=== PATIENT | male | born 1960 | race Caucasian/White ===

== ENCOUNTER 2019-10-31 16:19 | Inpatient (IN) | payer OTHER, SELFPAY ==
[2019-10-31] VITALS (29 sets, daily range): BP systolic 112–134; BP diastolic 67–94; PULSE 64–75; RESP 14–22; TEMP 36.2–37; O2SAT 93–99
--- NOTE | ~2019-10-31 | XR_ITS ---
EXAMINATION: XR chest 2V EXAM DATE: 10/31/2019 16:57 INDICATION: Left-sided Chest pain, dyspnea, history COPD. TECHNIQUE: Frontal and lateral projections of the chest obtained and reviewed. Comparison is made to prior examination from 10/31/2019. FINDINGS: Small amount of left basilar opacity, best seen on lateral projection, probably subsegment al atelectasis. Can't exclude developing infiltrate. Please clinically correlate. The lungs are otherwise clear. There are no pleural effusions. The cardiomediastinal silhouette is within normal limits. There is no pneumothorax suspected. The bones and soft tissues are unremarkab le. IMPRESSION: Small amount of basilar atelectasis or less likely pneumonia. Reviewed, dictated and finalized at location A.
--- NOTE | ~2019-10-31 | NM_ITS ---
EXAMINATION: NM jonnathan stress w perfusion DATE: 11/03/2019 11:47 INDICATION: Chest pressure TECHNIQUE: Rest images were obtained following intravenous administration of 10.5 mCi Tc99m tetrofosm in (Myoview). The patient was infused intravenously with Lexiscan (Regadenoson). Then, 31.77 mCi Tc99 m tetrofosmin (Myoview) was administered intravenously, and stress images were obtained. Data was rec onstructed into short axis and horizontal and vertical long axis SPECT images. Repeat post stress aakash ging was obtained in the prone position. Gated SPECT images were also obtained. COMPARISON: None. FINDINGS: There is a fixed perfusion defect along the mid and apical inferior segments which is more on the rest than the stress images and which further improved with decreased size and severity on pro ne imaging which suggests diaphragmatic attenuation artifact although mild infarct could not be exclu ded. No reversible perfusion defects on the stress imaging to suggest ischemia. There is normal left ventricular chamber size, wall motion and ejection fraction. Left ventricular ejection fraction connor sures >70%. IMPRESSION: 1. Mild fixed perfusion defect at the mid and apical inferior segments which appears to improve on pr one imaging and with no evident associated wall motion abnormality most likely related to diaphragmat ic attenuation artifact although infarct cannot be excluded. No ischemia. 2. Left ventricular ejection fraction measuring >70%. Reviewed, dictated and finalized at location A. IMPRESSION: 1. Mild fixed perfusion defect at the mid and apical inferior segments which ap pears to improve on prone imaging and with no evident associated wall motion ab normality most likely related to diaphragmatic attenuation artifact although in farct cannot be excluded. No ischemia. 2. Left ventricular ejection fraction measuring >70%.
--- NOTE | 2019-10-31 16:33 | ECG_ITS ---
Measurements Intervals [place] Rate: 68 P: 42 RI: 173 QRS: 24 QRSD: 85 T: 58 QT: 379 QTc: 405 Interpretive Statements SINUS RHYTHM NORMAL ECG Electronically Signed On 10-31-2019 17:18:11 CDT by Suhas Horn D.O.
--- NOTE | 2019-10-31 16:49 | ED.CHESTPAIN ---
HPI - Chest Pain General Chief Complaint: Chest Pain Stated Complaint: SOB Time Seen by Provider: 10/31/19 16:30 History of Present Illness HPI narrative: Patient is a 59-year-old male who presents ER with chest pain. Symptoms began at 330, strong pressure to the left chest without radiation. Patient felt very weak and was short of breath. He used a breathing treatment and placed his home oxygen on and began to feel slightly better. No history of coronary disease previously. Reports he was doing outdoor yard work during the living when symptoms occurred. Denies any runny nose/sore throat/productive cough. Reports he is wheezing little bit more today than he does typically due to the humidity outside. Related Data Home Medications Medication Instructions Recorded Confirmed albuterol sulfate 90 mcg INHALATION 10/31/19 amlodipine 10 mg PO DAILY 10/31/19 baclofen 20 mg PO 10/31/19 budesonide-formoterol [Symbicort] INHALATION 10/31/19 buspirone 5 mg PO DAILY 10/31/19 ipratropium-albuterol 3 ml INHALATION 10/31/19 montelukast 10 mg PO DAILY 10/31/19 nicotine 14 mg TRANSDERMAL 10/31/19 sertraline 100 mg PO DAILY 10/31/19 Allergies Allergy/AdvReac Type Severity Reaction Status Date / Time bacitracin Allergy Unknown Unknown Verified 01/13/19 17:29 neomycin Allergy Unknown Unknown Verified 01/13/19 17:29 Penicillins Allergy Unknown Rash Verified 01/13/19 17:29 polymyxin B Allergy Unknown Unknown Verified 01/13/19 17:29 Review of Systems Review of Systems: All systems reviewed & are unremarkable except as noted in HPI and below Constitutional: Constitutional: Denies chills, Denies fever(s) and Reports weakness ENT: Denies nasal congestion and Denies sore throat Cardiovascular: Cardiovascular: Denies chest pain Respiratory: Respiratory: Denies cough, Reports dyspnea and Reports wheezing Gastrointestinal: Gastrointestinal: Denies abdominal pain, Denies nausea and Denies vomiting PMFSH Past Medical History Medical History (Updated 10/31/19 @ 19:08 by Dwayne Oconnor MD) End stage COPD Hypertension Surgical History Surgical History (Updated 10/31/19 @ 16:52 by Dwayne Oconnor MD) History of orthopedic surgery Left biceps repair Social History Social History (Updated 08/03/20 @ 16:52 by Dwayne Oconnor MD) Smoking status: Current every day smoker Exam Narrative: Exam Narrative: GENERAL: Well-appearing, well-nourished, and in no acute distress. HEAD: Normocephalic, atraumatic. ENT: Mucous membranes moist. CHEST: Basilar wheezing with poor air movement throughout. No respiratory distress. HEART: Regular rate and rhythm. Normal peripheral pulses. ABDOMEN: Soft, nontender, nondistended. EXTREMITIES: Normal range of motion. No edema. SKIN: Warm, dry, no rash. NEURO: Alert and oriented x3. PSYCH: Normal mood and affect. Course Course Emergency Course: Admit to hospitalist service for observation for chest pain rule out given heart score of 4 and concerning symptoms and risk factors. Vital Signs Vital signs: Vital Signs Pulse Rate 73 10/31/19 16:30 Respiratory Rate 16 10/31/19 16:30 Temperature 98.6 F 10/31/19 16:34 Pulse Rate 68 10/31/19 17:59 Respiratory Rate 18 10/31/19 17:59 Blood Pressure 121/94 H 10/31/19 17:46 Pulse Oximetry 96 10/31/19 17:46 MDM - Chest Pain Lab Data Result diagrams: 10/31/19 16:42 10/31/19 16:42 Labs: Lab Results 10/31/19 10/31/19 10/31/19 Range/Units 16:42 16:42 16:42 WBC 7.8 (4.5-10.0) K/mm3 RBC 5.09 (4.6-6.20) M/mm3 Hgb 15.7 (14.0-18.0) g/dL Hct 45.4 (42.0-52.0) % MCV 89.2 (80-100) fl MCH 30.8 (26-34) pg MCHC 34.6 (32-36) g/dl RDW 12.8 (11.5-14.5) % Plt Count 275 (150-375) k/mm3 MPV 10.0 (7.4-10.4) fl Immature Gran % (Auto) 0.4 (0-0.5) % Neut % (Auto) 54.3 (45.5-73.1) % Lymph % (Auto) 31.6 (18.3-44.2) % Iron % (Au
[2019-10-31 16:51] LABS: Basophils Absolute Auto 0.1 K/mm3 (0.0-0.1); Eosinophils Absolute Auto 0.3 K/mm3 (0-0.3); Hematocrit 45.4 % (42.0-52.0); Hemoglobin 15.7 g/dL (14.0-18.0); Immature Granulocyte Absolute 0.03 K/mm3 (0.00-0.031); Immature Granulocyte Percent A 0.4 % (0-0.5); Lymphocytes Absolute Auto 2.46 K/mm3 (0.9-3.2); Lymphocytes Percent Auto 31.6 % (18.3-44.2); Mean Corpuscular HGB Conc 34.6 g/dl (32-36); Mean Corpuscular Hemoglobin 30.8 pg (26-34); Mean Corpuscular Volume 89.2 fl (80-100); Monocytes Absolute Auto 0.7 K/mm3 (0.1-0.6); Monocytes Percent Auto 8.7 % (2.6-8.5); Neutrophils Absolute Auto 4.2 K/mm3 (1.3-6.7); Neutrophils Percent Auto 54.3 % (45.5-73.1); Platelet Count Result 275 k/mm3 (150-375); Red Blood Count 5.09 M/mm3 (4.6-6.20); Red Cell Distribution Width 12.8 % (11.5-14.5); White Blood Count 7.8 K/mm3 (4.5-10.0)
[2019-10-31 17:01] LABS: Prothrombin Time 13.1 Seconds (11.1-14.7)
[2019-10-31 17:02] LABS: Partial Thromboplastin Time 33.1 SECONDS (22.3-36.8)
[2019-10-31 17:05] LABS: Blood Urea Nitrogen 21 mg/dL (9-20); Calcium 9.1 mg/dL (8.4-10.2); Carbon Dioxide 26 mmol/L (22-30); Chloride 104 mmol/L (98-107); Estimated CRCL calculation 68 ml/min; Estimated Glomerular Filt Rate > 60; Glucose 100 mg/dL (75-110); Sodium 137 mmol/L (137-145)
[2019-10-31 17:17] LABS: Troponin I < 0.012 ng/mL (0.000-0.034)
[2019-10-31] MEDS: ALBUTEROL SULFATE NEB 2.5 MG/0.5 ML INH 5 MG INHALATION ×2 (17:43→21:14)
--- NOTE | 2019-10-31 19:16 | PC.NURSE ---
report received from DANIEL Harman. pt resting on stretcher at this time with family member at bedside. denies any needs/concerns, updated pt and family on poc. VS stable, RR even and unlabored. pt provided with urinal.
[2019-10-31 20:39] LABS: Troponin I < 0.012 ng/mL (0.000-0.034)
[2019-10-31] MEDS: IPRATROPIUM BR 0.02% INH SOLN 0.5 MG/2.5 ML VIAL INHALATION (21:14)
--- NOTE | 2019-10-31 22:35 | ADMGEN ---
This patient, Jeremiah Claire, was admitted to IMU Room 214-01. Patient/family oriented to hospital policies and general routines including ID bracelet, bed and alarms, visiting hours, pain management, procedures, bathroom and other care routines, personal items, smoking policy, room service/diet, and visiting hours. Valuables list has been completed. Information on how to activate the Rapid Response Team has been discussed. Patient/Family are encouraged to report perceived risks to care and to ask questions if they do not understand what they are told or what they should do.
--- NOTE | 2019-10-31 22:57 | PM.IMHP ---
H&P: HPI History of Present Illness Date/Time: 10/31/19 22:57 Chief complaint: chest pain, copd Narrative: This is a pleasant 59 year old male with known end stage COPD on 3 L of oxygen at home at all times as well as HTN who presented to the hospital today with a complaint of left sided chest pain. He has had intermittent chest pain for over a month and today after walking to his truck he sat in it and immediately started to have severe left sided chest pain that he described as pressure like. His pain seemed to radiate down the left side of his body. He describes the pain lasting for over 30 minutes and improved once he had aspirin and put his oxygen back on. Associated symptoms included weakness, nausea, and diaphoresis. The patient denies any previous history of CAD+, stress testing, or previous cardiac angiogram. He also denies any recent fevers, chills, worsening cough, abdominal pain, dysuria, hematuria, dysuria, rectal bleeding, diarrhea, or lower extremity swelling/pain. The patient relates that he has been under a great deal of stress lately as his can't work and he has been forced to work even though he has end stage COPD. The patient continues to smoke 5-10 cigarettes daily despite having oxygen dependent COPD. No other complaints. Review of Systems Review of Systems: All systems reviewed & are unremarkable except as noted in HPI and below PMFSH Past Medical History Medical History End stage COPD Hypertension Surgical History Surgical History History of orthopedic surgery Left biceps repair Social History Social History Smoking packs per day: 0.5 Smoking cigarettes per day: 10.0 Years smoked: 30 Smoking pack-years: 15.00 Smoking status: Current every day smoker Tobacco type: cigarettes Alcohol intake: never Substance use: never Substance use type: does not use Spiritual care concerns: No Comments Family medical history reviewed and noncontributory. Meds Home Medications and Allergies Home Medications Medication Instructions Recorded Confirmed Type albuterol sulfate 90 mcg INHALATION Q4H 10/31/19 10/31/19 History amlodipine 10 mg PO DAILY 10/31/19 10/31/19 History baclofen 20 mg PO TID PRN 10/31/19 10/31/19 History budesonide-formoterol [Symbicort] 2 puff INHALATION BID 10/31/19 10/31/19 History buspirone 10 mg PO BID 10/31/19 10/31/19 History ibuprofen 1,000 mg PO TID PRN 10/31/19 10/31/19 History ipratropium-albuterol 3 ml INHALATION BID 10/31/19 10/31/19 History montelukast 10 mg PO HS 10/31/19 10/31/19 History nicotine 14 mg TRANSDERMAL DAILY 10/31/19 10/31/19 History oxymetazoline [Afrin Sinus 2 spray INTRANASAL Q12H PRN 10/31/19 10/31/19 History (oxymetazoline)] pregabalin [Lyrica] 200 mg PO Q12H 10/31/19 10/31/19 History sertraline 100 mg PO HS 10/31/19 10/31/19 History Allergies Allergy/AdvReac Type Severity Reaction Status Date / Time bacitracin Allergy Unknown Unknown Verified 01/13/19 17:29 neomycin Allergy Unknown Unknown Verified 01/13/19 17:29 Penicillins Allergy Unknown Rash Verified 01/13/19 17:29 polymyxin B Allergy Unknown Unknown Verified 01/13/19 17:29 Vital Signs Vital Signs - 24 hr 10/31/19 16:30 10/31/19 16:31 10/31/19 16:34 Temperature 37.0 C Pulse Rate 73 75 75 Respiratory Rate 16 19 16 Blood Pressure 131/76 131/67 Pulse Oximetry 95 10/31/19 16:45 10/31/19 16:46 10/31/19 17:00 Temperature Pulse Rate 75 73 71 Respiratory Rate 15 18 19 Blood Pressure 121/85 Pulse Oximetry 95 95 95 10/31/19 17:15 10/31/19 17:18 10/31/19 17:30 Temperature Pulse Rate 69 67 67 Respiratory Rate 18 20 20 Blood Pressure 131/81 Pulse Oximetry 96 95 95 10/31/19 17:31 10/31/19 17:44 10/31/19 17:45 Temperature Pulse Rate 66 75 66 Respiratory Rate 15 21 H 18
--- NOTE | 2019-10-31 23:01 | ECG_ITS ---
Measurements Intervals [place] Rate: 67 P: 61 NC: 184 QRS: 57 QRSD: 90 T: 65 QT: 406 QTc: 431 Interpretive Statements SINUS RHYTHM BORDERLINE ST ABNORMALITY- INFERIOR LEADS BASELINE ARTIFACT- V3-V5 BORDERLINE ECG Electronically Signed On 11-01-2019 6:47:46 CDT by Suhas Horn D.O.
[2019-10-31 23:24] LABS: Lipase 67 U/L (23-300)
[2019-10-31 23:34] LABS: Troponin I < 0.012 ng/mL (0.000-0.034)
[2019-11-01] VITALS (24 sets, daily range): BP systolic 98–121; BP diastolic 48–75; PULSE 60–78; RESP 16–22; TEMP 35.7–36.7; O2SAT 92–96; BMI 31.9
--- NOTE | 2019-11-01 | ECHO_ITS ---
Patient Info Name: Jeremiah Claire Age: 59 years : 1960 Gender: Male Ht: 64 in Wt: 186 lbs BSA: 1.98 m2 HR: 65 bpm BP: 111 / 75 mmHg Heart Rhythm: Sinus Rhythm Technical Quality: Good Exam Date: 11/01/2019 1:49 PM Exam Location: [facility] Patient Status: Inpatient Admit Date: 10/31/2019 Staff Ordering Physician: Last Cooley MD [place] Room Worker: Nghia Buchanan RDCS Attending Provider: Neptali Mitchell MD Exam Type: CA echo doppler color flow Study Info Indications R07.9 - Chest pain, unspecified Complete two-dimensional, color flow and Doppler transthoracic echocardiogram is performed. History/Risk Factors Chest pain and end-stage COPD; HTN. Summary 1. There is mild aortic valve sclerosis. 2. The left ventricular diastolic function is grade I diastolic dysfunction. 3. Normal LV systolic function without wall motion abnormalities. Left Ventricle Left ventricular chamber dimension is normal. Left ventricular systolic function is normal, estimated at 65-70%. The left ventricular diastolic function is grade I diastolic dysfunction. Right Ventricle Right ventricular chamber dimension is normal. Left Atria Left atrial chamber dimension is normal. Right Atria Right atrial chamber dimension is normal. Aortic Valve The aortic valve is trileaflet. There is mild aortic valve sclerosis. Pulmonic Valve The pulmonic valve is normal. Mitral Valve The mitral valve has normal leaflets. Tricuspid Valve The tricuspid valve leaflets are normal. Pericardium/Pleural The pericardium appears normal. Aorta The aortic root size at the sinus of Valsalva is normal. Left Ventricular Outflow Tract Name Value Normal LVOT 2D LVOT Diameter 2.1 cm LVOT Doppler LVOT Peak Gradient 4 mmHg LVOT Mean Gradient 2 mmHg LVOT VTI 15 cm LVOT VTI/AV VTI Ratio 0.8 LVOT Stroke Volume 54 ml LVOT CO 3.7 l/min LVOT CI 1.9 l/min/m2 Mitral Valve Name Value Normal MV Doppler MV Decel [place] 100 cm/s2 MV PHT 115 ms MV Area (PHT) 1.9 cm2 4.0-5.0 MV Diastolic Function MV E Peak Velocity 40 cm/s MV A Peak Velocity 52 cm/s MV E/A 0.8 MV Decel Time 396 ms MV Annular TDI MV E/e' (Septal) 6.2 <=8.0 MV E/e' (Lateral) 4.
[2019-11-01] MEDS: PREGABALIN 50 MG CAPSULE 200 MG PO ×3 (00:01→20:51)
[2019-11-01] MEDS: SERTRALINE HCL 50 MG TABLET 100 MG PO ×2 (00:48→20:52)
[2019-11-01] MEDS: MONTELUKAST SODIUM 10 MG TABLET PO ×2 (00:48→20:53)
[2019-11-01] MEDS: ALBUTEROL SULFATE NEB 2.5 MG/0.5 ML INH 5 MG INHALATION ×4 (02:13→20:57)
[2019-11-01] MEDS: IPRATROPIUM BR 0.02% INH SOLN 0.5 MG/2.5 ML VIAL INHALATION ×4 (02:13→20:57)
[2019-11-01 05:54] LABS: Anion Gap 9.7 mmol/L (7-16); Blood Urea Nitrogen 17 mg/dL (9-20); Calcium 8.6 mg/dL (8.4-10.2); Carbon Dioxide 28 mmol/L (22-30); Chloride 102 mmol/L (98-107); Cholesterol 244 mg/dL (0-200); Estimated CRCL calculation 75 ml/min; Estimated Glomerular Filt Rate > 60; Glucose 119 mg/dL (75-110); HDL Direct 34 mg/dL; Potassium 3.7 mmol/L (3.4-5.0); Sodium 136 mmol/L (137-145); Triglycerides 478 mg/dL (<150)
[2019-11-01 06:05] LABS: LDL Cholesterol Direct 131 mg/dL
[2019-11-01] MEDS: amLODIPine BESYLATE 5 MG TABLET 10 MG PO (09:18)
[2019-11-01] MEDS: BACLOFEN 10 MG TABLET 20 MG PO ×3 (09:18→17:26)
[2019-11-01] MEDS: busPIRone HCL 5 MG TABLET 10 MG PO ×2 (09:20→17:10)
--- NOTE | 2019-11-01 11:34 | PM.CNCAR ---
Assessment and Plan Assessment and plan (1) Chest pain: Qualifiers: Chest pain type: unspecified Qualified Code(s): R07.9 - Chest pain, unspecified Code(s): R07.9 - Chest pain, unspecified Status: Acute Assessment and Plan: 59-year-old male with hypertension, dyslipidemia /hypertriglyceridemia, severe COPD on home oxygen. Patient presented with complaints of chest discomfort. His EKG is unremarkable, serial troponins are negative. Patient's coronary risk factors include ongoing tobacco abuse, hypertension, untreated dyslipidemia. - Will proceed with echocardiogram with Doppler to assess LV / RV function, wall motion. - Noninvasive ischemic evaluation , unless echocardiogram shows significant LV dysfunction and or wall motion abnormality, in that case he will undergo cardiac catheterization. Patient has COPD and diffuse rhonchi/ wheezes on physical examination. Will reassess him in the morning, and will do regadenoson MPI if no significant wheezing on physical examination. If patient continues to have clinical signs of bronchospasm, then he will undergo dobutamine MPI tomorrow to evaluate for any significant ischemia. - Start aspirin. - Continue to monitor on telemetry - patient advised to quit tobacco. (2) Hypertension: Qualifiers: Hypertension type: unspecified Qualified Code(s): I10 - Essential (primary) hypertension Code(s): I10 - Essential (primary) hypertension Status: Chronic (3) COPD (chronic obstructive pulmonary disease): Qualifiers: COPD type: unspecified COPD Qualified Code(s): J44.9 - Chronic obstructive pulmonary disease, unspecified Code(s): J44.9 - Chronic obstructive pulmonary disease, unspecified Status: Chronic History of Present Illness History of Present Illness Consult date/time: 11/01/19 11:34 Date of service: 11/01/2019 reason for consult: Chest pain Requesting physician: Chief complaint: chest pain since yesterday HPI: 59-year-old male with hypertension, dyslipidemia /hypertriglyceridemia, severe COPD on home oxygen. Patient presented to [facility] emergency room on 10/31/2019 with complaints of chest discomfort. patient states that he was in his usual state of health when he started having gradual onset left inframammary chest discomfort, pressure-like sensation with some radiation to the left neck. His symptoms lasted for about 20 minutes, although he still has some residual discomfort in the left precordial area. He had some worsening of the shortness of breath. Patient does have baseline dyspnea on mild exertion due to his underlying COPD. He is on home oxygen 3 liters/minute. He denied any dizziness, palpitations, syncope. There is no known prior cardiac history. EKG on this admission which I personally evaluated showed sinus rhythm without any significant acute ST-T abnormality. Serial troponins are negative. Chest x-ray is reported show Small amount of basilar atelectasis or less likely pneumonia. patient has severe COPD and is on home oxygen, however history continues to smoke. denies excess alcohol or illicit drugs. Lives with his . Reason For Visit: chest pain, copd Review of Systems Constitutional: Constitutional: Denies chills, Denies fatigue, Denies fever(s) and Denies headache(s) Eyes: Eyes: Reports as per HPI, Denies change in vision, Denies loss of vision and Denies eye pain ENT: Reports as per HPI, Reports Normal hearing present, Denies headache(s), Denies lip swelling, Denies epistaxis and Denies sore throat Cardiovascular: Cardiovascular: Reports as per HPI, Reports chest pain, Denies syncope, Denies irregular heart rhythm, Denies lightheadedness and Reports dyspnea Respiratory: Respiratory: Reports as per HPI, Denies cough, Reports dyspnea and Reports wheezing Gastrointestinal: Gastrointestinal: Reports as per HPI, Denies abdominal pain, Denies melena,
--- NOTE | 2019-11-01 18:28 | PM.IMPN ---
Progress Note: A&P Assessment and Plan (1) Chest pain: Qualifiers: Chest pain type: unspecified Qualified Code(s): R07.9 - Chest pain, unspecified Code(s): R07.9 - Chest pain, unspecified Status: Acute Assessment and Plan: Admit for observation, NPO after midnight. Trend troponin. Check another EKg now. Monitor for chest pain, Nitro SL PRN for chest pain, Check lipase and lipid panel. Cardiology consultation in am. 11/01/19 18:28 patient is a 59-year-old male with end-stage COPD unfortunately he still smokes patient presented emergency depart after he had developed chest pain lasting 30 minutes radiating to the left arm, patient is 3 sets of cardiac enzymes are negative, patient is seen by eviscerator cardiac echo and non invasive workup is in progress and further recommendation to follow, currently patient denies any chest pain, complaint of shortness of breath chronic for the patient (2) COPD (chronic obstructive pulmonary disease): Qualifiers: COPD type: unspecified COPD Qualified Code(s): J44.9 - Chronic obstructive pulmonary disease, unspecified Code(s): J44.9 - Chronic obstructive pulmonary disease, unspecified Status: Chronic Assessment and Plan: Continue oxygen supplementation. Bronchodilators. (3) Hypertension: Qualifiers: Hypertension type: unspecified Qualified Code(s): I10 - Essential (primary) hypertension Code(s): I10 - Essential (primary) hypertension Status: Chronic Assessment and Plan: Continue home antihypertensives. Subjective Date/time seen: 11/01/19 18:28 patient is a 59-year-old male with end-stage COPD unfortunately he still smokes patient presented emergency depart after he had developed chest pain lasting 30 minutes radiating to the left arm, patient is 3 sets of cardiac enzymes are negative, patient is seen by eviscerator cardiac echo and non invasive workup is in progress and further recommendation to follow, currently patient denies any chest pain, complaint of shortness of breath chronic for the patient Review of Systems Review of Systems: All systems reviewed & are unremarkable except as noted in HPI and below Exam Const: General: no acute distress and uncomfortable HENMT: General nose exam: Normal nares present Mouth: Yes moist mucous membranes Eyes: General: appearance normal, both eyes and all related structures Sclera: sclerae normal Neck: Other: no retraction Resp: Other: bilateral poor air entry with wheezing Cardio: Rate: regular rate Rhythm: regular rhythm GI: Auscultation: normal bowel sounds Skin: General skin exam: normal color Neuro: Speech: normal speech Sensory Exam: normal sensation Extrem: General: normal to inspection Psych: Affect: Anxious affect present Objective Data Vital Signs Vital Signs: Vital Signs - 24 hr 10/31/19 18:30 10/31/19 18:45 10/31/19 18:46 Temperature Pulse Rate 67 66 Respiratory Rate 16 17 Blood Pressure 117/82 Pulse Oximetry 96 94 94 10/31/19 19:00 10/31/19 19:01 10/31/19 20:36 Temperature Pulse Rate 66 66 65 Respiratory Rate 15 15 16 Blood Pressure 120/82 134/76 Pulse Oximetry 94 96 93 10/31/19 21:17 10/31/19 21:18 10/31/19 21:24 Temperature Pulse Rate 68 68 72 Respiratory Rate 14 14 16 Blood Pressure Pulse Oximetry 95 10/31/19 21:45 11/01/19 00:00 11/01/19 02:00 Temperature 97.1 F L 97.1 F L Pulse Rate 74 78 60 Respiratory Rate 22 H 20 Blood Pressure 115/85 115/66 Pulse Oximetry 96 95 11/01/19 02:13 11/01/19 02:20 11/01/19 04:00 Temperature 98.1 F Pulse Rate 66 68 62 Respiratory Rate 16 16 18 Blood Pressure 98/48 L Pulse Oximetry 94 11/01/19 06:00 11/01/19 08:00 11/01/19 08:28 Temperature 97.8 F Pulse Rate 68 62 62 Respiratory Rate 22 H Blood Pressure 109/70 Pulse Oximetry 94 11/01/19 09:20 11/01/19 09:32 11/01/19 10:00 Temperature Pulse
[2019-11-02] VITALS (24 sets, daily range): BP systolic 116–150; BP diastolic 66–76; PULSE 60–81; RESP 16–24; TEMP 35.9–36.6; O2SAT 92–98
[2019-11-02] MEDS: ALBUTEROL SULFATE NEB 2.5 MG/0.5 ML INH 5 MG INHALATION ×2 (02:41→08:58)
[2019-11-02] MEDS: IPRATROPIUM BR 0.02% INH SOLN 0.5 MG/2.5 ML VIAL INHALATION ×5 (02:41→20:12)
[2019-11-02] MEDS: ASPIRIN 81 MG ENTERIC TABLET PO (08:54)
[2019-11-02] MEDS: busPIRone HCL 5 MG TABLET 10 MG PO ×2 (08:54→16:47)
[2019-11-02] MEDS: BACLOFEN 10 MG TABLET 20 MG PO ×2 (08:55→16:57)
[2019-11-02] MEDS: PREGABALIN 50 MG CAPSULE 200 MG PO ×2 (08:55→21:06)
[2019-11-02] MEDS: amLODIPine BESYLATE 5 MG TABLET 10 MG PO (08:55)
--- NOTE | 2019-11-02 11:09 | PM.PNCARD ---
Progress Note: A&P Assessment and Plan (1) Chest pain: Qualifiers: Chest pain type: unspecified Qualified Code(s): R07.9 - Chest pain, unspecified Code(s): R07.9 - Chest pain, unspecified Status: Acute Assessment and Plan: 59-year-old male with hypertension, dyslipidemia /hypertriglyceridemia, severe COPD on home oxygen. Presented with complaints of chest discomfort. His EKG is unremarkable, serial troponins are negative. Coronary risk factors include ongoing tobacco abuse, hypertension, untreated dyslipidemia. Echocardiogram 11/01/2019: Mild aortic valve sclerosis, left ventricular diastolic function is grade 1 diastolic dysfunction. Normal LV systolic function without wall motion abnormality. Ejection fraction estimated 65-70% Noninvasive ischemic evaluation: Still has significant wheezing today. Nebulizer treatments have ordered as well as Solu-Medrol. Will plan for Lexiscan nuclear stress test tomorrow. No significant arrhythmias on telemetry. Continue aspirin. (2) Hypertension: Qualifiers: Hypertension type: unspecified Qualified Code(s): I10 - Essential (primary) hypertension Code(s): I10 - Essential (primary) hypertension Status: Chronic Assessment and Plan: At goal (3) COPD (chronic obstructive pulmonary disease): Qualifiers: COPD type: unspecified COPD Qualified Code(s): J44.9 - Chronic obstructive pulmonary disease, unspecified Code(s): J44.9 - Chronic obstructive pulmonary disease, unspecified Status: Chronic Assessment and Plan: Continues to smoke. Down from 2 packs per day to 1/2 pack per day. Smoking cessation counseling done. Additional Plan Plan discussed with Dr. Baires 1115 11/02/2019 Time Spent With Patient Time with patient: less than 15 minutes Subjective Date/time seen: 11/02/19 11:09 Interval history: Follow up for: Chest pressure, severe COPD, hypertension, hyperlipidemia Date of service: 11/02/2019 Subjective: No chest pressure today. Exertional shortness of breath is at baseline. Productive cough is at baseline. Secretions are clear. Wheezing is improved as he is not out in the heat and humidity. Review of Systems Constitutional: Constitutional: Denies chills, Denies fatigue, Denies fever(s) and Denies headache(s) Eyes: Eyes: Denies blurry vision, Denies change in vision, Denies loss of vision and Denies eye pain ENT: Reports Normal hearing present, Denies headache(s), Denies lip swelling, Denies epistaxis and Denies sore throat Cardiovascular: Cardiovascular: Reports chest pain ( No pressure today.), Denies syncope, Denies irregular heart rhythm, Denies lightheadedness and Reports dyspnea ( improved) Respiratory: Respiratory: Reports cough ( at baseline), Reports dyspnea ( improved) and Reports wheezing ( improved) Gastrointestinal: Gastrointestinal: Denies abdominal pain, Denies melena, Denies nausea and Denies vomiting Genitourinary: Genitourinary: Denies hematuria Musculoskeletal: Musculoskeletal: Denies myalgias, Denies muscle cramps and Denies muscle weakness Integumentary/Breasts: Skin/Breast: Denies pruritus and Denies rash Neurologic: Reports Normal hearing present, Denies behavioral changes, Denies syncope, Denies headache(s) and Denies loss of vision Psychiatric: Psychiatric: Denies anxiety, Denies behavioral changes and Denies depression Endocrine: Endocrine: Reports as per HPI, Denies fatigue, Denies polydipsia and Denies polyuria Hematologic/Lymphatic: Hematologic/Lymphatic: Reports as per HPI, Denies easy bleeding and Denies easy bruising Allergic/Immunologic: Allergic/Immunologic: Reports as per HPI, Denies lip swelling and Denies wheezing Exam Const: General: no acute distress, alert and awake HENMT: Head: normocephalic and atraumatic Ears: hearing grossly
[2019-11-02] MEDS: methylPREDNISolone SOD SUCC 125 MG VIAL 60 MG IV PUSH ×3 (11:42→21:07)
[2019-11-02] MEDS: ALBUTEROL SULFATE NEB 2.5 MG/0.5 ML INH INHALATION ×3 (12:03→20:12)
[2019-11-02] MEDS: ALPRAZolam 0.25 MG TABLET PO (15:01)
[2019-11-02] MEDS: NICOTINE (*PBKC) 14 MG PATCH 1 PATCH TRANSDERM (15:11)
--- NOTE | 2019-11-02 17:20 | PC.NURSE ---
Transfer received from IMU per bed. Report received from DANIEL Piña.
--- NOTE | 2019-11-02 17:23 | PC.NURSE ---
This patient, Jeremiah Claire, was transferred to [facility] on 11/02/19 at 1723. Personal belongings sent with patient. Report given to DANIEL Khoury. Appropriate documentation sent with patient.
--- NOTE | 2019-11-02 18:03 | PM.IMPN ---
Progress Note: A&P Assessment and Plan (1) Chest pain: Qualifiers: Chest pain type: unspecified Qualified Code(s): R07.9 - Chest pain, unspecified Code(s): R07.9 - Chest pain, unspecified Status: Acute Assessment and Plan: Admit for observation, NPO after midnight. Trend troponin. Check another EKg now. Monitor for chest pain, Nitro SL PRN for chest pain, Check lipase and lipid panel. Cardiology consultation in am. 11/02/19 18:03 patient is a 59-year-old male with end-stage COPD unfortunately he still smokes patient presented emergency depart after he had developed chest pain lasting 30 minutes radiating to the left arm, patient is 3 sets of cardiac enzymes are negative, patient was seen by province archivist cardiac echo was done which showed preserved LV function with ejection fraction of 65% and grade 1 diastolic dysfunction, patient has remained clinically stable still has shortness of breath and wheezing, patient is being treated with Solu-Medrol updraft and Pulmicort, and patient is seen by province archivist today planned to have Lexiscan tomorrow to further assess coronary artery disease and further recommendation to follow (2) COPD (chronic obstructive pulmonary disease): Qualifiers: COPD type: unspecified COPD Qualified Code(s): J44.9 - Chronic obstructive pulmonary disease, unspecified Code(s): J44.9 - Chronic obstructive pulmonary disease, unspecified Status: Chronic Assessment and Plan: Continue oxygen supplementation. Bronchodilators. (3) Hypertension: Qualifiers: Hypertension type: unspecified Qualified Code(s): I10 - Essential (primary) hypertension Code(s): I10 - Essential (primary) hypertension Status: Chronic Assessment and Plan: Continue home antihypertensives. Subjective Date/time seen: 11/02/19 18:03 patient is a 59-year-old male with end-stage COPD unfortunately he still smokes patient presented emergency depart after he had developed chest pain lasting 30 minutes radiating to the left arm, patient is 3 sets of cardiac enzymes are negative, patient was seen by province archivist cardiac echo was done which showed preserved LV function with ejection fraction of 65% and grade 1 diastolic dysfunction, patient has remained clinically stable still has shortness of breath and wheezing, patient is being treated with Solu-Medrol updraft and Pulmicort, and patient is seen by province archivist today planned to have Lexiscan tomorrow to further assess coronary artery disease and further recommendation to follow Review of Systems Review of Systems: All systems reviewed & are unremarkable except as noted in HPI and below Exam Const: General: comfortable and no acute distress HENMT: General nose exam: Normal nares present Mouth: Yes moist mucous membranes Eyes: General: appearance normal, both eyes and all related structures Sclera: sclerae normal Neck: Neck: supple Resp: Other: bilateral poor air entry with wheezing and rhonchi Cardio: Rate: regular rate Rhythm: regular rhythm GI: Auscultation: normal bowel sounds Skin: General skin exam: normal color Neuro: Speech: normal speech Sensory Exam: normal sensation Extrem: General: normal to inspection Psych: Affect: Anxious affect present Objective Data Vital Signs Vital Signs: Vital Signs - 24 hr 11/01/19 20:00 11/01/19 20:27 11/01/19 21:00 Temperature 96.2 F L Pulse Rate 74 75 65 Respiratory Rate 20 18 18 Blood Pressure 121/67 Pulse Oximetry 95 92 95 11/01/19 21:01 11/01/19 21:13 11/01/19 22:00 Temperature Pulse Rate 65 65 62 Respiratory Rate 20 20 Blood Pressure Pulse Oximetry 11/02/19 00:00 11/02/19 00:20 11/02/19 02:00 Temperature 96.7 F L Pulse Rate 76 72 64 Respiratory Rate 20 18 Blood Pressure 117/74 Pulse Oximetry 95 95 11/02/19 02:42 11/02/19 02:49 11/02/19 04:00 Temperature Pulse Rate 66 66 60 Respiratory Rat
[2019-11-02] MEDS: BUDESONIDE RESPULE NEB 0.5 MG/2 ML AMP INHALATION (20:12)
[2019-11-02] MEDS: SERTRALINE HCL 50 MG TABLET 100 MG PO (21:06)
[2019-11-02] MEDS: MONTELUKAST SODIUM 10 MG TABLET PO (21:06)
[2019-11-03] VITALS (11 sets, daily range): BP systolic 120–144; BP diastolic 57–72; PULSE 72–89; RESP 14–20; TEMP 36.6; O2SAT 94–98
[2019-11-03] MEDS: ALBUTEROL SULFATE NEB 2.5 MG/0.5 ML INH INHALATION ×3 (00:35→12:10)
[2019-11-03] MEDS: IPRATROPIUM BR 0.02% INH SOLN 0.5 MG/2.5 ML VIAL INHALATION ×3 (00:35→12:10)
[2019-11-03] MEDS: BACLOFEN 10 MG TABLET 20 MG PO ×2 (00:36→08:37)
[2019-11-03] MEDS: ACETAMINOPHEN 325 MG TABLET 650 MG PO (04:26)
[2019-11-03] MEDS: methylPREDNISolone SOD SUCC 125 MG VIAL 60 MG IV PUSH ×2 (05:21→13:15)
[2019-11-03] MEDS: amLODIPine BESYLATE 5 MG TABLET 10 MG PO (08:29)
[2019-11-03] MEDS: PREGABALIN 50 MG CAPSULE 200 MG PO (08:29)
[2019-11-03] MEDS: ASPIRIN 81 MG ENTERIC TABLET PO (08:29)
[2019-11-03] MEDS: busPIRone HCL 5 MG TABLET 10 MG PO (08:30)
--- NOTE | 2019-11-03 09:10 | PC.NURSE ---
Patient to nuclear medicine per wheelchair for vitaliy.
--- NOTE | 2019-11-03 10:00 | EST_ITS ---
Patient Info Name: Jeremiah Claire Age: 59 years : 1960 Gender: Male Ht: 64 in Wt: 188 lbs BSA: 1.99 m2 HR: 68 bpm BP: 124 / 66 mmHg Heart Rhythm: Sinus Rhythm Exam Date: 11/03/2019 10:12 AM Exam Location: [facility] Stress Patient Status: Inpatient Admit Date: 11/02/2019 Staff Ordering Physician: Francie Pradhan APRN Exercise Technologist: Imani Kang RDCS Nurse: Francie Pradhan, ANP, ACNP-BC Exam Type: CA stress jonnathan w NM Study Info Indications - Chest Pressure A regadenoson stress test was performed. Summary 1. No abnormal ST-T wave changes with lexiscan. 2. Nuclear test results to follow. Protocol: Lexiscan Stress ECG Details Stage: REST Duration (min): 1 min : 8 sec HR (bpm): 69 SBP (mmHg): 124 DBP (mmHg): 66 Stage: REST Duration (min): 11 min : 8 sec HR (bpm): 68 SBP (mmHg): 124 DBP (mmHg): 66 Stage: STAGE 1 Duration (min): 0 min : 59 sec HR (bpm): 86 SBP (mmHg): 118 DBP (mmHg): 83 Stage: RECOVERY Duration (min): 1 min : 0 sec HR (bpm): 87 SBP (mmHg): 116 DBP (mmHg): 67 Stage: RECOVERY Duration (min): 2 min : 0 sec HR (bpm): 83 SBP (mmHg): 116 DBP (mmHg): 67 Stage: RECOVERY Duration (min): 3 min : 0 sec HR (bpm): 82 SBP (mmHg): 116 DBP (mmHg): 65 Stage: RECOVERY Duration (min): 4 min : 0 sec HR (bpm): 82 SBP (mmHg): 116 DBP (mmHg): 65 Stage: RECOVERY Duration (min): 5 min : 0 sec HR (bpm): 78 SBP (mmHg): 116 DBP (mmHg): 60 Stage: RECOVERY Duration (min): 5 min : 39 sec HR (bpm): 78 SBP (mmHg): 116 DBP (mmHg): 60 Rest HR: 68 bpm Peak HR: 90 bpm Rest Sys BP: 124 mmHg Peak Sys BP: 118 mmHg Max Pred HR: 161 bpm % Max Pred HR: 56 % Target HR: 137 bpm Max RPP: 10,620 bpm*mmHg BP Response: Normal blood pressure response Termination Reason: Completed protocol Cardiac Symptoms: Chest discomfort, Shortness of breath Total Time: 1 min : 0 sec Rest Cr BP: 66 mmHg Peak Cr BP: 83 mmHg Total Dose: 0.4 mg Resting ECG Normal sinus rhythm - normal ECG. Stress ECG No abnormal ST/T wave changes with exercise. Arrhythmias None. Report Signatures
--- NOTE | 2019-11-03 10:36 | PM.PNCARD ---
Progress Note: A&P Assessment and Plan (1) Chest pain: Qualifiers: Chest pain type: unspecified Qualified Code(s): R07.9 - Chest pain, unspecified Code(s): R07.9 - Chest pain, unspecified Status: Acute Assessment and Plan: Continue ASA for now Lexiscan pending. Further recommendations pending outcome of stress test (2) Hypertension: Qualifiers: Hypertension type: unspecified Qualified Code(s): I10 - Essential (primary) hypertension Code(s): I10 - Essential (primary) hypertension Status: Chronic Assessment and Plan: At goal (3) COPD (chronic obstructive pulmonary disease): Qualifiers: COPD type: unspecified COPD Qualified Code(s): J44.9 - Chronic obstructive pulmonary disease, unspecified Code(s): J44.9 - Chronic obstructive pulmonary disease, unspecified Status: Chronic Assessment and Plan: Continues to smoke. Down from 2 packs per day to 1/2 pack per day. Smoking cessation counseling done. Additional Plan Plan discussed with Dr. Bailey 1040 11/03/2019 Subjective Date/time seen: 11/03/19 10:30 Seen in stress lab Interval history: Follow up for: Chest pressure, severe COPD, hypertension, hyperlipidemia Date of service: 11/03/2019 Subjective: Breathing is better today. Still with wheeze. Chest pressure under left breast. Review of Systems Constitutional: Constitutional: Denies chills, Denies fatigue, Denies fever(s) and Denies headache(s) Eyes: Eyes: Denies blurry vision, Denies change in vision, Denies loss of vision and Denies eye pain ENT: Reports Normal hearing present, Denies headache(s), Denies lip swelling, Denies epistaxis and Denies sore throat Cardiovascular: Cardiovascular: Reports chest pain (Minimal pressure), Denies syncope, Denies irregular heart rhythm, Denies lightheadedness and Reports dyspnea ( improved) Respiratory: Respiratory: Reports cough ( at baseline), Reports dyspnea ( improved) and Denies wheezing Gastrointestinal: Gastrointestinal: Denies abdominal pain, Denies melena, Denies nausea and Denies vomiting Genitourinary: Genitourinary: Denies hematuria Musculoskeletal: Musculoskeletal: Denies myalgias, Denies muscle cramps and Denies muscle weakness Integumentary/Breasts: Skin/Breast: Denies pruritus and Denies rash Neurologic: Reports Normal hearing present, Denies behavioral changes, Denies syncope, Denies headache(s) and Denies loss of vision Psychiatric: Psychiatric: Denies anxiety, Denies behavioral changes and Denies depression Endocrine: Endocrine: Denies fatigue, Denies polydipsia and Denies polyuria Hematologic/Lymphatic: Hematologic/Lymphatic: Reports as per HPI, Denies easy bleeding and Denies easy bruising Allergic/Immunologic: Allergic/Immunologic: Reports as per HPI, Denies lip swelling and Denies wheezing Exam Const: General: no acute distress, alert and awake HENMT: Head: normocephalic and atraumatic Ears: hearing grossly normal bilaterally and external ears normal General nose exam: Normal external nose present ( receiving oxygen through nasal cannula) and no epistaxis Face and sinus: normal facial exam and no ecchymosis Mouth: Yes tongue normal and Yes moist mucous membranes Eyes: Conjunctivae: conjunctivae normal Sclera: sclerae normal Pupils: Equal, round and reactive pupils present EOM: EOMs intact bilaterally Neck: Neck: normal visual inspection, supple and no JVD Resp: Effort & Inspection: normal respiratory effort and able to speak in complete sentences Auscultation: wheezes expiratory wheezes ( greater on the right than the left) and diminished lung sounds Other: Prolonged expiration Cardio: Jugular venous distension: no JVD Rate: regular rate Rhythm: regular rhythm Heart sounds: no murmurs Peripheral pulses: Peripheral pulses 2+ throughout Other: Dista
--- NOTE | 2019-11-03 11:31 | PC.NURSE ---
Patient returned from nuclear medicine per wheelchair.
[2019-11-03] MEDS: BUDESONIDE RESPULE NEB 0.5 MG/2 ML AMP INHALATION (12:10)
[2019-11-03 12:27] LABS: Hematocrit 45.8 % (42.0-52.0); Hemoglobin 15.5 g/dL (14.0-18.0); Mean Corpuscular HGB Conc 33.8 g/dl (32-36); Mean Corpuscular Hemoglobin 30.1 pg (26-34); Mean Corpuscular Volume 88.9 fl (80-100); Platelet Count Result 265 k/mm3 (150-375); Red Blood Count 5.15 M/mm3 (4.6-6.20); Red Cell Distribution Width 12.3 % (11.5-14.5); White Blood Count 11.9 K/mm3 (4.5-10.0)
[2019-11-03 12:43] LABS: Anion Gap 12.2 mmol/L (7-16); Blood Urea Nitrogen 16 mg/dL (9-20); Calcium 9.3 mg/dL (8.4-10.2); Carbon Dioxide 27 mmol/L (22-30); Chloride 102 mmol/L (98-107); Estimated CRCL calculation 85 ml/min; Estimated Glomerular Filt Rate > 60; Glucose 187 mg/dL (75-110); Magnesium 2.2 mg/dL (1.6-2.3); Potassium 4.2 mmol/L (3.4-5.0); Sodium 137 mmol/L (137-145)
--- NOTE | 2019-11-03 14:11 | PM.DS ---
DS: Admitting Diagnosis Admitting Diagnosis Admitting Diagnosis: Chest pain, unspecified DS: Discharge Diagnosis Discharge Diagnosis (1) Chest pain: Qualifiers: Chest pain type: unspecified Qualified Code(s): R07.9 - Chest pain, unspecified Code(s): R07.9 - Chest pain, unspecified Status: Acute Assessment and Plan: Admit for observation, NPO after midnight. Trend troponin. Check another EKg now. Monitor for chest pain, Nitro SL PRN for chest pain, Check lipase and lipid panel. Cardiology consultation in am. 11/02/19 18:03 patient is a 59-year-old male with end-stage COPD unfortunately he still smokes patient presented emergency depart after he had developed chest pain lasting 30 minutes radiating to the left arm, patient is 3 sets of cardiac enzymes are negative, patient was seen by shear operator automatic cardiac echo was done which showed preserved LV function with ejection fraction of 65% and grade 1 diastolic dysfunction, patient has remained clinically stable still has shortness of breath and wheezing, patient is being treated with Solu-Medrol updraft and Pulmicort, and patient is seen by shear operator automatic today planned to have Lexiscan tomorrow to further assess coronary artery disease and further recommendation to follow (2) COPD (chronic obstructive pulmonary disease): Qualifiers: COPD type: unspecified COPD Qualified Code(s): J44.9 - Chronic obstructive pulmonary disease, unspecified Code(s): J44.9 - Chronic obstructive pulmonary disease, unspecified Status: Chronic Assessment and Plan: Continue oxygen supplementation. Bronchodilators. (3) Hypertension: Qualifiers: Hypertension type: unspecified Qualified Code(s): I10 - Essential (primary) hypertension Code(s): I10 - Essential (primary) hypertension Status: Chronic Assessment and Plan: Continue home antihypertensives. DS: Summary Hospital Course Reason for hospitalization: Chief complaint: chest pain, copd Narrative: This is a pleasant 59 year old male with known end stage COPD on 3 L of oxygen at home at all times as well as HTN who presented to the hospital today with a complaint of left sided chest pain. He has had intermittent chest pain for over a month and today after walking to his truck he sat in it and immediately started to have severe left sided chest pain that he described as pressure like. His pain seemed to radiate down the left side of his body. He describes the pain lasting for over 30 minutes and improved once he had aspirin and put his oxygen back on. Associated symptoms included weakness, nausea, and diaphoresis. The patient denies any previous history of CAD+, stress testing, or previous cardiac angiogram. He also denies any recent fevers, chills, worsening cough, abdominal pain, dysuria, hematuria, dysuria, rectal bleeding, diarrhea, or lower extremity swelling/pain. The patient relates that he has been under a great deal of stress lately as his can't work and he has been forced to work even though he has end stage COPD. The patient continues to smoke 5-10 cigarettes daily despite having oxygen dependent COPD. No other complaints. Hospital Course: patient is a 59-year-old male with end-stage COPD unfortunately he still smokes patient presented emergency depart after he had developed chest pain lasting 30 minutes radiating to the left arm, patient is 3 sets of cardiac enzymes are negative, patient was seen by shear operator automatic cardiac echo was done which showed preserved LV function with ejection fraction of 65% and grade 1 diastolic dysfunction, patient has remained clinically stable still has shortness of breath and wheezing, patient is being treated with Solu-Medrol updraft and Pulmicort, and patient is seen by shear operator automatic, today patient has Lexiscan essentially normal seen by cardiology clinically stable will discharge the patient. Status at Discharge Functional stat
[2019-11-03] MEDS: NICOTINE (*PBKC) 21 MG PATCH 1 PATCH TRANSDERM (14:18)
== END 2019-11-03 15:00 | disposition home or self-care (01) | DRG 203 ==
LOC: ANHED 19:08 → ANHIMU 19:37 → ANH3MED 11-02 17:25
PROVIDERS: Family Medicine; Admitting Provider Family Medicine; Emergency Provider Emergency Medicine; Visit Provider Family Medicine
DX: R07.9 Chest pain, unspecified (principal); Z99.81 Dependence on supplemental oxygen; J44.9 Chronic obstructive pulmonary disease, unspecified; I10 Essential (primary) hypertension; F17.210 Nicotine dependence, cigarettes, uncomplicated; E78.5 Hyperlipidemia, unspecified; Z79.899 Other long term (current) drug therapy
CPT/HCPCS: 36415; 71046; 78452; 80048; 80061; 83690; 83735; 84484; 85025; 85027; 85610; 85730; 93005; 93017; 93306; 94640; 99285; A9270; A9502; G0378; G0379; J2785; J2930

== ENCOUNTER 2020-01-02 13:05 | Emergency (ER) | payer OTHER, SELFPAY ==
[2020-01-02 13:11] VITALS: BP 117/74; PULSE 89; RESP 22; TEMP 37.2; O2SAT 95
--- NOTE | 2020-01-02 13:44 | ED.WOUNDLAC ---
HPI - Wound/Laceration General Chief Complaint: Wound/Laceration Stated Complaint: left index finger lac Time Seen by Provider: 01/02/20 13:44 Source: patient Mode of arrival: ambulatory Limitations: no limitations History of Present Illness HPI narrative: Patient is a 59-year-old male who presented for evaluation of laceration to left finger. Laceration to left second digit. Patient denies any numbness. States that he was cutting up boxes with a box maker when his right hand slipped and caused it to cut into his left second digit. Patient is unsure as if he is up-to-date on his tetanus. No pain with bending. Minimal bleeding. Patient is right-hand dominant. Related Data Home Medications Medication Instructions Recorded Confirmed albuterol sulfate 90 mcg INHALATION Q4H 10/31/19 10/31/19 amlodipine 10 mg PO DAILY 10/31/19 10/31/19 baclofen 20 mg PO TID PRN 10/31/19 10/31/19 budesonide-formoterol [Symbicort] 2 puff INHALATION BID 10/31/19 10/31/19 buspirone 10 mg PO BID 10/31/19 10/31/19 ibuprofen 1,000 mg PO TID PRN 10/31/19 10/31/19 ipratropium-albuterol 3 ml INHALATION BID 10/31/19 10/31/19 montelukast 10 mg PO HS 10/31/19 10/31/19 nicotine 14 mg TRANSDERMAL DAILY 10/31/19 10/31/19 oxymetazoline [Afrin Sinus 2 spray INTRANASAL Q12H PRN 10/31/19 10/31/19 (oxymetazoline)] pregabalin [Lyrica] 200 mg PO Q12H 10/31/19 10/31/19 sertraline 100 mg PO HS 10/31/19 10/31/19 Allergies Allergy/AdvReac Type Severity Reaction Status Date / Time bacitracin Allergy Unknown Unknown Verified 01/02/20 13:14 neomycin Allergy Unknown Unknown Verified 01/02/20 13:14 Penicillins Allergy Unknown Rash Verified 01/02/20 13:14 polymyxin B Allergy Unknown Unknown Verified 01/02/20 13:14 Review of Systems Review of Systems: Narrative: CONSTITUTIONAL: Denies fever CARDIOVASCULAR: Denies chest pain RESPIRATORY: Denies cough or dyspnea. GASTROINTESTINAL: Denies abdominal pain SKIN: Denies rash, reports second left digit laceration MUSCULOSKELETAL: Denies back pain NEUROLOGIC: Denies headache PMFSH Past Medical History Medical History End stage COPD Hypertension Social History Social History Smoking packs per day: 0.5 Smoking cigarettes per day: 10.0 Years smoked: 30 Smoking pack-years: 15.00 Smoking status: Current every day smoker Tobacco type: cigarettes Alcohol intake: never Substance use: never Substance use type: does not use Gender identity (if verbalized by the patient): Male Spiritual care concerns: No Exam Narrative: Exam Narrative: GENERAL: Awake, alert, conversant HEAD: Normocephalic, atraumatic. EYES: PERRLA and EOMI. ENT: Nares clear, no rhinorrhea or epistaxis. Mucous membranes moist. NECK: Supple. CHEST: No respiratory distress, breathing even and non labored HEART: Regular rate, sinus rhythm ABDOMEN:Non distended, non tender EXTREMITIES: Normal range of motion. No edema. Left second digit laceration, 2 cm to left proximal phalanx. Minimal active bleeding. No tenderness at the DIP or PIP. Intact flexion and extension without limitation. Intact sensation median, ulnar, radial nerve distribution. Radial pulse 2+. No foreign body identified. SKIN: Warm, dry, no rash. NEURO:No focal deficits. Alert and oriented x3 Course Vital Signs Vital signs: Vital Signs Temperature 37.2 C 01/02/20 13:11 Pulse Rate 89 01/02/20 13:11 Respiratory Rate 22 H 01/02/20 13:11 Blood Pressure 117/74 01/02/20 13:11 Pulse Oximetry 95 01/02/20 13:11 Temperature 37.2 C 01/02/20 13:11 Pulse Rate 89 01/02/20 13:11 Respiratory Rate 22 H 01/02/20 13:11 Blood Pressure 117/74 01/02/20 13:11 Pulse Oximetry 95 01/02/20 13:11 Procedures Laceration Laceration 1: Date: 01/02/20 Time: 14:38 Site: hand Side (If applicable): left Size (cm)
[2020-01-02] MEDS: TETANUS,DIPHTHERIA,AC PERTUSSIS ADULT (0.5 ML) BOOSTRIX IM (14:58)
[2020-01-02 15:02] VITALS: BP 125/75; PULSE 67; RESP 20; TEMP 36.6; O2SAT 93
[2020-01-02] MEDS: ACETAMINOPHEN 500 MG TABLET 1000 MG PO (15:12)
== END 2020-01-02 15:13 | disposition home or self-care (01) ==
PROVIDERS: Emergency Provider Emergency Medicine
DX: S61.211A Laceration without foreign body of left index finger without damage to nail, initial encounter (principal); J44.9 Chronic obstructive pulmonary disease, unspecified; I10 Essential (primary) hypertension; F17.210 Nicotine dependence, cigarettes, uncomplicated; Z23 Encounter for immunization; W27.0XXA Contact with workbench tool, initial encounter
CPT/HCPCS: 12001; 90471; 90715; 99282; A9270

== ENCOUNTER 2022-07-10 21:52 | Inpatient (IN) | payer OTHER, SELFPAY ==
[2022-07-10] VITALS (11 sets, daily range): BP systolic 127; BP diastolic 76; PULSE 73–86; RESP 15–28; TEMP 36.6; O2SAT 91–98
--- NOTE | ~2022-07-10 | CT_ITS ---
EXAMINATION: CTA chest PE protocol DATE: 07/14/2022 17:11 CDT INDICATION: Worsening shortness of breath. Pneumonia. TECHNIQUE: Computed tomographic angiography (CTA) of the chest was performed with 100 mL Omnipaque-35 0 intravenous contrast. The dose-length product was 724.68 mGy-cm. Maximum intensity projection 3D-re constructions of the aorta and other arteries were constructed by the technologist on a separate work station. Automated exposure control and iterative reconstruction technique were employed. COMPARISON: Chest x-ray dated 07/13/2022. FINDINGS: There is atherosclerosis of the aorta and coronary arteries without evidence for aortic ane urysm or dissection. Study is technically adequate without evidence for pulmonary embolism. No signif icant pleural or pericardial effusion. No thoracic lymphadenopathy. Severe emphysema. There is depend ent atelectasis of the right middle and bilateral lower lobes, likely accounting for infiltrates of t he costophrenic recess on chest x-ray. No pneumothorax. No endobronchial lesions. IMPRESSION: 1. Bilateral dependent atelectasis. No evidence for pulmonary embolism. 2: Severe emphysema. Reviewed, dictated and finalized at location A.
--- NOTE | ~2022-07-10 | XR_ITS ---
EXAMINATION: XR chest 1V portable INDICATION: Shortness of breath TECHNIQUE: Portable AP chest at 0550 hours COMPARISON: 07/10/2022 FINDINGS: There are increasing opacities at the left costophrenic angle. No pleural effusion or pneum othorax. The cardiomediastinal silhouette is stable. IMPRESSION: 1. Increasing opacity of the left costophrenic angle, consistent with atelectasis versus pneumonia. Reviewed, dictated and finalized at location A. IMPRESSION: 1. Increasing opacity of the left costophrenic angle, consistent with atelectas is versus pneumonia.
--- NOTE | ~2022-07-10 | XR_ITS ---
EXAMINATION: XR chest 2V DATE: 07/10/2022 22:17 INDICATION: Shortness of breath TECHNIQUE: AP and lateral views of the chest are obtained. COMPARISON: 10/31/2019 FINDINGS: There is mild atelectasis of the lung bases. No pleural effusion or pneumothorax. The cardi omediastinal silhouette is normal. There is mild thoracic spondylosis. IMPRESSION: 1. Mild atelectasis of the lung bases. Reviewed, dictated and finalized at location F.
--- NOTE | 2022-07-10 21:53 | ECG_ITS ---
Measurements Intervals [place] Rate: 83 P: 60 TN: 152 QRS: 61 QRSD: 86 T: 73 QT: 346 QTc: 407 Interpretive Statements SINUS RHYTHM BASELINE ARTIFACT NONSPECIFIC T-WAVE ABNORMALITY BORDERLINE ECG COMPARED TO ECG 10/31/2019 22:44:05 T-WAVE ABNORMALITY NOW PRESENT Electronically Signed On 07-11-2022 16:39:38 CDT by Joshua Yancey M.D.
[2022-07-10 22:15] LABS: Basophils Absolute Auto 0.1 K/mm3 (0.0-0.1); Basophils Percent Auto 0.9 % (0.2-1.2); Eosinophils Absolute Auto 0.3 K/mm3 (0-0.3); Eosinophils Percent Auto 2.1 % (0-4.4); Hematocrit 48.8 % (42.0-52.0); Hemoglobin 16.3 g/dL (14.0-18.0); Immature Granulocyte Absolute 0.08 K/mm3 (0.00-0.031); Immature Granulocyte Percent A 0.6 % (0-0.5); Lymphocytes Absolute Auto 4.19 K/mm3 (0.9-3.2); Lymphocytes Percent Auto 31.9 % (18.3-44.2); Mean Corpuscular HGB Conc 33.4 g/dl (32-36); Mean Corpuscular Volume 89.9 fl (80-100); Mean Platelet Volume 10.3 fl (7.4-10.4); Monocytes Absolute Auto 1.1 K/mm3 (0.1-0.6); Monocytes Percent Auto 8.1 % (2.6-8.5); Neutrophils Absolute Auto 7.4 K/mm3 (1.3-6.7); Neutrophils Percent Auto 56.4 % (45.5-73.1); Platelet Count Result 309 k/mm3 (150-375); Red Blood Count 5.43 M/mm3 (4.6-6.20); Red Cell Distribution Width 13.2 % (11.5-14.5); White Blood Count 13.2 K/mm3 (4.5-10.0)
[2022-07-10] MEDS: MAGNESIUM SULF 1 GM/D5W 100 ML 1 GM/100 ML BAG IVPB (22:20)
[2022-07-10] MEDS: LEVALBUTEROL NEB 1.25 MG/3 ML 3.75 MG INHALATION (22:22)
[2022-07-10] MEDS: IPRATROPIUM BR 0.02% INH SOLN 0.5 MG/2.5 ML VIAL 1 MG INHALATION (22:22)
[2022-07-10 22:25] LABS: Prothrombin Time 12.8 Seconds (11.1-14.7)
[2022-07-10 22:27] LABS: Partial Thromboplastin Time 35.3 SECONDS (22.3-36.8)
[2022-07-10 22:34] LABS: Alanine Aminotransferase 35 U/L (6-50); Albumin Level 4.8 g/dL (3.5-5.1); Alkaline Phosphatase 106 U/L (38-126); Anion Gap 7 mmol/L (8-16); Aspartate Amino Transferase 30 U/L (17-59); Bilirubin,Total 0.6 mg/dL (0.2-1.3); Blood Urea Nitrogen 11 mg/dL (9-20); Calcium 9.2 mg/dL (8.4-10.2); Carbon Dioxide 32 mmol/L (22-30); Chloride 100 mmol/L (98-107); Estimated CRCL calculation 71 ml/min; Estimated Glomerular Filt Rate > 60; Glucose 105 mg/dL (65-110); Potassium 4.4 mmol/L (3.4-5.0); Sodium 139 mmol/L (137-145)
[2022-07-10 22:35] LABS: Lactic Acid Reflex 3.3 mmol/L (0.7-2.0)
[2022-07-10 22:44] LABS: NT Pro B Type Natriuretic Pept 50 pg/mL (19.9-100)
[2022-07-10 22:46] LABS: Troponin I < 0.012 ng/mL (0.000-0.034)
[2022-07-10 22:52] LABS: Influenza A QL RT-PCR Negative (Negative); Influenza B QL RT-PCR Negative (Negative); RSV RNA, RT-PCR Negative (Negative); SARS-CoV-2 RNA PCR Negative
[2022-07-10 22:55] LABS: Procalcitonin 0.1 ng/mL
[2022-07-11] VITALS (44 sets, daily range): BP systolic 129–157; BP diastolic 53–87; PULSE 61–95; RESP 14–25; TEMP 36.3–36.6; O2SAT 90–100; BMI 26.6; BMI 34.0
[2022-07-11 01:12] LABS: Reflex Lactic Acid Yes or No Add Lactic
[2022-07-11] MEDS: HYDROcodone/acetaminophen (*CRX) 10-325 MG TABLET 1 TAB PO (01:19)
[2022-07-11] MEDS: LEVALBUTEROL NEB 1.25 MG/3 ML INHALATION (01:21)
[2022-07-11] MEDS: IPRATROPIUM BR 0.02% INH SOLN 0.5 MG/2.5 ML VIAL INHALATION ×4 (01:22→19:54)
--- NOTE | 2022-07-11 01:30 | ED.GENADULT ---
HPI - General Adult General Chief complaint: Shortness of Breath/Dyspnea Stated complaint: sob Time Seen by Provider: 07/10/22 21:55 History of Present Illness HPI narrative: Patient is 61-year-old gentleman who presents the emergency department with chief complaint of shortness of breath. Patient reports he has prior history of COPD and is currently on 2 L nasal cannula oxygen at home. Patient states he did some yard work today and chopped up some limits with his lawnmower and the patient states that afterwards he started getting more more short of breath patient reports that he has been hospitalized before in the past patient states that he was given steroids and a breathing treatment prior to arrival in the emergency department by EMS. Related Data Home Medications Medication Instructions Recorded Confirmed albuterol sulfate 90 mcg/actuation 90 mcg inhalation Q4H 10/31/19 10/31/19 aerosol inhaler amlodipine 10 mg tablet 10 mg PO DAILY 10/31/19 10/31/19 baclofen 20 mg tablet 20 mg PO TID PRN Muscle Spasm 10/31/19 10/31/19 budesonide-formoterol HFA 160 2 puff inhalation BID 10/31/19 10/31/19 mcg-4.5 mcg/actuation aerosol inhaler (Symbicort) buspirone 5 mg tablet 10 mg PO BID 10/31/19 10/31/19 ibuprofen 800 mg tablet 1,000 mg PO TID PRN Pain 10/31/19 10/31/19 ipratropium 0.5 mg-albuterol 3 mg 3 ml inhalation BID 10/31/19 10/31/19 (2.5 mg base)/3 mL nebulization soln montelukast 10 mg tablet 10 mg PO HS 10/31/19 10/31/19 nicotine 14 mg/24 hr daily 14 mg transdermal DAILY 10/31/19 10/31/19 transdermal patch oxymetazoline 0.05 % nasal spray 2 spray intranasal Q12H PRN 10/31/19 10/31/19 (Afrin Sinus (oxymetazoline)) Allergy Symptoms pregabalin 200 mg capsule (Lyrica) 200 mg PO Q12H 10/31/19 10/31/19 sertraline 100 mg tablet 100 mg PO HS 10/31/19 10/31/19 Allergies Allergy/AdvReac Type Severity Reaction Status Date / Time bacitracin Allergy Unknown Unknown Verified 01/02/20 13:14 neomycin Allergy Unknown Unknown Verified 01/02/20 13:14 Penicillins Allergy Unknown Rash Verified 01/02/20 13:14 polymyxin B Allergy Unknown Unknown Verified 01/02/20 13:14 Review of Systems Review of Systems: A 10 system review of systems was completed on the patient and is negative except for what is stated in the HPI. Nursing and ancillary documentation was reviewed. [facility] Past Medical History Medical History (Updated 07/11/22 @ 01:35 by Alli Jiang MD) End stage COPD Hypertension Surgical History Surgical History History of orthopedic surgery Left biceps repair Social History Social History Smoking packs per day: 0.5 Smoking cigarettes per day: 10.0 Years smoked: 30 Smoking pack-years: 15.00 Smoking status: Current every day smoker Tobacco type: cigarettes Alcohol intake: never Substance use: never Substance use type: does not use Gender identity (if verbalized by the patient): Male Spiritual care concerns: No Exam Narrative: GENERAL: Well-appearing, well-nourished, and in no acute distress. HEAD: Normocephalic, atraumatic. EYES: PERRLA and EOMI. ENT: Nares clear, no rhinorrhea or epistaxis. Mucous membranes moist. NECK: Supple. CHEST: Wheezes to auscultation. Mild respiratory distress. HEART: Regular rate and rhythm. No murmur heard. Normal peripheral pulses. ABDOMEN: Soft, nontender, nondistended, normal active bowel sounds. EXTREMITIES: Normal range of motion. No edema. SKIN: Warm, dry, no rash. NEURO: No focal deficits. Alert and oriented x3. PSYCH: Normal mood and affect. Course Vital Signs Vital signs: Vital Signs Temperature 36.6 C 07/10/22 21:56 Pulse Rate 86 07/10/22 21:56 Respiratory Rate 28 H 07/10/22 21:56 Pulse Oximetry 96 07/10/22 21:56 Oxygen Delivery Nasal Cannula 07/10/22 21:56 Oxygen Flow Rate 2.5 0
[2022-07-11 02:02] LABS: Troponin I < 0.012 ng/mL (0.000-0.034)
[2022-07-11 02:26] LABS: Alveolar/Arterial O2 Gradient 115.5 mmHg; Base Excess ABG 2.3 mEq/l (+/-2.0); Fractional Inspired Oxygen 32 %; HCO3 ABG 28.2 mEq/l (22.0-26.0); Oxygen Content ABG 19.2 %vol (16.0-22.0); Oxygen Saturation ABG 88.4 % (95.0-100.0); PCO2 ABG 48.5 mmHg (35.0-45.0); PO2 ABG 55.9 mmHg (80.0-100.0); PO2 FiO2 Ratio Arterial Blood 1.75 %; Total Hemoglobin 15.9 g/dL (12.0-18.0); pH ABG 7.383 (7.350-7.450)
[2022-07-11 02:27] LABS: Device NASAL CANNULA; Modified Allen's Test Pass; Oxyhemoglobin 86.3 % THb (90.0-100.0); Site Drawn RIGHT RADIAL
[2022-07-11 04:35] LABS: Troponin I < 0.012 ng/mL (0.000-0.034)
[2022-07-11] MEDS: methylPREDNISolone SOD SUCC 125 MG VIAL 60 MG IV PUSH ×3 (06:38→20:31)
[2022-07-11] MEDS: LEVALBUTEROL NEB 1.25 MG/3 ML 0.63 MG INHALATION ×3 (07:46→19:54)
[2022-07-11] MEDS: HYDROcodone/acetaminophen (*CRX) 5-325 MG TABLET 1 TAB PO ×2 (08:22→17:04)
--- NOTE | 2022-07-11 08:45 | PM.IMHP ---
H&P: HPI History of Present Illness Date/Time: 07/11/22 0845 Chief Complaint: Shortness of breath Narrative: patient is 61-year-old male with a past medical history of end-stage COPD, CAD, hypertension chronic back pain who presented to the ED with complaints of shortness of breath. 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 Patient stated that if he does not do this said they find him at the site that he lives. He stated at that time he was started have some shortness of breath and a cough with no production. He did try a breathing treatment at home however he was not successful getting any relief. At that time he decided to come to the ED for further evaluation workup. He was having lightheadedness and dizziness along with seeing stars. He currently does have an increased shortness of breaths with light activity and is wheezes or more than normal. He also states that he feels pretty weak today however he states that he is always pretty weak. He denies any chest pain, nausea, vomiting, diarrhea, constipation, fevers, sweats, chills or urinary issues. He does currently wear oxygen at home he states he wears 4 L with activity at 6 L at rest. He stated that he uses tanks because running a concentrator at home increase the power bill too much. He also has been taking care of his who recently had a surgical procedure for cancer and multiple joint injuries. He stated that she is with a walker and that she has help with moving around getting around. He does still smoke which he states he smokes 2-3 cigarettes a day. Upon arrival to the ED it was noted that he had compensated respiratory acidosis with a CO2 of 48.5 and an O2 of 55.9. He did receive a dose of steroids in the ED and stated that he does feel a lot better. Patient is being minute to the hospital service under observation Review of Systems Review of Systems: All systems reviewed & are unremarkable except as noted in HPI and below PMFSH Past Medical History Medical History Anxiety and depression CAD (coronary artery disease) Chronic respiratory failure COPD (chronic obstructive pulmonary disease) Hypertension Tobacco abuse Surgical History Surgical History History of cardiac catheterization History of heart artery stent History of orthopedic surgery Left biceps repair Social History Social History Social History: patient lives with his Virginie and does not have any kids however does have some step kids. He has 1 cat and wishes that his Virginie be his surrogate. He also wishes to be a full code at this time. Smoking packs per day: 0.5 Smoking cigarettes per day: 10.0 Years smoked: 30 Smoking pack-years: 15.00 Smoking status: Current every day smoker Tobacco type: cigarettes Alcohol intake: never Substance use: never Substance use type: does not use Lack of Transportation: No Lack of Food: Never True Current Housing: I Have Housing Concerned About Future Housing: No Difficulty Paying Gas/Electric Bills: No Difficulty Paying for Meds: No Currently Unemployed: No Education: Grade School Difficulty w/ Childcare or Family Care: No Living arrangements: with family Additional living arrangements comments: lives with Occupation/Education: other Gender identity (if verbalized by the patient): Male Sexual Orientation (if Verbalized by the Patient): Straight or Heterosexual Spiritual care concerns: No Agree to blood products: Yes Meds Home Medications and Allergies Home Medications Medication Instructions Recorded Confirmed Type albuterol sulfate 90 mcg/actuation 90 mcg inhalation Q4H 10/31/19 07/11/22 Histor
[2022-07-11] MEDS: amLODIPine BESYLATE 5 MG TABLET 10 MG PO (09:31)
[2022-07-11] MEDS: ASPIRIN 81 MG ENTERIC TABLET PO (09:31)
[2022-07-11] MEDS: busPIRone HCL 5 MG TABLET 10 MG PO ×2 (09:32→17:03)
[2022-07-11] MEDS: ENOXAPARIN 40 MG/0.4 ML SYRINGE SUB-Q (09:32)
[2022-07-11] MEDS: PREGABALIN (*CRX) 50 MG CAPSULE 200 MG PO ×2 (09:32→20:33)
[2022-07-11] MEDS: NICOTINE (*PBKC) 14 MG PATCH 1 PATCH TRANSDERM (09:33)
--- NOTE | 2022-07-11 12:20 | PC.NURSE ---
contacted pharmacy for 1100 dose of azithro, will give when received
--- NOTE | 2022-07-11 12:54 | PC.NURSE ---
On 07/11/22, the student, [Liyah Chan], provided care and completed [facility] documentation on this patient. I have reviewed the student's documentation and agree with the findings.
--- NOTE | 2022-07-11 14:02 | PC.NURSE ---
On 07/11/22, the student, [Christen Palm], provided care and completed [facility] documentation on this patient. I have reviewed the student's documentation and agree with the findings.
[2022-07-11] MEDS: polyethylene glycoL 3350 17 GM POWD.PACK PO (17:30)
[2022-07-11] MEDS: FAMOTIDINE 20 MG/2 ML VIAL IV PUSH (18:51)
[2022-07-11] MEDS: MONTELUKAST SODIUM 10 MG TABLET PO (20:33)
[2022-07-11] MEDS: FLUTICASONE PROPIONATE 0.05% NA SPR 16 GM BTL (*BKC) 1 SPRAY NASAL (20:34)
[2022-07-11] MEDS: QUEtiapine FUMARATE 25 MG TABLET PO (20:34)
[2022-07-11] MEDS: SERTRALINE HCL 50 MG TABLET 100 MG PO (20:34)
[2022-07-12] VITALS (19 sets, daily range): BP systolic 121–138; BP diastolic 58–61; PULSE 62–100; RESP 16–24; TEMP 36.2–36.6; O2SAT 92–98
[2022-07-12] MEDS: HYDROcodone/acetaminophen (*CRX) 5-325 MG TABLET 1 TAB PO ×3 (00:12→16:46)
[2022-07-12] MEDS: IPRATROPIUM BR 0.02% INH SOLN 0.5 MG/2.5 ML VIAL INHALATION ×4 (01:45→21:31)
[2022-07-12] MEDS: LEVALBUTEROL NEB 1.25 MG/3 ML 0.63 MG INHALATION ×4 (01:45→21:31)
[2022-07-12] MEDS: methylPREDNISolone SOD SUCC 125 MG VIAL 60 MG IV PUSH ×3 (06:13→20:52)
[2022-07-12 06:21] LABS: Basophils Percent Auto 0.1 % (0.2-1.2); Eosinophils Percent Auto 0.1 % (0-4.4); Hematocrit 43.9 % (42.0-52.0); Hemoglobin 15.3 g/dL (14.0-18.0); Immature Granulocyte Absolute 0.11 K/mm3 (0.00-0.031); Immature Granulocyte Percent A 0.8 % (0-0.5); Lymphocytes Absolute Auto 1.49 K/mm3 (0.9-3.2); Lymphocytes Percent Auto 10.3 % (18.3-44.2); Mean Corpuscular HGB Conc 34.9 g/dl (32-36); Mean Corpuscular Hemoglobin 30.2 pg (26-34); Mean Corpuscular Volume 86.6 fl (80-100); Mean Platelet Volume 10.5 fl (7.4-10.4); Monocytes Absolute Auto 0.5 K/mm3 (0.1-0.6); Monocytes Percent Auto 3.3 % (2.6-8.5); Neutrophils Absolute Auto 12.3 K/mm3 (1.3-6.7); Neutrophils Percent Auto 85.4 % (45.5-73.1); Platelet Count Result 235 k/mm3 (150-375); Red Blood Count 5.07 M/mm3 (4.6-6.20); Red Cell Distribution Width 12.9 % (11.5-14.5); White Blood Count 14.4 K/mm3 (4.5-10.0)
[2022-07-12 07:03] LABS: Alanine Aminotransferase 40 U/L (6-50); Albumin Level 4.1 g/dL (3.5-5.1); Alkaline Phosphatase 96 U/L (38-126); Anion Gap 4 mmol/L (8-16); Aspartate Amino Transferase 30 U/L (17-59); Bilirubin,Total 0.4 mg/dL (0.2-1.3); Blood Urea Nitrogen 15 mg/dL (9-20); Calcium 9.1 mg/dL (8.4-10.2); Carbon Dioxide 33 mmol/L (22-30); Chloride 104 mmol/L (98-107); Estimated CRCL calculation 96 ml/min; Estimated Glomerular Filt Rate > 60; Glucose 160 mg/dL (65-110); Magnesium 2.4 mg/dL (1.6-2.3); Potassium 4.2 mmol/L (3.4-5.0); Sodium 141 mmol/L (137-145)
[2022-07-12] MEDS: amLODIPine BESYLATE 5 MG TABLET 10 MG PO (08:42)
[2022-07-12] MEDS: PANTOPRAZOLE 40 MG TABLET PO ×2 (08:42→20:52)
[2022-07-12] MEDS: polyethylene glycoL 3350 17 GM POWD.PACK PO (08:42)
[2022-07-12] MEDS: ASPIRIN 81 MG ENTERIC TABLET PO (08:42)
[2022-07-12] MEDS: busPIRone HCL 5 MG TABLET 10 MG PO ×2 (08:42→16:46)
[2022-07-12] MEDS: FLUTICASONE PROPIONATE 0.05% NA SPR 16 GM BTL (*BKC) 1 SPRAY NASAL ×2 (08:42→20:49)
[2022-07-12] MEDS: ENOXAPARIN 40 MG/0.4 ML SYRINGE SUB-Q (08:43)
[2022-07-12] MEDS: NICOTINE (*PBKC) 14 MG PATCH 1 PATCH TRANSDERM (08:43)
[2022-07-12] MEDS: PREGABALIN (*CRX) 50 MG CAPSULE 200 MG PO ×2 (08:47→20:51)
--- NOTE | 2022-07-12 10:15 | PM.IMPN ---
Progress Note: A&P Assessment and Plan (1) Acute exacerbation of chronic obstructive airways disease: Code(s): J44.1 - Chronic obstructive pulmonary disease with (acute) exacerbation Status: Acute Assessment and Plan: History of COPD ABG indicated compensated respiratory acidosis Continue home Singulair Neb treatments continued Continue steroids, change to PO prednisone for now repeat chest xray in the am Sputum culture ordered Continue azithromycin for now (2) Hypertension: Qualifiers: Hypertension type: unspecified Qualified Code(s): I10 - Essential (primary) hypertension Code(s): I10 - Essential (primary) hypertension Status: Chronic Assessment and Plan: BP 123/58 Continue home amlodipine Trend BP adjust therapy as indicated (3) Lactic acidosis: Code(s): E87.20 - Acidosis, unspecified Status: Acute Assessment and Plan: Lactic noted to be 3.3 in the ED Repeat 2.0 Most likely reactive to shortness of breath WBC stable (4) Chronic respiratory failure: Code(s): J96.10 - Chronic respiratory failure, unspecified whether with hypoxia or hypercapnia Status: Acute Assessment and Plan: On chronic home O2 use, 4LNC at rest and 6LNC Supplemental oxygen Continue to trend SPO2 Wean to maintain saturations >88% ABG indicated compensated respiratory acidosis (5) Insomnia: Code(s): G47.00 - Insomnia, unspecified Status: Acute Assessment and Plan: Complaints of not being able to sleep added Seroquel for support Time Spent With Patient Time: 48 minutes Time with patient: Greater than 35 minutes Subjective Date/time seen: 07/12/22 1015 Interval history: 07/12/22 1015 Patient was laying in bed. He stated that he was feeling a little bit better, however, was still getting short of breath. He is also have a decent cough as well. He is still complaining of night sweats, and constipation. He is still weak, but has been getting out of bed. He denies any chest pain, nausea, vomiting, diarrhea, lightheadedness or dizziness. Will get another chest xray in the am to assess for any improvements. He also complained of not getting any sleep last night as well. 07/11/22? 0845 ?patient is 61-year-old male with a past medical history of end-stage COPD, CAD, hypertension chronic back pain who presented to the ED with complaints of shortness of breath.? 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 Patient stated that if he does not do this said they find him at the site that he lives.? He stated at that time he was started have some shortness of breath and a cough with no production.? He did try a breathing treatment at home however he was not successful getting any relief.? At that time he decided to come to the ED for further evaluation workup.? He was having lightheadedness and dizziness along with seeing stars.? He currently does have an increased shortness of breaths with light activity and is wheezes or more than normal.? He also states that he feels pretty weak today however he states that he is always pretty weak.? He denies any chest pain, nausea, vomiting, diarrhea, constipation, fevers, sweats, chills or urinary issues.? He does currently wear oxygen at home he states he wears 4 L with activity at 6 L at rest.? He stated that he uses tanks because running a concentrator at home increase the power bill too much.? He also has been taking care of his who recently had a surgical procedure for cancer and multiple joint injuries.? He stated that she is with a walker and that she has help with moving around getting around.? He does still smoke which he states he smokes 2-3 cigarettes a day.? Upon arrival to the ED it was
[2022-07-12] MEDS: BACLOFEN 10 MG TABLET 20 MG PO (18:26)
[2022-07-12] MEDS: SERTRALINE HCL 50 MG TABLET 100 MG PO (20:50)
[2022-07-12] MEDS: QUEtiapine FUMARATE 25 MG TABLET PO (20:52)
[2022-07-12] MEDS: MONTELUKAST SODIUM 10 MG TABLET PO (20:52)
[2022-07-13] VITALS (13 sets, daily range): BP systolic 140–147; BP diastolic 61–79; PULSE 68–116; RESP 18–22; TEMP 36.4–37.1; O2SAT 92–95
[2022-07-13] MEDS: HYDROcodone/acetaminophen (*CRX) 5-325 MG TABLET 1 TAB PO ×3 (01:09→20:24)
--- NOTE | 2022-07-13 02:48 | PCRCNOTE ---
Patient refused the 0200 updraft treatment, wanting to continue sleeping. Treatment to resume at 0800.
[2022-07-13 05:49] LABS: Basophils Percent Auto 0.1 % (0.2-1.2); Hematocrit 44.7 % (42.0-52.0); Hemoglobin 15.2 g/dL (14.0-18.0); Immature Granulocyte Absolute 0.13 K/mm3 (0.00-0.031); Immature Granulocyte Percent A 0.8 % (0-0.5); Lymphocytes Percent Auto 8.2 % (18.3-44.2); Mean Corpuscular Hemoglobin 30.5 pg (26-34); Mean Corpuscular Volume 89.6 fl (80-100); Mean Platelet Volume 10.3 fl (7.4-10.4); Monocytes Absolute Auto 0.7 K/mm3 (0.1-0.6); Monocytes Percent Auto 4.2 % (2.6-8.5); Neutrophils Absolute Auto 13.7 K/mm3 (1.3-6.7); Neutrophils Percent Auto 86.7 % (45.5-73.1); Platelet Count Result 232 k/mm3 (150-375); Red Blood Count 4.99 M/mm3 (4.6-6.20); Red Cell Distribution Width 12.9 % (11.5-14.5); White Blood Count 15.8 K/mm3 (4.5-10.0)
[2022-07-13 05:59] LABS: Alanine Aminotransferase 54 U/L (6-50); Albumin Level 3.9 g/dL (3.5-5.1); Alkaline Phosphatase 90 U/L (38-126); Anion Gap 6 mmol/L (8-16); Aspartate Amino Transferase 37 U/L (17-59); Bilirubin,Total 0.4 mg/dL (0.2-1.3); Blood Urea Nitrogen 18 mg/dL (9-20); Calcium 8.7 mg/dL (8.4-10.2); Carbon Dioxide 31 mmol/L (22-30); Chloride 101 mmol/L (98-107); Estimated CRCL calculation 96 ml/min; Estimated Glomerular Filt Rate > 60; Glucose 283 mg/dL (65-110); Magnesium 2.4 mg/dL (1.6-2.3); Potassium 4.2 mmol/L (3.4-5.0); Sodium 138 mmol/L (137-145)
[2022-07-13] MEDS: methylPREDNISolone SOD SUCC 125 MG VIAL 60 MG IV PUSH (06:24)
[2022-07-13] MEDS: IPRATROPIUM BR 0.02% INH SOLN 0.5 MG/2.5 ML VIAL INHALATION ×3 (08:00→20:35)
[2022-07-13] MEDS: LEVALBUTEROL NEB 1.25 MG/3 ML 0.63 MG INHALATION ×3 (08:00→20:35)
[2022-07-13] MEDS: amLODIPine BESYLATE 5 MG TABLET 10 MG PO (08:27)
[2022-07-13] MEDS: ASPIRIN 81 MG ENTERIC TABLET PO (08:27)
[2022-07-13] MEDS: busPIRone HCL 5 MG TABLET 10 MG PO ×2 (08:27→16:32)
[2022-07-13] MEDS: BACLOFEN 10 MG TABLET 20 MG PO ×2 (08:27→16:33)
[2022-07-13] MEDS: PANTOPRAZOLE 40 MG TABLET PO ×2 (08:27→20:24)
[2022-07-13] MEDS: ENOXAPARIN 40 MG/0.4 ML SYRINGE SUB-Q (08:28)
[2022-07-13] MEDS: FLUTICASONE PROPIONATE 0.05% NA SPR 16 GM BTL (*BKC) 1 SPRAY NASAL ×2 (08:28→20:23)
[2022-07-13] MEDS: PREGABALIN (*CRX) 50 MG CAPSULE 200 MG PO ×2 (08:28→20:24)
[2022-07-13] MEDS: NICOTINE (*PBKC) 14 MG PATCH 1 PATCH TRANSDERM (08:28)
[2022-07-13] MEDS: polyethylene glycoL 3350 17 GM POWD.PACK PO (08:29)
[2022-07-13 09:48] LABS: Hemoglobin A1C 6.3 % (<5.7)
--- NOTE | 2022-07-13 10:15 | PM.IMPN ---
Progress Note: A&P Assessment and Plan (1) Acute exacerbation of chronic obstructive airways disease: Code(s): J44.1 - Chronic obstructive pulmonary disease with (acute) exacerbation Status: Acute Assessment and Plan: History of COPD ABG indicated compensated respiratory acidosis Continue home Singulair Neb treatments continued Continue steroids, change to PO prednisone repeat chest xray found increasing opacities in the costophrenic angle consistent with atelectasis vs PNA Sputum culture ordered, yet still not collected Continue azithromycin add ceftriaxone (2) Hypertension: Qualifiers: Hypertension type: unspecified Qualified Code(s): I10 - Essential (primary) hypertension Code(s): I10 - Essential (primary) hypertension Status: Chronic Assessment and Plan: BP 123/58 Continue home amlodipine Trend BP adjust therapy as indicated (3) Lactic acidosis: Code(s): E87.20 - Acidosis, unspecified Status: Acute Assessment and Plan: Lactic noted to be 3.3 in the ED Repeat 2.0 Most likely reactive to shortness of breath WBC elevated most likely related to steroid use (4) Chronic respiratory failure: Code(s): J96.10 - Chronic respiratory failure, unspecified whether with hypoxia or hypercapnia Status: Acute Assessment and Plan: On chronic home O2 use, 4LNC at rest and 6LNC Supplemental oxygen Continue to trend SPO2 Wean to maintain saturations >88% ABG indicated compensated respiratory acidosis (5) Insomnia: Code(s): G47.00 - Insomnia, unspecified Status: Acute Assessment and Plan: Complaints of not being able to sleep added Seroquel for support (6) Pneumonia: Code(s): J18.9 - Pneumonia, unspecified organism Status: Acute Assessment and Plan: Chest xray shows new opacities Continue azithromycin, add ceftriaxone WBC elevated most like from steroids Continue neb treatments sputum culture ordered awaiting collection IS and Pep therapy Encourage activity Time Spent With Patient Time: 51 minutes Time with patient: Greater than 35 minutes Subjective Date/time seen: 07/13/22 1015 Interval history: 07/13/22 1015 patient seems to be doing okay. He states that he still having lots of shortness of breath. He also stated that he has scared to get up and move around as his saturations dropped to 85 trying to get to the bathroom. He would like to get the shower which he was encouraged to get up move around and get a shower. Oxygen is at his baseline. Labs vital signs also remained stable. 07/12/22 1015 Patient was laying in bed. He stated that he was feeling a little bit better, however, was still getting short of breath. He is also have a decent cough as well. He is still complaining of night sweats, and constipation. He is still weak, but has been getting out of bed. He denies any chest pain, nausea, vomiting, diarrhea, lightheadedness or dizziness. Will get another chest xray in the am to assess for any improvements. He also complained of not getting any sleep last night as well. 07/11/22? 0845 ?patient is 61-year-old male with a past medical history of end-stage COPD, CAD, hypertension chronic back pain who presented to the ED with complaints of shortness of breath.? 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 Patient stated that if he does not do this said they find him at the site that he lives.? He stated at that time he was started have some shortness of breath and a cough with no production.? He did try a breathing treatment at home however he was not successful getting any relief.? At that time he decided to come to the ED for further evaluation workup.? He
--- NOTE | 2022-07-13 10:15 | P.PNIM_ITS ---
Progress Note: A&P Assessment and Plan (1) Acute exacerbation of chronic obstructive airways disease: Code(s): J44.1 - Chronic obstructive pulmonary disease with (acute) exacerbation Status: Acute Assessment and Plan: * History of COPD * ABG indicated compensated respiratory acidosis * Continue home Singulair * Neb treatments continued * Continue steroids, change to PO prednisone * repeat chest xray found increasing opacities in the costophrenic angle consistent with atelectasis vs PNA * Sputum culture ordered, yet still not collected * Continue azithromycin add ceftriaxone (2) Hypertension: Qualifiers: Hypertension type: unspecified Qualified Code(s): I10 - Essential ([place]) hypertension Code(s): I10 - Essential (primary) hypertension Status: Chronic Assessment and Plan: * BP 123/58 * Continue home amlodipine * Trend BP * adjust therapy as indicated (3) Lactic acidosis: Code(s): E87.20 - Acidosis, unspecified Status: Acute Assessment and Plan: * Lactic noted to be 3.3 in the ED * Repeat 2.0 * Most likely reactive to shortness of breath * WBC elevated most likely related to steroid use (4) Chronic respiratory failure: Code(s): J96.10 - Chronic respiratory failure, unspecified whether with hypoxia or hypercapnia Status: Acute Assessment and Plan: * On chronic home O2 use, 4LNC at rest and 6LNC * Supplemental oxygen * Continue to trend SPO2 * Wean to maintain saturations >88% * ABG indicated compensated respiratory acidosis (5) Insomnia: Code(s): G47.00 - Insomnia, unspecified Status: Acute Assessment and Plan: * Complaints of not being able to sleep * added Seroquel for support (6) Pneumonia: Code(s): J18.9 - Pneumonia, unspecified organism Status: Acute Assessment and Plan: * Chest xray shows new opacities * Continue azithromycin, add ceftriaxone * WBC elevated most like from steroids * Continue neb treatments * sputum culture ordered awaiting collection * IS and Pep therapy * Encourage activity Time Spent With Patient Time: 51 minutes Time with patient: Greater than 35 minutes Subjective Date/time seen: 07/13/22 1015 Interval history: 07/13/22 1015 patient seems to be doing okay. He states that he still having lots of shortness of breath. He also stated that he has scared to get up and move around as his saturations dropped to 85 trying to get to the bathroom. He would like to get the shower which he was encouraged to get up move around and get a shower. Oxygen is at his baseline. Labs vital signs also remained stable. 07/12/22 1015 Patient was laying in bed. He stated that he was feeling a little bit better, however, was still getting short of breath. He is also have a decent cough as well. He is still complaining of night sweats, and constipation. He is still weak, but has been getting out of bed. He denies any chest pain, nausea, vomiting, diarrhea, lightheadedness or dizziness. Will get another chest xray in the am to assess for any improvements. He also complained of not getting any sleep last night as well. 07/11/22? 0845 ?patient is 61-year-old male with a past medical history of end-stage COPD, CAD, hypertension chronic back p
[2022-07-13] MEDS: MONTELUKAST SODIUM 10 MG TABLET PO (20:23)
[2022-07-13] MEDS: SERTRALINE HCL 50 MG TABLET 100 MG PO (20:24)
[2022-07-13] MEDS: QUEtiapine FUMARATE 25 MG TABLET PO (20:24)
[2022-07-14] VITALS (11 sets, daily range): BP systolic 128–157; BP diastolic 56–72; PULSE 66–86; RESP 16–20; TEMP 36.2–37.2; O2SAT 92–95
[2022-07-14] MEDS: LEVALBUTEROL NEB 1.25 MG/3 ML 0.63 MG INHALATION ×4 (01:56→21:02)
[2022-07-14] MEDS: IPRATROPIUM BR 0.02% INH SOLN 0.5 MG/2.5 ML VIAL INHALATION ×4 (01:56→21:02)
[2022-07-14 05:47] LABS: Basophils Percent Auto 0.2 % (0.2-1.2); Eosinophils Percent Auto 0.1 % (0-4.4); Hematocrit 45.4 % (42.0-52.0); Hemoglobin 15.7 g/dL (14.0-18.0); Immature Granulocyte Absolute 0.11 K/mm3 (0.00-0.031); Immature Granulocyte Percent A 0.7 % (0-0.5); Lymphocytes Absolute Auto 3.08 K/mm3 (0.9-3.2); Lymphocytes Percent Auto 19.2 % (18.3-44.2); Mean Corpuscular HGB Conc 34.6 g/dl (32-36); Mean Corpuscular Volume 86.8 fl (80-100); Mean Platelet Volume 10.5 fl (7.4-10.4); Monocytes Absolute Auto 1.4 K/mm3 (0.1-0.6); Monocytes Percent Auto 8.5 % (2.6-8.5); Neutrophils Absolute Auto 11.5 K/mm3 (1.3-6.7); Neutrophils Percent Auto 71.3 % (45.5-73.1); Platelet Count Result 226 k/mm3 (150-375); Red Blood Count 5.23 M/mm3 (4.6-6.20); Red Cell Distribution Width 12.7 % (11.5-14.5); White Blood Count 16.1 K/mm3 (4.5-10.0)
[2022-07-14 06:02] LABS: Alanine Aminotransferase 75 U/L (6-50); Albumin Level 3.8 g/dL (3.5-5.1); Alkaline Phosphatase 100 U/L (38-126); Anion Gap 2 mmol/L (8-16); Aspartate Amino Transferase 39 U/L (17-59); Bilirubin,Total 0.4 mg/dL (0.2-1.3); Blood Urea Nitrogen 18 mg/dL (9-20); Calcium 8.6 mg/dL (8.4-10.2); Carbon Dioxide 35 mmol/L (22-30); Chloride 102 mmol/L (98-107); Estimated CRCL calculation 96 ml/min; Estimated Glomerular Filt Rate > 60; Glucose 157 mg/dL (65-110); Magnesium 2.4 mg/dL (1.6-2.3); Potassium 3.7 mmol/L (3.4-5.0); Sodium 139 mmol/L (137-145)
[2022-07-14] MEDS: HYDROcodone/acetaminophen (*CRX) 5-325 MG TABLET 1 TAB PO ×3 (06:29→23:01)
[2022-07-14] MEDS: ENOXAPARIN 40 MG/0.4 ML SYRINGE SUB-Q (08:28)
[2022-07-14] MEDS: FLUTICASONE PROPIONATE 0.05% NA SPR 16 GM BTL (*BKC) 1 SPRAY NASAL ×2 (08:29→20:03)
[2022-07-14] MEDS: predniSONE 20 MG TABLET 40 MG PO (08:29)
[2022-07-14] MEDS: amLODIPine BESYLATE 5 MG TABLET 10 MG PO (08:29)
[2022-07-14] MEDS: busPIRone HCL 5 MG TABLET 10 MG PO ×2 (08:29→16:58)
[2022-07-14] MEDS: NICOTINE (*PBKC) 14 MG PATCH 1 PATCH TRANSDERM (08:29)
[2022-07-14] MEDS: ASPIRIN 81 MG ENTERIC TABLET PO (08:29)
[2022-07-14] MEDS: PANTOPRAZOLE 40 MG TABLET PO ×2 (08:29→20:02)
[2022-07-14 08:33] LABS: CRP 0.5 mg/dL (<1.0)
[2022-07-14] MEDS: PREGABALIN (*CRX) 50 MG CAPSULE 200 MG PO ×2 (08:39→20:02)
[2022-07-14] MEDS: polyethylene glycoL 3350 17 GM POWD.PACK PO (08:39)
--- NOTE | 2022-07-14 10:45 | P.PNIM_ITS ---
Progress Note: A&P Assessment and Plan (1) Pneumonia: Code(s): J18.9 - Pneumonia, unspecified organism Status: Acute Assessment and Plan: * Chest xray shows new opacities * Continue azithromycin, add ceftriaxone * WBC elevated most like from steroids * CRP 0.5 * Continue neb treatments * sputum culture ordered awaiting collection * IS and Pep therapy * Encourage activity (2) Acute exacerbation of chronic obstructive airways disease: Code(s): J44.1 - Chronic obstructive pulmonary disease with (acute) exacerbation Status: Acute Assessment and Plan: * History of COPD * ABG indicated compensated respiratory acidosis * Continue home Singulair * Neb treatments continued * Continue steroids, change to PO prednisone * repeat chest xray found increasing opacities in the costophrenic angle consistent with atelectasis vs PNA * CTA ordered to rule out PE * Sputum culture ordered, yet still not collected * Continue azithromycin and ceftriaxone * Pulmonology consulted thank you for your help * BNP also ordered for possible fluid overload (3) Leukocytosis: Code(s): D72.829 - Elevated white blood cell count, unspecified Status: Acute Assessment and Plan: * WBC elevated at 16.1 * Most likely from the steroids * Continue to trend * stop steroids on 07/15/22 * Continue to trend * CRP is 0.5 (4) Hypertension: Qualifiers: Hypertension type: unspecified Qualified Code(s): I10 - Essential (primary) hypertension Code(s): I10 - Essential (primary) hypertension Status: Chronic Assessment and Plan: * BP 128/56 * Continue home amlodipine * Trend BP * adjust therapy as indicated (5) Lactic acidosis: Code(s): E87.20 - Acidosis, unspecified Status: Acute Assessment and Plan: * Lactic noted to be 3.3 in the ED * Repeat 2.0 * Most likely reactive to shortness of breath * WBC elevated most likely related to steroid use (6) Chronic respiratory failure: Code(s): J96.10 - Chronic respiratory failure, unspecified whether with hypoxia or hypercapnia Status: Acute Assessment and Plan: * On chronic home O2 use, 4LNC at rest and 6LNC * Supplemental oxygen * Continue to trend SPO2 * Wean to maintain saturations >88% * ABG indicated compensated respiratory acidosis (7) Insomnia: Code(s): G47.00 - Insomnia, unspecified Status: Acute Assessment and Plan: * Complaints of not being able to sleep * added Seroquel for support Time Spent With Patient Time: 52 minutes Time with patient: Greater than 35 minutes Subjective Date/time seen: 07/14/221044 Interval history: 07/14/221044 Patient stated he is any better today. He stated that he is still having a rough time breathing. He did get up and shower yesterday stated that was very slow. He also states that he feels very weak. He did show me a sample of sputum which looks to be kind of like a coagulated Booger with blood. Ordered CTA. Consulted pulmonology at this point. WBCs are elevated 16.1 however CRP is normal at 0.5. Encourage patient to get up and move around more he did state that he was able to walk in the [place] however he did get weak and short of
--- NOTE | 2022-07-14 10:45 | PM.IMPN ---
Progress Note: A&P Assessment and Plan (1) Pneumonia: Code(s): J18.9 - Pneumonia, unspecified organism Status: Acute Assessment and Plan: Chest xray shows new opacities Continue azithromycin, add ceftriaxone WBC elevated most like from steroids CRP 0.5 Continue neb treatments sputum culture ordered awaiting collection IS and Pep therapy Encourage activity (2) Acute exacerbation of chronic obstructive airways disease: Code(s): J44.1 - Chronic obstructive pulmonary disease with (acute) exacerbation Status: Acute Assessment and Plan: History of COPD ABG indicated compensated respiratory acidosis Continue home Singulair Neb treatments continued Continue steroids, change to PO prednisone repeat chest xray found increasing opacities in the costophrenic angle consistent with atelectasis vs PNA CTA ordered to rule out PE Sputum culture ordered, yet still not collected Continue azithromycin and ceftriaxone Pulmonology consulted thank you for your help BNP also ordered for possible fluid overload (3) Leukocytosis: Code(s): D72.829 - Elevated white blood cell count, unspecified Status: Acute Assessment and Plan: WBC elevated at 16.1 Most likely from the steroids Continue to trend stop steroids on 07/15/22 Continue to trend CRP is 0.5 (4) Hypertension: Qualifiers: Hypertension type: unspecified Qualified Code(s): I10 - Essential (primary) hypertension Code(s): I10 - Essential (primary) hypertension Status: Chronic Assessment and Plan: BP 128/56 Continue home amlodipine Trend BP adjust therapy as indicated (5) Lactic acidosis: Code(s): E87.20 - Acidosis, unspecified Status: Acute Assessment and Plan: Lactic noted to be 3.3 in the ED Repeat 2.0 Most likely reactive to shortness of breath WBC elevated most likely related to steroid use (6) Chronic respiratory failure: Code(s): J96.10 - Chronic respiratory failure, unspecified whether with hypoxia or hypercapnia Status: Acute Assessment and Plan: On chronic home O2 use, 4LNC at rest and 6LNC Supplemental oxygen Continue to trend SPO2 Wean to maintain saturations >88% ABG indicated compensated respiratory acidosis (7) Insomnia: Code(s): G47.00 - Insomnia, unspecified Status: Acute Assessment and Plan: Complaints of not being able to sleep added Seroquel for support Time Spent With Patient Time: 52 minutes Time with patient: Greater than 35 minutes Subjective Date/time seen: 07/14/22 1045 Interval history: 07/14/22 104 Patient stated he is any better today. He stated that he is still having a rough time breathing. He did get up and shower yesterday stated that was very slow. He also states that he feels very weak. He did show me a sample of sputum which looks to be kind of like a coagulated Booger with blood. Ordered CTA. Consulted pulmonology at this point. WBCs are elevated 16.1 however CRP is normal at 0.5. Encourage patient to get up and move around more he did state that he was able to walk in the holt however he did get weak and short of breath towards the nurses station. He does appear very shaky and does have some tremors. He is sleeping okay. He also needs uses IS in his Pap therapy. 07/13/22 1015 patient seems to be doing okay. He states that he still having lots of shortness of breath. He also stated that he has scared to get up and move around as his saturations dropped to 85 trying to get to the bathroom. He would like to get the shower which he was encouraged to get up move around and get a shower. Oxygen is at his baseline. Labs vital signs also remained stable. 07/12/22 101 Patient was laying in bed. He stated that he was feeling a little
[2022-07-14 11:31] LABS: NT Pro B Type Natriuretic Pept 180 pg/mL (19.9-100)
[2022-07-14] MEDS: BACLOFEN 10 MG TABLET 20 MG PO ×2 (13:22→21:24)
--- NOTE | 2022-07-14 18:54 | PM.CNPUL ---
Assessment and Plan Assessment and plan (1) Acute exacerbation of chronic obstructive airways disease: Code(s): J44.1 - Chronic obstructive pulmonary disease with (acute) exacerbation Status: Acute Assessment and Plan: Long standing COPD, has an allergic component, needs to see frame tender, and has 2 cats at home with cat allergy. CTA shows no infiltrate, simply atelectasis and severe emphysema. (2) Tobacco abuse: Code(s): Z72.0 - Tobacco use Status: Acute Assessment and Plan: Was smoking at the time of admission, under a half pack a day, and also smokes. (3) Chronic respiratory failure: Code(s): J96.10 - Chronic respiratory failure, unspecified whether with hypoxia or hypercapnia Status: Acute Assessment and Plan: Uses O2 at home, increased this on his own to 6 L at rest and 4 L with exertion. Has a Trilogy at home, not using due to added cost on his utility bill. Plan Continue his treatment with steroids, IV antibiotics -azithromycin, ceftriaxone; I concur with his management. He needs to quit smoking, use home Trilogy, use O2 as medically indicated and not higher amounts which can contribute to airway dryness, continue outpatient 3 days a week azithromycin for suppressive therapy; he was not able to get prior auth for Daliresp which would really help with his excessive sputum production. History of Present Illness History of Present Illness Consult date: 07/13/22 Requesting physician: Sabino Beckett APN-C Chief complaint: acute copd exacerbation Narrative: patient was seen at 17:00 NEW CONSULT: Jeremiah Claire is a 61-year-old man admitted 07/11/22 who has COPD, on O2 since 2015. He is followed by pulmonologists Dr Mei and Dr Beebe at [facility] in [place]. He had increased shortness of breath, coughing, and sputum production for several days. He knew that he was getting worse, was trying to get everything at home taken care of before coming in for treatment, including getting food and litter for cats, groceries, other household tasks so his disabled would be ok while he was gone at the hospital. She had spine surgery a week ago, was disabled before the operation. The final straw was his working in the yard with his nephew who was mowing leaves, generating clouds of dust, mold and pollen. He could not take a breath, and at this point, came to the ER with worsening COPD; his CTA showed atelectasis and severe emphysema with apical blebs. He had an ABG = pH 7.38, pCO2 48.5, pO2 55.9, HCO3 28.2, saturation 86.3% on NC 3 L/min. WBC was 13 K, increased to 16 K today The patient says that he realized that not using his Trilogy device or O2 concentrator was saving a large amount on his utilities, which led him to cut back on these life-saving devices. He decided to increase his resting O2 at 6 L/min and his O2 with exertion remained at 4 L/min. He was using his albuterol in nebulizer 4 times a day, with Symbicort and Spiriva. His COPD is not under good control at baseline. Last admission was at the end of 2021, at [facility] in [place], where he goes most of the time. He was also inpatient same location June 2021; has been to [facility] and other [facility] facilities. He is not sure how many times he has been in hospital in the last year, at least twice. DATA * 07/13/22 - CTA - Bilateral dependent atelectasis. No evidence for pulmonary embolism. Severe emphysema. Review of Systems Review of Systems: He has not lost weight recently. Sleeps on a lot of pillows because of his back pain, however it does help his breathing as well. No leg
[2022-07-14] MEDS: MONTELUKAST SODIUM 10 MG TABLET PO (20:02)
[2022-07-14] MEDS: QUEtiapine FUMARATE 25 MG TABLET PO (20:02)
[2022-07-14] MEDS: SERTRALINE HCL 50 MG TABLET 100 MG PO (20:02)
[2022-07-15] VITALS (11 sets, daily range): BP systolic 122–125; BP diastolic 62–72; PULSE 64–92; RESP 16–20; TEMP 36.2–36.4; O2SAT 81–95
[2022-07-15] MEDS: traZODone HCL 50 MG TABLET PO (00:48)
[2022-07-15 05:24] LABS: Basophils Percent Auto 0.3 % (0.2-1.2); Eosinophils Absolute Auto 0.1 K/mm3 (0-0.3); Eosinophils Percent Auto 1.2 % (0-4.4); Hematocrit 44.5 % (42.0-52.0); Hemoglobin 15.4 g/dL (14.0-18.0); Immature Granulocyte Absolute 0.12 K/mm3 (0.00-0.031); Immature Granulocyte Percent A 1.1 % (0-0.5); Lymphocytes Absolute Auto 3.26 K/mm3 (0.9-3.2); Mean Corpuscular HGB Conc 34.6 g/dl (32-36); Mean Corpuscular Volume 86.6 fl (80-100); Mean Platelet Volume 10.3 fl (7.4-10.4); Monocytes Absolute Auto 0.9 K/mm3 (0.1-0.6); Monocytes Percent Auto 7.5 % (2.6-8.5); Neutrophils Absolute Auto 6.9 K/mm3 (1.3-6.7); Neutrophils Percent Auto 60.9 % (45.5-73.1); Platelet Count Result 217 k/mm3 (150-375); Red Blood Count 5.14 M/mm3 (4.6-6.20); Red Cell Distribution Width 12.8 % (11.5-14.5); White Blood Count 11.3 K/mm3 (4.5-10.0)
[2022-07-15 05:31] LABS: Alanine Aminotransferase 64 U/L (6-50); Albumin Level 3.7 g/dL (3.5-5.1); Alkaline Phosphatase 92 U/L (38-126); Anion Gap 3 mmol/L (8-16); Aspartate Amino Transferase 26 U/L (17-59); Bilirubin,Total 0.4 mg/dL (0.2-1.3); Blood Urea Nitrogen 15 mg/dL (9-20); CRP 0.6 mg/dL (<1.0); Calcium 8.6 mg/dL (8.4-10.2); Carbon Dioxide 35 mmol/L (22-30); Chloride 102 mmol/L (98-107); Estimated CRCL calculation 96 ml/min; Estimated Glomerular Filt Rate > 60; Glucose 117 mg/dL (65-110); Magnesium 2.5 mg/dL (1.6-2.3); Potassium 3.7 mmol/L (3.4-5.0); Sodium 140 mmol/L (137-145)
[2022-07-15] MEDS: PREGABALIN (*CRX) 50 MG CAPSULE 200 MG PO ×2 (07:52→20:03)
[2022-07-15] MEDS: polyethylene glycoL 3350 17 GM POWD.PACK PO (07:52)
[2022-07-15] MEDS: HYDROcodone/acetaminophen (*CRX) 5-325 MG TABLET 1 TAB PO ×2 (07:52→16:17)
[2022-07-15] MEDS: predniSONE 20 MG TABLET 40 MG PO (07:53)
[2022-07-15] MEDS: busPIRone HCL 5 MG TABLET 10 MG PO ×2 (07:53→16:17)
[2022-07-15] MEDS: ENOXAPARIN 40 MG/0.4 ML SYRINGE SUB-Q (07:53)
[2022-07-15] MEDS: amLODIPine BESYLATE 5 MG TABLET 10 MG PO (07:53)
[2022-07-15] MEDS: PANTOPRAZOLE 40 MG TABLET PO ×2 (07:53→20:03)
[2022-07-15] MEDS: NICOTINE (*PBKC) 14 MG PATCH 1 PATCH TRANSDERM (07:53)
[2022-07-15] MEDS: ASPIRIN 81 MG ENTERIC TABLET PO (07:53)
[2022-07-15] MEDS: FLUTICASONE PROPIONATE 0.05% NA SPR 16 GM BTL (*BKC) 1 SPRAY NASAL ×2 (07:54→20:04)
[2022-07-15] MEDS: IPRATROPIUM BR 0.02% INH SOLN 0.5 MG/2.5 ML VIAL INHALATION ×3 (07:58→19:16)
[2022-07-15] MEDS: LEVALBUTEROL NEB 1.25 MG/3 ML 0.63 MG INHALATION ×3 (07:58→19:16)
--- NOTE | 2022-07-15 09:15 | P.PNIM_ITS ---
Progress Note: A&P Assessment and Plan (1) Pneumonia: Code(s): J18.9 - Pneumonia, unspecified organism Status: Acute Assessment and Plan: * Chest xray shows new opacities * Continue azithromycin ceftriaxone * WBC elevated most like from steroids, down today at 11.3 * CRP 0.6 * Continue neb treatments * sputum culture collected * IS and Pep therapy * Encourage activity (2) Acute exacerbation of chronic obstructive airways disease: Code(s): J44.1 - Chronic obstructive pulmonary disease with (acute) exacerbation Status: Acute Assessment and Plan: * History of COPD * ABG indicated compensated respiratory acidosis * Continue home Singulair * Neb treatments continued * Continue steroids, change to PO prednisone * repeat chest xray found increasing opacities in the costophrenic angle consistent with atelectasis vs PNA * CTA showed no PE, severe emphysema * Sputum culture collected * Continue azithromycin and ceftriaxone * Pulmonology consulted thank you for your help * BNP 180 * Appear to most likely be his baseline (3) Leukocytosis: Code(s): D72.829 - Elevated white blood cell count, unspecified Status: Acute Assessment and Plan: * WBC elevated at 16.1, down to 11.3 * Most likely from the steroids * Continue to trend * stop steroids on 07/15/22 * Continue to trend * CRP is 0.5, 0.6 (4) Hypertension: Qualifiers: Hypertension type: unspecified Qualified Code(s): I10 - Essential (primary) hypertension Code(s): I10 - Essential (primary) hypertension Status: Chronic Assessment and Plan: * BP 148/72 * Continue home amlodipine * Trend BP * adjust therapy as indicated (5) Lactic acidosis: Code(s): E87.20 - Acidosis, unspecified Status: Acute Assessment and Plan: * Lactic noted to be 3.3 in the ED * Repeat 2.0 * Most likely reactive to shortness of breath * WBC elevated most likely related to steroid use (6) Chronic respiratory failure: Code(s): J96.10 - Chronic respiratory failure, unspecified whether with hypoxia or hypercapnia Status: Acute Assessment and Plan: * On chronic home O2 use, 4LNC at rest and 6LNC * Supplemental oxygen * Continue to trend SPO2 * Wean to maintain saturations >88% * ABG indicated compensated respiratory acidosis (7) Insomnia: Code(s): G47.00 - Insomnia, unspecified Status: Acute Assessment and Plan: * Complaints of not being able to sleep * added Seroquel for support Time Spent With Patient Time: 48 minutes Time with patient: Greater than 35 minutes Subjective Date/time seen: 07/15/22914 Interval history: 07/15/22914 Patient stated he has feel little bit better than it was yesterday. Patient stated he is still having shortness of breath and his cough is still productive. He did state that he was able to walk a little bit better and get around better however he does become very short of breath. Labs appear to be better today. Sputum culture has been collected. He denies any current chest pain, nausea, vomiting, diarrhea constipation. 07/14/22 1045 Patient stated he is any better today. He stated that he is still hav
--- NOTE | 2022-07-15 09:15 | PM.IMPN ---
Progress Note: A&P Assessment and Plan (1) Pneumonia: Code(s): J18.9 - Pneumonia, unspecified organism Status: Acute Assessment and Plan: Chest xray shows new opacities Continue azithromycin ceftriaxone WBC elevated most like from steroids, down today at 11.3 CRP 0.6 Continue neb treatments sputum culture collected IS and Pep therapy Encourage activity (2) Acute exacerbation of chronic obstructive airways disease: Code(s): J44.1 - Chronic obstructive pulmonary disease with (acute) exacerbation Status: Acute Assessment and Plan: History of COPD ABG indicated compensated respiratory acidosis Continue home Singulair Neb treatments continued Continue steroids, change to PO prednisone repeat chest xray found increasing opacities in the costophrenic angle consistent with atelectasis vs PNA CTA showed no PE, severe emphysema Sputum culture collected Continue azithromycin and ceftriaxone Pulmonology consulted thank you for your help BNP 180 Appear to most likely be his baseline (3) Leukocytosis: Code(s): D72.829 - Elevated white blood cell count, unspecified Status: Acute Assessment and Plan: WBC elevated at 16.1, down to 11.3 Most likely from the steroids Continue to trend stop steroids on 07/15/22 Continue to trend CRP is 0.5, 0.6 (4) Hypertension: Qualifiers: Hypertension type: unspecified Qualified Code(s): I10 - Essential (primary) hypertension Code(s): I10 - Essential (primary) hypertension Status: Chronic Assessment and Plan: BP 148/72 Continue home amlodipine Trend BP adjust therapy as indicated (5) Lactic acidosis: Code(s): E87.20 - Acidosis, unspecified Status: Acute Assessment and Plan: Lactic noted to be 3.3 in the ED Repeat 2.0 Most likely reactive to shortness of breath WBC elevated most likely related to steroid use (6) Chronic respiratory failure: Code(s): J96.10 - Chronic respiratory failure, unspecified whether with hypoxia or hypercapnia Status: Acute Assessment and Plan: On chronic home O2 use, 4LNC at rest and 6LNC Supplemental oxygen Continue to trend SPO2 Wean to maintain saturations >88% ABG indicated compensated respiratory acidosis (7) Insomnia: Code(s): G47.00 - Insomnia, unspecified Status: Acute Assessment and Plan: Complaints of not being able to sleep added Seroquel for support Time Spent With Patient Time: 48 minutes Time with patient: Greater than 35 minutes Subjective Date/time seen: 07/15/22914 Interval history: 07/15/22914 Patient stated he has feel little bit better than it was yesterday. Patient stated he is still having shortness of breath and his cough is still productive. He did state that he was able to walk a little bit better and get around better however he does become very short of breath. Labs appear to be better today. Sputum culture has been collected. He denies any current chest pain, nausea, vomiting, diarrhea constipation. 07/14/22 1045 Patient stated he is any better today. He stated that he is still having a rough time breathing. He did get up and shower yesterday stated that was very slow. He also states that he feels very weak. He did show me a sample of sputum which looks to be kind of like a coagulated Booger with blood. Ordered CTA. Consulted pulmonology at this point. WBCs are elevated 16.1 however CRP is normal at 0.5. Encourage patient to get up and move around more he did state that he was able to walk in the holt however he did get weak and short of breath towards the nurses station. He does appear very shaky and does have some tremors. He is sleeping okay. He also needs uses IS in his Pap therapy. 07/13/22 1015 patient seem
[2022-07-15] MEDS: BACLOFEN 10 MG TABLET 20 MG PO (14:55)
--- NOTE | 2022-07-15 15:31 | PM.PNPUL ---
Progress Note: A&P Assessment and Plan (1) Acute exacerbation of chronic obstructive airways disease: Code(s): J44.1 - Chronic obstructive pulmonary disease with (acute) exacerbation Status: Acute Assessment and Plan: Long standing COPD, has an allergic component, needs to see company accountant, and has 2 cats at home with cat allergy. CTA shows no infiltrate, simply atelectasis and severe emphysema. (2) Tobacco abuse: Code(s): Z72.0 - Tobacco use Status: Acute Assessment and Plan: Was smoking at the time of admission, under a half pack a day, and also smokes. Strongly encouraged tobacco cessation. (3) Chronic respiratory failure: Code(s): J96.10 - Chronic respiratory failure, unspecified whether with hypoxia or hypercapnia Status: Acute Assessment and Plan: Uses O2 at home, increased this on his own to 6 L at rest and 4 L with exertion. Has a Trilogy at home, not using due to added cost on his utility bill. He needs to use O2 at the proper flow. Plan Continue his treatment with steroids, IV antibiotics -azithromycin, ceftriaxone;? I concur with his management. He needs to quit smoking, use home Trilogy, use O2 as medically indicated and not higher amounts which can contribute to? airway dryness,? continue outpatient 3 days a week azithromycin for suppressive therapy; he was not able to get prior auth for Daliresp which would really help with his excessive sputum production. 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 He is better, anticipate discharge tomorrow. d/w Clovis Beckett NP. Subjective Date/time seen: 07/15/22 15:31 Interval history: ESTABLISHED: 07/15/22 : Jeremiah Claire is a 61-year-old man admitted 07/11/22 who has a COPD exacerbation with increased SOB, sputum, coughing, was using O2 6 L at rest and 4 L w exertion, not using his Trilogy; had hypercapnic hypoxemia respiratory failure with increasing WBC; 07/13 CTA = atelectasis, severe emphyseam, no infiltrates. Today 07/15/22 wbc lower, 11 K. He was able to expectorate sputum today, was sent for evaluation. He is feeling a bit better. On O2 since 2015, sees Dr Beebe at [facility] in [place].? He had increased shortness of breath, coughing, and sputum production for several days.? Decompensated while working in the yard with his nephew who was mowing leaves, generating clouds of dust, mold and pollen.? He could not take a breath, and at this point, came to the ER with worsening COPD; his CTA showed atelectasis and severe emphysema with apical blebs.? He had an ABG = pH 7.38, pCO2 48.5, pO2 55.9, HCO3 28.2, saturation 86.3% on NC 3 L/min.? WBC was 13 K, increased to 16 K on 07/14/22. The patient says that he realized that not using his Trilogy device or O2 concentrator was saving a large amount on his utilities, which led him to cut back on these life-saving devices. He decided to increase his resting O2 at 6 L/min and his O2 with exertion remained at 4 L/min. He was using his albuterol in nebulizer 4 times a day, with Symbicort and Spiriva. His COPD is not under good control at baseline. Last admission was at the end of 2021, at [facility] in [place], where he goes most of the time.? He was also inpatient same location June 2021; has been to [place] and other near facilities. He is not sure how many times he has been in hospital in the last year, at least twice. He uses azithromycin 3 days a week for suppressive therapy. He has 2 cats at home, is allergic to cats, needs to see company accountant. Review of Systems Review of Systems: Al
[2022-07-15] MEDS: QUEtiapine FUMARATE 25 MG TABLET PO (20:03)
[2022-07-15] MEDS: SERTRALINE HCL 50 MG TABLET 100 MG PO (20:03)
[2022-07-15] MEDS: MONTELUKAST SODIUM 10 MG TABLET PO (20:03)
[2022-07-16] VITALS (14 sets, daily range): BP systolic 101–129; BP diastolic 53–70; PULSE 65–95; RESP 16–18; TEMP 36.6–36.8; O2SAT 93–96
[2022-07-16] MEDS: HYDROcodone/acetaminophen (*CRX) 5-325 MG TABLET 1 TAB PO ×3 (00:15→17:24)
[2022-07-16] MEDS: BACLOFEN 10 MG TABLET 20 MG PO ×3 (00:15→18:40)
[2022-07-16] MEDS: LEVALBUTEROL NEB 1.25 MG/3 ML 0.63 MG INHALATION ×4 (01:23→21:34)
[2022-07-16] MEDS: IPRATROPIUM BR 0.02% INH SOLN 0.5 MG/2.5 ML VIAL INHALATION ×4 (01:23→21:33)
[2022-07-16 05:38] LABS: Alanine Aminotransferase 55 U/L (6-50); Albumin Level 3.5 g/dL (3.5-5.1); Alkaline Phosphatase 87 U/L (38-126); Anion Gap 1 mmol/L (8-16); Aspartate Amino Transferase 23 U/L (17-59); Bilirubin,Total 0.4 mg/dL (0.2-1.3); Blood Urea Nitrogen 17 mg/dL (9-20); Calcium 8.3 mg/dL (8.4-10.2); Carbon Dioxide 37 mmol/L (22-30); Chloride 101 mmol/L (98-107); Estimated CRCL calculation 96 ml/min; Estimated Glomerular Filt Rate > 60; Glucose 110 mg/dL (65-110); Magnesium 2.5 mg/dL (1.6-2.3); Potassium 3.8 mmol/L (3.4-5.0); Sodium 139 mmol/L (137-145)
[2022-07-16 05:41] LABS: Basophils Percent Auto 0.2 % (0.2-1.2); Eosinophils Absolute Auto 0.3 K/mm3 (0-0.3); Eosinophils Percent Auto 2.5 % (0-4.4); Hematocrit 45.1 % (42.0-52.0); Hemoglobin 15.3 g/dL (14.0-18.0); Immature Granulocyte Absolute 0.14 K/mm3 (0.00-0.031); Immature Granulocyte Percent A 1.3 % (0-0.5); Lymphocytes Absolute Auto 3.21 K/mm3 (0.9-3.2); Lymphocytes Percent Auto 28.7 % (18.3-44.2); Mean Corpuscular HGB Conc 33.9 g/dl (32-36); Mean Corpuscular Hemoglobin 30.4 pg (26-34); Mean Corpuscular Volume 89.7 fl (80-100); Mean Platelet Volume 10.1 fl (7.4-10.4); Monocytes Absolute Auto 0.8 K/mm3 (0.1-0.6); Monocytes Percent Auto 7.4 % (2.6-8.5); Neutrophils Absolute Auto 6.7 K/mm3 (1.3-6.7); Neutrophils Percent Auto 59.9 % (45.5-73.1); Platelet Count Result 214 k/mm3 (150-375); Red Blood Count 5.03 M/mm3 (4.6-6.20); Red Cell Distribution Width 12.9 % (11.5-14.5); White Blood Count 11.2 K/mm3 (4.5-10.0)
[2022-07-16] MEDS: ASPIRIN 81 MG ENTERIC TABLET PO (08:22)
[2022-07-16] MEDS: ENOXAPARIN 40 MG/0.4 ML SYRINGE SUB-Q (08:22)
[2022-07-16] MEDS: busPIRone HCL 5 MG TABLET 10 MG PO ×2 (08:22→17:08)
[2022-07-16] MEDS: amLODIPine BESYLATE 5 MG TABLET 10 MG PO (08:22)
[2022-07-16] MEDS: FLUTICASONE PROPIONATE 0.05% NA SPR 16 GM BTL (*BKC) 1 SPRAY NASAL ×2 (08:23→20:10)
[2022-07-16] MEDS: polyethylene glycoL 3350 17 GM POWD.PACK PO (08:23)
[2022-07-16] MEDS: PANTOPRAZOLE 40 MG TABLET PO ×2 (08:23→20:10)
[2022-07-16] MEDS: NICOTINE (*PBKC) 14 MG PATCH 1 PATCH TRANSDERM (08:23)
[2022-07-16] MEDS: PREGABALIN (*CRX) 50 MG CAPSULE 200 MG PO ×2 (08:23→20:10)
--- NOTE | 2022-07-16 09:19 | PM.PNPUL ---
Progress Note: A&P Assessment and Plan (1) Acute exacerbation of chronic obstructive airways disease: Code(s): J44.1 - Chronic obstructive pulmonary disease with (acute) exacerbation Status: Acute Assessment and Plan: (2) Tobacco abuse: Code(s): Z72.0 - Tobacco use Status: Acute Assessment and Plan: Was smoking at the time of admission, under a half pack a day, and also smokes. Strongly encouraged tobacco cessation. (3) Chronic respiratory failure: Code(s): J96.10 - Chronic respiratory failure, unspecified whether with hypoxia or hypercapnia Status: Acute Assessment and Plan: Uses O2 at home, increased this on his own to 6 L at rest and 4 L with exertion. Has a Trilogy at home, not using due to added cost on his utility bill. He needs to use O2 at the proper flow. Plan Continue his IV antibiotics -azithromycin, ceftriaxone;? I concur with his management. He needs to quit smoking, use home Trilogy, use O2 as medically indicated and not higher amounts which can contribute to? airway dryness,? continue outpatient 3 days a week azithromycin for suppressive therapy; he was not able to get prior auth for Daliresp which would really help with his excessive sputum production possibly decrease rate of COPD exacerbation. 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 He is better, anticipate discharge tomorrow. patient mention today that he has got chronic dysphagia and was going to have a evaluation on an outpatient basis. I would consider GI consultation. Subjective Date/time seen: 07/16/22 09:19 This 61-year-old man has known history of COPD with hypoxemic respiratory failure on home oxygen 3 liters/minute and also noninvasive ventilatory support with trilogy ventilator and maintenance bronchodilators for advanced COPD. The patient presented with increasing shortness of breath and wheezing for approximately 1 week. Initial chest imaging studies showed dependent atelectasis bilaterally, advanced centrilobular emphysema and new infiltrates in the posterior segment of the right upper lobe and also in the right mid lobe. The patient also had hypoxemia and mild elevation in his pCO2. He has been treated with antibiotics, ceftriaxone and Zithromax, and nebulized bronchodilators. He also received oral steroids for 5 days. Currently he is doing better but not yet at baseline. He remains on supplemental oxygen 3 liters/minute, coughing up light yellow phlegm. Also complains of some chest congestion. On further questioning the patient stated that he had had COPD exacerbation at least twice over the last year that necessitated hospitalization. He has had chronic dysphagia in the sense that food gets stuck when swallowing. He reported no choking. He was going to have further workup for possible dysphagia but that was postponed. He has got chronic back pain and also history of coronary artery disease for which he had stent placement approximately a year ago. He continues to smoke but less than before. He is not compliant with his noninvasive ventilator at home. Review of Systems Review of Systems: All systems reviewed & are unremarkable except as noted in HPI and below ( HPI and below) Exam Narrative: GEN: Alert, oriented, not in distress. HEENT: pupils are equal, EOMI, symmetrical face; oral membranes moist NECK: Trachea is midline CHEST: Equal air entry, symmetric excursion, hyperinflated chest; decreased breath sounds with rare wheezing CV: Regular S1S2 no m/g/r ABD : (+) bowel sounds Extrem
--- NOTE | 2022-07-16 11:30 | PM.IMPN ---
Progress Note: A&P Assessment and Plan (1) Pneumonia: Code(s): J18.9 - Pneumonia, unspecified organism Status: Acute Assessment and Plan: Chest xray shows new opacities Continue azithromycin ceftriaxone WBC elevated most like from steroids, down today at 11.2 CRP 0.6 Continue neb treatments sputum culture collected IS and Pep therapy Encourage activity dysphagia could be contributing to symptoms restart steroids per pulmonology (2) Acute exacerbation of chronic obstructive airways disease: Code(s): J44.1 - Chronic obstructive pulmonary disease with (acute) exacerbation Status: Acute Assessment and Plan: History of COPD ABG indicated compensated respiratory acidosis Continue home Singulair Neb treatments continued Continue steroids, change to PO prednisone, completed with 5 days repeat chest xray found increasing opacities in the costophrenic angle consistent with atelectasis vs PNA CTA showed no PE, severe emphysema Sputum culture collected Continue azithromycin and ceftriaxone Pulmonology consulted thank you for your help BNP 180 Appear to most likely be his baseline (3) Leukocytosis: Code(s): D72.829 - Elevated white blood cell count, unspecified Status: Acute Assessment and Plan: WBC elevated at 16.1, down to 11.2 Most likely from the steroids Continue to trend stop steroids on 07/15/22 Continue to trend CRP is 0.5, 0.6 (4) Hypertension: Qualifiers: Hypertension type: unspecified Qualified Code(s): I10 - Essential (primary) hypertension Code(s): I10 - Essential (primary) hypertension Status: Chronic Assessment and Plan: BP 129/70 Continue home amlodipine Trend BP adjust therapy as indicated (5) Lactic acidosis: Code(s): E87.20 - Acidosis, unspecified Status: Acute Assessment and Plan: Lactic noted to be 3.3 in the ED Repeat 2.0 Most likely reactive to shortness of breath WBC elevated most likely related to steroid use (6) Chronic respiratory failure: Code(s): J96.10 - Chronic respiratory failure, unspecified whether with hypoxia or hypercapnia Status: Acute Assessment and Plan: On chronic home O2 use, 4LNC at rest and 6LNC Supplemental oxygen Continue to trend SPO2 Wean to maintain saturations >88% ABG indicated compensated respiratory acidosis (7) Insomnia: Code(s): G47.00 - Insomnia, unspecified Status: Acute Assessment and Plan: Complaints of not being able to sleep added Seroquel for support (8) Dysphasia: Code(s): R47.02 - Dysphasia Status: Acute Assessment and Plan: patient complaints of swelling dysfunction when eating speech therapy consulted GI consulted modified barium swallow ordered await further instructions from GI and speech therapy Time Spent With Patient Time: 48 minutes Time with patient: Greater than 35 minutes Subjective Date/time seen: 07/16/22 1130 Interval history: 07/16/22 113 patient is complaining of swelling dysfunction today. Currently patient is stating that he is tired and weak. GI and speech therapy have both been consulted. He denies any current abnormal chest pain, shortness a breath, nausea, vomiting, diarrhea constipation. 07/15/22 0915 Patient stated he has feel little bit better than it was yesterday. Patient stated he is still having shortness of breath and his cough is still productive. He did state that he was able to walk a little bit better and get around better however he does become very short of breath. Labs appear to be better today. Sputum culture has been collected. He denies any current chest pain, nausea, vomiting, diarrhea constipation. 07/14/22 1045 Patient stated he is any bett
--- NOTE | 2022-07-16 11:30 | P.PNIM_ITS ---
Progress Note: A&P Assessment and Plan (1) Pneumonia: Code(s): J18.9 - Pneumonia, unspecified organism Status: Acute Assessment and Plan: * Chest xray shows new opacities * Continue azithromycin ceftriaxone * WBC elevated most like from steroids, down today at 11.2 * CRP 0.6 * Continue neb treatments * sputum culture collected * IS and Pep therapy * Encourage activity * dysphagia could be contributing to symptoms * restart steroids per pulmonology (2) Acute exacerbation of chronic obstructive airways disease: Code(s): J44.1 - Chronic obstructive pulmonary disease with (acute) exacerbation Status: Acute Assessment and Plan: * History of COPD * ABG indicated compensated respiratory acidosis * Continue home Singulair * Neb treatments continued * Continue steroids, change to PO prednisone, completed with 5 days * repeat chest xray found increasing opacities in the costophrenic angle consistent with atelectasis vs PNA * CTA showed no PE, severe emphysema * Sputum culture collected * Continue azithromycin and ceftriaxone * Pulmonology consulted thank you for your help * BNP 180 * Appear to most likely be his baseline (3) Leukocytosis: Code(s): D72.829 - Elevated white blood cell count, unspecified Status: Acute Assessment and Plan: * WBC elevated at 16.1, down to 11.2 * Most likely from the steroids * Continue to trend * stop steroids on 07/15/22 * Continue to trend * CRP is 0.5, 0.6 (4) Hypertension: Qualifiers: Hypertension type: unspecified Qualified Code(s): I10 - Essential (primary) hypertension Code(s): I10 - Essential (primary) hypertension Status: Chronic Assessment and Plan: * BP 129/70 * Continue home amlodipine * Trend BP * adjust therapy as indicated (5) Lactic acidosis: Code(s): E87.20 - Acidosis, unspecified Status: Acute Assessment and Plan: * Lactic noted to be 3.3 in the ED * Repeat 2.0 * Most likely reactive to shortness of breath * WBC elevated most likely related to steroid use (6) Chronic respiratory failure: Code(s): J96.10 - Chronic respiratory failure, unspecified whether with hypoxia or hypercapnia Status: Acute Assessment and Plan: * On chronic home O2 use, 4LNC at rest and 6LNC * Supplemental oxygen * Continue to trend SPO2 * Wean to maintain saturations >88% * ABG indicated compensated respiratory acidosis (7) Insomnia: Code(s): G47.00 - Insomnia, unspecified Status: Acute Assessment and Plan: * Complaints of not being able to sleep * added Seroquel for support (8) Dysphasia: Code(s): R47.02 - Dysphasia Status: Acute Assessment and Plan: * patient complaints of swelling dysfunction when eating * speech therapy consulted * GI consulted * modified barium swallow ordered * await further instructions from GI and speech therapy Time Spent With Patient Time: 48 minutes Time with patient: Greater than 35 minutes Subjective Date/time seen: 07/16/22 1130 Interval history: 07/16/22 113 patient is complaining of swelling dysfuncti
--- NOTE | 2022-07-16 13:57 | WPDGICN ---
Assessment and Plan Assessment and plan (1) COPD (chronic obstructive pulmonary disease): Qualifiers: COPD type: unspecified COPD Qualified Code(s): J44.9 - Chronic obstructive pulmonary disease, unspecified Code(s): J44.9 - Chronic obstructive pulmonary disease, unspecified Status: Acute Assessment and Plan: He has had COPD for quite a while. He uses inhalers at home. States his breathing is much better now than it was when he admitted 5 days ago. (2) Tobacco abuse: Code(s): Z72.0 - Tobacco use Status: Acute Assessment and Plan: He has been a smoker, 1/2 pack a day for 30 years (3) GERD (gastroesophageal reflux disease): Code(s): K21.9 - Gastro-esophageal reflux disease without esophagitis Status: Acute Assessment and Plan: he has frequent heartburn but has not been on prescription medication for that. He uses [id number] meds as needed (4) Dysphagia: Code(s): R13.10 - Dysphagia, unspecified Status: Acute Assessment and Plan: as noted above, he has had difficulty swallowing solid foods such as bread and meat and other dry things for several years. When this happens he will have to stop and wait for food past or drink some water to help it down. He has never had endoscopy to investigate this. A modified barium swallow had been ordered, but by his history does not sound like he has an oropharyngeal issue. EGD you will be scheduled for tomorrow. I discussed the procedure with him I told that he will likely need esophageal dilatation. I explained the possible risks such as bleeding or perforation. GI Consult Note Consult date/time: 07/16/22 13:57 HPI: Jeremiah Claire is a 61 year old male With COPD who presented to emergency room July 11 with complaints of increasing shortness of breath and fatigue. He had tried a breathing treatment at home that did not seem to be effective. He has been started on nebulizer treatments and steroids. Chest x-ray showed no pneumonia but possible atelectasis. CT was negative for pulmonary embolism but did confirm severe emphysema. The patient states that he has been having difficulty swallowing. This has been going on for several years. Typically bread or meat or sometimes rice will seem to get caught just below his throat. He cannot get it to come upper down. He may drink water which finally helped the past but sometimes the water will not pass beyond this obstruction. On 1 occasion food was stuck for least 45 minutes. He has not lost weight. He does have chronic heartburn occasionally takes [id number] medication for that. He has never had endoscopy Review of Systems Review of Systems: All systems reviewed & are unremarkable except as noted in HPI and below PMFSH Past Medical History Medical History (Updated 07/16/22 @ 14:03 by Chapo Bear MD) Anxiety and depression CAD (coronary artery disease) Chronic respiratory failure COPD (chronic obstructive pulmonary disease) Hypertension Tobacco abuse Surgical History Surgical History History of cardiac catheterization History of heart artery stent History of orthopedic surgery Left biceps repair Social History Social History Social History: patient lives with his Virginie and does not have any kids however does have some step kids. He has 1 cat and wishes that his Virginie be his surrogate. He also wishes to be a full code at this time. Smoking packs per day: 0.5 Smoking cigarettes per day: 10.0 Years smoked: 30 Smoking pack-years: 15.00 Smoking status: Current every day smoker Tobacco type: cigarettes Alcohol intake: never Substance use: never Substance use type: does not use Lack of Transportation: No Lack of Food: Never True Current Housing: I Have Housing Concerned About Fu
[2022-07-16] MEDS: MONTELUKAST SODIUM 10 MG TABLET PO (20:10)
[2022-07-16] MEDS: SERTRALINE HCL 50 MG TABLET 100 MG PO (20:10)
[2022-07-16] MEDS: QUEtiapine FUMARATE 25 MG TABLET PO (20:10)
[2022-07-17] VITALS (18 sets, daily range): BP systolic 109–146; BP diastolic 55–73; PULSE 67–91; RESP 16–22; TEMP 36–36.7; O2SAT 92–96
[2022-07-17] MEDS: IPRATROPIUM BR 0.02% INH SOLN 0.5 MG/2.5 ML VIAL INHALATION ×3 (02:30→19:16)
[2022-07-17] MEDS: LEVALBUTEROL NEB 1.25 MG/3 ML 0.63 MG INHALATION ×3 (02:30→19:16)
[2022-07-17] MEDS: HYDROcodone/acetaminophen (*CRX) 5-325 MG TABLET 1 TAB PO ×2 (02:58→14:21)
[2022-07-17 05:38] LABS: Alanine Aminotransferase 55 U/L (6-50); Albumin Level 3.5 g/dL (3.5-5.1); Alkaline Phosphatase 94 U/L (38-126); Anion Gap -1 mmol/L (8-16); Aspartate Amino Transferase 25 U/L (17-59); Bilirubin,Total 0.4 mg/dL (0.2-1.3); Blood Urea Nitrogen 17 mg/dL (9-20); Calcium 8.5 mg/dL (8.4-10.2); Carbon Dioxide 36 mmol/L (22-30); Chloride 101 mmol/L (98-107); Estimated CRCL calculation 85 ml/min; Estimated Glomerular Filt Rate > 60; Glucose 114 mg/dL (65-110); Magnesium 2.4 mg/dL (1.6-2.3); Sodium 136 mmol/L (137-145)
[2022-07-17 05:40] LABS: Basophils Absolute Auto 0.1 K/mm3 (0.0-0.1); Basophils Percent Auto 0.6 % (0.2-1.2); Eosinophils Absolute Auto 0.4 K/mm3 (0-0.3); Eosinophils Percent Auto 3.9 % (0-4.4); Hematocrit 45.1 % (42.0-52.0); Hemoglobin 15.4 g/dL (14.0-18.0); Lymphocytes Absolute Auto 3.12 K/mm3 (0.9-3.2); Lymphocytes Percent Auto 30.9 % (18.3-44.2); Mean Corpuscular HGB Conc 34.1 g/dl (32-36); Mean Corpuscular Hemoglobin 29.9 pg (26-34); Mean Corpuscular Volume 87.6 fl (80-100); Mean Platelet Volume 10.1 fl (7.4-10.4); Monocytes Absolute Auto 0.7 K/mm3 (0.1-0.6); Monocytes Percent Auto 7.2 % (2.6-8.5); Neutrophils Absolute Auto 5.6 K/mm3 (1.3-6.7); Neutrophils Percent Auto 55.4 % (45.5-73.1); Platelet Count Result 221 k/mm3 (150-375); Red Blood Count 5.15 M/mm3 (4.6-6.20); Red Cell Distribution Width 12.6 % (11.5-14.5); White Blood Count 10.1 K/mm3 (4.5-10.0)
--- NOTE | 2022-07-17 08:26 | PCSTNOTE ---
Bedside Swallow and Modified Barium Swallow orders cancelled due to having EGD today. Please reorder when indicated.
[2022-07-17] MEDS: PANTOPRAZOLE 40 MG TABLET PO ×2 (08:34→20:44)
[2022-07-17] MEDS: predniSONE 20 MG TABLET 40 MG PO (08:34)
[2022-07-17] MEDS: amLODIPine BESYLATE 5 MG TABLET 10 MG PO (08:35)
[2022-07-17] MEDS: ASPIRIN 81 MG ENTERIC TABLET PO (08:35)
[2022-07-17] MEDS: busPIRone HCL 5 MG TABLET 10 MG PO ×2 (08:35→17:48)
[2022-07-17] MEDS: BACLOFEN 10 MG TABLET 20 MG PO (08:36)
[2022-07-17] MEDS: PREGABALIN (*CRX) 50 MG CAPSULE 200 MG PO ×2 (08:36→20:43)
[2022-07-17] MEDS: NICOTINE (*PBKC) 14 MG PATCH 1 PATCH TRANSDERM (08:36)
[2022-07-17] MEDS: FLUTICASONE PROPIONATE 0.05% NA SPR 16 GM BTL (*BKC) 1 SPRAY NASAL ×2 (08:37→20:45)
--- NOTE | 2022-07-17 08:57 | PM.PNPUL ---
Progress Note: A&P Assessment and Plan (1) Acute exacerbation of chronic obstructive airways disease: Code(s): J44.1 - Chronic obstructive pulmonary disease with (acute) exacerbation Status: Acute Assessment and Plan: (2) Tobacco abuse: Code(s): Z72.0 - Tobacco use Status: Acute Assessment and Plan: Was smoking at the time of admission, under a half pack a day, and also smokes. Strongly encouraged tobacco cessation. (3) Chronic respiratory failure: Code(s): J96.10 - Chronic respiratory failure, unspecified whether with hypoxia or hypercapnia Status: Acute Assessment and Plan: Uses O2 at home, increased this on his own to 6 L at rest and 4 L with exertion. Has a Trilogy at home, not using due to added cost on his utility bill. He needs to use O2 at the proper flow. Plan Continue his IV antibiotics -azithromycin, ceftriaxone;? Continue with current antibiotic regimen oral steroids nebulized bronchodilators. Supplemental oxygen down to 3 liters/minute which is his baseline. Patient is scheduled for endoscopy. Has had history of dysphagia of esophageal origin. If this is confirmed, increased rate of exacerbations could be related to recurrent aspiration. await EGD results. Anticipate DC home in a.m. Subjective Date/time seen: 07/17/22 08:58 Patient has no new respiratory complaints. He stated he is feeling better less chest congestion and less shortness of breath. Evaluated by GI Services regarding dysphagia scheduled to undergo EGD today. Review of Systems Review of Systems: All systems reviewed & are unremarkable except as noted in HPI and below Exam Narrative: GEN: Alert, oriented, not in distress. HEENT: pupils are equal, EOMI, symmetrical face; oral membranes moist NECK: Trachea is midline CHEST: Equal air entry, symmetric excursion, hyperinflated chest; decreased breath sounds with rare wheezing CV: Regular S1S2 no m/g/r ABD : (+) bowel sounds Extremities : mild clubbing of fingernail; no cyanosis, or edema PSYCH: normal thought and speech Objective Data Vital Signs Vital Signs: Vital Signs - 24 hr 07/16/22 13:32 07/16/22 13:52 07/16/22 14:00 Temperature 36.8 C Pulse Rate 72 69 95 Respiratory Rate 18 16 16 Blood Pressure 101/53 L Pulse Oximetry 96 Oxygen Delivery Oxygen Flow Rate 07/16/22 20:00 07/16/22 21:35 07/16/22 21:42 Temperature Pulse Rate 69 71 Respiratory Rate 18 18 Blood Pressure Pulse Oximetry 96 Oxygen Delivery Nasal Cannula Oxygen Flow Rate 07/16/22 21:50 07/17/22 02:30 07/16/22 19:45 Temperature 36.8 C Pulse Rate 91 67 Respiratory Rate 16 18 Blood Pressure 115/66 Pulse Oximetry 93 93 Oxygen Delivery Nasal Cannula Oxygen Flow Rate 3 07/17/22 02:40 07/17/22 06:00 07/17/22 07:50 Temperature 36.3 C L Pulse Rate 69 71 Respiratory Rate 18 16 Blood Pressure 109/73 Pulse Oximetry 93 93 Oxygen Delivery Nasal Cannula Oxygen Flow Rate 3 07/17/22 08:20 07/17/22 08:22 07/17/22 08:27 Temperature Pulse Rate 70 71 Respiratory Rate 20 20 Blood Pressure Pulse Oximetry 93 Oxygen Delivery Nasal Cannula Oxygen Flow Rate 3 Intake/Output Intake/Output: Intake & Output 07/14/22 07/15/22 07/16/22 07/17/22 23:59 23:59 23:59 23:59 Intake Total 1930 1440 3200 640 Output Total 1300 2350 2680 1400 Balance 630 -790 520 -760 Meds/Results Medications: Active Medications Generic Name Dose Route Start Last Admin Trade Name Freq PRN Reason Stop Dose Admin Hydrocodone Bitart/Acetaminophen 1 tab 07/11/22 0
--- NOTE | 2022-07-17 13:19 | PC.NURSE ---
On 07/17/22, the student, [Christen Palm], provided care and completed [facility] documentation on this patient. I have reviewed the student's documentation and agree with the findings.
[2022-07-17] MEDS: LACTATED RINGERS 1,000 ML 150 ML IV CONT (13:25)
--- NOTE | 2022-07-17 13:52 | PCRCNOTE ---
RT came by room for 1400 treatment and pt was gone for procedure. RN informed to call RT if pt was in need of treatment when back in room.
--- NOTE | 2022-07-17 14:17 | WPDANESEPPF ---
Anes - Initial Pre Proc Eval Procedure: Operation Date: 07/17/22 15:15 Proposed Procedures p Esophagogastroduodenoscopy - Chapo Bear MD Date/Time: 07/17/22 14:17 Surgeon: Marjan Fajardo DO Pre Op Diagnosis: acute copd exacerbation Patient Data Age: 61 Gender: M Height: 1.63 m Weight: 89.8 kg Last Vital Signs Temp 97.3 F L 07/17/22 13:18 Pulse 80 07/17/22 13:18 Resp 22 H 07/17/22 13:18 BP 146/68 H 07/17/22 13:18 Pulse Ox 93 07/17/22 13:18 O2 Del Method Nasal Cannula 07/17/22 13:18 O2 Flow Rate 3 07/17/22 13:18 FiO2 32 07/14/22 21:03 Allergies Allergy/AdvReac Type Severity Reaction Status Date / Time bacitracin Allergy Unknown Unknown Verified 07/17/22 13:14 neomycin Allergy Unknown Unknown Verified 07/17/22 13:14 Penicillins Allergy Unknown Rash Verified 07/17/22 13:14 polymyxin B Allergy Unknown Unknown Verified 07/17/22 13:14 Home Medications Medication Instructions Recorded Confirmed Type albuterol sulfate 90 mcg/actuation 90 mcg inhalation Q4H 10/31/19 07/11/22 History aerosol inhaler amlodipine 10 mg tablet 10 mg PO DAILY 10/31/19 07/11/22 History baclofen 20 mg tablet 20 mg PO TID PRN Muscle Spasm 10/31/19 07/11/22 History budesonide-formoterol HFA 160 2 puff inhalation BID 10/31/19 07/11/22 History mcg-4.5 mcg/actuation aerosol inhaler (Symbicort) buspirone 5 mg tablet 10 mg PO BID 10/31/19 07/11/22 History ipratropium 0.5 mg-albuterol 3 mg 3 ml inhalation BID 10/31/19 07/11/22 History (2.5 mg base)/3 mL nebulization soln montelukast 10 mg tablet 10 mg PO HS 10/31/19 07/11/22 History nicotine 14 mg/24 hr daily 14 mg transdermal DAILY 10/31/19 07/11/22 History transdermal patch oxymetazoline 0.05 % nasal spray 2 spray intranasal Q12H PRN 08/03/20 04/14/23 History (Afrin Sinus (oxymetazoline)) Allergy Symptoms pregabalin 200 mg capsule (Lyrica) 200 mg PO Q12H 10/31/19 07/11/22 History sertraline 100 mg tablet 100 mg PO HS 10/31/19 07/11/22 History aspirin 81 mg tablet,delayed 81 mg PO QAM #30 tabs 11/03/19 07/11/22 Rx release hydrocodone 5 mg-acetaminophen 325 1 tablet PO Q8H PRN Pain Rated 4-6 11/03/19 07/11/22 Rx mg tablet #10 tabs tiotropium bromide 2.5 2 puff inhalation BID 07/11/22 07/11/22 History mcg/actuation mist for inhalation (Spiriva Respimat) Laboratory Tests 07/17/22 07/17/22 05:02 05:02 WBC 10.1 K/mm3 H K/mm3 (4.5-10.0) RBC 5.15 M/mm3 M/mm3 (4.6-6.20) Hgb 15.4 g/dL g/dL (14.0-18.0) Hct 45.1 % % (42.0-52.0) MCV 87.6 fl fl (80-100) MCH 29.9 pg pg (26-34) MCHC 34.1 g/dl g/dl (32-36) RDW 12.6 % % (11.5-14.5) Plt Count 221 k/mm3 k/mm3 (150-375) MPV 10.1 fl fl (7.4-10.4) Immature Gran % (Auto) 2.0 % H % (0-0.5) Neut % (Auto) 55.4 % % (45.5-73.1) Lymph % (Auto) 30.9 % % (18.3-44.2) [place] % (Auto) 7.2 % % (2.6-8.5) Eos % (Auto) 3.9 % % (0-4.4) Baso % (Auto) 0.6 % % (0.2-1.2) Lymph # (Auto) 3.12 K/mm3 K/mm3 (0.9-3.2) [place] # (Auto) 0.7 K/mm3 H K/mm3 (0.1-0.6) Eos # (Auto) 0.4 K/mm3 H K/mm3 (0-0.3) Baso # (Auto) 0.1 K/mm3 K/mm3 (0.0-0.1) Abs Immat Gran (auto) 0.20 K/mm3 H K/mm3 (0.00-0.031) Absolute Neuts (auto) 5.6 K/mm3 K/mm3 (1.3-6.7) Absolute Nucleated RBC 0.0 K/mm3 K/mm3 (0.0-0.012) Nucleated RBC % 0.0 % % (0.0-0.2) Sodium 136 mmol/L L mmol/L (137-145) Potassium 4.0 mmol/L mmol/L (3.4-5.0) Chloride 101 mmol/L mmol/L (98-107) Carbon Dioxide 36 mmol/L H mmol/L (22-30) Anion Gap -1 mmol/L L mmol/L (8-16) BUN 17 mg/dL mg/dL (9-20) Creatinine 0.80 mg/dL mg/dL (0.7-1.3) Estim Creat Clear Calc 85 ml/min ml/min Estimated GFR > 60 (59 - ) Glucose 114 mg/dL H mg/dL (65-110) Calcium 8.5 mg/dL mg/dL (8.4-10.2)
--- NOTE | 2022-07-17 15:23 | SUR.OPER ---
[facility] CRE FIXED WIRE 18-20 balloon lot [id number] EXP 05/05/24
--- NOTE | 2022-07-17 16:00 | PM.IMPN ---
Progress Note: A&P Assessment and Plan (1) Pneumonia: Code(s): J18.9 - Pneumonia, unspecified organism Status: Acute Assessment and Plan: Chest xray shows new opacities Continue azithromycin ceftriaxone WBC elevated most like from steroids, down today at 11.2 CRP 0.6 Continue neb treatments sputum culture grew staph aureus IS and Pep therapy Encourage activity dysphagia could be contributing to symptoms restart steroids per pulmonology (2) Acute exacerbation of chronic obstructive airways disease: Code(s): J44.1 - Chronic obstructive pulmonary disease with (acute) exacerbation Status: Acute Assessment and Plan: History of COPD ABG indicated compensated respiratory acidosis Continue home Singulair Neb treatments continued Continue steroids, change to PO prednisone, completed with 5 days repeat chest xray found increasing opacities in the costophrenic angle consistent with atelectasis vs PNA CTA showed no PE, severe emphysema Sputum culture grew staph aureus Continue azithromycin and ceftriaxone Pulmonology consulted thank you for your help BNP 180 Appear to most likely be his baseline (3) Leukocytosis: Code(s): D72.829 - Elevated white blood cell count, unspecified Status: Acute Assessment and Plan: WBC elevated at 16.1, currently at 11.8 Most likely from the steroids Continue to trend stop steroids on 07/15/22 Continue to trend CRP is 0.5, 0.6 (4) Hypertension: Qualifiers: Hypertension type: unspecified Qualified Code(s): I10 - Essential (primary) hypertension Code(s): I10 - Essential (primary) hypertension Status: Chronic Assessment and Plan: BP 116/67 Continue home amlodipine Trend BP adjust therapy as indicated (5) Lactic acidosis: Code(s): E87.20 - Acidosis, unspecified Status: Acute Assessment and Plan: Lactic noted to be 3.3 in the ED Repeat 2.0 Most likely reactive to shortness of breath WBC elevated most likely related to steroid use (6) Chronic respiratory failure: Code(s): J96.10 - Chronic respiratory failure, unspecified whether with hypoxia or hypercapnia Status: Acute Assessment and Plan: On chronic home O2 use, 4LNC at rest and 6LNC Supplemental oxygen Continue to trend SPO2 Wean to maintain saturations >88% ABG indicated compensated respiratory acidosis (7) Insomnia: Code(s): G47.00 - Insomnia, unspecified Status: Acute Assessment and Plan: Complaints of not being able to sleep added Seroquel for support (8) Dysphasia: Code(s): R47.02 - Dysphasia Status: Acute Assessment and Plan: patient complaints of swelling dysfunction when eating speech therapy consulted GI consulted modified barium swallow cancelled await further instructions from GI and speech therapy Time Spent With Patient Time: 48 minutes Time with patient: Greater than 35 minutes Subjective Date/time seen: 07/17/22 1600 Interval history: 07/17/22 1600 Patient is doing well today. He just returned back from EGD. He denies any current pain He is complaining of slight chest pain, nothing that is abnormal for him. He complains of shortness of breath, nausea, vomiting diarrhea, constipation. He is weak, however, seems to be at baseline as well. 07/16/22 1130 patient is complaining of swelling dysfunction today. Currently patient is stating that he is tired and weak. GI and speech therapy have both been consulted. He denies any current abnormal chest pain, shortness a breath, nausea, vomiting, diarrhea constipation. 07/15/22 0915 Patient stated he has feel little bit better than it was yesterday. Patient stated he is still having shortness of breath and his cou
--- NOTE | 2022-07-17 16:00 | P.PNIM_ITS ---
Progress Note: A&P Assessment and Plan (1) Pneumonia: Code(s): J18.9 - Pneumonia, unspecified organism Status: Acute Assessment and Plan: * Chest xray shows new opacities * Continue azithromycin ceftriaxone * WBC elevated most like from steroids, down today at 11.2 * CRP 0.6 * Continue neb treatments * sputum culture grew staph aureus * IS and Pep therapy * Encourage activity * dysphagia could be contributing to symptoms * restart steroids per pulmonology (2) Acute exacerbation of chronic obstructive airways disease: Code(s): J44.1 - Chronic obstructive pulmonary disease with (acute) exacerbation Status: Acute Assessment and Plan: * History of COPD * ABG indicated compensated respiratory acidosis * Continue home Singulair * Neb treatments continued * Continue steroids, change to PO prednisone, completed with 5 days * repeat chest xray found increasing opacities in the costophrenic angle consistent with atelectasis vs PNA * CTA showed no PE, severe emphysema * Sputum culture grew staph aureus * Continue azithromycin and ceftriaxone * Pulmonology consulted thank you for your help * BNP 180 * Appear to most likely be his baseline (3) Leukocytosis: Code(s): D72.829 - Elevated white blood cell count, unspecified Status: Acute Assessment and Plan: * WBC elevated at 16.1, currently at 11.8 * Most likely from the steroids * Continue to trend * stop steroids on 07/15/22 * Continue to trend * CRP is 0.5, 0.6 (4) Hypertension: Qualifiers: Hypertension type: unspecified Qualified Code(s): I10 - Essential (primary) hypertension Code(s): I10 - Essential (primary) hypertension Status: Chronic Assessment and Plan: * BP 116/67 * Continue home amlodipine * Trend BP * adjust therapy as indicated (5) Lactic acidosis: Code(s): E87.20 - Acidosis, unspecified Status: Acute Assessment and Plan: * Lactic noted to be 3.3 in the ED * Repeat 2.0 * Most likely reactive to shortness of breath * WBC elevated most likely related to steroid use (6) Chronic respiratory failure: Code(s): J96.10 - Chronic respiratory failure, unspecified whether with hypoxia or hypercapnia Status: Acute Assessment and Plan: * On chronic home O2 use, 4LNC at rest and 6LNC * Supplemental oxygen * Continue to trend SPO2 * Wean to maintain saturations >88% * ABG indicated compensated respiratory acidosis (7) Insomnia: Code(s): G47.00 - Insomnia, unspecified Status: Acute Assessment and Plan: * Complaints of not being able to sleep * added Seroquel for support (8) Dysphasia: Code(s): R47.02 - Dysphasia Status: Acute Assessment and Plan: * patient complaints of swelling dysfunction when eating * speech therapy consulted * GI consulted * modified barium swallow cancelled * await further instructions from GI and speech therapy Time Spent With Patient Time: 48 minutes Time with patient: Greater than 35 minutes Subjective Date/time seen: 07/17/22 1600 Interval history: 07/17/[id number] Patient is doing well
[2022-07-17] MEDS: HYDROcodone/acetaminophen (*CRX) 10-325 MG TABLET 1 TAB PO (18:25)
[2022-07-17] MEDS: SERTRALINE HCL 50 MG TABLET 100 MG PO (20:44)
[2022-07-17] MEDS: MONTELUKAST SODIUM 10 MG TABLET PO (20:44)
[2022-07-17] MEDS: QUEtiapine FUMARATE 25 MG TABLET PO (20:44)
[2022-07-18] VITALS (14 sets, daily range): BP systolic 116–124; BP diastolic 54–76; PULSE 67–89; RESP 18–20; TEMP 35.9–36.6; O2SAT 93–96
[2022-07-18] MEDS: IPRATROPIUM BR 0.02% INH SOLN 0.5 MG/2.5 ML VIAL INHALATION ×4 (01:58→20:12)
[2022-07-18] MEDS: LEVALBUTEROL NEB 1.25 MG/3 ML 0.63 MG INHALATION ×4 (01:58→20:12)
[2022-07-18] MEDS: HYDROcodone/acetaminophen (*CRX) 10-325 MG TABLET 1 TAB PO ×3 (02:45→20:25)
[2022-07-18 06:29] LABS: Basophils Percent Auto 0.3 % (0.2-1.2); Eosinophils Absolute Auto 0.2 K/mm3 (0-0.3); Hematocrit 44.1 % (42.0-52.0); Hemoglobin 15.2 g/dL (14.0-18.0); Immature Granulocyte Absolute 0.17 K/mm3 (0.00-0.031); Immature Granulocyte Percent A 1.4 % (0-0.5); Lymphocytes Absolute Auto 2.57 K/mm3 (0.9-3.2); Lymphocytes Percent Auto 21.8 % (18.3-44.2); Mean Corpuscular HGB Conc 34.5 g/dl (32-36); Mean Platelet Volume 10.1 fl (7.4-10.4); Monocytes Absolute Auto 0.8 K/mm3 (0.1-0.6); Monocytes Percent Auto 6.4 % (2.6-8.5); Neutrophils Percent Auto 68.1 % (45.5-73.1); Platelet Count Result 238 k/mm3 (150-375); Red Blood Count 5.07 M/mm3 (4.6-6.20); Red Cell Distribution Width 12.6 % (11.5-14.5); White Blood Count 11.8 K/mm3 (4.5-10.0)
[2022-07-18 06:43] LABS: Alanine Aminotransferase 55 U/L (6-50); Albumin Level 3.6 g/dL (3.5-5.1); Alkaline Phosphatase 90 U/L (38-126); Anion Gap 3 mmol/L (8-16); Aspartate Amino Transferase 28 U/L (17-59); Bilirubin,Total 0.4 mg/dL (0.2-1.3); Blood Urea Nitrogen 18 mg/dL (9-20); Calcium 8.5 mg/dL (8.4-10.2); Carbon Dioxide 32 mmol/L (22-30); Chloride 101 mmol/L (98-107); Estimated CRCL calculation 96 ml/min; Estimated Glomerular Filt Rate > 60; Glucose 168 mg/dL (65-110); Magnesium 2.3 mg/dL (1.6-2.3); Potassium 3.8 mmol/L (3.4-5.0); Sodium 136 mmol/L (137-145)
--- NOTE | 2022-07-18 08:38 | PM.PNPUL ---
Progress Note: A&P Assessment and Plan (1) Acute exacerbation of chronic obstructive airways disease: Code(s): J44.1 - Chronic obstructive pulmonary disease with (acute) exacerbation Status: Acute Assessment and Plan: (2) Tobacco abuse: Code(s): Z72.0 - Tobacco use Status: Acute Assessment and Plan: Was smoking at the time of admission, under a half pack a day, and also smokes. Strongly encouraged tobacco cessation. (3) Chronic respiratory failure: Code(s): J96.10 - Chronic respiratory failure, unspecified whether with hypoxia or hypercapnia Status: Acute Assessment and Plan: patient with COPD was hospitalized with increasing shortness of breath cough and wheezing. Has been treated for COPD exacerbation with significant improvement of respiratory status. Respiratory status is back at baseline. Plan okay to discharge patient home. He will remain on same maintenance bronchodilators and also short-acting bronchodilators for p.r.n. use. He will continue with supplemental oxygen 3 liters/minute as before. in view of esophageal stricture for which he underwent dilatation we may have to wait before upgrading maintenance treatment for history of recurrent COPD exacerbations. it is likely that some of his COPD exacerbations were related to silent aspiration due to esophageal disease. Had a lengthy discussion with the patient regarding follow-up. He will see his pulmonary physician at [facility] in about 3-4 weeks from today. I would continue with a tapering steroid regimen for another week. Will sign off please call with any questions. Subjective Date/time seen: 07/18/22 08:38 Interval history: Patient has no new respiratory symptoms. Underwent EGD with esophageal dilatation for stricture. He still on supplemental oxygen 3 liters/minute which is his baseline. Has no cough or congestion. No wheezing. Review of Systems Review of Systems: All systems reviewed & are unremarkable except as noted in HPI and below ( HPI and below) Exam Narrative: GEN: Alert, oriented, not in distress. HEENT: pupils are equal, EOMI, symmetrical face; oral membranes moist NECK: Trachea is midline CHEST: Equal air entry, symmetric excursion, hyperinflated chest; decreased breath sounds with rare wheezing CV: Regular S1S2 no m/g/r ABD : (+) bowel sounds Extremities : mild clubbing of fingernail; no cyanosis, or edema PSYCH: normal thought and speech Objective Data Vital Signs Vital Signs: Vital Signs - 24 hr 07/17/22 09:55 07/17/22 13:18 07/17/22 15:20 Temperature 36.3 C L Pulse Rate 80 79 Respiratory Rate 22 H 21 H Blood Pressure 146/68 H 118/59 L Pulse Oximetry 93 93 96 Oxygen Delivery Nasal Cannula Nasal Cannula Nasal Cannula Oxygen Flow Rate 3 3 4 Fraction of Inspired Oxygen 07/17/22 15:30 07/17/22 15:40 07/17/22 16:10 Temperature 36.7 C Pulse Rate 78 81 76 Respiratory Rate 22 H 22 H 20 Blood Pressure 121/62 123/55 L 131/59 L Pulse Oximetry 95 95 94 Oxygen Delivery Nasal Cannula Nasal Cannula Oxygen Flow Rate 4 4 Fraction of Inspired Oxygen 07/17/22 19:19 07/17/22 19:21 07/17/22 19:28 Temperature Pulse Rate 91 91 84 Respiratory Rate 18 18 18 Blood Pressure Pulse Oximetry 92 Oxygen Delivery Nasal Cannula Oxygen Flow Rate 3 Fraction of Inspired Oxygen 32 07/17/22 19:51 07/17/22 20:00 07/18/22 04:12 Temperature 36.0 C L 35.9 C L Pulse Rate 89 68 Respiratory Rate 20 20 Blood Pressure 121/61 116/67 Pulse Oximetry 93 93 96 Oxygen Delivery Nasal Cannula Oxygen Flow Rate 3 Fraction of Inspired Oxygen 07/18/22 01:58 07/18/22 02:08 Temperature Pulse Rate 82 88 Respiratory Rate 18 18 Blood Pressure Pulse Oximetry Oxygen Delivery Oxygen Flow R
--- NOTE | 2022-07-18 09:32 | PCNWS ---
Weekly nutritional screen. Patient is tolerating current diet with adequate intake. No weight loss reported. No nutritional needs at this time.
[2022-07-18] MEDS: ASPIRIN 81 MG ENTERIC TABLET PO (09:33)
[2022-07-18] MEDS: ENOXAPARIN 40 MG/0.4 ML SYRINGE SUB-Q (09:33)
[2022-07-18] MEDS: busPIRone HCL 5 MG TABLET 10 MG PO ×2 (09:33→17:24)
[2022-07-18] MEDS: amLODIPine BESYLATE 5 MG TABLET 10 MG PO (09:33)
[2022-07-18] MEDS: predniSONE 20 MG TABLET 40 MG PO (09:33)
[2022-07-18] MEDS: NICOTINE (*PBKC) 14 MG PATCH 1 PATCH TRANSDERM (09:34)
[2022-07-18] MEDS: polyethylene glycoL 3350 17 GM POWD.PACK PO (09:34)
[2022-07-18] MEDS: BACLOFEN 10 MG TABLET 20 MG PO ×2 (09:34→20:24)
[2022-07-18] MEDS: PREGABALIN (*CRX) 50 MG CAPSULE 200 MG PO ×2 (09:34→20:32)
[2022-07-18] MEDS: PANTOPRAZOLE 40 MG TABLET PO ×2 (09:34→20:29)
[2022-07-18] MEDS: FLUTICASONE PROPIONATE 0.05% NA SPR 16 GM BTL (*BKC) 1 SPRAY NASAL ×2 (09:34→20:30)
--- NOTE | 2022-07-18 13:00 | P.PNIM_ITS ---
Progress Note: A&P Assessment and Plan (1) Pneumonia: Code(s): J18.9 - Pneumonia, unspecified organism Status: Acute Assessment and Plan: * Chest xray shows new opacities * Stopped azithromycin ceftriaxone, start doxycycline * WBC elevated most like from steroids, down today at 11.8 * CRP 0.6 * Continue neb treatments * sputum culture grew staph aureus * IS and Pep therapy * Encourage activity * dysphagia could be contributing to symptoms * restart steroids per pulmonology (2) Acute exacerbation of chronic obstructive airways disease: Code(s): J44.1 - Chronic obstructive pulmonary disease with (acute) exacerbation Status: Acute Assessment and Plan: * History of COPD * ABG indicated compensated respiratory acidosis * Continue home Singulair * Neb treatments continued * Continue steroids, change to PO prednisone, completed with 5 days * repeat chest xray found increasing opacities in the costophrenic angle consistent with atelectasis vs PNA * CTA showed no PE, severe emphysema * Sputum culture grew staph aureus awaiting sensitivities * stop azithromycin and ceftriaxone, added doxycycline * Pulmonology consulted thank you for your help * BNP 180 * Appear to most likely be his baseline (3) Leukocytosis: Code(s): D72.829 - Elevated white blood cell count, unspecified Status: Acute Assessment and Plan: * WBC elevated at 16.1, currently at 11.8 * Most likely from the steroids * Continue to trend * stop steroids on 07/15/22 * Continue to trend * CRP is 0.5, 0.6 (4) Hypertension: Qualifiers: Hypertension type: unspecified Qualified Code(s): I10 - Essential (pr imary) hypertension Code(s): I10 - Essential (primary) hypertension Status: Chronic Assessment and Plan: * BP 116/67 * Continue home amlodipine * Trend BP * adjust therapy as indicated (5) Lactic acidosis: Code(s): E87.20 - Acidosis, unspecified Status: Acute Assessment and Plan: * Lactic noted to be 3.3 in the ED * Repeat 2.0 * Most likely reactive to shortness of breath * WBC elevated most likely related to steroid use (6) Chronic respiratory failure: Code(s): J96.10 - Chronic respiratory failure, unspecified whether with hypoxia or hypercapnia Status: Acute Assessment and Plan: * On chronic home O2 use, 4LNC at rest and 6LNC * Supplemental oxygen * Continue to trend SPO2 * Wean to maintain saturations >88% * ABG indicated compensated respiratory acidosis (7) Insomnia: Code(s): G47.00 - Insomnia, unspecified Status: Acute Assessment and Plan: * Complaints of not being able to sleep * added Seroquel for support (8) Dysphasia: Code(s): R47.02 - Dysphasia Status: Acute Assessment and Plan: * patient complaints of swelling dysfunction when eating * Post op day 1 of esophageal stretching * speech therapy consulted * GI consulted * modified barium swallow cancelled * await further instructions from GI and speech therapy Time Spent With Patient Time: 51 minutes Subjective Date/time seen: 07/18/22 1300 Interval history
--- NOTE | 2022-07-18 13:00 | PM.IMPN ---
Progress Note: A&P Assessment and Plan (1) Pneumonia: Code(s): J18.9 - Pneumonia, unspecified organism Status: Acute Assessment and Plan: Chest xray shows new opacities Stopped azithromycin ceftriaxone, start doxycycline WBC elevated most like from steroids, down today at 11.8 CRP 0.6 Continue neb treatments sputum culture grew staph aureus IS and Pep therapy Encourage activity dysphagia could be contributing to symptoms restart steroids per pulmonology (2) Acute exacerbation of chronic obstructive airways disease: Code(s): J44.1 - Chronic obstructive pulmonary disease with (acute) exacerbation Status: Acute Assessment and Plan: History of COPD ABG indicated compensated respiratory acidosis Continue home Singulair Neb treatments continued Continue steroids, change to PO prednisone, completed with 5 days repeat chest xray found increasing opacities in the costophrenic angle consistent with atelectasis vs PNA CTA showed no PE, severe emphysema Sputum culture grew staph aureus awaiting sensitivities stop azithromycin and ceftriaxone, added doxycycline Pulmonology consulted thank you for your help BNP 180 Appear to most likely be his baseline (3) Leukocytosis: Code(s): D72.829 - Elevated white blood cell count, unspecified Status: Acute Assessment and Plan: WBC elevated at 16.1, currently at 11.8 Most likely from the steroids Continue to trend stop steroids on 07/15/22 Continue to trend CRP is 0.5, 0.6 (4) Hypertension: Qualifiers: Hypertension type: unspecified Qualified Code(s): I10 - Essential (primary) hypertension Code(s): I10 - Essential (primary) hypertension Status: Chronic Assessment and Plan: BP 116/67 Continue home amlodipine Trend BP adjust therapy as indicated (5) Lactic acidosis: Code(s): E87.20 - Acidosis, unspecified Status: Acute Assessment and Plan: Lactic noted to be 3.3 in the ED Repeat 2.0 Most likely reactive to shortness of breath WBC elevated most likely related to steroid use (6) Chronic respiratory failure: Code(s): J96.10 - Chronic respiratory failure, unspecified whether with hypoxia or hypercapnia Status: Acute Assessment and Plan: On chronic home O2 use, 4LNC at rest and 6LNC Supplemental oxygen Continue to trend SPO2 Wean to maintain saturations >88% ABG indicated compensated respiratory acidosis (7) Insomnia: Code(s): G47.00 - Insomnia, unspecified Status: Acute Assessment and Plan: Complaints of not being able to sleep added Seroquel for support (8) Dysphasia: Code(s): R47.02 - Dysphasia Status: Acute Assessment and Plan: patient complaints of swelling dysfunction when eating Post op day 1 of esophageal stretching speech therapy consulted GI consulted modified barium swallow cancelled await further instructions from GI and speech therapy Time Spent With Patient Time: 51 minutes Subjective Date/time seen: 07/18/22 1300 Interval history: 07/18/22 1300 Patient is doing ok today. He is still very tired. His sputum did grow staph aureus. Will await further sensitivities. Added doxycycline for further coverage. He denies any chest pain, shortness of breath, nausea, vomiting, diarrhea, or constipation. 07/17/22 1600 Patient is doing well today. He just returned back from EGD. He denies any current pain He is complaining of slight chest pain, nothing that is abnormal for him. He complains of shortness of breath, nausea, vomiting diarrhea, constipation. He is weak, however, seems to be at baseline as well. 07/16/22 1130 patient is complaining of swelling dysfunction today. Currently patient is stating that he
[2022-07-18] MEDS: DOXYCYCLINE 100 MG/NS 100 ML 100 MG/100 ML BAG IVPB ×2 (15:20→20:24)
[2022-07-18] MEDS: SERTRALINE HCL 50 MG TABLET 100 MG PO (20:27)
[2022-07-18] MEDS: QUEtiapine FUMARATE 25 MG TABLET PO (20:28)
[2022-07-18] MEDS: MONTELUKAST SODIUM 10 MG TABLET PO (20:29)
[2022-07-19 04:07] VITALS: BP 122/55; PULSE 67; RESP 19; TEMP 36.4; O2SAT 95
[2022-07-19] MEDS: HYDROcodone/acetaminophen (*CRX) 10-325 MG TABLET 1 TAB PO (05:31)
[2022-07-19 05:32] LABS: Basophils Percent Auto 0.4 % (0.2-1.2); Eosinophils Absolute Auto 0.2 K/mm3 (0-0.3); Eosinophils Percent Auto 1.5 % (0-4.4); Hematocrit 43.8 % (42.0-52.0); Hemoglobin 14.8 g/dL (14.0-18.0); Immature Granulocyte Absolute 0.19 K/mm3 (0.00-0.031); Immature Granulocyte Percent A 1.7 % (0-0.5); Lymphocytes Absolute Auto 2.55 K/mm3 (0.9-3.2); Lymphocytes Percent Auto 22.5 % (18.3-44.2); Mean Corpuscular HGB Conc 33.8 g/dl (32-36); Mean Corpuscular Hemoglobin 30.1 pg (26-34); Mean Corpuscular Volume 89.2 fl (80-100); Neutrophils Absolute Auto 7.3 K/mm3 (1.3-6.7); Neutrophils Percent Auto 64.9 % (45.5-73.1); Platelet Count Result 222 k/mm3 (150-375); Red Blood Count 4.91 M/mm3 (4.6-6.20); Red Cell Distribution Width 12.9 % (11.5-14.5); White Blood Count 11.3 K/mm3 (4.5-10.0)
[2022-07-19 05:41] LABS: Alanine Aminotransferase 65 U/L (6-50); Albumin Level 3.6 g/dL (3.5-5.1); Alkaline Phosphatase 106 U/L (38-126); Anion Gap 3 mmol/L (8-16); Aspartate Amino Transferase 29 U/L (17-59); Bilirubin,Total 0.4 mg/dL (0.2-1.3); Blood Urea Nitrogen 17 mg/dL (9-20); Calcium 8.5 mg/dL (8.4-10.2); Carbon Dioxide 33 mmol/L (22-30); Chloride 102 mmol/L (98-107); Estimated CRCL calculation 96 ml/min; Estimated Glomerular Filt Rate > 60; Glucose 133 mg/dL (65-110); Magnesium 2.3 mg/dL (1.6-2.3); Potassium 4.3 mmol/L (3.4-5.0); Sodium 138 mmol/L (137-145)
--- NOTE | 2022-07-19 06:24 | P.PNIM_ITS ---
Progress Note: A&P Assessment and Plan (1) Pneumonia: Code(s): J18.9 - Pneumonia, unspecified organism Status: Acute Assessment and Plan: * Chest xray shows new opacities * Stopped azithromycin ceftriaxone, continue doxycycline * WBC elevated most like from steroids, down today at 11.8 * CRP 0.6 * Continue neb treatments * sputum culture grew staph aureus, still awaiting sensitivities * IS and Pep therapy * Encourage activity * dysphagia could be contributing to symptoms * restart steroids per pulmonology (2) Acute exacerbation of chronic obstructive airways disease: Code(s): J44.1 - Chronic obstructive pulmonary disease with (acute) exacerbation Status: Acute Assessment and Plan: * History of COPD * ABG indicated compensated respiratory acidosis * Continue home Singulair * Neb treatments continued * Continue steroids, change to PO prednisone, completed with 5 days, restarted per pulmonolgy * repeat chest xray found increasing opacities in the costophrenic angle consistent with atelectasis vs PNA * CTA showed no PE, severe emphysema * Sputum culture grew staph aureus awaiting sensitivities * stop azithromycin and ceftriaxone, continue doxycycline * Pulmonology consulted thank you for your help * BNP 180 * Appear to most likely be his baseline (3) Leukocytosis: Code(s): D72.829 - Elevated white blood cell count, unspecified Status: Acute Assessment and Plan: * WBC elevated at 16.1, currently at 11.8 * Most likely from the steroids * Continue to trend * stop steroids on 07/15/22 * Continue to trend * CRP is 0.5, 0.6 * Resolved (4) Hypertension: Qualifiers: Hypertension type: unspecified Qualified Code(s): I10 - Essential (primary) hypertension Code(s): I10 - Essential (primary) hypertension Status: Chronic Assessment and Plan: * BP 122/55 * Continue home amlodipine * Trend BP * adjust therapy as indicated (5) Lactic acidosis: Code(s): E87.20 - Acidosis, unspecified Status: Acute Assessment and Plan: * Lactic noted to be 3.3 in the ED * Repeat 2.0 * Most likely reactive to shortness of breath * WBC elevated most likely related to steroid use * Resolved (6) Chronic respiratory failure: Code(s): J96.10 - Chronic respiratory failure, unspecified whether with hypoxia or hypercapnia Status: Acute Assessment and Plan: * On chronic home O2 use, 4LNC at rest and 6LNC * Supplemental oxygen * Continue to trend SPO2 * Wean to maintain saturations >88% * ABG indicated compensated respiratory acidosis (7) Insomnia: Code(s): G47.00 - Insomnia, unspecified Status: Acute Assessment and Plan: * Complaints of not being able to sleep * added Seroquel for support (8) Dysphasia: Code(s): R47.02 - Dysphasia Status: Acute Assessment and Plan: * patient complaints of swelling dysfunction when eating * Post op day 1 of esophageal stretching * speech therapy consulted * GI consulted * modified barium swallow cancelled * await further instructions from GI and speech therapy Time Spent With Patient Time: 48
--- NOTE | 2022-07-19 06:24 | PM.IMPN ---
Progress Note: A&P Assessment and Plan (1) Pneumonia: Code(s): J18.9 - Pneumonia, unspecified organism Status: Acute Assessment and Plan: Chest xray shows new opacities Stopped azithromycin ceftriaxone, continue doxycycline WBC elevated most like from steroids, down today at 11.8 CRP 0.6 Continue neb treatments sputum culture grew staph aureus, still awaiting sensitivities IS and Pep therapy Encourage activity dysphagia could be contributing to symptoms restart steroids per pulmonology (2) Acute exacerbation of chronic obstructive airways disease: Code(s): J44.1 - Chronic obstructive pulmonary disease with (acute) exacerbation Status: Acute Assessment and Plan: History of COPD ABG indicated compensated respiratory acidosis Continue home Singulair Neb treatments continued Continue steroids, change to PO prednisone, completed with 5 days, restarted per pulmonolgy repeat chest xray found increasing opacities in the costophrenic angle consistent with atelectasis vs PNA CTA showed no PE, severe emphysema Sputum culture grew staph aureus awaiting sensitivities stop azithromycin and ceftriaxone, continue doxycycline Pulmonology consulted thank you for your help BNP 180 Appear to most likely be his baseline (3) Leukocytosis: Code(s): D72.829 - Elevated white blood cell count, unspecified Status: Acute Assessment and Plan: WBC elevated at 16.1, currently at 11.8 Most likely from the steroids Continue to trend stop steroids on 07/15/22 Continue to trend CRP is 0.5, 0.6 Resolved (4) Hypertension: Qualifiers: Hypertension type: unspecified Qualified Code(s): I10 - Essential (primary) hypertension Code(s): I10 - Essential (primary) hypertension Status: Chronic Assessment and Plan: BP 122/55 Continue home amlodipine Trend BP adjust therapy as indicated (5) Lactic acidosis: Code(s): E87.20 - Acidosis, unspecified Status: Acute Assessment and Plan: Lactic noted to be 3.3 in the ED Repeat 2.0 Most likely reactive to shortness of breath WBC elevated most likely related to steroid use Resolved (6) Chronic respiratory failure: Code(s): J96.10 - Chronic respiratory failure, unspecified whether with hypoxia or hypercapnia Status: Acute Assessment and Plan: On chronic home O2 use, 4LNC at rest and 6LNC Supplemental oxygen Continue to trend SPO2 Wean to maintain saturations >88% ABG indicated compensated respiratory acidosis (7) Insomnia: Code(s): G47.00 - Insomnia, unspecified Status: Acute Assessment and Plan: Complaints of not being able to sleep added Seroquel for support (8) Dysphasia: Code(s): R47.02 - Dysphasia Status: Acute Assessment and Plan: patient complaints of swelling dysfunction when eating Post op day 1 of esophageal stretching speech therapy consulted GI consulted modified barium swallow cancelled await further instructions from GI and speech therapy Time Spent With Patient Time: 48 minutes Time with patient: Greater than 35 minutes Subjective Date/time seen: 07/19/22 06:24 Interval history: 07/19/22 07/18/22 1300 Patient is doing ok today. He is still very tired. His sputum did grow staph aureus. Will await further sensitivities. Added doxycycline for further coverage. He denies any chest pain, shortness of breath, nausea, vomiting, diarrhea, or constipation. 07/17/22 1600 Patient is doing well today. He just returned back from EGD. He denies any current pain He is complaining of slight chest pain, nothing that is abnormal for him. He complains of shortness of breath, nausea, vomiting diarrhea, constipation. He is weak, however, se
[2022-07-19 07:38] VITALS: PULSE 65; RESP 18
[2022-07-19] MEDS: LEVALBUTEROL NEB 1.25 MG/3 ML 0.63 MG INHALATION (07:40)
[2022-07-19] MEDS: IPRATROPIUM BR 0.02% INH SOLN 0.5 MG/2.5 ML VIAL INHALATION (07:40)
[2022-07-19 07:46] VITALS: PULSE 71; RESP 18
--- NOTE | 2022-07-19 08:10 | P.DS_ITS ---
DS: Admitting Diagnosis Discharge Date 07/19/2022 0830 Admitting Diagnosis COPD exacerbation, pneumonia, chronic respiratory failure, aspiration pneumonia, esophageal stricture DS: Discharge Diagnosis Discharge Diagnosis (1) Pneumonia: Code(s): J18.9 - Pneumonia, unspecified organism Status: Acute Assessment and Plan: * Chest xray shows new opacities * Stopped azithromycin ceftriaxone, continue doxycycline * WBC elevated most like from steroids, down today at 11.8 * CRP 0.6 * Continue neb treatments * sputum culture grew staph aureus, susceptible to doxycycline * IS and Pep therapy * Encourage activity * dysphagia could be contributing to symptoms * restart steroids per pulmonology (2) Acute exacerbation of chronic obstructive airways disease: Code(s): J44.1 - Chronic obstructive pulmonary disease with (acute) exacerbation Status: Acute Assessment and Plan: * History of COPD * ABG indicated compensated respiratory acidosis * Continue home Singulair * Neb treatments continued * Continue steroids, change to PO prednisone, completed with 5 days, restarted per pulmonolgy * repeat chest xray found increasing opacities in the costophrenic angle consistent with atelectasis vs PNA * CTA showed no PE, severe emphysema * Sputum culture grew staph aureus * stop azithromycin and ceftriaxone, continue doxycycline * Pulmonology consulted thank you for your help * BNP 180 * Appear to most likely be his baseline (3) Leukocytosis: Code(s): D72.829 - Elevated white blood cell count, unspecified Status: Acute Assessment and Plan: * WBC elevated at 16.1, currently at 11.3 * Most likely from the steroids * Continue to trend * stop steroids on 07/15/22 * Continue to trend * CRP is 0.5, 0.6 * Resolved (4) Hypertension: Qualifiers: Hypertension type: unspecified Qualified Code(s): I10 - Essential (primary) hypertension Code(s): I10 - Essential (primary) hypertension Status: Chronic Assessment and Plan: * BP 122/55 * Continue home amlodipine * Trend BP * adjust therapy as indicated (5) Lactic acidosis: Code(s): E87.20 - Acidosis, unspecified Status: Acute Assessment and Plan: * Lactic noted to be 3.3 in the ED * Repeat 2.0 * Most likely reactive to shortness of breath * WBC elevated most likely related to steroid use * Resolved (6) Chronic respiratory failure: Code(s): J96.10 - Chronic respiratory failure, unspecified whether with hypoxia or hypercapnia Status: Acute Assessment and Plan: * On chronic home O2 use, 4LNC at rest and 6LNC * Supplemental oxygen * Continue to trend SPO2 * Wean to maintain saturations >88% * ABG indicated compensated respiratory acidosis (7) Insomnia: Code(s): G47.00 - Insomnia, unspecified Status: Acute Assessment and Plan: * Complaints of not being able to sleep * added Seroquel for support (8) Dysphasia: Code(s): R47.02 - Dysphasia Status: Acute Assessment and Plan: * patient complaints of swelling dysfunction when eating * Post op day 1 of esophageal stretching * speech therapy consulted * GI consulted * valerie
--- NOTE | 2022-07-19 08:10 | PM.DS ---
DS: Admitting Diagnosis Discharge Date 07/19/2022 0830 Admitting Diagnosis COPD exacerbation, pneumonia, chronic respiratory failure, aspiration pneumonia, esophageal stricture DS: Discharge Diagnosis Discharge Diagnosis (1) Pneumonia: Code(s): J18.9 - Pneumonia, unspecified organism Status: Acute Assessment and Plan: Chest xray shows new opacities Stopped azithromycin ceftriaxone, continue doxycycline WBC elevated most like from steroids, down today at 11.8 CRP 0.6 Continue neb treatments sputum culture grew staph aureus, susceptible to doxycycline IS and Pep therapy Encourage activity dysphagia could be contributing to symptoms restart steroids per pulmonology (2) Acute exacerbation of chronic obstructive airways disease: Code(s): J44.1 - Chronic obstructive pulmonary disease with (acute) exacerbation Status: Acute Assessment and Plan: History of COPD ABG indicated compensated respiratory acidosis Continue home Singulair Neb treatments continued Continue steroids, change to PO prednisone, completed with 5 days, restarted per pulmonolgy repeat chest xray found increasing opacities in the costophrenic angle consistent with atelectasis vs PNA CTA showed no PE, severe emphysema Sputum culture grew staph aureus stop azithromycin and ceftriaxone, continue doxycycline Pulmonology consulted thank you for your help BNP 180 Appear to most likely be his baseline (3) Leukocytosis: Code(s): D72.829 - Elevated white blood cell count, unspecified Status: Acute Assessment and Plan: WBC elevated at 16.1, currently at 11.3 Most likely from the steroids Continue to trend stop steroids on 07/15/22 Continue to trend CRP is 0.5, 0.6 Resolved (4) Hypertension: Qualifiers: Hypertension type: unspecified Qualified Code(s): I10 - Essential (primary) hypertension Code(s): I10 - Essential (primary) hypertension Status: Chronic Assessment and Plan: BP 122/55 Continue home amlodipine Trend BP adjust therapy as indicated (5) Lactic acidosis: Code(s): E87.20 - Acidosis, unspecified Status: Acute Assessment and Plan: Lactic noted to be 3.3 in the ED Repeat 2.0 Most likely reactive to shortness of breath WBC elevated most likely related to steroid use Resolved (6) Chronic respiratory failure: Code(s): J96.10 - Chronic respiratory failure, unspecified whether with hypoxia or hypercapnia Status: Acute Assessment and Plan: On chronic home O2 use, 4LNC at rest and 6LNC Supplemental oxygen Continue to trend SPO2 Wean to maintain saturations >88% ABG indicated compensated respiratory acidosis (7) Insomnia: Code(s): G47.00 - Insomnia, unspecified Status: Acute Assessment and Plan: Complaints of not being able to sleep added Seroquel for support (8) Dysphasia: Code(s): R47.02 - Dysphasia Status: Acute Assessment and Plan: patient complaints of swelling dysfunction when eating Post op day 1 of esophageal stretching speech therapy consulted GI consulted modified barium swallow cancelled await further instructions from GI and speech therapy Plan sputum did grow yeast most likely related to steroid use DS: Summary Hospital Course Hospital Course: patient is 61-year-old male with past medical history of end-stage COPD, CAD, hypertension who presented the ED with complaints of shortness of breath. 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 Upon arrival to the ED the patient has had a notable elevated white count of 16.1. Chest x-ray showed atelectasis lung bases. Patient was initia
[2022-07-19] MEDS: polyethylene glycoL 3350 17 GM POWD.PACK PO (08:29)
[2022-07-19] MEDS: PREGABALIN (*CRX) 50 MG CAPSULE 200 MG PO (08:29)
[2022-07-19] MEDS: DOXYCYCLINE 100 MG/NS 100 ML 100 MG/100 ML BAG IVPB (08:29)
[2022-07-19 08:30] VITALS: PULSE 65; RESP 14; O2SAT 97
[2022-07-19] MEDS: busPIRone HCL 5 MG TABLET 10 MG PO (08:30)
[2022-07-19] MEDS: BACLOFEN 10 MG TABLET 20 MG PO (08:30)
[2022-07-19] MEDS: ASPIRIN 81 MG ENTERIC TABLET PO (08:30)
[2022-07-19] MEDS: predniSONE 20 MG TABLET 40 MG PO (08:30)
[2022-07-19] MEDS: NICOTINE (*PBKC) 14 MG PATCH 1 PATCH TRANSDERM (08:30)
[2022-07-19] MEDS: PANTOPRAZOLE 40 MG TABLET PO (08:30)
[2022-07-19] MEDS: ENOXAPARIN 40 MG/0.4 ML SYRINGE SUB-Q (08:31)
[2022-07-19 08:36] VITALS: BP 111/62; PULSE 65; RESP 14; O2SAT 97
[2022-07-19] MEDS: amLODIPine BESYLATE 5 MG TABLET 10 MG PO (08:37)
== END 2022-07-19 13:05 | disposition home or self-care (01) | DRG 137 ==
LOC: ANHED 07-11 01:35 → ANH2MED 07-11 04:38
PROVIDERS: Internal Medicine Gastroenterology; Admitting Provider Internal Medicine; Emergency Provider Emergency Medicine; Visit Provider Nurse Practitioner
PROC: 0DJ08ZZ Inspection of Upper Intestinal Tract, Via Natural or Artificial Opening Endoscopic (ICD-10-PCS; CPT 43235; principal; 2022-07-17 15:15)
DX: J69.0 Pneumonitis due to inhalation of food and vomit (principal); J96.10 Chronic respiratory failure, unspecified whether with hypoxia or hypercapnia; E87.20 Acidosis, unspecified; K22.2 Esophageal obstruction; Z99.81 Dependence on supplemental oxygen; J44.1 Chronic obstructive pulmonary disease with (acute) exacerbation; I10 Essential (primary) hypertension; I25.10 Atherosclerotic heart disease of native coronary artery without angina pectoris; K21.00 Gastro-esophageal reflux disease with esophagitis, without bleeding; K29.70 Gastritis, unspecified, without bleeding; M54.9 Dorsalgia, unspecified; G89.29 Other chronic pain; F17.210 Nicotine dependence, cigarettes, uncomplicated; F41.9 Anxiety disorder, unspecified; F32.A Depression, unspecified; Z20.822 Contact with and (suspected) exposure to COVID-19; Z95.5 Presence of coronary angioplasty implant and graft; Z79.82 Long term (current) use of aspirin; Z91.199 Patient's noncompliance with other medical treatment and regimen due to unspecified reason
CPT/HCPCS: 36415; 36600; 71045; 71046; 71275; 80053; 82805; 83036; 83605; 83735; 83880; 84145; 84484; 85025; 85610; 85730; 86140; 87040; 87070; 87081; 87147; 87186; 87205; 87637; 88305; 93005; 94640; 96365; 96367; 96372; 96374; 96375; 96376; 99285; A9270; C1726; G0378; G0379; J0456; J0696; J1650; J2704; J2930; J3475; J7120; J7512; Q9967

== ENCOUNTER 2023-03-11 18:59 | Inpatient (IN) | payer OTHER, SELFPAY ==
[2023-03-11] VITALS (13 sets, daily range): BP systolic 119–172; BP diastolic 76–99; PULSE 75–109; RESP 12–26; TEMP 36.7–36.9; O2SAT 94–98; BMI 37.0
--- NOTE | ~2023-03-11 | XR_ITS ---
EXAMINATION: XR chest 1V portable Exam Date/Time: 03/11/2023 19:50 GROUP THERAPIST HISTORY: dyspnea Comparison: 07/13/2022; CTPA 07/14/2022. RESULT: Lines, tubes, and devices: Coronary stents. Lungs and pleura: Increased lucency in the left hemithorax, likely related to positioning and differ ing degrees of overlapping soft tissues. Severe emphysematous change. No focal consolidation or pneum othorax. Minimal chronic right costophrenic angle blunting. Cardiomediastinal silhouette: Stable. Other: No acute osseous or upper abdominal finding. IMPRESSION: No acute cardiopulmonary process. Severe emphysematous change. Reviewed, dictated and finalized at location K. P THERAPIST
--- NOTE | ~2023-03-11 | CT_ITS ---
EXAMINATION: CTA chest PE protocol DATE: 03/12/2023 13:57 INDICATION: Acute shortness of breath TECHNIQUE: Computed tomography angiography (CTA) of the chest was performed with 100 mL Omnipaque-350 intravenous contrast timed to evaluate the pulmonary arteries. Coronal maximum intensity projection 3D-reconstructions were created by the technologist. The dose-length product (DLP) was 615.49 mGy-cm. Automated exposure control and iterative reconstruction technique were employed. COMPARISON: 07/14/2022 FINDINGS: The pulmonary arteries are well-opacified. No pulmonary embolism is identified. There is se helen emphysema. There is mild dependent atelectasis. No pleural effusion or pneumothorax. There is en largement of the main and central pulmonary arteries, consistent with pulmonary hypertension. Calcifi ed coronary artery atherosclerosis is noted. No pathologically enlarged thoracic lymph nodes are iden tified. The heart size is normal. There is mild thoracic spondylosis. IMPRESSION: 1. No pulmonary embolus identified. 2. Severe emphysema. 3. Findings suggestive of pulmonary hypertension. Reviewed, dictated and finalized at location L. TRUCTION SALES REPRESENTATIVE
--- NOTE | ~2023-03-11 | XR_ITS ---
EXAMINATION: XR chest 1V portable Exam Date/Time: 03/14/2023 14:30 HEAVY EQUIPMENT SALES ASSOCIATE HISTORY: NEW ONSET COUGH. HX EMPHYSEMA Comparison: 03/11/2023. RESULT: Lines, tubes, and devices: None. Lungs and pleura: Severe emphysematous change, linear bibasilar atelectasis, otherwise clear. Cardiomediastinal silhouette: Stable. Other: No acute osseous or upper abdominal finding. IMPRESSION: No acute cardiopulmonary process. Reviewed, dictated and finalized at location K. Y EQUIPMENT SALES ASSOCIATE
--- NOTE | 2023-03-11 19:15 | ECG_ITS ---
Measurements Intervals [place] Rate: 93 P: 60 TX: 176 QRS: 43 QRSD: 85 T: 50 QT: 329 QTc: 411 Interpretive Statements SINUS RHYTHM NONSPECIFIC T-WAVE ABNORMALITY ABNORMAL ECG COMPARED TO ECG 07/10/2022 21:55:45 NO SIGNIFICANT CHANGES Electronically Signed On 03-12-2023 13:54:33 PROFESSOR OF GRAPHIC DESIGN by José Miguel Lamb M.D.
[2023-03-11 19:28] LABS: Basophils Absolute Auto 0.1 K/mm3 (0.0-0.1); Basophils Percent Auto 0.7 % (0.2-1.2); Eosinophils Absolute Auto 0.2 K/mm3 (0-0.3); Eosinophils Percent Auto 1.4 % (0-4.4); Hemoglobin 16.5 g/dL (14.0-18.0); Immature Granulocyte Absolute 0.08 K/mm3 (0.00-0.031); Immature Granulocyte Percent A 0.5 % (0-0.5); Lymphocytes Absolute Auto 4.54 K/mm3 (0.9-3.2); Lymphocytes Percent Auto 31.2 % (18.3-44.2); Mean Corpuscular HGB Conc 33.7 g/dl (32-36); Mean Corpuscular Hemoglobin 29.9 pg (26-34); Mean Corpuscular Volume 88.8 fl (80-100); Mean Platelet Volume 9.9 fl (7.4-10.4); Monocytes Percent Auto 7.1 % (2.6-8.5); Neutrophils Absolute Auto 8.6 K/mm3 (1.3-6.7); Neutrophils Percent Auto 59.1 % (45.5-73.1); Platelet Count Result 387 k/mm3 (150-375); Red Blood Count 5.52 M/mm3 (4.6-6.20); Red Cell Distribution Width 13.1 % (11.5-14.5); White Blood Count 14.6 K/mm3 (4.5-10.0)
[2023-03-11] MEDS: ALBUTEROL SULFATE NEB 2.5 MG/3 ML INH INHALATION (19:30)
[2023-03-11] MEDS: IPRATROPIUM BR 0.02% INH SOLN 0.5 MG/2.5 ML VIAL INHALATION (19:30)
[2023-03-11 19:37] LABS: Lactic Acid Reflex 2.5 mmol/L (0.7-2.0)
--- NOTE | 2023-03-11 19:38 | ED.GENADULT ---
HPI - General Adult General Chief complaint: Shortness of Breath/Dyspnea Stated complaint: SOB Time Seen by Provider: 03/11/23 19:13 History of Present Illness HPI narrative: patient is 6-year-old male who presents emergency department chief complaint of shortness of breath. The patient has prior history of COPD does report that he has history of congestive heart failure as well the patient states that started having increasing shortness of breath started wheezing and having a whitish type sputum whenever he coughs. The patient states that today he was given nebulizer treatment by EMS was given Decadron by EMS Related Data Home Medications Medication Instructions Recorded Confirmed albuterol sulfate 90 mcg/actuation 90 mcg inhalation Q4H 10/31/19 07/11/22 aerosol inhaler amlodipine 10 mg tablet 10 mg PO DAILY 10/31/19 07/11/22 baclofen 20 mg tablet 20 mg PO TID PRN Muscle Spasm 10/31/19 07/11/22 budesonide-formoterol HFA 160 2 puff inhalation BID 10/31/19 07/11/22 mcg-4.5 mcg/actuation aerosol inhaler (Symbicort) buspirone 5 mg tablet 10 mg PO BID 10/31/19 07/11/22 ipratropium 0.5 mg-albuterol 3 mg 3 ml inhalation BID 10/31/19 07/11/22 (2.5 mg base)/3 mL nebulization soln montelukast 10 mg tablet 10 mg PO HS 10/31/19 07/11/22 nicotine 14 mg/24 hr daily 14 mg transdermal DAILY 10/31/19 07/11/22 transdermal patch oxymetazoline 0.05 % nasal spray 2 spray intranasal Q12H PRN 10/31/19 07/11/22 (Afrin Sinus (oxymetazoline)) Allergy Symptoms pregabalin 200 mg capsule (Lyrica) 200 mg PO Q12H 10/31/19 07/11/22 sertraline 100 mg tablet 100 mg PO HS 10/31/19 07/11/22 tiotropium bromide 2.5 2 puff inhalation BID 07/11/22 07/11/22 mcg/actuation mist for inhalation (Spiriva Respimat) Allergies Allergy/AdvReac Type Severity Reaction Status Date / Time bacitracin Allergy Unknown Unknown Verified 07/17/22 13:14 neomycin Allergy Unknown Unknown Verified 07/17/22 13:14 Penicillins Allergy Unknown Rash Verified 07/17/22 13:14 polymyxin B Allergy Unknown Unknown Verified 07/17/22 13:14 Review of Systems Review of Systems: A 10 system review of systems was completed on the patient and is negative except for what is stated in the HPI. Nursing and ancillary documentation was reviewed. [facility] Past Medical History Medical History Anxiety and depression CAD (coronary artery disease) Chronic respiratory failure COPD (chronic obstructive pulmonary disease) Hypertension Tobacco abuse Surgical History Surgical History History of cardiac catheterization History of heart artery stent History of orthopedic surgery Left biceps repair Social History Social History Social History: patient lives with his Virginie and does not have any kids however does have some step kids. He has 1 cat and wishes that his Virginie be his surrogate. He also wishes to be a full code at this time. Smoking packs per day: 0.5 Smoking cigarettes per day: 10.0 Years smoked: 30 Smoking pack-years: 15.00 Smoking status: Current every day smoker Tobacco type: cigarettes Alcohol intake: never Substance use: never Substance use type: does not use Lack of Transportation: No Lack of Food: Never True Current Housing: I Have Housing Concerned About Future Housing: No Difficulty Paying Gas/Electric Bills: No Difficulty Paying for Meds: No Currently Unemployed: No Education: Grade School Difficulty w/ Childcare or Family Care: No Living arrangements: with family Additional living arrangements comments: lives with Occupation/Education: other Gender identity (if verbalized by the patient): Male Sexual Orientation (if Verbalized by the Patient): Straight or Heterosexual Spiritual care concerns: No Agree to
[2023-03-11 19:39] LABS: Alanine Aminotransferase 48 U/L (6-50); Albumin Level 4.5 g/dL (3.5-5.1); Alkaline Phosphatase 126 U/L (38-126); Anion Gap 9 mmol/L (8-16); Aspartate Amino Transferase 33 U/L (17-59); Bilirubin,Total 0.4 mg/dL (0.2-1.3); Blood Urea Nitrogen 13 mg/dL (9-20); Calcium 9.5 mg/dL (8.4-10.2); Carbon Dioxide 28 mmol/L (22-30); Chloride 104 mmol/L (98-107); Estimated CRCL calculation 77 ml/min; Estimated Glomerular Filt Rate > 60; Glucose 114 mg/dL (65-110); Magnesium 2.3 mg/dL (1.6-2.3); Potassium 4.3 mmol/L (3.4-5.0); Sodium 141 mmol/L (137-145)
[2023-03-11 19:41] LABS: INR 0.9; Prothrombin Time 12.5 Seconds (11.1-14.7)
[2023-03-11 19:46] LABS: Alveolar/Arterial O2 Gradient 118.2 mmHg; Base Excess ABG 3.3 mEq/l (+/-2.0); Fractional Inspired Oxygen 36 %; HCO3 ABG 29.5 mEq/l (22.0-26.0); Oxygen Content ABG 21.6 %vol (16.0-22.0); Oxygen Saturation ABG 95.7 % (95.0-100.0); Oxyhemoglobin 89.6 % THb (90.0-100.0); PCO2 ABG 49.8 mmHg (35.0-45.0); PO2 ABG 80.7 mmHg (80.0-100.0); PO2 FiO2 Ratio Arterial Blood 2.24 %; Total Hemoglobin 17.1 g/dL (12.0-18.0)
[2023-03-11 19:47] LABS: Device NASAL CANNULA; Modified Allen's Test Pass; Site Drawn RIGHT RADIAL
[2023-03-11 19:49] LABS: NT Pro B Type Natriuretic Pept 33 pg/mL (19.9-100); Troponin I < 0.012 ng/mL (0.000-0.034)
[2023-03-11 19:55] LABS: Procalcitonin 0.1 ng/mL
[2023-03-11 20:28] LABS: Influenza A QL RT-PCR Negative (Negative); Influenza B QL RT-PCR Negative (Negative); RSV RNA, RT-PCR Negative (Negative); SARS-CoV-2 RNA PCR Negative (Negative)
[2023-03-11] MEDS: HYDROcodone/acetaminophen (*CRX) 10-325 MG TABLET 1 TAB PO (20:38)
[2023-03-11] MEDS: BACLOFEN 10 MG TABLET 20 MG PO (21:08)
[2023-03-11 21:35] LABS: Appearance Urine Clear (Clear); Bilirubin Urine Negative (Negative); Blood Urine Negative (Negative); Color Urine Yellow (Yellow); Glucose Urine UA Negative (Negative); Ketones Urine Trace mg/dL (Negative); Leukocyte Esterase Ur Negative LEU/UL (Negative); Nitrate Urine Negative (Negative); Protein Urine Negative (Negative); Urobilinogen Urine 0.2 mg/dL (<2.0)
[2023-03-11 21:52] LABS: Add Urine Microscopic? NO
--- NOTE | 2023-03-11 22:07 | PM.IMHP ---
H&P: HPI History of Present Illness Date/Time: 03/11/23 22:07 Chief Complaint: SOB, Cough Narrative: patient is 62-year-old male with history of COPD under 4 L of oxygen at all times,who presents emergency department chief complaint of shortness of breath.? The patient has prior history of COPD does report that he has history of congestive heart failure as well the patient states that started having increasing shortness of breath started wheezing and having a whitish type sputum whenever he coughs.? The patient states that today he was given nebulizer treatment by EMS was given Decadron by EMS. he denied it congestion sore throat fever or chills. She feels a little bit better during my consult team as he has received breathing treatment. Review of Systems Review of Systems: All systems reviewed & are unremarkable except as noted in HPI and below PMFSH Past Medical History Medical History Anxiety and depression CAD (coronary artery disease) Chronic respiratory failure COPD (chronic obstructive pulmonary disease) Hypertension Tobacco abuse Surgical History Surgical History History of cardiac catheterization History of heart artery stent History of orthopedic surgery Left biceps repair Social History Social History Social History: patient lives with his Virginie and does not have any kids however does have some step kids. He has 1 cat and wishes that his Virginie be his surrogate. He also wishes to be a full code at this time. Smoking packs per day: 10 Smoking cigarettes per day: 200.0 Years smoked: 48 Smoking pack-years: 480.00 Smoking status: Current every day smoker Tobacco type: cigarettes Second hand tobacco smoke exposure: Yes Alcohol intake: never Substance use: never Substance use type: does not use Lack of Transportation: YES Lack of Food: Never True Current Housing: I Have Housing Concerned About Future Housing: No Difficulty Paying Gas/Electric Bills: YES Difficulty Paying for Meds: YES Currently Unemployed: No Education: Decline to Answer Difficulty w/ Childcare or Family Care: No Living arrangements: with family Additional living arrangements comments: lives with Occupation/Education: other Gender identity (if verbalized by the patient): Male Sexual Orientation (if Verbalized by the Patient): Straight or Heterosexual Spiritual care concerns: No Agree to blood products: Yes Meds Home Medications and Allergies Home Medications Medication Instructions Recorded Confirmed Type albuterol sulfate 90 mcg/actuation 90 mcg inhalation Q4H PRN 10/31/19 03/12/23 History aerosol inhaler Shortness Of Breath baclofen 20 mg tablet 20 mg PO TID PRN Muscle Spasm 10/31/19 03/12/23 History budesonide-formoterol HFA 160 2 puff inhalation BID 10/31/19 03/12/23 History mcg-4.5 mcg/actuation aerosol inhaler (Symbicort) ipratropium 0.5 mg-albuterol 3 mg 3 ml inhalation BID 10/31/19 03/12/23 History (2.5 mg base)/3 mL nebulization soln montelukast 10 mg tablet 10 mg PO HS 10/31/19 03/12/23 History oxymetazoline 0.05 % nasal spray 2 spray intranasal Q12H PRN 10/31/19 03/12/23 History (Afrin Sinus (oxymetazoline)) Allergy Symptoms pregabalin 200 mg capsule (Lyrica) 200 mg PO Q12H 10/31/19 03/12/23 History sertraline 100 mg tablet 100 mg PO HS 10/31/19 03/12/23 History aspirin 81 mg tablet,delayed 81 mg PO QAM #30 tabs 11/03/19 03/12/23 Rx release hydrocodone 5 mg-acetaminophen 325 1 tablet PO Q8H PRN Pain Rated 4-6 11/03/19 03/12/23 Rx mg tablet #10 tabs tiotropium bromide 2.5 2 puff inhalation BID 07/11/22 03/12/23 History mcg/actuation mist for inhalation (Spiriva Respimat) quetiapine 25 mg tablet (Seroquel) 25 mg PO HS PRN insomnia #30 tabs 0
[2023-03-11 22:25] LABS: Reflex Lactic Acid Yes or No Add Lactic
--- NOTE | 2023-03-11 22:35 | ADMGEN ---
This patient, Jeremiah Claire, was admitted to Medical Room 255-. Patient/family oriented to hospital policies and general routines including ID bracelet, bed and alarms, visiting hours, pain management, procedures, bathroom and other care routines, personal items, smoking policy, room service/diet, and visiting hours. Information on how to activate the Rapid Response Team has been discussed. Patient/Family are encouraged to report perceived risks to care and to ask questions if they do not understand what they are told or what they should do.
[2023-03-11 23:08] LABS: Lactic Acid 3.1 mmol/L (0.7-2.0)
[2023-03-11 23:20] LABS: Troponin I < 0.012 ng/mL (0.000-0.034)
[2023-03-11] MEDS: SODIUM CHLORIDE 0.9% IV 1,000 ML 100 ML IV CONT (23:55)
[2023-03-11] MEDS: methylPREDNISolone SOD SUCC 125 MG VIAL IV PUSH (23:55)
[2023-03-12] VITALS (15 sets, daily range): BP systolic 122–129; BP diastolic 54–59; PULSE 69–99; RESP 16–26; TEMP 36–37; O2SAT 91–97
--- NOTE | 2023-03-12 | ECHO_ITS ---
Patient Info Name: Jeremiah Claire Age: 62 years : 1960 Gender: Male Ht: 64 in Wt: 216 lbs BSA: 2.15 m2 HR: 80 bpm Heart Rhythm: Sinus Rhythm Technical Quality: Fair Exam Date: 03/12/2023 12:38 PM Exam Location: Echo Lab Patient Status: Outpatient Admit Date: 03/11/2023 Staff Ordering Physician: Soniya Lin Television Announcer: Vickey An RDCS Attending Provider: Soniya Lin Referring Physician: Riley SWEET; Exam Type: CA echo doppler color flow Study Info Indications - persistent dyspnea Complete two-dimensional, color flow and Doppler transthoracic echocardiogram is performed. Summary 1. Complete two-dimensional, color flow and Doppler transthoracic echocardiogram is performed. 2. Left ventricular chamber dimension is normal. 3. Left ventricular systolic function is normal, estimated at 65-70%. 4. There is mildly increased left ventricular wall thickness. 5. The left ventricular diastolic function is grade I diastolic dysfunction. 6. Left atrial chamber dimension is mildly enlarged. 7. There is mild mitral valve regurgitation. 8. There is mild tricuspid valve regurgitation. Left Ventricle Left ventricular chamber dimension is normal. Left ventricular systolic function is normal, estimated at 65-70%. There is mildly increased left ventricular wall thickness. The left ventricular diastolic function is grade I diastolic dysfunction. Right Ventricle Right ventricular chamber dimension is normal. Right ventricular systolic function is normal. Left Atria Left atrial chamber dimension is mildly enlarged. Right Atria Right atrial chamber dimension is normal. Atrial Septum Intact interatrial septum visualized by color flow imaging. Aortic Valve The aortic valve is trileaflet. There is mild aortic valve sclerosis. There is no aortic valve stenosis. There is trace aortic valve regurgitation. Pulmonic Valve The pulmonic valve is normal. There is no pulmonic valve stenosis. There is trace pulmonic regurgitation. Mitral Valve The mitral valve has normal leaflets. There is no mitral valve stenosis. There is mild mitral valve regurgitation. Tricuspid Valve The tricuspid valve leaflets are normal. There is no significant tricuspid valve stenosis. There is mild tricuspid valve regurgitation. No pulmonary hypertension, estimated pulmonary arterial systolic pressure is 20 mmHg. Pericardium/Pleural The pericardium appears normal. There is no pericardial effusion. Inferior Vena Cava Normal inferior vena cava with >50% collapse upon inspiration consistent with normal right atrial pressure, 10 mmHg. Aorta The aortic root size at the sinus of Valsalva is normal. Left Ventricular Outflow Tract Name Value Normal LVOT 2D LVOT Diameter 2.2 cm LVOT Doppler LVOT Peak Gradient 10 mmHg LVOT Mean Gradient 5 mmHg LVOT VTI 32 cm LVOT VTI/AV VTI Ratio 0.9 LVOT Stroke Volume 127 ml LVOT CO 8.7 l/min LVOT CI 4.0 l/min/m2 Pulmonic Valve
[2023-03-12] MEDS: ALBUTEROL SULFATE NEB 2.5 MG/3 ML INH INHALATION ×5 (00:44→23:35)
[2023-03-12] MEDS: IPRATROPIUM BR 0.02% INH SOLN 0.5 MG/2.5 ML VIAL INHALATION ×5 (00:44→23:36)
[2023-03-12 06:18] LABS: Basophils Absolute Auto 0.1 K/mm3 (0.0-0.1); Basophils Percent Auto 0.5 % (0.2-1.2); Eosinophils Percent Auto 0.1 % (0-4.4); Hematocrit 44.2 % (42.0-52.0); Hemoglobin 14.8 g/dL (14.0-18.0); Immature Granulocyte Absolute 0.07 K/mm3 (0.00-0.031); Immature Granulocyte Percent A 0.6 % (0-0.5); Lymphocytes Absolute Auto 1.32 K/mm3 (0.9-3.2); Lymphocytes Percent Auto 12.1 % (18.3-44.2); Mean Corpuscular HGB Conc 33.5 g/dl (32-36); Mean Corpuscular Hemoglobin 29.9 pg (26-34); Mean Corpuscular Volume 89.3 fl (80-100); Mean Platelet Volume 10.4 fl (7.4-10.4); Monocytes Absolute Auto 0.1 K/mm3 (0.1-0.6); Monocytes Percent Auto 0.9 % (2.6-8.5); Neutrophils Absolute Auto 9.4 K/mm3 (1.3-6.7); Neutrophils Percent Auto 85.8 % (45.5-73.1); Platelet Count Result 292 k/mm3 (150-375); Red Blood Count 4.95 M/mm3 (4.6-6.20); Red Cell Distribution Width 13.1 % (11.5-14.5)
[2023-03-12 06:32] LABS: Anion Gap 9 mmol/L (8-16); Blood Urea Nitrogen 17 mg/dL (9-20); Carbon Dioxide 26 mmol/L (22-30); Chloride 104 mmol/L (98-107); Estimated CRCL calculation 88 ml/min; Estimated Glomerular Filt Rate > 60; Glucose 233 mg/dL (65-110); Potassium 4.4 mmol/L (3.4-5.0); Sodium 139 mmol/L (137-145)
[2023-03-12] MEDS: methylPREDNISolone SOD SUCC 125 MG VIAL 60 MG IV PUSH (06:46)
[2023-03-12] MEDS: FLUTICASONE/SALMETEROL 115-21 MCG INHALER 1 PUFF 2 PUFF INHALATION ×2 (07:48→19:27)
[2023-03-12] MEDS: ENOXAPARIN 40 MG/0.4 ML SYRINGE SUB-Q (09:29)
[2023-03-12] MEDS: ATORVASTATIN 40 MG TABLET 80 MG PO (09:30)
[2023-03-12] MEDS: FUROSEMIDE 40 MG TABLET PO (09:30)
[2023-03-12] MEDS: POTASSIUM CHLORIDE 20 MEQ ER TABLET PO (09:30)
[2023-03-12] MEDS: ISOSORBIDE MONONITRATE 60 MG TAB.ER.24H PO (09:30)
[2023-03-12] MEDS: DULoxetine HCL 60 MG CAPSULE.DR PO (09:31)
[2023-03-12] MEDS: ASPIRIN 81 MG ENTERIC TABLET PO (09:31)
[2023-03-12] MEDS: PREGABALIN (*CRX) 50 MG CAPSULE 200 MG PO ×2 (09:31→20:05)
[2023-03-12] MEDS: dilTIAZem HCL CD 180 MG CAP.24HR 360 MG PO (09:31)
[2023-03-12] MEDS: PANTOPRAZOLE 40 MG TABLET PO ×2 (09:32→16:51)
[2023-03-12] MEDS: SODIUM CHLORIDE 0.9% IV 1,000 ML 100 ML IV CONT ×2 (09:35→22:58)
--- NOTE | 2023-03-12 10:56 | P.PNIM_ITS ---
Progress Note: A&P Assessment and Plan (1) COPD exacerbation: Code(s): J44.1 - Chronic obstructive pulmonary disease with (acute) exacerbation Status: Acute Assessment and Plan: * Continue home oxygen of 4L per nasal canula * Continue nebulizer treatments of Duoneb * Obtain Trillogy settings from home to continue BiPap use here at night * Continue Methylprednisolone as ordered * CTA PE protocol is ordered based on pt's increased work of breathing today on my exam. * Obtain ECHO * Dr. Archer was consulted for Pulmonology opinion on current COPD management and for maximization of therapy. I do appreciate his opinion on this patient. * Continue to monitor labs and VS. * NS at 100 ml/hr * Continue Singulair 10 mg HS (2) GERD (gastroesophageal reflux disease): Code(s): K21.9 - Gastro-esophageal reflux disease without esophagitis Status: Chronic Assessment and Plan: * Continue Protonix 40 mg po BID (3) Hypertension: Qualifiers: Hypertension type: unspecified Qualified Code(s): I10 - Essential (primary) hypertension Code(s): I10 - Essential (primary) hypertension Status: Chronic Assessment and Plan: * Continue Lasix 40 mg Daily * Continue Cardizem CD 360 mg daily * Monitor pressures with VS and trend. (4) Tobacco abuse: Code(s): Z72.0 - Tobacco use Status: Chronic Assessment and Plan: * Pt counseled for 15 minutes on smoking cessation. * Nicotine patch ordered. (5) Chronic pain: Qualifiers: Chronic pain type: other chronic pain Qualified Code(s): G89.29 - Other chronic pain Code(s): G89.29 - Other chronic pain Status: Chronic Assessment and Plan: * Continue pain meds of Baclofen 20 mg TID, [place], and Lyrica (6) CAD (coronary artery disease): Code(s): I25.10 - Atherosclerotic heart disease of pala coronary artery without angina pectoris Status: Chronic Assessment and Plan: * Continue Isosorbide Mononitrate 60 mg daily * Continue daily ASA. * Continue Daily statin therapy with Lipitor 80 mg po daily. Time Spent With Patient Time with patient: 25 - 35 minutes Subjective Date/time seen: 03/12/23 0930 Interval history: This pleasant gentleman was examined at the bedside today in interval assessment after being admitted to the hospital for COPD exacerbation. He has Chronic hx of COPD, treated by Dr. Beebe and Latha at [facility] and chronically wears 4L supplemental oxygen at all times. He had stated that his overall breathing at home over the course of the past several days has not been responding to his nebulizer treatments as well and that prompted him to come to the ER. Here his Lactic acid trended upward, COVID, Flu and RSV were negative, and CXR was negative. He wears a Trillogy at night, and was admitted to the hospital for COPD exacerbation and treatment. He is receiving Duonebs, Solumedrol, BiPap at night, and his Spiriva is currently being held in the setting of receiving Duonebs. Upon seeing pt today, he appeared tachypneic and uncomfortable with his breathing. His breath sounds were noted to have generalized wheezing and rhonchi with prolonged expiratory phase. Pt. with congested sounding cough. He denies any CP, edema in the extremities and no other acute complaints at this time. Review of Systems Review of Systems: All systems reviewed & are unremarkable except as noted in HPI and below Exam Const: General: uncomfortable HENMT: Mouth: Yes moist mucous membranes
--- NOTE | 2023-03-12 10:56 | PM.IMPN ---
Progress Note: A&P Assessment and Plan (1) COPD exacerbation: Code(s): J44.1 - Chronic obstructive pulmonary disease with (acute) exacerbation Status: Acute Assessment and Plan: Continue home oxygen of 4L per nasal canula Continue nebulizer treatments of Duoneb Obtain Trillogy settings from home to continue BiPap use here at night Continue Methylprednisolone as ordered CTA PE protocol is ordered based on pt's increased work of breathing today on my exam. Obtain ECHO Dr. Archer was consulted for Pulmonology opinion on current COPD management and for maximization of therapy. I do appreciate his opinion on this patient. Continue to monitor labs and VS. NS at 100 ml/hr Continue Singulair 10 mg HS (2) GERD (gastroesophageal reflux disease): Code(s): K21.9 - Gastro-esophageal reflux disease without esophagitis Status: Chronic Assessment and Plan: Continue Protonix 40 mg po BID (3) Hypertension: Qualifiers: Hypertension type: unspecified Qualified Code(s): I10 - Essential (primary) hypertension Code(s): I10 - Essential (primary) hypertension Status: Chronic Assessment and Plan: Continue Lasix 40 mg Daily Continue Cardizem CD 360 mg daily Monitor pressures with VS and trend. (4) Tobacco abuse: Code(s): Z72.0 - Tobacco use Status: Chronic Assessment and Plan: Pt counseled for 15 minutes on smoking cessation. Nicotine patch ordered. (5) Chronic pain: Qualifiers: Chronic pain type: other chronic pain Qualified Code(s): G89.29 - Other chronic pain Code(s): G89.29 - Other chronic pain Status: Chronic Assessment and Plan: Continue pain meds of Baclofen 20 mg TID, [place], and Lyrica (6) CAD (coronary artery disease): Code(s): I25.10 - Atherosclerotic heart disease of [place] coronary artery without angina pectoris Status: Chronic Assessment and Plan: Continue Isosorbide Mononitrate 60 mg daily Continue daily ASA. Continue Daily statin therapy with Lipitor 80 mg po daily. Time Spent With Patient Time with patient: 25 - 35 minutes Subjective Date/time seen: 03/12/23 0930 Interval history: This pleasant gentleman was examined at the bedside today in interval assessment after being admitted to the hospital for COPD exacerbation. He has Chronic hx of COPD, treated by Dr. Marmolejo at [facility] and chronically wears 4L supplemental oxygen at all times. He had stated that his overall breathing at home over the course of the past several days has not been responding to his nebulizer treatments as well and that prompted him to come to the ER. Here his Lactic acid trended upward, COVID, Flu and RSV were negative, and CXR was negative. He wears a Trillogy at night, and was admitted to the hospital for COPD exacerbation and treatment. He is receiving Duonebs, Solumedrol, BiPap at night, and his Spiriva is currently being held in the setting of receiving Duonebs. Upon seeing pt today, he appeared tachypneic and uncomfortable with his breathing. His breath sounds were noted to have generalized wheezing and rhonchi with prolonged expiratory phase. Pt. with congested sounding cough. He denies any CP, edema in the extremities and no other acute complaints at this time. Review of Systems Review of Systems: All systems reviewed & are unremarkable except as noted in HPI and below Exam Const: General: uncomfortable HENMT: Mouth: Yes moist mucous membranes Eyes: General: appearance normal, both eyes and all related structures Neck: Neck: supple and no JVD Lymphatic: lymphadenopathy not noted Resp: Effort & Inspection: abnormal respiratory effort (Appears to have a slightly increased effort.) Auscultation: rhonchi and wheezes Cardio: Rate: regular rate Rhythm: regular rhythm Heart sounds: no gallops, no murmurs and no rubs GI: Inspection: non-distended GI Palp:
[2023-03-12] MEDS: NICOTINE (*PBKC) 21 MG PATCH 1 PATCH TRANSDERM (11:41)
[2023-03-12] MEDS: TOLNAFTATE 1% POWDER 45 GM BTL 1 APPLIC TOPICAL ×2 (11:42→21:24)
[2023-03-12] MEDS: HYDROcodone/acetaminophen (*CRX) 10-325 MG TABLET 1 TAB PO (11:46)
--- NOTE | 2023-03-12 11:53 | PM.CNPUL ---
Assessment and Plan Assessment and plan (1) COPD exacerbation: Code(s): J44.1 - Chronic obstructive pulmonary disease with (acute) exacerbation Status: Acute Assessment and Plan: Patient with this history of COPD with chronic hypoxemic and hypercarbic respiratory failure. At baseline on a good day he can walk room to room. He wears 4 L nasal cannula with rest, activity and ambulation. 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 Currently presents with 5 days worsening shortness of breath. He ran out of nebulized medicines 5 days ago. 03/12: Currently the patient tells me he feels about the same as he did yesterday. He has bilateral expiratory wheezes. He has mild respiratory distress and I placed him on a noninvasive ventilator with the AVAPS mode and titers his settings to comfort resulting in a rate of 14, tidal volume 500, EPAP 5, minimal inspiratory pressure 6, maximal a maximal inspiratory pressure 25, inspiratory time 1.25, rise of 5 and 40%. He said this felt better. Plan: Agree with CT angiogram of the chest to exclude PE. I will change his Solu-Medrol to 40 mg IV q.6 hours. I was it will increase his albuterol and ipratropium nebulizers from q.6 hours to q.4 hours. At this time he has no change in his phlegm production and no infiltrates on his chest x-ray and I will not initiate antibiotics currently. Goal saturation 90-94%. Will follow with you. History of Present Illness History of Present Illness Consult date: 03/12/23 Chief complaint: SOB Narrative: 03/12/2023: This is a new pulmonary consult for COPD exacerbation. 62-year-old with a history of COPD on home trilogy and 4 L nasal cannula 24-7 was followed by [facility] pulmonary. Patient tells me that for the last 5 days he ran out of his nebulized medicine at home and he has had worsening shortness of breath. He has a dry cough with no phlegm production and no hemoptysis. He has been afebrile. Patient presented to the emergency room on 03/11/2024 with wheezing. He was on 6 L nasal cannula with saturations 97%. Head white blood cell count of 14.6 with eosinophils 1.4%, troponin negative. Troponin negative x2, BNP 33. COVID influenza and RSV RT PCR study negative. Patient had a blood gas on 4 L nasal cannula the pH of 7.39/50/81. chest x-ray with no acute process. Patient was admitted to the hospital with COPD exacerbation and treated with bronchodilators, and Solu-Medrol. 03/12: Currently the patient tells me he feels about the same as he did yesterday. He has bilateral expiratory wheezes. He has mild respiratory distress and I placed him on a noninvasive ventilator with the AVAPS mode and titers his settings to comfort resulting in a rate of 14, tidal volume 500, EPAP 5, minimal inspiratory pressure 6, maximal a maximal inspiratory pressure 25, inspiratory time 1.25, rise of 5 and 40%. He said this felt better. Review of Systems Constitutional: Constitutional: Reports no additional constitutional complaints Eyes: Eyes: Reports no additional eye complaints ENT: Reports system reviewed and no additional complaints, except as documented Cardiovascular: Cardiovascular: Reports no additional cardiovascular complaints Respiratory: Respiratory: Reports no additional respiratory complaints Gastrointestinal: Gastrointestinal: Reports no additional gastrointestinal complaints Musculoskeletal: Musculoskeletal: Reports no additional musculoskeletal complaints Neurologic: Reports system reviewed and no additional complaints, except as documented Psychiatric: Psychiatric: Reports no additional psychiatric complaints Endocrine: Endocrine: Reports no additional endocrine complaints Hematologic/Lymphatic: Hematologic/Lymphatic: Reports no additional hematologic/lymphatic complaints Allergic/Immunologic: Allergic/Immunologic: Reports no additional allergic/immunologic co
[2023-03-12] MEDS: BACLOFEN 10 MG TABLET 20 MG PO (15:50)
[2023-03-12] MEDS: methylPREDNISolone SOD SUCC 40 MG VIAL IV PUSH ×2 (17:20→23:00)
[2023-03-12] MEDS: MONTELUKAST SODIUM 10 MG TABLET PO (20:05)
[2023-03-12] MEDS: SERTRALINE HCL 50 MG TABLET 100 MG PO (20:05)
[2023-03-13] VITALS (13 sets, daily range): BP systolic 123–135; BP diastolic 45–60; PULSE 68–82; RESP 19–22; TEMP 36–36.4; O2SAT 92–97
[2023-03-13] MEDS: HYDROcodone/acetaminophen (*CRX) 10-325 MG TABLET 1 TAB PO ×3 (04:27→21:50)
[2023-03-13] MEDS: methylPREDNISolone SOD SUCC 40 MG VIAL IV PUSH (05:11)
[2023-03-13 05:42] LABS: Basophils Percent Auto 0.1 % (0.2-1.2); Immature Granulocyte Absolute 0.09 K/mm3 (0.00-0.031); Immature Granulocyte Percent A 0.7 % (0-0.5); Lymphocytes Absolute Auto 1.42 K/mm3 (0.9-3.2); Lymphocytes Percent Auto 10.3 % (18.3-44.2); Mean Corpuscular HGB Conc 34.1 g/dl (32-36); Mean Corpuscular Hemoglobin 30.2 pg (26-34); Mean Corpuscular Volume 88.4 fl (80-100); Mean Platelet Volume 10.2 fl (7.4-10.4); Monocytes Absolute Auto 0.6 K/mm3 (0.1-0.6); Monocytes Percent Auto 4.1 % (2.6-8.5); Neutrophils Absolute Auto 11.7 K/mm3 (1.3-6.7); Neutrophils Percent Auto 84.8 % (45.5-73.1); Platelet Count Result 262 k/mm3 (150-375); Red Blood Count 4.64 M/mm3 (4.6-6.20); White Blood Count 13.8 K/mm3 (4.5-10.0)
[2023-03-13 06:01] LABS: Anion Gap 6 mmol/L (8-16); Blood Urea Nitrogen 13 mg/dL (9-20); Calcium 8.9 mg/dL (8.4-10.2); Carbon Dioxide 28 mmol/L (22-30); Chloride 103 mmol/L (98-107); Estimated CRCL calculation 100 ml/min; Estimated Glomerular Filt Rate > 60; Glucose 268 mg/dL (65-110); Potassium 4.2 mmol/L (3.4-5.0); Sodium 137 mmol/L (137-145)
[2023-03-13] MEDS: IPRATROPIUM BR 0.02% INH SOLN 0.5 MG/2.5 ML VIAL INHALATION ×4 (08:35→21:41)
[2023-03-13] MEDS: ALBUTEROL SULFATE NEB 2.5 MG/3 ML INH INHALATION ×4 (08:35→21:42)
--- NOTE | 2023-03-13 09:24 | PM.PNPUL ---
Progress Note: A&P Assessment and Plan (1) COPD exacerbation: Code(s): J44.1 - Chronic obstructive pulmonary disease with (acute) exacerbation Status: Acute Assessment and Plan: Patient with this history of COPD with chronic hypoxemic and hypercarbic respiratory failure. At baseline on a good day he can walk room to room. He wears 4 L nasal cannula with rest, activity and ambulation. Who is a noninvasive ventilator at night with the trilogy and presumed AVAPS AE mode through his private barrel racer. Currently presents with 5 days worsening shortness of breath. He ran out of nebulized medicines 5 days ago. 03/12: Currently the patient tells me he feels about the same as he did yesterday. He has bilateral expiratory wheezes. He has mild respiratory distress and I placed him on a noninvasive ventilator with the AVAPS mode and titers his settings to comfort resulting in a rate of 14, tidal volume 500, EPAP 5, minimal inspiratory pressure 6, maximal a maximal inspiratory pressure 25, inspiratory time 1.25, rise of 5 and 40%. He said this felt better. Plan: Agree with CT angiogram of the chest to exclude PE. I will change his Solu-Medrol to 40 mg IV q.6 hours. I was it will increase his albuterol and ipratropium nebulizers from q.6 hours to q.4 hours. At this time he has no change in his phlegm production and no infiltrates on his chest x-ray and I will not initiate antibiotics currently. Goal saturation 90-94%. CT angiogram with no PE, severe apical predominant panlobular emphysema. Echocardiogram with normal LV function, grade 1 diastolic dysfunction, normal RV size and function, normal right atrial size, RVSP 20. Later in the day download from 12/09/2022 through 01/08/2023 was obtained from [employer]. Unfortunately there are no AVAPS settings listed. Total % days used is 21%. % days used 4 or more hours was 8.9%. Average use on days used was 3 hours and 20 minutes. Average tidal volume 476 mL. Average breaths per minute 16. Average minute ventilation 7.9. Of note there is no usage before 02/09/2023 and is usage after that is still poor. The patient tells me that recently they have made changes to his machine and that he has better settings now and is using it more. 03/13: Patient wore the hospital noninvasive ventilator with the AVAPS mode with the above settings. He said this felt well and felt like his home machine. The patient says he is 60% back to his normal. Said he slept well on the machine. White blood cell count 13.8, creatinine 0.7. Currently is on 4 L nasal cannula saturation 93%. Plan: I will decrease his Solu-Medrol to 20 mg IV q.6. I will continue albuterol and ipratropium nebulizers q.4 hours. Continue montelukast 10. There is no evidence of pneumonia or tracheobronchitis and I will not initiate antibiotics at this time. If patient continues to improve would change to prednisone 40 mg p.o. q.day on 03/14/2023. If he continues to improve through the weekend he can be discharged on his prior home medical regimen and of Symbicort 160-4.5 at 2 puffs b.i.d., Spiriva Respimat 2.5 mcg 2 puffs q.day, montelukast 10 mg a day, rescue albuterol inhaler and nebulizer and prednisone 40 mg p.o. q.day x5 days. He should have a home O2 assessment prior to discharge. Follow-up in 2-3 weeks with his outpatient barrel racer. Discussed with Dr. Vogt. Inpatient pulmonary consult services will resume on 03/16. Call with questions. (2) Chronic respiratory failure with hypoxia and hypercapnia: Code(s): J96.11 - Chronic respiratory failure with hypoxia; J96.12 - Chronic respiratory failure with hypercapnia Status: Acute Assessment and Plan: Patient with a history of chronic hypoxemic respiratory failure from his COPD requiring 4 L 24-7 and chronic hypercarbic respiratory failure on a noninvasive ventilator with a trilogy and presumed AVAPS AE mode through his private barrel racer. 03/12
[2023-03-13] MEDS: dilTIAZem HCL CD 180 MG CAP.24HR 360 MG PO (10:17)
[2023-03-13] MEDS: PANTOPRAZOLE 40 MG TABLET PO ×2 (10:21→18:36)
[2023-03-13] MEDS: POTASSIUM CHLORIDE 20 MEQ ER TABLET PO (10:21)
[2023-03-13] MEDS: PREGABALIN (*CRX) 50 MG CAPSULE 200 MG PO ×2 (10:21→21:49)
[2023-03-13] MEDS: ISOSORBIDE MONONITRATE 60 MG TAB.ER.24H PO (10:21)
[2023-03-13] MEDS: ASPIRIN 81 MG ENTERIC TABLET PO (10:22)
[2023-03-13] MEDS: ENOXAPARIN 40 MG/0.4 ML SYRINGE SUB-Q (10:22)
[2023-03-13] MEDS: ATORVASTATIN 40 MG TABLET 80 MG PO (10:22)
[2023-03-13] MEDS: DULoxetine HCL 60 MG CAPSULE.DR PO (10:22)
[2023-03-13] MEDS: NICOTINE (*PBKC) 21 MG PATCH 1 PATCH TRANSDERM (10:22)
[2023-03-13] MEDS: FUROSEMIDE 40 MG TABLET PO (10:22)
[2023-03-13] MEDS: BACLOFEN 10 MG TABLET 20 MG PO ×2 (10:23→21:49)
[2023-03-13] MEDS: SODIUM CHLORIDE 0.9% IV 1,000 ML 100 ML IV CONT (10:35)
[2023-03-13] MEDS: ACETAMINOPHEN 325 MG TABLET 650 MG PO ×2 (10:41→18:41)
[2023-03-13] MEDS: methylPREDNISolone SOD SUCC 40 MG VIAL 20 MG IV PUSH ×3 (13:33→23:41)
--- NOTE | 2023-03-13 14:59 | PM.IMPN ---
Progress Note: A&P Assessment and Plan (1) COPD exacerbation: Code(s): J44.1 - Chronic obstructive pulmonary disease with (acute) exacerbation Status: Acute Assessment and Plan: Continue home oxygen of 4L per nasal canula Continue nebulizer treatments of Duoneb Obtain Trillogy settings from home to continue BiPap use here at night Continue Methylprednisolone as ordered CTA PE protocol is ordered based on pt's increased work of breathing today on my exam. Obtain ECHO Dr. Archer was consulted for Pulmonology opinion on current COPD management and for maximization of therapy. I do appreciate his opinion on this patient. Continue to monitor labs and VS. NS at 100 ml/hr which will be stopped Continue Singulair 10 mg HS (2) GERD (gastroesophageal reflux disease): Code(s): K21.9 - Gastro-esophageal reflux disease without esophagitis Status: Chronic Assessment and Plan: Continue Protonix 40 mg po BID (3) Hypertension: Qualifiers: Hypertension type: unspecified Qualified Code(s): I10 - Essential (primary) hypertension Code(s): I10 - Essential (primary) hypertension Status: Chronic Assessment and Plan: Continue Lasix 40 mg Daily Continue Cardizem CD 360 mg daily Monitor pressures with VS and trend. (4) Tobacco abuse: Code(s): Z72.0 - Tobacco use Status: Chronic Assessment and Plan: Pt counseled for 15 minutes on smoking cessation. Nicotine patch ordered. (5) Chronic pain: Qualifiers: Chronic pain type: other chronic pain Qualified Code(s): G89.29 - Other chronic pain Code(s): G89.29 - Other chronic pain Status: Chronic Assessment and Plan: Continue pain meds of Baclofen 20 mg TID, [place], and Lyrica (6) CAD (coronary artery disease): Code(s): I25.10 - Atherosclerotic heart disease of [place] coronary artery without angina pectoris Status: Chronic Assessment and Plan: Continue Isosorbide Mononitrate 60 mg daily Continue daily ASA. Continue Daily statin therapy with Lipitor 80 mg po daily. Subjective Date/time seen: 03/13/23 14:59 Interval history: NO OVERNIGHT EVENTS. FEELING OKAY. STILL FEELS SOB. ON OXYGEN AT 4L WHICH IS AT HIS BASELINE. cough present He had stated that his overall breathing at home over the course of the past several days has not been responding to his nebulizer treatments as well and that prompted him to come to the ER. Here his Lactic acid trended upward, COVID, Flu and RSV were negative, and CXR was negative. He wears a Trillogy at night, and was admitted to the hospital for COPD exacerbation and treatment. He is receiving Duonebs, Solumedrol, BiPap at night, and his Spiriva is currently being held in the setting of receiving Duonebs. Upon seeing pt today, he appeared tachypneic and uncomfortable with his breathing. His breath sounds were noted to have generalized wheezing and rhonchi with prolonged expiratory phase. Pt. with congested sounding cough. He denies any CP, edema in the extremities and no other acute complaints at this time. Review of Systems Review of Systems: All systems reviewed & are unremarkable except as noted in HPI and below Exam Narrative: GENERAL: Well-appearing, well-nourished, and in no acute distress. HEAD: Normocephalic, atraumatic. EYES: PERRLA and EOMI. ENT: Nares clear, no rhinorrhea or epistaxis.? Mucous membranes moist. NECK: Supple. CHEST: decreased air entry bilaterally, bilateral expiratory wheezes. no resp distress HEART: Regular rate and rhythm.? No murmur heard.? Normal peripheral pulses. ABDOMEN: Soft, nontender, nondistended, normal active bowel sounds. EXTREMITIES: Normal range of motion.? No edema. SKIN: Warm, dry, no rash. NEURO: No focal deficits.? Alert and oriented x3. PSYCH: Normal mood and affect. ? Objective Data Vital Signs Vital Signs: Vital Signs - 24 hr 03/12/23 19:35 03/12/23
[2023-03-13] MEDS: MONTELUKAST SODIUM 10 MG TABLET PO (21:49)
[2023-03-13] MEDS: SERTRALINE HCL 50 MG TABLET 100 MG PO (21:49)
[2023-03-13] MEDS: TOLNAFTATE 1% POWDER 45 GM BTL 1 APPLIC TOPICAL (21:51)
[2023-03-13] MEDS: polyethylene glycoL 3350 17 GM POWD.PACK PO (21:51)
[2023-03-13] MEDS: guaiFENesin 200 MG/10 ML UDC PO (21:51)
[2023-03-14] VITALS (13 sets, daily range): BP systolic 108–130; BP diastolic 48–62; PULSE 67–92; RESP 16–20; TEMP 36.2–36.5; O2SAT 94–98
[2023-03-14] MEDS: IPRATROPIUM BR 0.02% INH SOLN 0.5 MG/2.5 ML VIAL INHALATION ×5 (03:40→20:26)
[2023-03-14] MEDS: ALBUTEROL SULFATE NEB 2.5 MG/3 ML INH INHALATION ×5 (03:40→20:27)
[2023-03-14] MEDS: methylPREDNISolone SOD SUCC 40 MG VIAL 20 MG IV PUSH ×4 (05:15→23:41)
[2023-03-14 05:16] LABS: Basophils Percent Auto 0.1 % (0.2-1.2); Hematocrit 40.9 % (42.0-52.0); Immature Granulocyte Absolute 0.18 K/mm3 (0.00-0.031); Immature Granulocyte Percent A 1.3 % (0-0.5); Lymphocytes Percent Auto 8.7 % (18.3-44.2); Mean Corpuscular HGB Conc 34.2 g/dl (32-36); Mean Corpuscular Hemoglobin 30.4 pg (26-34); Mean Corpuscular Volume 88.9 fl (80-100); Mean Platelet Volume 10.2 fl (7.4-10.4); Monocytes Absolute Auto 0.6 K/mm3 (0.1-0.6); Monocytes Percent Auto 4.2 % (2.6-8.5); Neutrophils Absolute Auto 11.9 K/mm3 (1.3-6.7); Neutrophils Percent Auto 85.7 % (45.5-73.1); Platelet Count Result 260 k/mm3 (150-375); Red Cell Distribution Width 12.8 % (11.5-14.5); White Blood Count 13.8 K/mm3 (4.5-10.0)
[2023-03-14 05:25] LABS: Alanine Aminotransferase 54 U/L (6-50); Albumin Level 3.7 g/dL (3.5-5.1); Alkaline Phosphatase 106 U/L (38-126); Anion Gap 5 mmol/L (8-16); Aspartate Amino Transferase 38 U/L (17-59); Bilirubin,Total 0.3 mg/dL (0.2-1.3); Blood Urea Nitrogen 16 mg/dL (9-20); Calcium 8.9 mg/dL (8.4-10.2); Carbon Dioxide 32 mmol/L (22-30); Chloride 101 mmol/L (98-107); Estimated CRCL calculation 88 ml/min; Estimated Glomerular Filt Rate > 60; Glucose 291 mg/dL (65-110); Magnesium 2.5 mg/dL (1.6-2.3); Potassium 4.2 mmol/L (3.4-5.0); Sodium 138 mmol/L (137-145)
[2023-03-14] MEDS: PREGABALIN (*CRX) 50 MG CAPSULE 200 MG PO ×2 (11:03→20:46)
[2023-03-14] MEDS: ISOSORBIDE MONONITRATE 60 MG TAB.ER.24H PO (11:04)
[2023-03-14] MEDS: ATORVASTATIN 40 MG TABLET 80 MG PO (11:04)
[2023-03-14] MEDS: PANTOPRAZOLE 40 MG TABLET PO ×2 (11:04→16:15)
[2023-03-14] MEDS: DULoxetine HCL 60 MG CAPSULE.DR PO (11:04)
[2023-03-14] MEDS: POTASSIUM CHLORIDE 20 MEQ ER TABLET PO (11:04)
[2023-03-14] MEDS: FUROSEMIDE 40 MG TABLET PO (11:04)
[2023-03-14] MEDS: ENOXAPARIN 40 MG/0.4 ML SYRINGE SUB-Q (11:05)
[2023-03-14] MEDS: NICOTINE (*PBKC) 21 MG PATCH 1 PATCH TRANSDERM (11:05)
[2023-03-14] MEDS: ASPIRIN 81 MG ENTERIC TABLET PO (11:05)
[2023-03-14] MEDS: dilTIAZem HCL CD 180 MG CAP.24HR 360 MG PO (11:05)
[2023-03-14] MEDS: HYDROcodone/acetaminophen (*CRX) 10-325 MG TABLET 1 TAB PO ×2 (11:11→20:45)
[2023-03-14] MEDS: TOLNAFTATE 1% POWDER 45 GM BTL 1 APPLIC TOPICAL ×2 (11:18→20:47)
--- NOTE | 2023-03-14 14:21 | P.PNIM_ITS ---
Progress Note: A&P Assessment and Plan (1) COPD exacerbation: Code(s): J44.1 - Chronic obstructive pulmonary disease with (acute) exacerbation Status: Acute Assessment and Plan: * Continue home oxygen of 4L per nasal canula * Continue nebulizer treatments of Duoneb * Obtain Trillogy settings from home to continue BiPap use here at night * Continue Methylprednisolone as ordered * CTA PE protocol is ordered based on pt's increased work of breathing today on my exam. * Obtain ECHO * Dr. rAcher was consulted for Pulmonology opinion on current COPD management and for maximization of therapy. I do appreciate his opinion on this patient. * Continue to monitor labs and VS. * NS at 100 ml/hr which will be stopped * Continue Singulair 10 mg HS * He is coughing up some blood stained sputum today. Will add antibiotics to treat for bronchitis recheck chest x-ray (2) GERD (gastroesophageal reflux disease): Code(s): K21.9 - Gastro-esophageal reflux disease without esophagitis Status: Chronic Assessment and Plan: * Continue Protonix 40 mg po BID (3) Hypertension: Qualifiers: Hypertension type: unspecified Qualified Code(s): I10 - Essential (primary) hypertension Code(s): I10 - Essential (primary) hypertension Status: Chronic Assessment and Plan: * Continue Lasix 40 mg Daily * Continue Cardizem CD 360 mg daily * Monitor pressures with VS and trend. (4) Tobacco abuse: Code(s): Z72.0 - Tobacco use Status: Chronic Assessment and Plan: * Pt counseled for 15 minutes on smoking cessation. * Nicotine patch ordered. (5) Chronic pain: Qualifiers: Chronic pain type: other chronic pain Qualified Code(s): G89.29 - Other chronic pain Code(s): G89.29 - Other chronic pain Status: Chronic Assessment and Plan: * Continue pain meds of Baclofen 20 mg TID, [place], and Lyrica (6) CAD (coronary artery disease): Code(s): I25.10 - Atherosclerotic heart disease of [place] coronary artery without angina pectoris Status: Chronic Assessment and Plan: * Continue Isosorbide Mononitrate 60 mg daily * Continue daily ASA. * Continue Daily statin therapy with Lipitor 80 mg po daily. Subjective Date/time seen: 03/14/23 14:21 Interval history: NO OVERNIGHT EVENTS. FEELING OKAY. STILL FEELS SOB. ON OXYGEN AT 4L WHICH IS AT HIS BASELINE. cough present He had stated that his overall breathing at home over the course of the past several days has not been responding to his nebulizer treatments as well and that prompted him to come to the ER. Here his Lactic acid trended upward, COVID, Flu and RSV were negative, and CXR was nega tive. He wears a Trillogy at night, and was admitted to the hospital for COPD exacerbation and treatment. He is receiving Duonebs, Solumedrol, BiPap at night, and his Spiriva is currently being held in the setting of receiving Duonebs. Upon seeing pt today, he appeared tachypneic and uncomfortable with his breathing. His breath sounds were noted to have generalized wheezing and rhonchi with prolonged expiratory phase. Pt. with congested sounding cough. He denies any CP, edema in the extremities and no other acute complaints at this time. 03/14/2023: Coughing up some blood stained sputum today. Breathing still intermittently problematic. Using BiPAP and oxygen as ordered. Review of Systems Review of Systems: All systems reviewed & are unremarkable except as noted in HPI and below Exam Narrative: GENERAL: Well-appeari
--- NOTE | 2023-03-14 14:21 | PM.IMPN ---
Progress Note: A&P Assessment and Plan (1) COPD exacerbation: Code(s): J44.1 - Chronic obstructive pulmonary disease with (acute) exacerbation Status: Acute Assessment and Plan: Continue home oxygen of 4L per nasal canula Continue nebulizer treatments of Duoneb Obtain Trillogy settings from home to continue BiPap use here at night Continue Methylprednisolone as ordered CTA PE protocol is ordered based on pt's increased work of breathing today on my exam. Obtain ECHO Dr. Archer was consulted for Pulmonology opinion on current COPD management and for maximization of therapy. I do appreciate his opinion on this patient. Continue to monitor labs and VS. NS at 100 ml/hr which will be stopped Continue Singulair 10 mg HS He is coughing up some blood stained sputum today. Will add antibiotics to treat for bronchitis recheck chest x-ray (2) GERD (gastroesophageal reflux disease): Code(s): K21.9 - Gastro-esophageal reflux disease without esophagitis Status: Chronic Assessment and Plan: Continue Protonix 40 mg po BID (3) Hypertension: Qualifiers: Hypertension type: unspecified Qualified Code(s): I10 - Essential (primary) hypertension Code(s): I10 - Essential (primary) hypertension Status: Chronic Assessment and Plan: Continue Lasix 40 mg Daily Continue Cardizem CD 360 mg daily Monitor pressures with VS and trend. (4) Tobacco abuse: Code(s): Z72.0 - Tobacco use Status: Chronic Assessment and Plan: Pt counseled for 15 minutes on smoking cessation. Nicotine patch ordered. (5) Chronic pain: Qualifiers: Chronic pain type: other chronic pain Qualified Code(s): G89.29 - Other chronic pain Code(s): G89.29 - Other chronic pain Status: Chronic Assessment and Plan: Continue pain meds of Baclofen 20 mg TID, [place], and Lyrica (6) CAD (coronary artery disease): Code(s): I25.10 - Atherosclerotic heart disease of [place] coronary artery without angina pectoris Status: Chronic Assessment and Plan: Continue Isosorbide Mononitrate 60 mg daily Continue daily ASA. Continue Daily statin therapy with Lipitor 80 mg po daily. Subjective Date/time seen: 03/14/23 14:21 Interval history: NO OVERNIGHT EVENTS. FEELING OKAY. STILL FEELS SOB. ON OXYGEN AT 4L WHICH IS AT HIS BASELINE. cough present He had stated that his overall breathing at home over the course of the past several days has not been responding to his nebulizer treatments as well and that prompted him to come to the ER. Here his Lactic acid trended upward, COVID, Flu and RSV were negative, and CXR was negative. He wears a Trillogy at night, and was admitted to the hospital for COPD exacerbation and treatment. He is receiving Duonebs, Solumedrol, BiPap at night, and his Spiriva is currently being held in the setting of receiving Duonebs. Upon seeing pt today, he appeared tachypneic and uncomfortable with his breathing. His breath sounds were noted to have generalized wheezing and rhonchi with prolonged expiratory phase. Pt. with congested sounding cough. He denies any CP, edema in the extremities and no other acute complaints at this time. 03/14/2023: Coughing up some blood stained sputum today. Breathing still intermittently problematic. Using BiPAP and oxygen as ordered. Review of Systems Review of Systems: All systems reviewed & are unremarkable except as noted in HPI and below Exam Narrative: GENERAL: Well-appearing, well-nourished, and in no acute distress. HEAD: Normocephalic, atraumatic. EYES: PERRLA and EOMI. ENT: Nares clear, no rhinorrhea or epistaxis.? Mucous membranes moist. NECK: Supple. CHEST: decreased air entry bilaterally, bilateral expiratory wheezes. no resp distress HEART: Regular rate and rhythm.? No murmur heard.? Normal peripheral pulses. ABDOMEN: Soft, nontender, nondistended, normal active bowel sounds.
[2023-03-14] MEDS: DOXYCYCLINE HYCLATE 100 MG TABLET PO ×2 (16:15→20:46)
[2023-03-14] MEDS: ACETAMINOPHEN 325 MG TABLET 650 MG PO (16:18)
--- NOTE | 2023-03-14 18:21 | PM.PNPUL ---
Progress Note: A&P Assessment and Plan (1) COPD exacerbation: Code(s): J44.1 - Chronic obstructive pulmonary disease with (acute) exacerbation Status: Acute Assessment and Plan: Patient with this history of COPD with chronic hypoxemic and hypercarbic respiratory failure. At baseline on a good day he can walk room to room. He wears 4 L nasal cannula with rest, activity and ambulation. Who is a noninvasive ventilator at night with the trilogy and presumed AVAPS AE mode through his private agile test lead. Currently presents with 5 days worsening shortness of breath. He ran out of nebulized medicines 5 days ago. 03/12: Currently the patient tells me he feels about the same as he did yesterday. He has bilateral expiratory wheezes. He has mild respiratory distress and I placed him on a noninvasive ventilator with the AVAPS mode and titers his settings to comfort resulting in a rate of 14, tidal volume 500, EPAP 5, minimal inspiratory pressure 6, maximal a maximal inspiratory pressure 25, inspiratory time 1.25, rise of 5 and 40%. He said this felt better. Plan: Agree with CT angiogram of the chest to exclude PE. I will change his Solu-Medrol to 40 mg IV q.6 hours. I was it will increase his albuterol and ipratropium nebulizers from q.6 hours to q.4 hours. At this time he has no change in his phlegm production and no infiltrates on his chest x-ray and I will not initiate antibiotics currently. Goal saturation 90-94%. CT angiogram with no PE, severe apical predominant panlobular emphysema. Echocardiogram with normal LV function, grade 1 diastolic dysfunction, normal RV size and function, normal right atrial size, RVSP 20. Later in the day download from 12/09/2022 through 01/08/2023 was obtained from [employer]. Unfortunately there are no AVAPS settings listed. Total % days used is 21%. % days used 4 or more hours was 8.9%. Average use on days used was 3 hours and 20 minutes. Average tidal volume 476 mL. Average breaths per minute 16. Average minute ventilation 7.9. Of note there is no usage before 02/09/2023 and is usage after that is still poor. The patient tells me that recently they have made changes to his machine and that he has better settings now and is using it more. 03/13: Patient wore the hospital noninvasive ventilator with the AVAPS mode with the above settings. He said this felt well and felt like his home machine. The patient says he is 60% back to his normal. Said he slept well on the machine. White blood cell count 13.8, creatinine 0.7. Currently is on 4 L nasal cannula saturation 93%. I will decrease his Solu-Medrol to 20 mg IV q.6. I will continue albuterol and ipratropium nebulizers q.4 hours. Continue montelukast 10. There is no evidence of pneumonia or tracheobronchitis and I will not initiate antibiotics at this time. If patient continues to improve would change to prednisone 40 mg p.o. q.day on 03/14/2023. 03/14: Using hospital noninvasive ventilator with the AVAPS mode with the above settings, and feels that these are helpful. (2) Chronic respiratory failure with hypoxia and hypercapnia: Code(s): J96.11 - Chronic respiratory failure with hypoxia; J96.12 - Chronic respiratory failure with hypercapnia Status: Acute Assessment and Plan: Patient with a history of chronic hypoxemic respiratory failure from his COPD requiring 4 L 24-7 and chronic hypercarbic respiratory failure on a noninvasive ventilator with a trilogy and presumed AVAPS AE mode through his private agile test lead. 03/12: I placed him on a noninvasive ventilator with the AVAPS mode and titers his settings to comfort resulting in a rate of 14, tidal volume 500, EPAP 5, minimal inspiratory pressure 6, maximal a maximal inspiratory pressure 25, inspiratory time 1.25, rise of 5 and 40%. He said this felt better. Plan: Agree with CT angiogram of the c
[2023-03-14] MEDS: polyethylene glycoL 3350 17 GM POWD.PACK PO (18:24)
[2023-03-14] MEDS: SERTRALINE HCL 50 MG TABLET 100 MG PO (20:46)
[2023-03-14] MEDS: MONTELUKAST SODIUM 10 MG TABLET PO (20:46)
[2023-03-14] MEDS: QUEtiapine FUMARATE 25 MG TABLET PO (20:48)
[2023-03-14] MEDS: BACLOFEN 10 MG TABLET 20 MG PO (20:49)
[2023-03-14] MEDS: guaiFENesin 200 MG/10 ML UDC PO (20:53)
[2023-03-15] VITALS (11 sets, daily range): BP systolic 119–136; BP diastolic 51–69; PULSE 64–90; RESP 12–21; TEMP 36.2–37; O2SAT 93–98
[2023-03-15] MEDS: IPRATROPIUM BR 0.02% INH SOLN 0.5 MG/2.5 ML VIAL INHALATION ×5 (00:45→21:16)
[2023-03-15] MEDS: ALBUTEROL SULFATE NEB 2.5 MG/3 ML INH INHALATION ×5 (00:45→21:17)
[2023-03-15 05:12] LABS: Basophils Percent Auto 0.2 % (0.2-1.2); Hematocrit 42.6 % (42.0-52.0); Hemoglobin 14.5 g/dL (14.0-18.0); Immature Granulocyte Absolute 0.14 K/mm3 (0.00-0.031); Immature Granulocyte Percent A 1.2 % (0-0.5); Lymphocytes Absolute Auto 1.19 K/mm3 (0.9-3.2); Lymphocytes Percent Auto 10.3 % (18.3-44.2); Mean Corpuscular Volume 88.2 fl (80-100); Mean Platelet Volume 10.2 fl (7.4-10.4); Monocytes Absolute Auto 0.5 K/mm3 (0.1-0.6); Monocytes Percent Auto 4.5 % (2.6-8.5); Neutrophils Absolute Auto 9.7 K/mm3 (1.3-6.7); Neutrophils Percent Auto 83.8 % (45.5-73.1); Platelet Count Result 247 k/mm3 (150-375); Red Blood Count 4.83 M/mm3 (4.6-6.20); Red Cell Distribution Width 12.6 % (11.5-14.5); White Blood Count 11.6 K/mm3 (4.5-10.0)
[2023-03-15 05:23] LABS: Alanine Aminotransferase 75 U/L (6-50); Albumin Level 3.7 g/dL (3.5-5.1); Alkaline Phosphatase 105 U/L (38-126); Anion Gap 4 mmol/L (8-16); Aspartate Amino Transferase 44 U/L (17-59); Bilirubin,Total 0.4 mg/dL (0.2-1.3); Blood Urea Nitrogen 20 mg/dL (9-20); Calcium 8.8 mg/dL (8.4-10.2); Carbon Dioxide 33 mmol/L (22-30); Chloride 100 mmol/L (98-107); Estimated CRCL calculation 90 ml/min; Estimated Glomerular Filt Rate > 60; Glucose 229 mg/dL (65-110); Magnesium 2.6 mg/dL (1.6-2.3); Potassium 4.2 mmol/L (3.4-5.0); Sodium 137 mmol/L (137-145)
[2023-03-15] MEDS: methylPREDNISolone SOD SUCC 40 MG VIAL 20 MG IV PUSH ×4 (05:28→23:11)
[2023-03-15] MEDS: DULoxetine HCL 60 MG CAPSULE.DR PO (08:18)
[2023-03-15] MEDS: FUROSEMIDE 40 MG TABLET PO (08:18)
[2023-03-15] MEDS: dilTIAZem HCL CD 180 MG CAP.24HR 360 MG PO (08:18)
[2023-03-15] MEDS: PANTOPRAZOLE 40 MG TABLET PO ×2 (08:18→17:11)
[2023-03-15] MEDS: ASPIRIN 81 MG ENTERIC TABLET PO (08:18)
[2023-03-15] MEDS: ATORVASTATIN 40 MG TABLET 80 MG PO (08:18)
[2023-03-15] MEDS: POTASSIUM CHLORIDE 20 MEQ ER TABLET PO (08:18)
[2023-03-15] MEDS: PREGABALIN (*CRX) 50 MG CAPSULE 200 MG PO ×2 (08:18→20:27)
[2023-03-15] MEDS: DOXYCYCLINE HYCLATE 100 MG TABLET PO ×2 (08:19→20:27)
[2023-03-15] MEDS: ENOXAPARIN 40 MG/0.4 ML SYRINGE SUB-Q (08:19)
[2023-03-15] MEDS: ISOSORBIDE MONONITRATE 60 MG TAB.ER.24H PO (08:19)
[2023-03-15] MEDS: NICOTINE (*PBKC) 21 MG PATCH 1 PATCH TRANSDERM (08:19)
[2023-03-15] MEDS: HYDROcodone/acetaminophen (*CRX) 5-325 MG TABLET 1 TAB PO (08:24)
--- NOTE | 2023-03-15 12:56 | PM.IMPN ---
Progress Note: A&P Assessment and Plan (1) COPD exacerbation: Code(s): J44.1 - Chronic obstructive pulmonary disease with (acute) exacerbation Status: Acute Assessment and Plan: Continue home oxygen of 4L per nasal canula Continue nebulizer treatments of Duoneb Obtain Trillogy settings from home to continue BiPap use here at night Continue Methylprednisolone as ordered CTA PE protocol is ordered based on pt's increased work of breathing today on my exam. Obtain ECHO Dr. Archer was consulted for Pulmonology opinion on current COPD management and for maximization of therapy. I do appreciate his opinion on this patient. Continue to monitor labs and VS. NS at 100 ml/hr which will be stopped Continue Singulair 10 mg HS He is coughing up some blood stained sputum today. Added doxycycline. Recheck chest x-ray unremarkable (2) GERD (gastroesophageal reflux disease): Code(s): K21.9 - Gastro-esophageal reflux disease without esophagitis Status: Chronic Assessment and Plan: Continue Protonix 40 mg po BID (3) Hypertension: Qualifiers: Hypertension type: unspecified Qualified Code(s): I10 - Essential (primary) hypertension Code(s): I10 - Essential (primary) hypertension Status: Chronic Assessment and Plan: Continue Lasix 40 mg Daily Continue Cardizem CD 360 mg daily Monitor pressures with VS and trend. (4) Tobacco abuse: Code(s): Z72.0 - Tobacco use Status: Chronic Assessment and Plan: Pt counseled for 15 minutes on smoking cessation. Nicotine patch ordered. (5) Chronic pain: Qualifiers: Chronic pain type: other chronic pain Qualified Code(s): G89.29 - Other chronic pain Code(s): G89.29 - Other chronic pain Status: Chronic Assessment and Plan: Continue pain meds of Baclofen 20 mg TID, [place], and Lyrica (6) CAD (coronary artery disease): Code(s): I25.10 - Atherosclerotic heart disease of [place] coronary artery without angina pectoris Status: Chronic Assessment and Plan: Continue Isosorbide Mononitrate 60 mg daily Continue daily ASA. Continue Daily statin therapy with Lipitor 80 mg po daily. Subjective Date/time seen: 03/15/23 12:56 Interval history: NO OVERNIGHT EVENTS. FEELING OKAY. STILL FEELS SOB. ON OXYGEN AT 4L WHICH IS AT HIS BASELINE. cough present He had stated that his overall breathing at home over the course of the past several days has not been responding to his nebulizer treatments as well and that prompted him to come to the ER. Here his Lactic acid trended upward, COVID, Flu and RSV were negative, and CXR was negative. He wears a Trillogy at night, and was admitted to the hospital for COPD exacerbation and treatment. He is receiving Duonebs, Solumedrol, BiPap at night, and his Spiriva is currently being held in the setting of receiving Duonebs. Upon seeing pt today, he appeared tachypneic and uncomfortable with his breathing. His breath sounds were noted to have generalized wheezing and rhonchi with prolonged expiratory phase. Pt. with congested sounding cough. He denies any CP, edema in the extremities and no other acute complaints at this time. 03/14/2023: Coughing up some blood stained sputum today. Breathing still intermittently problematic. Using BiPAP and oxygen as ordered. 03/15/2023: Blood stained sputum has improved. Feeling stronger breathing still worse with exertion continues on BiPAP and oxygen Review of Systems Review of Systems: All systems reviewed & are unremarkable except as noted in HPI and below Exam Narrative: GENERAL: Well-appearing, well-nourished, and in no acute distress. HEAD: Normocephalic, atraumatic. EYES: PERRLA and EOMI. ENT: Nares clear, no rhinorrhea or epistaxis.? Mucous membranes moist. NECK: Supple. CHEST: decreased air entry bilaterally, bilateral mild expiratory wheezes. no resp distress HEART: Regular rat
[2023-03-15] MEDS: BACLOFEN 10 MG TABLET 20 MG PO ×2 (13:04→20:26)
[2023-03-15] MEDS: ACETAMINOPHEN 325 MG TABLET 650 MG PO ×2 (13:05→20:30)
[2023-03-15] MEDS: HYDROcodone/acetaminophen (*CRX) 10-325 MG TABLET 1 TAB PO (17:10)
[2023-03-15] MEDS: polyethylene glycoL 3350 17 GM POWD.PACK PO ×2 (18:44→23:44)
[2023-03-15] MEDS: TOLNAFTATE 1% POWDER 45 GM BTL 1 APPLIC TOPICAL ×2 (18:45→20:27)
[2023-03-15] MEDS: guaiFENesin 200 MG/10 ML UDC PO (20:26)
[2023-03-15] MEDS: MONTELUKAST SODIUM 10 MG TABLET PO (20:27)
[2023-03-15] MEDS: SERTRALINE HCL 50 MG TABLET 100 MG PO (20:27)
[2023-03-15] MEDS: QUEtiapine FUMARATE 25 MG TABLET PO (21:03)
[2023-03-16] VITALS (12 sets, daily range): BP systolic 131–138; BP diastolic 61–72; PULSE 63–82; RESP 15–22; TEMP 36.2–36.5; O2SAT 93–99
[2023-03-16] MEDS: IPRATROPIUM BR 0.02% INH SOLN 0.5 MG/2.5 ML VIAL INHALATION ×5 (00:07→21:00)
[2023-03-16] MEDS: ALBUTEROL SULFATE NEB 2.5 MG/3 ML INH INHALATION ×5 (00:07→21:00)
[2023-03-16] MEDS: HYDROcodone/acetaminophen (*CRX) 10-325 MG TABLET 1 TAB PO ×3 (01:11→17:30)
[2023-03-16] MEDS: methylPREDNISolone SOD SUCC 40 MG VIAL 20 MG IV PUSH ×2 (05:04→12:10)
[2023-03-16] MEDS: ACETAMINOPHEN 325 MG TABLET 650 MG PO (05:18)
[2023-03-16 06:08] LABS: Basophils Percent Auto 0.1 % (0.2-1.2); Hematocrit 44.5 % (42.0-52.0); Hemoglobin 15.2 g/dL (14.0-18.0); Immature Granulocyte Absolute 0.16 K/mm3 (0.00-0.031); Immature Granulocyte Percent A 1.3 % (0-0.5); Lymphocytes Absolute Auto 1.25 K/mm3 (0.9-3.2); Lymphocytes Percent Auto 10.5 % (18.3-44.2); Mean Corpuscular HGB Conc 34.2 g/dl (32-36); Mean Corpuscular Hemoglobin 29.9 pg (26-34); Mean Corpuscular Volume 87.4 fl (80-100); Mean Platelet Volume 10.3 fl (7.4-10.4); Monocytes Absolute Auto 0.5 K/mm3 (0.1-0.6); Monocytes Percent Auto 4.3 % (2.6-8.5); Neutrophils Percent Auto 83.8 % (45.5-73.1); Platelet Count Result 250 k/mm3 (150-375); Red Blood Count 5.09 M/mm3 (4.6-6.20); Red Cell Distribution Width 12.5 % (11.5-14.5); White Blood Count 11.9 K/mm3 (4.5-10.0)
[2023-03-16 06:24] LABS: Alanine Aminotransferase 102 U/L (6-50); Albumin Level 3.8 g/dL (3.5-5.1); Alkaline Phosphatase 113 U/L (38-126); Anion Gap 5 mmol/L (8-16); Aspartate Amino Transferase 53 U/L (17-59); Bilirubin,Total 0.4 mg/dL (0.2-1.3); Blood Urea Nitrogen 22 mg/dL (9-20); Calcium 8.9 mg/dL (8.4-10.2); Carbon Dioxide 32 mmol/L (22-30); Chloride 99 mmol/L (98-107); Estimated CRCL calculation 89 ml/min; Estimated Glomerular Filt Rate > 60; Glucose 258 mg/dL (65-110); Magnesium 2.6 mg/dL (1.6-2.3); Potassium 4.2 mmol/L (3.4-5.0); Sodium 136 mmol/L (137-145)
[2023-03-16] MEDS: POTASSIUM CHLORIDE 20 MEQ ER TABLET PO (09:23)
[2023-03-16] MEDS: dilTIAZem HCL CD 180 MG CAP.24HR 360 MG PO (09:23)
[2023-03-16] MEDS: ASPIRIN 81 MG ENTERIC TABLET PO (09:23)
[2023-03-16] MEDS: DOXYCYCLINE HYCLATE 100 MG TABLET PO ×2 (09:23→20:30)
[2023-03-16] MEDS: PREGABALIN (*CRX) 50 MG CAPSULE 200 MG PO ×2 (09:24→20:30)
[2023-03-16] MEDS: ISOSORBIDE MONONITRATE 60 MG TAB.ER.24H PO (09:24)
[2023-03-16] MEDS: ATORVASTATIN 40 MG TABLET 80 MG PO (09:24)
[2023-03-16] MEDS: PANTOPRAZOLE 40 MG TABLET PO ×2 (09:25→16:50)
[2023-03-16] MEDS: DULoxetine HCL 60 MG CAPSULE.DR PO (09:25)
[2023-03-16] MEDS: FUROSEMIDE 40 MG TABLET PO (09:25)
[2023-03-16] MEDS: ENOXAPARIN 40 MG/0.4 ML SYRINGE SUB-Q (09:26)
[2023-03-16] MEDS: NICOTINE (*PBKC) 21 MG PATCH 1 PATCH TRANSDERM (09:26)
[2023-03-16] MEDS: BACLOFEN 10 MG TABLET 20 MG PO ×2 (12:10→20:30)
[2023-03-16] MEDS: TOLNAFTATE 1% POWDER 45 GM BTL 1 APPLIC TOPICAL ×2 (12:11→20:31)
--- NOTE | 2023-03-16 13:29 | PM.IMPN ---
Progress Note: A&P Assessment and Plan (1) COPD exacerbation: Code(s): J44.1 - Chronic obstructive pulmonary disease with (acute) exacerbation Status: Acute Assessment and Plan: Continue home oxygen of 4L per nasal canula Continue nebulizer treatments of Duoneb Obtain Trillogy settings from home to continue BiPap use here at night Continue Methylprednisolone as ordered CTA PE protocol is ordered based on pt's increased work of breathing today on my exam. Obtain ECHO Dr. Archer was consulted for Pulmonology opinion on current COPD management and for maximization of therapy. I do appreciate his opinion on this patient. Continue to monitor labs and VS. NS at 100 ml/hr which will be stopped Continue Singulair 10 mg HS He is coughing up some blood stained sputum. Added doxycycline. Recheck chest x-ray unremarkable. sputum culture pending (2) GERD (gastroesophageal reflux disease): Code(s): K21.9 - Gastro-esophageal reflux disease without esophagitis Status: Chronic Assessment and Plan: Continue Protonix 40 mg po BID (3) Hypertension: Qualifiers: Hypertension type: unspecified Qualified Code(s): I10 - Essential (primary) hypertension Code(s): I10 - Essential (primary) hypertension Status: Chronic Assessment and Plan: Continue Lasix 40 mg Daily Continue Cardizem CD 360 mg daily Monitor pressures with VS and trend. (4) Tobacco abuse: Code(s): Z72.0 - Tobacco use Status: Chronic Assessment and Plan: Pt counseled for 15 minutes on smoking cessation. Nicotine patch ordered. (5) Chronic pain: Qualifiers: Chronic pain type: other chronic pain Qualified Code(s): G89.29 - Other chronic pain Code(s): G89.29 - Other chronic pain Status: Chronic Assessment and Plan: Continue pain meds of Baclofen 20 mg TID, [place], and Lyrica (6) CAD (coronary artery disease): Code(s): I25.10 - Atherosclerotic heart disease of [place] coronary artery without angina pectoris Status: Chronic Assessment and Plan: Continue Isosorbide Mononitrate 60 mg daily Continue daily ASA. Continue Daily statin therapy with Lipitor 80 mg po daily. Subjective Date/time seen: 03/16/23 13:29 Interval history: NO OVERNIGHT EVENTS. FEELING OKAY. STILL FEELS SOB. ON OXYGEN AT 4L WHICH IS AT HIS BASELINE. cough present He had stated that his overall breathing at home over the course of the past several days has not been responding to his nebulizer treatments as well and that prompted him to come to the ER. Here his Lactic acid trended upward, COVID, Flu and RSV were negative, and CXR was negative. He wears a Trillogy at night, and was admitted to the hospital for COPD exacerbation and treatment. He is receiving Duonebs, Solumedrol, BiPap at night, and his Spiriva is currently being held in the setting of receiving Duonebs. Upon seeing pt today, he appeared tachypneic and uncomfortable with his breathing. His breath sounds were noted to have generalized wheezing and rhonchi with prolonged expiratory phase. Pt. with congested sounding cough. He denies any CP, edema in the extremities and no other acute complaints at this time. 03/14/2023: Coughing up some blood stained sputum today. Breathing still intermittently problematic. Using BiPAP and oxygen as ordered. 03/15/2023: Blood stained sputum has improved. Feeling stronger breathing still worse with exertion continues on BiPAP and oxygen 03/16/2023: Thick yellow sputum present. Was out of humidified last night so breathing is a little worse today. Continues on BiPAP and oxygen. Remains afebrile. Review of Systems Review of Systems: All systems reviewed & are unremarkable except as noted in HPI and below Exam Narrative: GENERAL: Well-appearing, well-nourished, and in no acute distress. HEAD: Normocephalic, atraumatic. EYES: PERRLA and EOMI. ENT: Nares c
[2023-03-16] MEDS: BISACODYL 5 MG TABLET EC PO (14:04)
--- NOTE | 2023-03-16 15:47 | PHAR ---
PHARMACY VERIFIED HOME MED: OK per provider to continue pt's home trulicity medication. Trulicity 0.75mg/0.5mL pen injector, BRENDON Weekly on Thursday's.
[2023-03-16] MEDS: guaiFENesin 200 MG/10 ML UDC PO (20:29)
[2023-03-16] MEDS: SERTRALINE HCL 50 MG TABLET 100 MG PO (20:30)
[2023-03-16] MEDS: QUEtiapine FUMARATE 25 MG TABLET PO (20:30)
[2023-03-16] MEDS: MONTELUKAST SODIUM 10 MG TABLET PO (20:30)
[2023-03-16] MEDS: polyethylene glycoL 3350 17 GM POWD.PACK PO (20:35)
[2023-03-17] VITALS (16 sets, daily range): BP systolic 129–153; BP diastolic 57–78; PULSE 65–103; RESP 14–22; TEMP 36.2–36.6; O2SAT 92–97
[2023-03-17] MEDS: ALBUTEROL SULFATE NEB 2.5 MG/3 ML INH INHALATION ×6 (00:50→23:54)
[2023-03-17] MEDS: IPRATROPIUM BR 0.02% INH SOLN 0.5 MG/2.5 ML VIAL INHALATION ×6 (00:50→23:54)
[2023-03-17] MEDS: HYDROcodone/acetaminophen (*CRX) 10-325 MG TABLET 1 TAB PO ×2 (02:22→17:11)
[2023-03-17] MEDS: NITROGLYCERIN SL 0.4 MG TABLET SUBLINGUAL (02:25)
[2023-03-17] MEDS: guaiFENesin 200 MG/10 ML UDC PO ×3 (02:30→22:37)
[2023-03-17 05:36] LABS: Basophils Percent Auto 0.2 % (0.2-1.2); Eosinophils Percent Auto 0.2 % (0-4.4); Hematocrit 42.8 % (42.0-52.0); Hemoglobin 14.6 g/dL (14.0-18.0); Immature Granulocyte Absolute 0.21 K/mm3 (0.00-0.031); Immature Granulocyte Percent A 1.7 % (0-0.5); Lymphocytes Absolute Auto 1.71 K/mm3 (0.9-3.2); Lymphocytes Percent Auto 13.5 % (18.3-44.2); Mean Corpuscular HGB Conc 34.1 g/dl (32-36); Mean Corpuscular Hemoglobin 29.8 pg (26-34); Mean Corpuscular Volume 87.3 fl (80-100); Mean Platelet Volume 10.2 fl (7.4-10.4); Neutrophils Absolute Auto 9.7 K/mm3 (1.3-6.7); Neutrophils Percent Auto 76.4 % (45.5-73.1); Platelet Count Result 231 k/mm3 (150-375); Red Cell Distribution Width 12.5 % (11.5-14.5); White Blood Count 12.7 K/mm3 (4.5-10.0)
[2023-03-17 05:47] LABS: Alanine Aminotransferase 82 U/L (6-50); Albumin Level 3.5 g/dL (3.5-5.1); Alkaline Phosphatase 101 U/L (38-126); Anion Gap 5 mmol/L (8-16); Aspartate Amino Transferase 34 U/L (17-59); Bilirubin,Total 0.4 mg/dL (0.2-1.3); Blood Urea Nitrogen 23 mg/dL (9-20); Calcium 8.5 mg/dL (8.4-10.2); Carbon Dioxide 33 mmol/L (22-30); Chloride 98 mmol/L (98-107); Estimated CRCL calculation 79 ml/min; Estimated Glomerular Filt Rate > 60; Glucose 230 mg/dL (65-110); Magnesium 2.5 mg/dL (1.6-2.3); Sodium 136 mmol/L (137-145)
[2023-03-17] MEDS: DULoxetine HCL 60 MG CAPSULE.DR PO (09:22)
[2023-03-17] MEDS: ISOSORBIDE MONONITRATE 60 MG TAB.ER.24H PO (09:22)
[2023-03-17] MEDS: BISACODYL 5 MG TABLET EC PO (09:22)
[2023-03-17] MEDS: PANTOPRAZOLE 40 MG TABLET PO ×2 (09:23→17:11)
[2023-03-17] MEDS: predniSONE 20 MG TABLET 40 MG PO (09:23)
[2023-03-17] MEDS: POTASSIUM CHLORIDE 20 MEQ ER TABLET PO (09:23)
[2023-03-17] MEDS: DOXYCYCLINE HYCLATE 100 MG TABLET PO ×2 (09:23→20:21)
[2023-03-17] MEDS: dilTIAZem HCL CD 180 MG CAP.24HR 360 MG PO (09:24)
[2023-03-17] MEDS: ASPIRIN 81 MG ENTERIC TABLET PO (09:24)
[2023-03-17] MEDS: ATORVASTATIN 40 MG TABLET 80 MG PO (09:24)
[2023-03-17] MEDS: FUROSEMIDE 40 MG TABLET PO (09:24)
[2023-03-17] MEDS: ACETAMINOPHEN 325 MG TABLET 650 MG PO (09:25)
[2023-03-17] MEDS: ENOXAPARIN 40 MG/0.4 ML SYRINGE SUB-Q (09:26)
[2023-03-17] MEDS: PREGABALIN (*CRX) 50 MG CAPSULE 200 MG PO ×2 (09:26→20:20)
[2023-03-17] MEDS: NICOTINE (*PBKC) 21 MG PATCH 1 PATCH TRANSDERM (09:27)
[2023-03-17] MEDS: TOLNAFTATE 1% POWDER 45 GM BTL 1 APPLIC TOPICAL ×2 (09:29→20:35)
--- NOTE | 2023-03-17 15:58 | PM.IMPN ---
Progress Note: A&P Assessment and Plan (1) COPD exacerbation: Code(s): J44.1 - Chronic obstructive pulmonary disease with (acute) exacerbation Status: Acute Assessment and Plan: Continue home oxygen of 4L per nasal canula Continue nebulizer treatments of Duoneb Obtain Trillogy settings from home to continue BiPap use here at night Continue Methylprednisolone as ordered CTA PE protocol is ordered based on pt's increased work of breathing today on my exam. Obtain ECHO Dr. Archer was consulted for Pulmonology opinion on current COPD management and for maximization of therapy. I do appreciate his opinion on this patient. Continue to monitor labs and VS. NS at 100 ml/hr which will be stopped Continue Singulair 10 mg HS He is coughing up some blood stained sputum. Added doxycycline. Recheck chest x-ray unremarkable. sputum culture with Gram-positive cocci a budding yeast with pseudohyphae Gram-negative bacilli (2) GERD (gastroesophageal reflux disease): Code(s): K21.9 - Gastro-esophageal reflux disease without esophagitis Status: Chronic Assessment and Plan: Continue Protonix 40 mg po BID (3) Hypertension: Qualifiers: Hypertension type: unspecified Qualified Code(s): I10 - Essential (primary) hypertension Code(s): I10 - Essential (primary) hypertension Status: Chronic Assessment and Plan: Continue Lasix 40 mg Daily Continue Cardizem CD 360 mg daily Monitor pressures with VS and trend. (4) Tobacco abuse: Code(s): Z72.0 - Tobacco use Status: Chronic Assessment and Plan: Pt counseled for 15 minutes on smoking cessation. Nicotine patch ordered. (5) Chronic pain: Qualifiers: Chronic pain type: other chronic pain Qualified Code(s): G89.29 - Other chronic pain Code(s): G89.29 - Other chronic pain Status: Chronic Assessment and Plan: Continue pain meds of Baclofen 20 mg TID, [place], and Lyrica (6) CAD (coronary artery disease): Code(s): I25.10 - Atherosclerotic heart disease of [place] coronary artery without angina pectoris Status: Chronic Assessment and Plan: Continue Isosorbide Mononitrate 60 mg daily Continue daily ASA. Continue Daily statin therapy with Lipitor 80 mg po daily. Subjective Date/time seen: 03/17/23 15:58 Interval history: NO OVERNIGHT EVENTS. FEELING OKAY. STILL FEELS SOB. ON OXYGEN AT 4L WHICH IS AT HIS BASELINE. cough present He had stated that his overall breathing at home over the course of the past several days has not been responding to his nebulizer treatments as well and that prompted him to come to the ER. Here his Lactic acid trended upward, COVID, Flu and RSV were negative, and CXR was negative. He wears a Trillogy at night, and was admitted to the hospital for COPD exacerbation and treatment. He is receiving Duonebs, Solumedrol, BiPap at night, and his Spiriva is currently being held in the setting of receiving Duonebs. Upon seeing pt today, he appeared tachypneic and uncomfortable with his breathing. His breath sounds were noted to have generalized wheezing and rhonchi with prolonged expiratory phase. Pt. with congested sounding cough. He denies any CP, edema in the extremities and no other acute complaints at this time. 03/14/2023: Coughing up some blood stained sputum today. Breathing still intermittently problematic. Using BiPAP and oxygen as ordered. 03/15/2023: Blood stained sputum has improved. Feeling stronger breathing still worse with exertion continues on BiPAP and oxygen 03/16/2023: Thick yellow sputum present. Was out of humidified last night so breathing is a little worse today. Continues on BiPAP and oxygen. Remains afebrile. 03/17/23: Feeling better still short of breath. Has not been up and about. Coughing thick yellow sputum Review of Systems Review of Systems: All systems reviewed & are unremarkable except as no
[2023-03-17] MEDS: BACLOFEN 10 MG TABLET 20 MG PO (17:14)
[2023-03-17] MEDS: polyethylene glycoL 3350 17 GM POWD.PACK PO (18:28)
[2023-03-17] MEDS: SERTRALINE HCL 50 MG TABLET 100 MG PO (20:21)
[2023-03-17] MEDS: MONTELUKAST SODIUM 10 MG TABLET PO (20:21)
[2023-03-18] VITALS (18 sets, daily range): BP systolic 107–130; BP diastolic 52–57; PULSE 62–90; RESP 17–22; TEMP 36.4–36.9; O2SAT 93–98
[2023-03-18] MEDS: ALBUTEROL SULFATE NEB 2.5 MG/3 ML INH INHALATION ×5 (04:25→21:19)
[2023-03-18] MEDS: IPRATROPIUM BR 0.02% INH SOLN 0.5 MG/2.5 ML VIAL INHALATION ×5 (04:25→21:20)
[2023-03-18 04:51] LABS: Basophils Percent Auto 0.3 % (0.2-1.2); Eosinophils Absolute Auto 0.1 K/mm3 (0-0.3); Eosinophils Percent Auto 0.6 % (0-4.4); Hematocrit 44.5 % (42.0-52.0); Hemoglobin 15.2 g/dL (14.0-18.0); Immature Granulocyte Absolute 0.32 K/mm3 (0.00-0.031); Immature Granulocyte Percent A 2.5 % (0-0.5); Lymphocytes Absolute Auto 2.65 K/mm3 (0.9-3.2); Lymphocytes Percent Auto 20.7 % (18.3-44.2); Mean Corpuscular HGB Conc 34.2 g/dl (32-36); Mean Corpuscular Hemoglobin 30.2 pg (26-34); Mean Corpuscular Volume 88.5 fl (80-100); Mean Platelet Volume 10.1 fl (7.4-10.4); Monocytes Absolute Auto 0.9 K/mm3 (0.1-0.6); Neutrophils Absolute Auto 8.8 K/mm3 (1.3-6.7); Neutrophils Percent Auto 68.9 % (45.5-73.1); Platelet Count Result 227 k/mm3 (150-375); Red Blood Count 5.03 M/mm3 (4.6-6.20); Red Cell Distribution Width 12.5 % (11.5-14.5); White Blood Count 12.8 K/mm3 (4.5-10.0)
[2023-03-18 05:05] LABS: Alanine Aminotransferase 70 U/L (6-50); Albumin Level 3.6 g/dL (3.5-5.1); Alkaline Phosphatase 110 U/L (38-126); Anion Gap 5 mmol/L (8-16); Aspartate Amino Transferase 28 U/L (17-59); Bilirubin,Total 0.4 mg/dL (0.2-1.3); Blood Urea Nitrogen 24 mg/dL (9-20); Calcium 8.4 mg/dL (8.4-10.2); Carbon Dioxide 34 mmol/L (22-30); Chloride 97 mmol/L (98-107); Estimated CRCL calculation 79 ml/min; Estimated Glomerular Filt Rate > 60; Glucose 205 mg/dL (65-110); Magnesium 2.4 mg/dL (1.6-2.3); Potassium 3.8 mmol/L (3.4-5.0); Sodium 136 mmol/L (137-145)
[2023-03-18 07:43] LABS: NT Pro B Type Natriuretic Pept 60 pg/mL (19.9-100)
[2023-03-18] MEDS: NICOTINE (*PBKC) 21 MG PATCH 1 PATCH TRANSDERM (08:22)
[2023-03-18] MEDS: ENOXAPARIN 40 MG/0.4 ML SYRINGE SUB-Q (08:23)
[2023-03-18] MEDS: predniSONE 20 MG TABLET 40 MG PO (08:27)
[2023-03-18] MEDS: FUROSEMIDE 40 MG TABLET PO (08:27)
[2023-03-18] MEDS: dilTIAZem HCL CD 180 MG CAP.24HR 360 MG PO (08:27)
[2023-03-18] MEDS: DOXYCYCLINE HYCLATE 100 MG TABLET PO ×2 (08:27→19:49)
[2023-03-18] MEDS: ISOSORBIDE MONONITRATE 60 MG TAB.ER.24H PO (08:27)
[2023-03-18] MEDS: ASPIRIN 81 MG ENTERIC TABLET PO (08:27)
[2023-03-18] MEDS: POTASSIUM CHLORIDE 20 MEQ ER TABLET PO (08:27)
[2023-03-18] MEDS: DULoxetine HCL 60 MG CAPSULE.DR PO (08:28)
[2023-03-18] MEDS: HYDROcodone/acetaminophen (*CRX) 10-325 MG TABLET 1 TAB PO ×2 (08:28→19:53)
[2023-03-18] MEDS: PREGABALIN (*CRX) 50 MG CAPSULE 200 MG PO ×2 (08:29→19:49)
[2023-03-18] MEDS: TOLNAFTATE 1% POWDER 45 GM BTL 1 APPLIC TOPICAL ×2 (08:29→19:50)
[2023-03-18] MEDS: ATORVASTATIN 40 MG TABLET 80 MG PO (08:29)
[2023-03-18] MEDS: PANTOPRAZOLE 40 MG TABLET PO ×2 (08:29→16:56)
--- NOTE | 2023-03-18 10:08 | PM.PNPUL ---
Progress Note: A&P Assessment and Plan (1) COPD exacerbation: Code(s): J44.1 - Chronic obstructive pulmonary disease with (acute) exacerbation Status: Acute Assessment and Plan: Patient with this history of COPD with chronic hypoxemic and hypercarbic respiratory failure. At baseline on a good day he can walk room to room. He wears 4 L nasal cannula with rest, activity and ambulation. Who is a noninvasive ventilator at night with the trilogy and presumed AVAPS AE mode through his private salvager helper, Bina Mei and [employer]. Currently presents with 5 days worsening shortness of breath. He ran out of nebulized medicines 5 days ago. 03/12: Currently the patient tells me he feels about the same as he did yesterday. He has bilateral expiratory wheezes. He has mild respiratory distress and I placed him on a noninvasive ventilator with the AVAPS mode and titers his settings to comfort resulting in a rate of 14, tidal volume 500, EPAP 5, minimal inspiratory pressure 6, maximal a maximal inspiratory pressure 25, inspiratory time 1.25, rise of 5 and 40%. He said this felt better. Plan: Agree with CT angiogram of the chest to exclude PE. I will change his Solu-Medrol to 40 mg IV q.6 hours. I was it will increase his albuterol and ipratropium nebulizers from q.6 hours to q.4 hours. At this time he has no change in his phlegm production and no infiltrates on his chest x-ray and I will not initiate antibiotics currently. Goal saturation 90-94%. CT angiogram with no PE, severe apical predominant panlobular emphysema. Echocardiogram with normal LV function, grade 1 diastolic dysfunction, normal RV size and function, normal right atrial size, RVSP 20. Later in the day download from 12/09/2022 through 01/08/2023 was obtained from [employer]. Unfortunately there are no AVAPS settings listed. Total % days used is 21%. % days used 4 or more hours was 8.9%. Average use on days used was 3 hours and 20 minutes. Average tidal volume 476 mL. Average breaths per minute 16. Average minute ventilation 7.9. Of note there is no usage before 02/09/2023 and is usage after that is still poor. The patient tells me that recently they have made changes to his machine and that he has better settings now and is using it more. 03/13: Patient wore the hospital noninvasive ventilator with the AVAPS mode with the above settings. He said this felt well and felt like his home machine. The patient says he is 60% back to his normal. Said he slept well on the machine. White blood cell count 13.8, creatinine 0.7. Currently is on 4 L nasal cannula saturation 93%. Plan: I will decrease his Solu-Medrol to 20 mg IV q.6. I will continue albuterol and ipratropium nebulizers q.4 hours. Continue montelukast 10. There is no evidence of pneumonia or tracheobronchitis and I will not initiate antibiotics at this time. If patient continues to improve would change to prednisone 40 mg p.o. q.day on 03/14/2023. If he continues to improve through the weekend he can be discharged on his prior home medical regimen and of Symbicort 160-4.5 at 2 puffs b.i.d., Spiriva Respimat 2.5 mcg 2 puffs q.day, montelukast 10 mg a day, rescue albuterol inhaler and nebulizer and prednisone 40 mg p.o. q.day x5 days. He should have a home O2 assessment prior to discharge. Follow-up in 2-3 weeks with his outpatient salvager helper. 03/18: Patient wore the hospital non invasive ventilator last night and says he did fairly well. At rest he says he is 75% back to his normal. He has a dry throat. He denies any wheezing. He has not been out of bed since admission. He is afebrile. White blood cell count 12.8, creatinine 0.9. Currently is on 4 L nasal cannula saturation 97%. Cumulative diuresis since admission is 2.7 L. BNP is 60, chest x-ray with no active disease. Plan: On prednisone 40 mg p.o. q.day, today is day 8 total of steroids. He has no wheezes and I will place him on 30 mg of prednis
[2023-03-18] MEDS: guaiFENesin 200 MG/10 ML UDC PO ×2 (12:49→20:02)
[2023-03-18] MEDS: BACLOFEN 10 MG TABLET 20 MG PO ×2 (12:49→19:53)
[2023-03-18] MEDS: polyethylene glycoL 3350 17 GM POWD.PACK PO (16:59)
--- NOTE | 2023-03-18 18:27 | PM.IMPN ---
Progress Note: A&P Assessment and Plan (1) COPD (chronic obstructive pulmonary disease): Qualifiers: COPD type: unspecified COPD Qualified Code(s): J44.9 - Chronic obstructive pulmonary disease, unspecified Code(s): J44.9 - Chronic obstructive pulmonary disease, unspecified Status: Acute (2) Leukocytosis: Code(s): D72.829 - Elevated white blood cell count, unspecified Status: Acute Plan Difficult to treat COPD. although he is improving. cont current management for that. congestion, he feels it is hard to bring up phlegm. start guaifenesin 600mg po bid constipation. 2/2 to opioids. start scheduled senokot s 1 tab bid full code lovenox stable. Subjective Date/time seen: 03/18/23 18:27 Interval history: pt believes his breathing to be better. he doesn't think he can manage the pain at home. he is amenable to SNF for rehab. pt has one small stool in past 3 days. requests laxative Review of Systems Review of Systems: All systems reviewed & are unremarkable except as noted in HPI and below Exam Const: General: comfortable and no acute distress Neck: Neck: supple Resp: Effort & Inspection: normal respiratory effort Auscultation: clear to auscultation bilaterally and wheezes Cardio: Rate: regular rate Rhythm: regular rhythm Heart sounds: no gallops, no murmurs and no rubs GI: Inspection: distended GI Palp: No Tenderness to palpation present (GI) Extrem: General: no edema Objective Data Vital Signs Vital Signs: Vital Signs - 24 hr 03/17/23 19:57 03/17/23 19:58 03/17/23 20:45 Temperature 97.9 F Pulse Rate 70 86 Respiratory Rate 22 H 22 H 20 Blood Pressure 130/67 Pulse Oximetry 93 Pulse Oximetry [With Activity During Therapy Session] Oxygen Delivery BiPAP Oxygen Flow Rate Fraction of Inspired Oxygen 03/17/23 20:35 03/17/23 23:55 03/18/23 00:00 Temperature Pulse Rate 72 Respiratory Rate 20 20 Blood Pressure Pulse Oximetry Pulse Oximetry [With Activity During Therapy Session] Oxygen Delivery BiPAP BiPAP Oxygen Flow Rate Fraction of Inspired Oxygen 03/18/23 04:26 03/17/23 20:15 03/18/23 00:10 Temperature Pulse Rate 70 72 68 Respiratory Rate 20 20 20 Blood Pressure Pulse Oximetry Pulse Oximetry [With Activity During Therapy Session] Oxygen Delivery Oxygen Flow Rate Fraction of Inspired Oxygen 03/18/23 04:35 03/18/23 04:36 03/18/23 04:48 Temperature 97.5 F L Pulse Rate 71 72 87 Respiratory Rate 20 22 H 20 Blood Pressure 121/57 L Pulse Oximetry 94 96 Pulse Oximetry [With Activity During Therapy Session] Oxygen Delivery Nasal Cannula Oxygen Flow Rate 4 Fraction of Inspired Oxygen 03/18/23 07:21 03/18/23 07:21 03/18/23 07:21 Temperature Pulse Rate 62 62 62 Respiratory Rate 17 17 17 Blood Pressure Pulse Oximetry 98 98 Pulse Oximetry [With Activity During Therapy Session] Oxygen Delivery BiPAP BiPAP Oxygen Flow Rate Fraction of Inspired Oxygen 40 03/18/23 08:40 03/18/23 11:49 03/18/23 11:49 Temperature Pulse Rate 71 Respiratory Rate 20 Blood Pressure Pulse Oximetry 93 93 Pulse Oximetry [With Activity During Therapy Session] Oxygen Delivery Nasal Cannula Nasal Cannula Oxygen Flow Rate 4 4 Fraction of Inspired Oxygen 36 03/18/23 13:29 03/18/23 14:21 03/18/23 14:41 Temperature 97.5 F L Pulse Rate 69 Respiratory Rate 18 Blood Pressure 107/52 L Pulse Oximetry 97 Pulse Oximetry [With Activity During Therapy Session] 95 93 Oxygen Delivery Nasal Cannula High Flow Nasal Cannula Oxygen Flow Rate 4 4 Fraction of Inspired Oxygen 03/18/23 16:36 Temperature Pulse Rate 90 Respiratory Rate 20 Blood Pressure Pulse Oximetry Pulse Oximetry [With Activity During Therapy Session] Oxygen Delivery Oxygen Flow Rate Fraction of Inspired Oxygen Intake/Output Intake/Output: Intake & Output
[2023-03-18] MEDS: SENNA/DOCUSATE SODIUM TABLET 1 TAB PO (19:50)
[2023-03-18] MEDS: SERTRALINE HCL 50 MG TABLET 100 MG PO (19:50)
[2023-03-18] MEDS: MONTELUKAST SODIUM 10 MG TABLET PO (19:50)
[2023-03-18] MEDS: QUEtiapine FUMARATE 25 MG TABLET PO (22:30)
[2023-03-18] MEDS: ACETAMINOPHEN 325 MG TABLET 650 MG PO (23:32)
[2023-03-19] VITALS (15 sets, daily range): BP systolic 112–128; BP diastolic 48–57; PULSE 64–77; RESP 15–24; TEMP 36.4–36.9; O2SAT 94–99
[2023-03-19] MEDS: ALBUTEROL SULFATE NEB 2.5 MG/3 ML INH INHALATION ×6 (00:34→23:03)
[2023-03-19] MEDS: IPRATROPIUM BR 0.02% INH SOLN 0.5 MG/2.5 ML VIAL INHALATION ×6 (00:34→23:03)
[2023-03-19 04:56] LABS: Basophils Percent Auto 0.3 % (0.2-1.2); Eosinophils Absolute Auto 0.2 K/mm3 (0-0.3); Eosinophils Percent Auto 1.2 % (0-4.4); Hematocrit 43.2 % (42.0-52.0); Hemoglobin 14.6 g/dL (14.0-18.0); Immature Granulocyte Absolute 0.38 K/mm3 (0.00-0.031); Lymphocytes Absolute Auto 2.84 K/mm3 (0.9-3.2); Lymphocytes Percent Auto 22.6 % (18.3-44.2); Mean Corpuscular HGB Conc 33.8 g/dl (32-36); Mean Corpuscular Volume 88.9 fl (80-100); Mean Platelet Volume 10.1 fl (7.4-10.4); Monocytes Absolute Auto 0.8 K/mm3 (0.1-0.6); Monocytes Percent Auto 6.5 % (2.6-8.5); Neutrophils Absolute Auto 8.3 K/mm3 (1.3-6.7); Neutrophils Percent Auto 66.4 % (45.5-73.1); Platelet Count Result 216 k/mm3 (150-375); Red Blood Count 4.86 M/mm3 (4.6-6.20); Red Cell Distribution Width 12.6 % (11.5-14.5); White Blood Count 12.5 K/mm3 (4.5-10.0)
[2023-03-19 05:08] LABS: Anion Gap 4 mmol/L (8-16); Blood Urea Nitrogen 20 mg/dL (9-20); Calcium 8.3 mg/dL (8.4-10.2); Carbon Dioxide 33 mmol/L (22-30); Chloride 98 mmol/L (98-107); Estimated CRCL calculation 89 ml/min; Estimated Glomerular Filt Rate > 60; Glucose 181 mg/dL (65-110); Magnesium 2.5 mg/dL (1.6-2.3); Potassium 4.1 mmol/L (3.4-5.0); Sodium 135 mmol/L (137-145)
[2023-03-19] MEDS: ASPIRIN 81 MG ENTERIC TABLET PO (09:01)
[2023-03-19] MEDS: ISOSORBIDE MONONITRATE 60 MG TAB.ER.24H PO (09:01)
[2023-03-19] MEDS: SENNA/DOCUSATE SODIUM TABLET 1 TAB PO ×2 (09:01→17:27)
[2023-03-19] MEDS: POTASSIUM CHLORIDE 20 MEQ ER TABLET PO (09:02)
[2023-03-19] MEDS: FUROSEMIDE 40 MG TABLET PO (09:02)
[2023-03-19] MEDS: predniSONE 10 MG TABLET 30 MG PO (09:02)
[2023-03-19] MEDS: PANTOPRAZOLE 40 MG TABLET PO ×2 (09:03→17:27)
[2023-03-19] MEDS: PREGABALIN (*CRX) 50 MG CAPSULE 200 MG PO ×2 (09:03→20:16)
[2023-03-19] MEDS: DULoxetine HCL 60 MG CAPSULE.DR PO (09:03)
[2023-03-19] MEDS: BACLOFEN 10 MG TABLET 20 MG PO ×2 (09:04→17:57)
[2023-03-19] MEDS: ATORVASTATIN 40 MG TABLET 80 MG PO (09:04)
[2023-03-19] MEDS: dilTIAZem HCL CD 180 MG CAP.24HR 360 MG PO (09:04)
[2023-03-19] MEDS: DOXYCYCLINE HYCLATE 100 MG TABLET PO (09:04)
[2023-03-19] MEDS: HYDROcodone/acetaminophen (*CRX) 10-325 MG TABLET 1 TAB PO ×2 (09:05→17:56)
[2023-03-19] MEDS: ENOXAPARIN 40 MG/0.4 ML SYRINGE SUB-Q (09:05)
[2023-03-19] MEDS: polyethylene glycoL 3350 17 GM POWD.PACK PO (09:06)
[2023-03-19] MEDS: NICOTINE (*PBKC) 21 MG PATCH 1 PATCH TRANSDERM (09:06)
[2023-03-19] MEDS: TOLNAFTATE 1% POWDER 45 GM BTL 1 APPLIC TOPICAL ×2 (09:06→20:17)
--- NOTE | 2023-03-19 12:25 | PM.IMPN ---
Progress Note: A&P Assessment and Plan (1) Chronic respiratory failure with hypoxia and hypercapnia: Code(s): J96.11 - Chronic respiratory failure with hypoxia; J96.12 - Chronic respiratory failure with hypercapnia Status: Acute Plan pt continues to be debilitated, and he is now amenable to SNF for rehab. cont prednisone taper, cont AVAPS mode during naps and at night. constipation - cont senokot scheduled and miralax and bisacodyl prn. pending dispo. full code. lovenox for dvt prophylaxis Subjective Date/time seen: 03/19/23 12:25 Interval history: pt has not had BM since starting senokot. he has no new complaints. pt appears agitated. he now wants to go to SNF Review of Systems Review of Systems: All systems reviewed & are unremarkable except as noted in HPI and below Exam Const: General: comfortable and no acute distress Eyes: Pupils: Equal, round and reactive pupils present Neck: Neck: supple Resp: Effort & Inspection: normal respiratory effort Auscultation: no wheezes Cardio: Rate: regular rate Rhythm: regular rhythm Heart sounds: no gallops, no murmurs and no rubs GI: Inspection: distended GI Palp: Yes Soft to palpation and No Tenderness to palpation present (GI) Extrem: General: no edema Objective Data Vital Signs Vital Signs: Vital Signs - 24 hr 03/18/23 13:29 03/18/23 14:21 03/18/23 14:41 Temperature 97.5 F L Pulse Rate 69 Respiratory Rate 18 Blood Pressure 107/52 L Pulse Oximetry 97 Pulse Oximetry [With Activity During Therapy Session] 95 93 Oxygen Delivery Nasal Cannula High Flow Nasal Cannula Oxygen Flow Rate 4 4 Fraction of Inspired Oxygen 03/18/23 16:36 03/18/23 19:40 03/18/23 20:00 Temperature 98.5 F Pulse Rate 90 73 Respiratory Rate 20 18 Blood Pressure 130/55 L Pulse Oximetry 94 94 Pulse Oximetry [With Activity During Therapy Session] Oxygen Delivery Nasal Cannula Oxygen Flow Rate 4 Fraction of Inspired Oxygen 03/18/23 21:22 03/18/23 21:23 03/18/23 21:38 Temperature Pulse Rate 84 86 Respiratory Rate 20 20 20 Blood Pressure Pulse Oximetry 94 Pulse Oximetry [With Activity During Therapy Session] Oxygen Delivery Nasal Cannula Oxygen Flow Rate 4 Fraction of Inspired Oxygen 03/19/23 00:05 03/19/23 00:34 03/19/23 04:51 Temperature 98.5 F Pulse Rate 66 68 64 Respiratory Rate 15 15 20 Blood Pressure 112/52 L Pulse Oximetry 98 99 Pulse Oximetry [With Activity During Therapy Session] Oxygen Delivery BiPAP Oxygen Flow Rate Fraction of Inspired Oxygen 03/19/23 04:58 03/19/23 04:55 03/19/23 05:10 Temperature Pulse Rate 72 72 Respiratory Rate 24 H 24 H 24 H Blood Pressure Pulse Oximetry Pulse Oximetry [With Activity During Therapy Session] Oxygen Delivery Oxygen Flow Rate Fraction of Inspired Oxygen 03/19/23 07:54 03/19/23 07:54 03/19/23 08:08 Temperature Pulse Rate 68 70 Respiratory Rate 20 20 Blood Pressure Pulse Oximetry 94 Pulse Oximetry [With Activity During Therapy Session] Oxygen Delivery Nasal Cannula Oxygen Flow Rate 4 Fraction of Inspired Oxygen 36 03/19/23 08:59 Temperature Pulse Rate 65 Respiratory Rate Blood Pressure 112/48 L Pulse Oximetry 97 Pulse Oximetry [With Activity During Therapy Session] Oxygen Delivery Oxygen Flow Rate Fraction of Inspired Oxygen Intake/Output Intake/Output: Intake & Output 03/16/23 03/17/23 03/18/23 03/19/23 23:59 23:59 23:59 23:59 Intake Total 2390 1920 1640 290 Output Total 3900 3850 2200 800 [facility] -1510 -1930 -560 -510 Meds/Results Medications: Active Medications Generic Name Dose Route Start Last Admin Trade Name Freq PRN Reason Stop Dose Admin Acetaminophen 650 mg 03/11/23 22:05 03/18/23 23:32 Acetaminophen 325 Mg Tablet PO 650 mg Q4H PRN Administration Mild Pain (1-3) or Fever Hydrocodone Bitart/Acetaminophen 1 tab 12
[2023-03-19] MEDS: ACETAMINOPHEN 325 MG TABLET 650 MG PO (14:03)
[2023-03-19] MEDS: levoFLOXacin 750 MG TABLET PO (14:04)
[2023-03-19] MEDS: BISACODYL 5 MG TABLET EC PO (14:04)
[2023-03-19] MEDS: guaiFENesin 200 MG/10 ML UDC PO ×2 (14:05→20:19)
[2023-03-19] MEDS: MONTELUKAST SODIUM 10 MG TABLET PO (20:16)
[2023-03-19] MEDS: SERTRALINE HCL 50 MG TABLET 100 MG PO (20:16)
--- NOTE | 2023-03-19 23:02 | PCRCNOTE ---
Window of time for administration has passed. See next scheduled administration.
[2023-03-20] VITALS (13 sets, daily range): BP systolic 109–133; BP diastolic 55–67; PULSE 62–89; RESP 16–20; TEMP 36.6; O2SAT 94–98
[2023-03-20] MEDS: ALBUTEROL SULFATE NEB 2.5 MG/3 ML INH INHALATION ×4 (03:25→21:33)
[2023-03-20] MEDS: IPRATROPIUM BR 0.02% INH SOLN 0.5 MG/2.5 ML VIAL INHALATION ×4 (03:25→21:34)
--- NOTE | 2023-03-20 08:13 | PCNWS ---
Weekly nutritional screen. Patient is tolerating current diet with adequate intake. No weight loss reported. No nutritional needs at this time.
[2023-03-20] MEDS: POTASSIUM CHLORIDE 20 MEQ ER TABLET PO (10:12)
[2023-03-20] MEDS: predniSONE 10 MG TABLET 30 MG PO (10:12)
[2023-03-20] MEDS: ASPIRIN 81 MG ENTERIC TABLET PO (10:13)
[2023-03-20] MEDS: ATORVASTATIN 40 MG TABLET 80 MG PO (10:13)
[2023-03-20] MEDS: SENNA/DOCUSATE SODIUM TABLET 1 TAB PO (10:14)
[2023-03-20] MEDS: DULoxetine HCL 60 MG CAPSULE.DR PO (10:14)
[2023-03-20] MEDS: ISOSORBIDE MONONITRATE 60 MG TAB.ER.24H PO (10:15)
[2023-03-20] MEDS: FUROSEMIDE 40 MG TABLET PO (10:15)
[2023-03-20] MEDS: NICOTINE (*PBKC) 21 MG PATCH 1 PATCH TRANSDERM (10:15)
[2023-03-20] MEDS: ENOXAPARIN 40 MG/0.4 ML SYRINGE SUB-Q (10:15)
[2023-03-20] MEDS: PANTOPRAZOLE 40 MG TABLET PO ×2 (10:15→16:30)
[2023-03-20] MEDS: HYDROcodone/acetaminophen (*CRX) 10-325 MG TABLET 1 TAB PO ×2 (10:16→20:24)
[2023-03-20] MEDS: TOLNAFTATE 1% POWDER 45 GM BTL 1 APPLIC TOPICAL ×2 (10:16→20:25)
[2023-03-20] MEDS: PREGABALIN (*CRX) 50 MG CAPSULE 200 MG PO ×2 (10:16→20:23)
[2023-03-20] MEDS: dilTIAZem HCL CD 180 MG CAP.24HR 360 MG PO (10:21)
[2023-03-20] MEDS: BACLOFEN 10 MG TABLET 20 MG PO (12:43)
[2023-03-20] MEDS: guaiFENesin 200 MG/10 ML UDC PO ×2 (12:44→22:31)
[2023-03-20] MEDS: ACETAMINOPHEN 325 MG TABLET 650 MG PO (12:44)
[2023-03-20] MEDS: levoFLOXacin 750 MG TABLET PO (14:22)
--- NOTE | 2023-03-20 15:10 | PCRCNOTE ---
Window of time for administration has passed. See next scheduled administration.
--- NOTE | 2023-03-20 15:57 | PC.NURSE ---
Attempted to clarify home respiratory medications with pharmacist. Several to be substituted. Pharmacist Marcus to speak with provider and order medications.
[2023-03-20] MEDS: SENNA/DOCUSATE SODIUM TABLET 2 TAB PO (16:30)
[2023-03-20] MEDS: polyethylene glycoL 3350 17 GM POWD.PACK PO (16:30)
--- NOTE | 2023-03-20 16:35 | PM.IMPN ---
Progress Note: A&P Assessment and Plan (1) Chronic respiratory failure with hypoxia and hypercapnia: Code(s): J96.11 - Chronic respiratory failure with hypoxia; J96.12 - Chronic respiratory failure with hypercapnia Status: Acute (2) COPD exacerbation: Code(s): J44.1 - Chronic obstructive pulmonary disease with (acute) exacerbation Status: Acute Plan status unchanged, patient has again decided he will not be going to SNF for rehab and thinks he can manage at home. he reports no one is home to let him in. d/c in morning. in addition to senkot increase to 2 tabs bid, add miralax schedule per day and soap suds enema for constipation full code Subjective Date/time seen: 03/20/23 16:35 Interval history: NAOE. patient has no complaints aside from not having a BM in 5 days now. Review of Systems Review of Systems: All systems reviewed & are unremarkable except as noted in HPI and below Exam Const: General: comfortable and no acute distress Eyes: Pupils: Equal, round and reactive pupils present Neck: Neck: supple Resp: Effort & Inspection: normal respiratory effort Auscultation: no wheezes Cardio: Rate: regular rate Rhythm: regular rhythm GI: Inspection: distended GI Palp: No Tenderness to palpation present (GI) Extrem: General: no edema Objective Data Vital Signs Vital Signs: Vital Signs - 24 hr 03/19/23 19:42 03/19/23 20:00 03/19/23 23:04 Temperature 97.6 F Pulse Rate 77 75 Respiratory Rate 20 20 Blood Pressure 125/57 L Pulse Oximetry 94 94 Oxygen Delivery Nasal Cannula Oxygen Flow Rate 4 Fraction of Inspired Oxygen 03/20/23 03:26 03/20/23 03:26 03/20/23 03:45 Temperature 97.9 F Pulse Rate 77 67 66 Respiratory Rate 16 16 20 Blood Pressure 133/58 L Pulse Oximetry 98 98 Oxygen Delivery BiPAP Oxygen Flow Rate Fraction of Inspired Oxygen 03/20/23 08:11 03/20/23 08:14 03/20/23 08:15 Temperature Pulse Rate 62 62 62 Respiratory Rate 18 18 18 Blood Pressure Pulse Oximetry 97 97 Oxygen Delivery BiPAP BiPAP Oxygen Flow Rate Fraction of Inspired Oxygen 40 03/20/23 10:10 03/20/23 09:58 03/20/23 15:12 Temperature Pulse Rate 69 77 Respiratory Rate 18 Blood Pressure 112/67 Pulse Oximetry 94 94 Oxygen Delivery Nasal Cannula Oxygen Flow Rate 4 Fraction of Inspired Oxygen 03/20/23 16:04 Temperature 97.9 F Pulse Rate 75 Respiratory Rate 18 Blood Pressure 109/55 L Pulse Oximetry 98 Oxygen Delivery Oxygen Flow Rate Fraction of Inspired Oxygen Intake/Output Intake/Output: Intake & Output 03/17/23 03/18/23 03/19/23 03/20/23 23:59 23:59 23:59 23:59 Intake Total 1920 1640 1700 590 Output Total 3850 2200 3025 1900 Balance -1930 -560 -1325 -1310 Meds/Results Medications: Active Medications Generic Name Dose Route Start Last Admin Trade Name Freq PRN Reason Stop Dose Admin Acetaminophen 650 mg 03/11/23 22:05 03/20/23 12:44 Acetaminophen 325 Mg Tablet PO 650 mg Q4H PRN Administration Mild Pain (1-3) or Fever Hydrocodone Bitart/Acetaminophen 1 tab 03/12/23 09:00 03/20/23 10:16 Hydrocodone/Acetaminophen (*Crx) 10-325 Mg Tablet PO 1 tab Q8H PRN Administration Pain Rated 7-10 Hydrocodone Bitart/Acetaminophen 1 tab 03/12/23 02:20 03/15/23 08:24 Hydrocodone/Acetaminophen (*Crx) 5-325 Mg Tablet PO 1 tab Q8H PRN Administration Pain Rated 4-6 Albuterol 2.5 mg 03/12/23 16:00 03/20/23 15:11 Albuterol Sulfate Neb 2.5 Mg/3 Ml Inh INHALATION 2.5 mg Q4HRT BRENDON Administration Aspirin 81 mg 03/12/23 09:00 03/20/23 10:13 Aspirin 81 Mg Enteric Tablet PO 81 mg QAM BRENDON Administration Atorvastatin Calcium 80 mg 03/12/23 09:00 03/20/23 10:13 Atorvastatin 40 Mg Tablet PO 80 mg DAILY BRENDON Administration Baclofen 20 mg 03/12/23 02:20 03/20/23 12:43 Baclofen 10 Mg Tablet PO 20 mg TID PRN Administration Muscle
[2023-03-20] MEDS: MONTELUKAST SODIUM 10 MG TABLET PO (20:23)
[2023-03-20] MEDS: SERTRALINE HCL 50 MG TABLET 100 MG PO (20:24)
--- NOTE | 2023-03-20 21:23 | PHAR ---
HOME MED VERIFIED = DUPIXENT 300 MG/2 ML IN PREFILLED SYRINGE
[2023-03-20] MEDS: QUEtiapine FUMARATE 25 MG TABLET PO (22:24)
[2023-03-21] VITALS (11 sets, daily range): BP systolic 113–124; BP diastolic 54–62; PULSE 61–83; RESP 16–20; TEMP 36.6–36.7; O2SAT 93–99
[2023-03-21] MEDS: ALBUTEROL SULFATE NEB 2.5 MG/3 ML INH INHALATION ×4 (00:21→22:17)
[2023-03-21] MEDS: IPRATROPIUM BR 0.02% INH SOLN 0.5 MG/2.5 ML VIAL INHALATION ×4 (00:21→22:17)
[2023-03-21] MEDS: BACLOFEN 10 MG TABLET 20 MG PO ×2 (01:25→13:57)
[2023-03-21] MEDS: PREGABALIN (*CRX) 50 MG CAPSULE 200 MG PO ×2 (09:25→20:06)
[2023-03-21] MEDS: ATORVASTATIN 40 MG TABLET 80 MG PO (09:26)
[2023-03-21] MEDS: predniSONE 10 MG TABLET 30 MG PO (09:26)
[2023-03-21] MEDS: ASPIRIN 81 MG ENTERIC TABLET PO (09:26)
[2023-03-21] MEDS: SENNA/DOCUSATE SODIUM TABLET 2 TAB PO ×2 (09:27→16:59)
[2023-03-21] MEDS: DULoxetine HCL 60 MG CAPSULE.DR PO (09:27)
[2023-03-21] MEDS: PANTOPRAZOLE 40 MG TABLET PO ×2 (09:27→16:59)
[2023-03-21] MEDS: HYDROcodone/acetaminophen (*CRX) 10-325 MG TABLET 1 TAB PO ×2 (09:28→18:44)
[2023-03-21] MEDS: ISOSORBIDE MONONITRATE 60 MG TAB.ER.24H PO (09:28)
[2023-03-21] MEDS: POTASSIUM CHLORIDE 20 MEQ ER TABLET PO (09:28)
[2023-03-21] MEDS: FUROSEMIDE 40 MG TABLET PO (09:29)
[2023-03-21] MEDS: ENOXAPARIN 40 MG/0.4 ML SYRINGE SUB-Q (09:30)
[2023-03-21] MEDS: dilTIAZem HCL CD 180 MG CAP.24HR 360 MG PO (09:30)
[2023-03-21] MEDS: polyethylene glycoL 3350 17 GM POWD.PACK PO (09:31)
[2023-03-21] MEDS: NICOTINE (*PBKC) 21 MG PATCH 1 PATCH TRANSDERM (09:31)
[2023-03-21] MEDS: TOLNAFTATE 1% POWDER 45 GM BTL 1 APPLIC TOPICAL ×2 (09:38→20:07)
--- NOTE | 2023-03-21 12:44 | PM.IMPN ---
Progress Note: A&P Assessment and Plan (1) Chronic respiratory failure with hypoxia and hypercapnia: Code(s): J96.11 - Chronic respiratory failure with hypoxia; J96.12 - Chronic respiratory failure with hypercapnia Status: Acute Assessment and Plan: Continue BiPAP and nebs treatment. (2) COPD exacerbation: Code(s): J44.1 - Chronic obstructive pulmonary disease with (acute) exacerbation Status: Acute Assessment and Plan: Stable, continue current treatment. Plan status unchanged, patient has again decided he will not be going to SNF for rehab and thinks he can manage at home. he reports no one is home to let him in. d/c in morning. in addition to senkot increase to 2 tabs bid, add miralax schedule per day and soap suds enema for constipation full code 03/20/2023 Patient is here today improving. Plan is to continue current treatment. Monitor closely. Possible discharge tomorrow. Subjective Date/time seen: 03/21/23 12:44 Interval history: Patient was seen during morning rounds today. Patient is still requiring BiPAP treatment. Mild shortness breath. No Chest pain. No abdominal pain, nausea, tube. Mood stable. Review of Systems Review of Systems: All systems reviewed & are unremarkable except as noted in HPI and below Exam Narrative: GENERAL: Well-appearing, well-nourished, and in no acute distress. HEAD: Normocephalic, atraumatic. EYES: PERRLA and EOMI. ENT: Nares clear, no rhinorrhea or epistaxis.? Mucous membranes moist. NECK: Supple. CHEST: Air entry slightly better, no wheezes. no resp distress HEART: Regular rate and rhythm.? No murmur heard.? Normal peripheral pulses. ABDOMEN: Soft, nontender, nondistended, normal active bowel sounds. EXTREMITIES: Normal range of motion.? No edema. SKIN: Warm, dry, no rash. NEURO: No focal deficits.? Alert and oriented x3. PSYCH: Normal mood and affect. ? Const: General: comfortable, no acute distress and uncomfortable HENMT: Mouth: Yes moist mucous membranes Eyes: General: appearance normal, both eyes and all related structures Pupils: Equal, round and reactive pupils present Neck: Neck: supple and no JVD Lymphatic: lymphadenopathy not noted Resp: Effort & Inspection: normal respiratory effort Auscultation: clear to auscultation bilaterally, rhonchi and no wheezes Cardio: Rate: regular rate Rhythm: regular rhythm Heart sounds: no gallops, no murmurs and no rubs GI: Inspection: distended Auscultation: normal bowel sounds Skin: General skin exam: normal color, no rashes or lesions noted and no erythema Neuro: Cranial nerves: Yes Equal, round and reactive pupils present Speech: normal speech Motor exam (neuro): 5/5 motor strength present throughout and Normal motor muscle tone present throughout Sensory Exam: normal sensation Extrem: General: normal to inspection and no edema Other: Freely and equally MAEW. Psych: Mental Status: mental status grossly normal Affect: normal affect Objective Data Vital Signs Vital Signs: Vital Signs - 24 hr 03/20/23 15:12 03/20/23 16:04 03/20/23 19:21 Temperature 36.6 C 36.6 C Pulse Rate 77 75 89 Respiratory Rate 18 18 20 Blood Pressure 109/55 L 118/59 L Pulse Oximetry 98 95 Oxygen Delivery Oxygen Flow Rate 03/20/23 21:34 03/20/23 21:35 03/21/23 00:21 Temperature Pulse Rate 79 74 Respiratory Rate 18 18 17 Blood Pressure Pulse Oximetry 95 Oxygen Delivery Nasal Cannula Oxygen Flow Rate 4 03/20/23 20:00 03/21/23 05:41 03/21/23 09:21 Temperature 36.6 C Pulse Rate 61 Respiratory Rate 20 Blood Pressure 113/54 L Pulse Oximetry 95 99 96 Oxygen Delivery Nasal Cannula Nasal Cannula Oxygen Flow Rate 4 4 Intake/Output Intake/Output: Intake & Output 03/18/23 03/19/23 03/20/23 03/21/23 23:59 23:59 23:59 23:59 Intake Total 1640 1700 1530 370 Output Total 2200 3025 2900 1300 Balance -560 -1325 -1370 -930 Meds/R
[2023-03-21] MEDS: levoFLOXacin 750 MG TABLET PO (13:57)
[2023-03-21] MEDS: ACETAMINOPHEN 325 MG TABLET 650 MG PO (13:59)
[2023-03-21] MEDS: guaiFENesin 200 MG/10 ML UDC PO ×2 (13:59→23:22)
[2023-03-21] MEDS: MONTELUKAST SODIUM 10 MG TABLET PO (20:06)
[2023-03-21] MEDS: BISACODYL 5 MG TABLET EC PO (20:07)
[2023-03-21] MEDS: SERTRALINE HCL 50 MG TABLET 100 MG PO (20:07)
[2023-03-21] MEDS: QUEtiapine FUMARATE 25 MG TABLET PO (23:22)
[2023-03-22] VITALS (13 sets, daily range): BP systolic 113–126; BP diastolic 51–52; PULSE 68–106; RESP 18–20; TEMP 36.4–36.7; O2SAT 86–99
[2023-03-22] MEDS: IPRATROPIUM BR 0.02% INH SOLN 0.5 MG/2.5 ML VIAL INHALATION ×2 (03:09→10:42)
[2023-03-22] MEDS: ALBUTEROL SULFATE NEB 2.5 MG/3 ML INH INHALATION ×2 (03:09→10:42)
[2023-03-22] MEDS: HYDROcodone/acetaminophen (*CRX) 10-325 MG TABLET 1 TAB PO (06:50)
--- NOTE | 2023-03-22 09:25 | PM.DS ---
DS: Admitting Diagnosis Discharge Date 03/22/23 Admitting Diagnosis SOB, Cough DS: Discharge Diagnosis Discharge Diagnosis (1) COPD exacerbation: Code(s): J44.1 - Chronic obstructive pulmonary disease with (acute) exacerbation Status: Acute (2) Bronchitis: Code(s): J40 - Bronchitis, not specified as acute or chronic Status: Acute (3) Chronic respiratory failure with hypoxia and hypercapnia: Code(s): J96.11 - Chronic respiratory failure with hypoxia; J96.12 - Chronic respiratory failure with hypercapnia Status: Acute (4) Tobacco abuse: Code(s): Z72.0 - Tobacco use Status: Chronic (5) CAD (coronary artery disease): Code(s): I25.10 - Atherosclerotic heart disease of [place] coronary artery without angina pectoris Status: Chronic (6) Chronic pain: Qualifiers: Chronic pain type: other chronic pain Qualified Code(s): G89.29 - Other chronic pain Code(s): G89.29 - Other chronic pain Status: Chronic (7) Hypertension: Qualifiers: Hypertension type: unspecified Qualified Code(s): I10 - Essential (primary) hypertension Code(s): I10 - Essential (primary) hypertension Status: Chronic DS: Summary Hospital Course Reason for hospitalization: 62-year-old with a history of COPD on home trilogy and 4 L nasal cannula was followed by [facility]. Please see H&P for details. Hospital Course: Patient ran out of his nebulized medicine at home and had worsening SOB with cough productive of whitish sputum. Patient presented to the emergency room on 03/11/2024 with wheezing.? He was on 6 L nasal cannula with saturations 97%.? Head white blood cell count of 14.6 with eosinophils 1.4%. Lactic was elevated at 3.1. Troponin negative x2, BNP 33.?EKG showing normal sinus and nonspecific T wave changes. COVID, influenza and RSV RT PCR study negative.? Patient had a blood gas on 4 L nasal cannula the pH of 7.39/50/81.? CXR with no acute process.? Patient was admitted to the hospital with COPD exacerbation and treated with bronchodilators, and Solu-Medrol. Pulmonary was consulted. Echo showing EF 65-70%, Grade I diastolic dysfunction and mild valvular disease. BCx negative. Sputum grew singh-sensitive pseudomonas which could be acute bronchitis or colonization. He was treated with Levaquin. CTA chest showing no PE but severe emphysema and evidence of pulmonary HTN but not seen by Echo. He worked with therapy. He continues to smoke at home. He was educated about the benefits of smoking cessation. SNF placement was offered but he declined placement. He was toelrating his BiPAP. He is up ambulating with a walker. He overall did well and was discharged home with home health on 03/22/23. Status at Discharge Cognitive/behavioral status at discharge: stable Time Spent with Patient Time attestation: Total time spent providing and/or coordinating discharge services: 35 minutes Time spent: Greater than 30 minutes Exam Narrative: AF 98.1 126/51 68 20 99% bipap Gen - NARD lying almost flat in bed resting with bipap in place. Chest - distant but clear BS bilaterally, nml RR CV - RRR S1/S2 Abd - Soft, NT/ND, Positive BS Ext - No pedal edema. 2+ DP pulses bilaterally Psych - Nml mood and affect Skin - Warm and dry Discharge Plan Discharge Attending physician on discharge: Alli Pritchard Consulting providers: Eh Lewis Discharging Clinician: Alli Pritchard Anticipated Discharge Date/Time: 03/22/23 09:46 Patient Disposition: Home Health Service Activity: as tolerated Diet: heart healthy Discharge Instructions: Per Care Coordination Patient has been accepted to have [facility] for RN, PT, OT [phone] RN please fax completed discharge instructions to [phone] or [phone] NO SMOKING - AVOID ALL PRODUCTS CONTAINING TOBACCO OR NICOTINE DO NO
[2023-03-22] MEDS: TOLNAFTATE 1% POWDER 45 GM BTL 1 APPLIC TOPICAL (09:46)
[2023-03-22] MEDS: ATORVASTATIN 40 MG TABLET 80 MG PO (09:47)
[2023-03-22] MEDS: POTASSIUM CHLORIDE 20 MEQ ER TABLET PO (09:47)
[2023-03-22] MEDS: PREGABALIN (*CRX) 50 MG CAPSULE 200 MG PO (09:48)
[2023-03-22] MEDS: FUROSEMIDE 40 MG TABLET PO (09:48)
[2023-03-22] MEDS: ISOSORBIDE MONONITRATE 60 MG TAB.ER.24H PO (09:49)
[2023-03-22] MEDS: predniSONE 10 MG TABLET 30 MG PO (09:49)
[2023-03-22] MEDS: DULoxetine HCL 60 MG CAPSULE.DR PO (09:50)
[2023-03-22] MEDS: dilTIAZem HCL CD 180 MG CAP.24HR 360 MG PO (09:50)
[2023-03-22] MEDS: ASPIRIN 81 MG ENTERIC TABLET PO (09:50)
[2023-03-22] MEDS: PANTOPRAZOLE 40 MG TABLET PO (09:50)
[2023-03-22] MEDS: SENNA/DOCUSATE SODIUM TABLET 2 TAB PO (09:50)
[2023-03-22] MEDS: NICOTINE (*PBKC) 21 MG PATCH 1 PATCH TRANSDERM (09:51)
[2023-03-22] MEDS: polyethylene glycoL 3350 17 GM POWD.PACK PO (09:51)
[2023-03-22] MEDS: ENOXAPARIN 40 MG/0.4 ML SYRINGE SUB-Q (09:51)
[2023-03-22] MEDS: FLUTICASONE/UMECLIDIN/VILANTER 200-62.5-25 MCG ELLIPTA 1 PUFF INHALATION ×2 (10:42→10:43)
--- NOTE | 2023-03-22 13:41 | HOMEO2EVAL ---
Evaluation was performed at [facility] Home Oxygen Evaluation RC: Home Oxygen (O2) Evaluation Start: 03/22/23 09:48 Freq: ONCE Status: Active Protocol: RPE Activity Type Activity Date Activity User E-sign Co-sign Detail Recorded Client Recorded Date Recorded By Document 03/22/23 12:30 WILMAN [email or web address] 03/22/23 13:37 WILMAN Document 03/22/23 12:32 WILMAN [email or web address] 03/22/23 13:38 WILMAN Document 03/22/23 12:34 WILMAN [email or web address] 03/22/23 13:39 WILMAN Document 03/22/23 12:36 WILMAN [email or web address] 03/22/23 13:40 WILMAN Document 03/22/23 13:40 WILMAN [email or web address] 03/22/23 13:41 WILMAN 03/22/23 03/22/23 03/22/23 12:30 12:32 12:34 Home O2 Evaluation [Oxygen] -Test Phase Resting Exercise Exercise -Oxygen Delivery Room Air Nasal Cannula Nasal Cannula -Oxygen Flow Rate (L/min) 1 3 -Fraction of Inspired Oxygen (%) 21 [Pulse Oximetry] -Pulse Oximetry (90-100 %) 86 L 87 L 91 [Pulse Rate] -Pulse Rate (60-100 beats/min) 84 89 102 H [Evaluation] -Activity Tolerance Fair Fair [Exercise] -Ambulation Distance (feet) 15 15 -Ambulation Distance (meters) 4.57 4.57 [Charges] -Evaluation Charges O2 Evaluation by 03/22/23 03/22/23 12:36 13:40 Home O2 Evaluation [Oxygen] -Test Phase Exercise Resting -Oxygen Delivery Nasal Cannula Nasal Cannula -Oxygen Flow Rate (L/min) 4 3 -Fraction of Inspired Oxygen (%) [Pulse Oximetry] -Pulse Oximetry (90-100 %) 92 92 [Pulse Rate] -Pulse Rate (60-100 beats/min) 106 H 96 [Evaluation] -Activity Tolerance Fair [Exercise] -Ambulation Distance (feet) -Ambulation Distance (meters) [Charges] -Evaluation Charges
[2023-03-22] MEDS: levoFLOXacin 750 MG TABLET PO (13:45)
--- NOTE | 2023-03-22 13:51 | PCRCNOTE ---
Home 02 Eval completed 03/22. Patient requires 3 L at rest 4 L with activity. [facility] notified.
== END 2023-03-22 15:08 | disposition home health service (06) | DRG 140 ==
LOC: ANHED 20:52 → ANH2MED 21:53
PROVIDERS: General Practice; Internal Medicine; Internal Medicine Pulmonary Disease; Nurse Practitioner Adult Health; Admitting Provider Student in an Organized Health Care Education/Training Program; Emergency Provider Emergency Medicine; Visit Provider Internal Medicine
DX: J44.1 Chronic obstructive pulmonary disease with (acute) exacerbation (principal); J20.8 Acute bronchitis due to other specified organisms; J44.0 Chronic obstructive pulmonary disease with (acute) lower respiratory infection; J96.11 Chronic respiratory failure with hypoxia; J96.12 Chronic respiratory failure with hypercapnia; I25.10 Atherosclerotic heart disease of native coronary artery without angina pectoris; G89.29 Other chronic pain; K21.9 Gastro-esophageal reflux disease without esophagitis; F41.8 Other specified anxiety disorders; I11.0 Hypertensive heart disease with heart failure; I50.32 Chronic diastolic (congestive) heart failure; F17.210 Nicotine dependence, cigarettes, uncomplicated; Z20.822 Contact with and (suspected) exposure to COVID-19; K59.00 Constipation, unspecified; D72.829 Elevated white blood cell count, unspecified; Z95.5 Presence of coronary angioplasty implant and graft; Z79.82 Long term (current) use of aspirin
CPT/HCPCS: 36415; 36600; 71045; 71275; 80048; 80053; 81003; 82805; 83605; 83735; 83880; 84145; 84484; 85025; 85610; 85730; 87040; 87070; 87077; 87186; 87205; 87637; 93005; 93306; 94002; 94003; 94618; 94640; 96361; 96372; 96374; 96376; 97110; 97161; 97165; 97530; 97535; 99285; A9270; G0378; G0379; J1650; J2920; J2930; J7030; J7512; Q9967

== ENCOUNTER 2023-04-18 21:06 | Inpatient (IN) | payer OTHER, SELFPAY ==
[2023-04-18] VITALS (18 sets, daily range): BP systolic 110–122; BP diastolic 47–70; PULSE 68–84; RESP 14–24; TEMP 37; O2SAT 93–100
--- NOTE | ~2023-04-18 | CT_ITS ---
EXAMINATION:CT diagnostic chest wo con DATE: 04/20/2023 14:05 INDICATION: COVID-19 pneumonia. TECHNIQUE: Computed tomography (CT) of the chest was performed without intravenous contrast. Automate d exposure control and iterative reconstruction technique were employed. The dose-length product (DLP ) was 595.23 mGy-cm. COMPARISON: Chest CT 03/12/2023 FINDINGS: There is mild elevation of left hemidiaphragm. There is severe emphysema. There is mucous p lugging in right lower lobe. There is mild atelectasis in the lower lobes. No pleural effusion. The h eart size is normal. There are coronary artery calcifications. No pericardial effusion. There is diff use hepatic steatosis. There is a 5.4 cm cyst of right kidney. There is mild bilateral gynecomastia. There is mild thoracic spondylosis and severe cervical spondylosis. IMPRESSION: 1. Severe emphysema. Reviewed, dictated and finalized at location E. CULTURE SPECIALIST IMPRESSION: 1. Severe emphysema.
--- NOTE | ~2023-04-18 | XR_ITS ---
Portable chest x-ray Comparison: 04/18/2023 Clinical History: Covid Findings: There is mild haziness at the left lung base. Right lung clear. Cardiomediastinal silhoue tte is stable. Bones and soft tissues are unremarkable. Impression: Mild haziness left lung base. Correlate for pneumonia. Reviewed, dictated and finalized at [facility]. ET SPECULATOR Impression: Mild haziness left lung base. Correlate for pneumonia.
--- NOTE | ~2023-04-18 | XR_ITS ---
EXAMINATION: XR chest 1V portable Exam Date/Time: 04/28/2023 18:15 REAL ESTATE SALES ASSOCIATE HISTORY: cough with sputum Comparison: 04/23/2023; CT chest 04/20/2023. RESULT: Lines, tubes, and devices: None. Lungs and pleura: Emphysematous change. Streaky left basilar opacities. Left costophrenic angle blun ting. Cardiomediastinal silhouette: Stable. Other: No acute osseous or upper abdominal finding. IMPRESSION: Streaky left basilar opacities likely representing atelectasis. Possible small left pleural effusion. Infection is not excluded. Reviewed, dictated and finalized at location K. ESTATE SALES ASSOCIATE
--- NOTE | ~2023-04-18 | XR_ITS ---
EXAMINATION: XR chest 1V portable Exam Date/Time: 04/18/2023 21:25 DIRECTOR OF TEACHING AND LEARNING HISTORY: dyspnea, WEAKNESS Comparison: 03/14/2023. RESULT: Lines, tubes, and devices: None. Lungs and pleura: Mild diffuse interstitial opacities. Emphysematous changes. Right upper lobe scar. Streaky bibasilar atelectasis/scar. Cardiomediastinal silhouette: Stable. Other: No acute osseous or upper abdominal finding. IMPRESSION: Mild interstitial edema. Reviewed, dictated and finalized at location K. CTOR OF TEACHING AND LEARNING IMPRESSION: Mild interstitial edema.
--- NOTE | ~2023-04-18 | XR_ITS ---
EXAMINATION: XR chest 1V portable DATE: 04/30/2023 08:46 INDICATION: Cough. TECHNIQUE: A single frontal view of the chest was obtained. COMPARISON: Chest single view 04/28/2023, 04/18/23, chest CT 04/20/2023 FINDINGS: Again seen is mild elevation of left hemidiaphragm. There are lucencies in the lungs, consi stent with emphysema. There is mild atelectasis at left lung base. No pleural effusion or pneumothora x. The heart size is normal. There is a prominent left paracardial fat pad. IMPRESSION: 1. Emphysema. 2. Mild atelectasis at left lung base. Reviewed, dictated and finalized at location A. [facility]
[2023-04-18 21:31] LABS: Basophils Percent Auto 0.3 % (0.2-1.2); Eosinophils Percent Auto 0.2 % (0-4.4); Hematocrit 42.9 % (42.0-52.0); Hemoglobin 14.3 g/dL (14.0-18.0); Immature Granulocyte Absolute 0.11 K/mm3 (0.00-0.031); Immature Granulocyte Percent A 0.9 % (0-0.5); Lymphocytes Absolute Auto 2.39 K/mm3 (0.9-3.2); Lymphocytes Percent Auto 19.1 % (18.3-44.2); Mean Corpuscular HGB Conc 33.3 g/dl (32-36); Mean Corpuscular Volume 90.1 fl (80-100); Mean Platelet Volume 10.4 fl (7.4-10.4); Monocytes Absolute Auto 0.8 K/mm3 (0.1-0.6); Neutrophils Absolute Auto 9.2 K/mm3 (1.3-6.7); Neutrophils Percent Auto 73.5 % (45.5-73.1); Platelet Count Result 308 k/mm3 (150-375); Red Blood Count 4.76 M/mm3 (4.6-6.20); Red Cell Distribution Width 13.7 % (11.5-14.5); White Blood Count 12.5 K/mm3 (4.5-10.0)
[2023-04-18] MEDS: IPRATROPIUM 0.5 MG/ALBUTEROL SULFATE 2.5 MG AMPUL.NEB 3 ML INHALATION (21:44)
[2023-04-18 21:50] LABS: Alanine Aminotransferase 40 U/L (6-50); Albumin Level 3.9 g/dL (3.5-5.1); Alkaline Phosphatase 128 U/L (38-126); Anion Gap 7 mmol/L (8-16); Aspartate Amino Transferase 30 U/L (17-59); Bilirubin,Total 0.4 mg/dL (0.2-1.3); Blood Urea Nitrogen 18 mg/dL (9-20); Calcium 9.2 mg/dL (8.4-10.2); Carbon Dioxide 31 mmol/L (22-30); Chloride 101 mmol/L (98-107); Estimated CRCL calculation 103 ml/min; Estimated Glomerular Filt Rate > 60; Glucose 244 mg/dL (65-110); Magnesium 2.1 mg/dL (1.6-2.3); Potassium 4.1 mmol/L (3.4-5.0); Sodium 139 mmol/L (137-145)
[2023-04-18 21:51] LABS: INR 0.9; Partial Thromboplastin Time 21.9 SECONDS (22.3-36.8); Prothrombin Time 12.4 Seconds (11.1-14.7)
[2023-04-18 21:52] LABS: Lactic Acid Reflex 2.9 mmol/L (0.7-2.0)
[2023-04-18 22:01] LABS: NT Pro B Type Natriuretic Pept 67 pg/mL (19.9-100); Troponin I < 0.012 ng/mL (0.000-0.034)
[2023-04-18 22:01] LABS: Alveolar/Arterial O2 Gradient 189.2 mmHg; Base Excess ABG 1.9 mEq/l (+/-2.0); Fractional Inspired Oxygen 46 %; HCO3 ABG 28.9 mEq/l (22.0-26.0); Oxygen Content ABG 19.4 %vol (16.0-22.0); Oxygen Saturation ABG 94.5 % (95.0-100.0); Oxyhemoglobin 91.4 % THb (90.0-100.0); PCO2 ABG 54.4 mmHg (35.0-45.0); PO2 FiO2 Ratio Arterial Blood 1.67 %; Total Hemoglobin 15.1 g/dL (12.0-18.0); pH ABG 7.343 (7.350-7.450)
[2023-04-18 22:02] LABS: Device NASAL CANNULA; Liters per Minute 6.5 LPM; Modified Allen's Test Pass; Site Drawn LEFT RADIAL
[2023-04-18 22:20] LABS: Procalcitonin 0.1 ng/mL
[2023-04-18 22:30] LABS: Influenza A QL RT-PCR Negative (Negative); Influenza B QL RT-PCR Negative (Negative); RSV RNA, RT-PCR Negative (Negative); SARS-CoV-2 RNA PCR Positive (Negative)
--- NOTE | 2023-04-18 23:15 | ED.GENADULT ---
HPI - General Adult General Chief complaint: Shortness of Breath/Dyspnea Stated complaint: resp distress Time Seen by Provider: 04/18/23 21:19 History of Present Illness HPI narrative: patient is a 62-year-old gentleman who presents emergency department with chief complaint of shortness of breath. Patient has prior history of COPD and normally uses 4 L of oxygen the patient states that he had a family member that had COVID-19 recently and reports that he started having cough and increasing shortness of breath at home patient was found to be significantly tachypneic when EMS arrived the patient given himself multiple nebulizer treatments throughout the day without improvement. The patient required 6 L of oxygen to maintain a saturation in the 90s. Related Data Home Medications Medication Instructions Recorded Confirmed albuterol sulfate 90 mcg/actuation 90 mcg inhalation Q4H PRN 10/31/19 03/12/23 aerosol inhaler Shortness Of Breath baclofen 20 mg tablet 20 mg PO TID PRN Muscle Spasm 10/31/19 03/12/23 budesonide-formoterol HFA 160 2 puff inhalation BID 10/31/19 03/12/23 mcg-4.5 mcg/actuation aerosol inhaler (Symbicort) montelukast 10 mg tablet 10 mg PO HS 10/31/19 03/12/23 oxymetazoline 0.05 % nasal spray 2 spray intranasal Q12H PRN 10/31/19 03/12/23 (Afrin Sinus (oxymetazoline)) Allergy Symptoms pregabalin 200 mg capsule (Lyrica) 200 mg PO Q12H 10/31/19 03/12/23 sertraline 100 mg tablet 100 mg PO HS 10/31/19 03/12/23 tiotropium bromide 2.5 2 puff inhalation BID 07/11/22 03/12/23 mcg/actuation mist for inhalation (Spiriva Respimat) atorvastatin 80 mg tablet 80 mg PO DAILY 03/12/23 03/12/23 diltiazem HCl 360 mg 240 mg PO DAILY 03/12/23 03/12/23 capsule,extended release 24 hr duloxetine 60 mg capsule,delayed 60 mg PO DAILY 03/12/23 03/12/23 release furosemide 40 mg tablet 40 mg PO DAILY 03/12/23 03/12/23 hydrocodone 10 mg-acetaminophen 1 tablet PO Q8H PRN Pain (Scale 03/12/23 03/12/23 325 mg tablet Score 7-10) isosorbide mononitrate 60 mg 60 mg PO DAILY 03/12/23 03/12/23 tablet,extended release 24 hr pantoprazole 40 mg tablet,delayed 40 mg PO BID 03/12/23 03/12/23 release (Protonix) potassium chloride 20 mEq 20 meq PO DAILY 03/12/23 03/12/23 tablet,extended release dulaglutide 0.75 mg/0.5 mL See Rx Instructions .Route .COMPLEX 03/16/23 03/16/23 subcutaneous pen injector (Trulicity) dupilumab 300 mg/2 mL subcutaneous 300 mg subcut [id number] 03/20/23 03/20/23 pen injector (Dupixent) Allergies Allergy/AdvReac Type Severity Reaction Status Date / Time bacitracin Allergy Unknown Unknown Verified 07/17/22 13:14 neomycin Allergy Unknown Unknown Verified 07/17/22 13:14 Penicillins Allergy Unknown Rash Verified 07/17/22 13:14 polymyxin B Allergy Unknown Unknown Verified 07/17/22 13:14 Review of Systems Review of Systems: A 10 system review of systems was completed on the patient and is negative except for what is stated in the HPI. Nursing and ancillary documentation was reviewed. [facility] Past Medical History Medical History Anxiety and depression CAD (coronary artery disease) Chronic pain Chronic respiratory failure COPD (chronic obstructive pulmonary disease) Hypertension Tobacco abuse Surgical History Surgical History History of cardiac catheterization History of heart artery stent History of orthopedic surgery Left biceps repair Social History Social History Social History: patient lives with his Virginie and does not have any kids however does have some step kids. He has 1 cat and wishes that his Virginie be his surrogate. He also wishes to be a full code at this time. Smoking packs per day: 10 Smoking cigarettes per day: 200.0 Years smoked: 48 Smoking pack-years: 480.00 Smok
[2023-04-19] VITALS (125 sets, daily range): BP systolic 101–174; BP diastolic 37–92; PULSE 66–109; RESP 12–36; TEMP 36.9–37.1; O2SAT 79–100
[2023-04-19 00:39] LABS: Appearance Urine Clear (Clear); Bacteria Urine None Seen /hpf; Bilirubin Urine Negative (Negative); Blood Urine Negative (Negative); Color Urine Yellow (Yellow); Glucose Urine UA 3+ mg/dL (Negative); Ketones Urine Negative (Negative); Leukocyte Esterase Ur Negative LEU/UL (Negative); Nitrate Urine Negative (Negative); Non Pathogenic Casts 0-2; Protein Urine Trace mg/dL (Negative); RBC Urine 0-2 /hpf (0-2); Specific Grav Ur 1.032 (1.001-1.035); Squamous Epithelial Cell Urine None seen /hpf (Few); Urobilinogen Urine 0.2 mg/dL (<2.0); WBC Urine 0-5 /hpf
[2023-04-19 00:39] LABS: Reflex Lactic Acid Yes or No Add Lactic
[2023-04-19 00:40] LABS: Add Urine Microscopic? NO
--- NOTE | 2023-04-19 00:43 | ECG_ITS ---
Measurements Intervals [place] Rate: 68 P: 71 ID: [id number] QRS: 23 QRSD: 110 T: 63 QT: 395 QTc: 421 Interpretive Statements SINUS RHYTHM BASELINE ARTIFACT- I, II, AVR, AVL, AVF, V1-V6 NORMAL ECG COMPARED TO ECG 04/18/2023 21:11:09 NO SIGNIFICANT CHANGES Electronically Signed On 04-19-2023 8:07:18 OUTSOLE PARAFFINER by Suhsa Horn D.O.
[2023-04-19 01:18] LABS: Lactic Acid 1.4 mmol/L (0.7-2.0)
[2023-04-19 01:19] LABS: Troponin I 0.037 ng/mL (0.000-0.034)
[2023-04-19] MEDS: REMDESIVIR 200 MG/NS 250 ML 200 MG/250 ML BAG 250 MG IVPB (01:26)
[2023-04-19] MEDS: IPRATROPIUM 0.5 MG/ALBUTEROL SULFATE 2.5 MG AMPUL.NEB 3 ML INHALATION ×6 (02:05→23:01)
[2023-04-19] MEDS: HYDROcodone/acetaminophen (*CRX) 10-325 MG TABLET 1 TAB PO ×3 (02:07→19:05)
--- NOTE | 2023-04-19 02:15 | PM.IMHP ---
H&P: HPI History of Present Illness Date/Time: 04/19/23 06:00 Chief Complaint: Difficulty breathing Narrative: 62-year-old male with a past medical history of grade 1 diastolic dysfunction, coronary artery disease, essential hypertension chronic hypoxic and hypercapnic respiratory failure due to COPD on home O2 3-4 L among other comorbidities who presented to the ER with difficulty breathing. Patient reports that his tested positive for COVID 6 days ago. The patient has been on Paxlovid and prednisone for 2 days. However he came in today after attempting numerous [id number] nebulizer treatments with persistent shortness of breath. He reports that he chronically uses Afrin to keep his nose open. He uses it several times a day and has done so for years. He has not noticed any increased nasal congestion. He reports any time that he gets sick and does not drink enough fluids his mucus becomes thick and his cough becomes less productive. He has subsequently had increased work of breathing. He cannot clear his mucus. He has had decreased appetite. He denies any nausea or vomiting. He has not had difficulty emptying his bladder but has had decreased urine output. After receiving on EMS arrival to patient's home patient was markedly tachypneic. He received 125 mg of IV Solu-Medrol and nebulizer treatment in route. His oxygen requirements increased to 6 L to maintain oxygen saturations in the 90s. COVID PCR on arrival to the hospital was positive. ABG demonstrated pH of 7.34 pCO2 of 54 PO2 of 77 on 6.5L nasal cannula. Patient was not having any associated chest pain. Initial troponin was negative but 3 hour troponin was 0.037. EKG was personally reviewed demonstrated normal sinus rhythm. Chest x-ray demonstrated lateral interstitial edema. Patient does have diabetes and glucoses were mildly elevated at 244. Initial lactic acid was elevated at 2.9. In the ER patient received albuterol nebulizer. The patient is not tachypneic and was not significantly tachycardic. Patient's symptoms improved after increased oxygen the 6 L. Patient was subsequently admitted for treatment with remdesivir and Decadron due to acute on chronic hypoxic, hypercarbic respiratory failure. Source of information patient report, review of medical records, ER physician report, nursing report and review of EMS records. Review of Systems Review of Systems: 12 systems were reviewed with pertinent positives and negatives per HPI. Except as documented in the HPI, all other systems were reviewed and are negative. [facility], [facility] Past Medical History Medical History (Updated 04/19/23 @ 02:38 by Marjan Fajardo DO) Anxiety and depression CAD (coronary artery disease) Chronic pain Chronic respiratory failure with hypoxia and hypercapnia COPD (chronic obstructive pulmonary disease) Diastolic heart failure Echocardiogram 2022 EF 65-70, mildly increased left ventricular wall thickness, grade 1 diastolic dysfunction, mild mitral and tricuspid regurgitation, normal pulmonary pressure GERD (gastroesophageal reflux disease) Hypertension Insomnia Tobacco abuse Type 2 diabetes mellitus Surgical History Surgical History History of cardiac catheterization History of heart artery stent History of orthopedic surgery Left biceps repair Social History Social History (Updated 04/19/23 @ 08:02 by Marjan Fajardo DO) Social History: He lives with his Virginie and does not have any biological children. He does have some step kids. He has 2 cats. He wishes that his Virginie be his surrogate. He states that he would like to be intubated in the case of respiratory failure. He states he would like his family to have the opportunity to come cm. He is cognizant that his chances of coming off the ventilator are slim. He states he only reason that he wants to her have cardiac resuscitation is so that he may donate his orga
[2023-04-19] MEDS: NICOTINE (*PBKC) 21 MG PATCH 1 PATCH TRANSDERM (03:22)
[2023-04-19 06:14] LABS: Hematocrit 40.7 % (42.0-52.0); Mean Corpuscular HGB Conc 34.4 g/dl (32-36); Mean Corpuscular Hemoglobin 30.6 pg (26-34); Mean Corpuscular Volume 89.1 fl (80-100); Mean Platelet Volume 10.2 fl (7.4-10.4); Platelet Count Result 245 k/mm3 (150-375); Red Blood Count 4.57 M/mm3 (4.6-6.20); Red Cell Distribution Width 13.5 % (11.5-14.5); White Blood Count 9.1 K/mm3 (4.5-10.0)
[2023-04-19 06:33] LABS: Anion Gap 7 mmol/L (8-16); Blood Urea Nitrogen 16 mg/dL (9-20); Calcium 8.9 mg/dL (8.4-10.2); Carbon Dioxide 27 mmol/L (22-30); Chloride 103 mmol/L (98-107); Estimated CRCL calculation 119 ml/min; Estimated Glomerular Filt Rate > 60; Glucose 312 mg/dL (65-110); Potassium 4.5 mmol/L (3.4-5.0); Sodium 137 mmol/L (137-145)
[2023-04-19 06:37] LABS: Troponin I 0.024 ng/mL (0.000-0.034)
--- NOTE | 2023-04-19 07:31 | PC.NURSE ---
EDP called to room 10 due to pt struggling on 4 L NC O2 w/ increased WOB and SOB. Pt placed on NRB per EDP at bedside and epi given IM per VORB. Resp notified pt is to be placed on BIPAP.
[2023-04-19] MEDS: EPINEPHrine HCL INJ 1 MG/ML AMPUL 0.3 MG IM (07:37)
[2023-04-19] MEDS: IPRATROPIUM BR 0.02% INH SOLN 0.5 MG/2.5 ML VIAL 1 MG INHALATION (07:49)
[2023-04-19] MEDS: ALBUTEROL SULFATE NEB 2.5 MG/3 ML INH 15 MG INHALATION (07:49)
[2023-04-19 08:19] LABS: Glucose Point of Care 306 mg/dl (65-105)
--- NOTE | 2023-04-19 09:25 | PM.IMPN ---
Progress Note: A&P Assessment and Plan (1) Acute on chronic respiratory failure with hypoxia and hypercapnia: Code(s): J96.21 - Acute and chronic respiratory failure with hypoxia; J96.22 - Acute and chronic respiratory failure with hypercapnia Status: Acute Assessment and Plan: Patient presents with SOB and found to have acute respiratory failure due to COVID. CXR showing mild pulmonary edema but this could be evidence of early COVID pneumonia. AB.34/54/77 on 6.5L Patient was started on remdesivir. He received Solu-Medrol in route to the hospital. Changed to Decadron. Condition worsened this morning so BiPAP started with benefit. Admitted to IMU. Continue AVAPS. Physician Underwriter made aware in case patient contiues to decline. Wean oxygen as tolerated back down home O2 of 4 L. Mucinex and nasal saline added. Pulmonary consult. (2) COVID-19: Code(s): U07.1 - COVID-19 Status: Acute Assessment and Plan: As above. Patient is not vaccinated. Continue supportive care. Monitor inflammatory markers Continue Remdesivir and Dexamethasone Consider adding baricitinib. (3) Elevated troponin: Code(s): R79.89 - Other specified abnormal findings of blood chemistry Status: Acute Assessment and Plan: Patient with elevated troponin to 0.037 Not felt to be clinically significant and likely secondary to demand ischemia. Patient does have CAD but is not having active chest pain. Resume patient's home atorvastatin, aspirin, Imdur. However will hold diuretics as the patient appears clinically dry. (4) COPD (chronic obstructive pulmonary disease): Qualifiers: COPD type: unspecified COPD Qualified Code(s): J44.9 - Chronic obstructive pulmonary disease, unspecified Code(s): J44.9 - Chronic obstructive pulmonary disease, unspecified Status: Acute Assessment and Plan: He has chronic obstructive sleep apnea and is on trilogy at home. He is moderately compliant with treatment. Continue AVAPS (5) Type 2 diabetes mellitus with hyperglycemia, without long-term current use of insulin: Code(s): E11.65 - Type 2 diabetes mellitus with hyperglycemia Status: Acute Assessment and Plan: Patient does have type 2 diabetes mellitus and is currently hyperglycemic. This is likely in part due to outpatient steroid use and complicating acute infection. Will place patient on moderate dose sliding scale insulin and adjust insulin dosage as needed. Patient is on Trulicity at home. This will be held. Diet has been changed to consistent carbohydrate. Plan DVT Prophylaxis - Lovenox Code status - full 40 minutes spent on critical care time Subjective Date/time seen: 04/19/23 09:25 Interval history: 62yo male with chronic resp failure on 4L and Trelegy, COPD, HTN, DM and dCHF here for increasing shortness of breath. Patient's tested positive for COVID 6 days ago and he started to become ill feeling about 4 days prior to admission. he has a cough with occasional hemotysis. Hemoptysis has been present for about 1 month off and on. No CP. Has been having diarrhea. He has a Trelegy but only uses this about 40% of the time. He was feeling worse earlier this morning in the ED but was given Epi, neb treatment and placed on BiPAP. He feels better with this treatment. Exam Narrative: AF 98.6 145/68 85 16 98% bipap Gen - NARD Chest - distant, mildly coarse breath sounds. Expiratory wheezes CV - RRR S1/S2 Abd - Soft, protuberant, +BS Ext - No pedal edema Psych - Nml mood and affect Skin - Warm and dry Objective Data Vital Signs Vital Signs: Vital Signs - 24 hr 04/18/23 21:12 04/18/23 21:22 04/18/23 21:22 Temperature 98.6 F Pulse Rate 84 84 Respiratory Rate 24 H Blood Pressure 120/70 Pulse Oximetry 93 95 Oxygen Delivery Nasal Cannula Nasal Cannula Oxygen Flow Rate 6 6 Fraction of Inspired Oxygen
[2023-04-19] MEDS: DULoxetine HCL 60 MG CAPSULE.DR PO (09:33)
[2023-04-19] MEDS: ENOXAPARIN 40 MG/0.4 ML SYRINGE SUB-Q (09:33)
[2023-04-19] MEDS: BACLOFEN 10 MG TABLET 20 MG PO ×2 (09:34→19:05)
[2023-04-19] MEDS: dilTIAZem HCL CD 240 MG CAP.24HR PO (09:34)
[2023-04-19] MEDS: ASPIRIN 81 MG ENTERIC TABLET PO (09:34)
[2023-04-19 10:05] LABS: CRP 1.8 mg/dL (<1.0)
--- NOTE | 2023-04-19 11:18 | PC.NURSE ---
called pharmacy to request ordered schedule meds to be sent for pt to take, spoke to Marcus who will send PO meds as requested.
[2023-04-19] MEDS: PREGABALIN (*CRX) 50 MG CAPSULE 200 MG PO ×2 (11:37→20:51)
[2023-04-19] MEDS: ATORVASTATIN 40 MG TABLET 80 MG PO ×2 (12:03→20:51)
[2023-04-19] MEDS: guaiFENesin 12 HR 600 MG TABCR PO ×2 (12:03→20:51)
--- NOTE | 2023-04-19 13:51 | PC.NURSE ---
BS 276
[2023-04-19 13:55] LABS: Glucose Point of Care 276 mg/dl (65-105)
[2023-04-19] MEDS: INSULIN ASPART (*BKC) 100 UNITS/ML SUB-Q ×2 (13:55→18:57)
--- NOTE | 2023-04-19 14:45 | PC.NURSE ---
BS 319
[2023-04-19 14:48] LABS: Glucose Point of Care 319 mg/dl (65-105)
[2023-04-19 18:17] LABS: Glucose Point of Care 281 mg/dl (65-105)
--- NOTE | 2023-04-19 18:36 | ADMGEN ---
This patient, Jeremiah Claire, was admitted to IMU Room 213-01 on 04/19/22 at 1745. Patient/family oriented to hospital policies and general routines including ID bracelet, bed and alarms, visiting hours, pain management, procedures, bathroom and other care routines, personal items, smoking policy, room service/diet, and visiting hours. Information on how to activate the Rapid Response Team has been discussed. Patient/Family are encouraged to report perceived risks to care and to ask questions if they do not understand what they are told or what they should do.
[2023-04-19] MEDS: FLUTICASONE/SALMETEROL 115-21 MCG INHALER 1 PUFF 2 PUFF INHALATION (20:21)
[2023-04-19] MEDS: MONTELUKAST SODIUM 10 MG TABLET PO (20:51)
[2023-04-19 21:20] LABS: Glucose Point of Care 284 mg/dl (65-105)
[2023-04-19] MEDS: REMDESIVIR 100 MG/NS 250 ML 100 MG/250 ML BAG 250 MG IVPB (22:59)
[2023-04-20] VITALS (26 sets, daily range): BP systolic 112–140; BP diastolic 57–93; PULSE 64–91; RESP 16–20; TEMP 36.2–37.1; O2SAT 96–100
[2023-04-20] MEDS: HYDROcodone/acetaminophen (*CRX) 10-325 MG TABLET 1 TAB PO ×3 (03:25→21:11)
[2023-04-20 04:29] LABS: Basophils Percent Auto 0.2 % (0.2-1.2); Hematocrit 41.7 % (42.0-52.0); Hemoglobin 14.1 g/dL (14.0-18.0); Immature Granulocyte Absolute 0.12 K/mm3 (0.00-0.031); Immature Granulocyte Percent A 0.9 % (0-0.5); Lymphocytes Percent Auto 10.6 % (18.3-44.2); Mean Corpuscular HGB Conc 33.8 g/dl (32-36); Mean Corpuscular Hemoglobin 30.1 pg (26-34); Mean Corpuscular Volume 89.1 fl (80-100); Mean Platelet Volume 10.1 fl (7.4-10.4); Monocytes Absolute Auto 0.6 K/mm3 (0.1-0.6); Monocytes Percent Auto 4.6 % (2.6-8.5); Neutrophils Absolute Auto 11.1 K/mm3 (1.3-6.7); Neutrophils Percent Auto 83.7 % (45.5-73.1); Platelet Count Result 267 k/mm3 (150-375); Red Blood Count 4.68 M/mm3 (4.6-6.20); Red Cell Distribution Width 13.3 % (11.5-14.5); White Blood Count 13.2 K/mm3 (4.5-10.0)
[2023-04-20] MEDS: IPRATROPIUM 0.5 MG/ALBUTEROL SULFATE 2.5 MG AMPUL.NEB 3 ML INHALATION ×6 (04:44→23:10)
[2023-04-20 04:53] LABS: Alanine Aminotransferase 33 U/L (6-50); Albumin Level 3.7 g/dL (3.5-5.1); Alkaline Phosphatase 102 U/L (38-126); Anion Gap 5 mmol/L (8-16); Aspartate Amino Transferase 25 U/L (17-59); Bilirubin,Total 0.4 mg/dL (0.2-1.3); Blood Urea Nitrogen 23 mg/dL (9-20); CRP 0.7 mg/dL (<1.0); Calcium 8.8 mg/dL (8.4-10.2); Carbon Dioxide 29 mmol/L (22-30); Chloride 102 mmol/L (98-107); Estimated CRCL calculation 104 ml/min; Estimated Glomerular Filt Rate > 60; Glucose 271 mg/dL (65-110); Magnesium 2.4 mg/dL (1.6-2.3); Potassium 4.2 mmol/L (3.4-5.0); Sodium 136 mmol/L (137-145)
[2023-04-20] MEDS: PREGABALIN (*CRX) 50 MG CAPSULE 200 MG PO ×2 (08:13→20:34)
[2023-04-20] MEDS: dilTIAZem HCL CD 240 MG CAP.24HR PO (08:13)
[2023-04-20] MEDS: guaiFENesin 12 HR 600 MG TABCR PO ×2 (08:13→20:34)
[2023-04-20] MEDS: ASPIRIN 81 MG ENTERIC TABLET PO (08:13)
[2023-04-20] MEDS: ENOXAPARIN 40 MG/0.4 ML SYRINGE SUB-Q (08:13)
[2023-04-20] MEDS: DULoxetine HCL 60 MG CAPSULE.DR PO (08:13)
[2023-04-20] MEDS: NICOTINE (*PBKC) 21 MG PATCH 1 PATCH TRANSDERM (08:13)
[2023-04-20] MEDS: INSULIN GLARGINE (*BKC) 100 UNITS/ML 10 UNITS SUB-Q (08:14)
[2023-04-20] MEDS: INSULIN ASPART (*BKC) 100 UNITS/ML SUB-Q ×4 (08:15→21:12)
[2023-04-20 08:19] LABS: Glucose Point of Care 275 mg/dl (65-105)
[2023-04-20 10:37] LABS: D Dimer 0.41 ug/mL (<0.48)
[2023-04-20] MEDS: SALINE 0.65% NAS SOLN 44 ML BTL 1 SPRAY NASAL (11:46)
[2023-04-20] MEDS: OXYMETAZOLINE HCL 0.05% NAS 15 ML BTL (*BKC) 2 SPRAY NASAL (11:47)
[2023-04-20 12:04] LABS: Glucose Point of Care 201 mg/dl (65-105)
--- NOTE | 2023-04-20 13:38 | PM.CNPUL ---
Assessment and Plan Assessment and plan (1) COVID-19: Code(s): U07.1 - COVID-19 Status: Acute Assessment and Plan: Patient tested positive for COVID-19 on 04/18/23 and started on remdesivir, dexamethasone on 04/19/2023. procalcitonin 0.1 and not started on antibiotics. 04/20/23: Plan: - Remdesivir for 10 days Unless he should recover and tolerate room air with rest, ambulation and while sleeping. - Dexamethasone 6 mg IV for 10 days - Continuous pulse oximetry - Avoid any fluid overload. - Albuterol and ipratropium nebulizers Q 4 for now, no wheezes. -influenza and RSV swab negative - Keep saturations are 90-94% and currently on 4 L nasal cannula For worsening hypoxemia treat with nasal cannula up to 15 L, if fails then Airvo high flow nasal cannula. If fails Airvo then noninvasive ventilation. D-dimer is negative. I will order a CT scan of the chest without contrast to assess his infiltrates. Discussed with Dr. Pritchard, will follow with you. (2) Acute on chronic respiratory failure with hypoxia and hypercapnia: Code(s): J96.21 - Acute and chronic respiratory failure with hypoxia; J96.22 - Acute and chronic respiratory failure with hypercapnia Status: Acute Assessment and Plan: Etiology of hypoxic respiratory failure is likely COVID pneumonia. Patient does have baseline hypercarbic and hypoxemic respiratory failure on 3 L at rest, 4 L act with activity and 4 L bleed in on his noninvasive ventilator at night 04/18/23 21:00, nasal cannula 6 L saturation 93% 04/19/23 04:55 hospital noninvasive ventilator with the AVAPS mode rate of 14, tidal volume 500, EPAP 5, 40% 04/19/23 20:30 4 L nasal cannula white eating, saturations 96% 04/19/23 22:45 hospital noninvasive ventilator with the AVAPS mode rate of 14, tidal volume 500, EPAP 5, 36%, sats 97% 04/20/23 04:15 hospital noninvasive ventilator with the AVAPS mode rate of 14, tidal volume 500, EPAP 5, 36% 04/20/23 08:00 4 L nasal cannula, sats 96% 04/20/23: Plan: Patient with minimal increased oxygen requirements during the day currently and he tolerated 36% FiO2 last night on the hospital noninvasive ventilator and he is on 4 L bleed in at night. He does not have greatly increased oxygen demands at this time, therefore I do not recommend adding baricitinib at this time. (3) Asthma-COPD overlap syndrome: Code(s): J44.89 - Other specified chronic obstructive pulmonary disease Status: Acute Assessment and Plan: 62-year-old with a history of asthma since childhood, COPD on home trilogy and 4 L nasal cannula 24-[address] Beebe, [facility]. I have no PFTs. CT angiogram with no PE, severe apical predominant panlobular emphysema.? Discharged previously on 3 L at rest, 4 with activity and 4 L bleed in at night on his home noninvasive ventilator. He is maintained on Symbicort 160-4.5 at 2 puffs b.i.d., Spiriva Respimat 2.5 mcg b.i.d., Dupixent Q 2 weeks. 04/20/2023: Currently has no wheezes on exam. I suspect this clinical deterioration is related to COVID pneumonia rather than asthma or COPD exacerbation. Plan: Continue dexamethasone 6 mg IV q.day, continue DuoNebs q.4 hours. Continue montelukast 10 mg q.h.s.. Continue Mucinex 600 mg q.12 hours. History of Present Illness History of Present Illness Consult date: 04/20/23 Chief complaint: COVID-19 Hypoxic Respiratory Failure, COPD Narrative: 04/20/2023: This is a new pulmonary consult for asthma, COPD and COVID pneumonia 62-year-old with a history of asthma since childhood, COPD on home trilogy and 4 L nasal cannula 24-[address] Beebe, [facility]. Patient was admitted to the hospital on 03/11/2023 and I saw him in consultation for COPD exacerbation. CT angiogram with no PE, severe apical predominant panlobular emphysema.? Echocardiogram with normal LV function, grade 1 diastolic dysfunction, normal RV size and function, normal right atrial
--- NOTE | 2023-04-20 16:06 | PM.IMPN ---
Progress Note: A&P Assessment and Plan (1) Acute on chronic respiratory failure with hypoxia and hypercapnia: Code(s): J96.21 - Acute and chronic respiratory failure with hypoxia; J96.22 - Acute and chronic respiratory failure with hypercapnia Status: Acute Assessment and Plan: Patient presents with SOB and found to have acute respiratory failure due to COVID. CXR showing mild pulmonary edema but this could be evidence of early COVID pneumonia. AB.34/54/77 on 6.5L Patient was started on remdesivir. He received Solu-Medrol in route to the hospital. Changed to Decadron. Condition worsened so BiPAP started with benefit. Admitted to IMU. Continue AVAPS. Right Of Way Supervisor was made aware Pulm consult and appreciate their input DDimer negative. Chest CT showing severe emphysema. Off AVAPS today. Weaned oxygen as tolerated back down home O2 of 4 L. Continue Dexamethasone and Remdesivir. Continue Mucinex and nasal saline Continue Duonebs (2) COVID-19: Code(s): U07.1 - COVID-19 Status: Acute Assessment and Plan: As above. Patient is not vaccinated. CRP 1.8 and 0.7 on repeat. Continue Remdesivir and Dexamethasone Continue supportive care. Hold off on adding baricitinib since CRP normal (3) Elevated troponin: Code(s): R79.89 - Other specified abnormal findings of blood chemistry Status: Acute Assessment and Plan: Patient with elevated troponin to 0.037 Not felt to be clinically significant and likely secondary to demand ischemia. Patient does have CAD but is not having active chest pain. Resumed patient's home atorvastatin, aspirin, Imdur. Continue to hold diuretics for now (4) COPD (chronic obstructive pulmonary disease): Qualifiers: COPD type: unspecified COPD Qualified Code(s): J44.9 - Chronic obstructive pulmonary disease, unspecified Code(s): J44.9 - Chronic obstructive pulmonary disease, unspecified Status: Acute Assessment and Plan: He has chronic obstructive sleep apnea and is on trilogy at home. He is moderately compliant with treatment. Continue AVAPS (5) Type 2 diabetes mellitus with hyperglycemia, without long-term current use of insulin: Code(s): E11.65 - Type 2 diabetes mellitus with hyperglycemia Status: Acute Assessment and Plan: A1c 6.3%. The patient's blood glucose was reviewed on 04/20 Glucose remains poorly controlled related to steroids. Continue AccuCheks covering with sliding scale. Hypoglycemia protocol available as needed. Advance lantus Plan Chronic back pain - increase activity by being out of bed, although patient states he has not been active for a long time due to his severe COPD. Contiune [place] prn. Add Flexeril. PT/OT DVT Prophylaxis - Lovenox Code status - full Subjective Date/time seen: 04/20/23 16:06 Interval history: 62yo male with chronic resp failure on 4L and Trelegy, COPD, HTN, DM and dCHF here for increasing shortness of breath. Cough better. No CP. SOB better. Toelrated the bipap overnight. No BM since Thursday. No flatus Exam Narrative: AF 98.7 130/78 79 16 96% bipap Gen - NARD Chest - distant breath sounds with faint expiratory wheezes CV - RRR S1/S2. tele showing significant dysrhythmias Abd - Soft, protuberant, +BS Ext - No pedal edema Psych - Nml mood and affect Skin - Warm and dry Objective Data Vital Signs Vital Signs: Vital Signs - 24 hr 04/19/23 16:52 04/19/23 17:15 04/19/23 17:10 Temperature Pulse Rate 67 76 72 Respiratory Rate 16 15 16 Blood Pressure 116/57 L Pulse Oximetry 99 98 Oxygen Delivery BiPAP Oxygen Flow Rate Fraction of Inspired Oxygen 04/19/23 17:18 04/19/23 17:31 04/19/23 17:45 Temperature Pulse Rate 71 72 81 Respiratory Rate 15 17 Blood Pressure 115/56 L Pulse Oximetry 100 Oxygen Delivery Oxygen Flow Rate Fraction of Inspired Oxygen 04/19/23
[2023-04-20 16:20] LABS: Glucose Point of Care 233 mg/dl (65-105)
[2023-04-20] MEDS: BACLOFEN 10 MG TABLET 20 MG PO (16:51)
[2023-04-20] MEDS: CYCLOBENZAPRINE HCL 5 MG TABLET PO (17:49)
[2023-04-20] MEDS: ATORVASTATIN 40 MG TABLET 80 MG PO (20:34)
[2023-04-20] MEDS: MONTELUKAST SODIUM 10 MG TABLET PO (20:34)
[2023-04-20 20:47] LABS: Glucose Point of Care 238 mg/dl (65-105)
[2023-04-20] MEDS: REMDESIVIR 100 MG/NS 250 ML 100 MG/250 ML BAG 250 MG IVPB (21:13)
[2023-04-21] VITALS (31 sets, daily range): BP systolic 113–159; BP diastolic 56–91; PULSE 62–102; RESP 17–24; TEMP 34.9–36.8; O2SAT 92–100
[2023-04-21] MEDS: IPRATROPIUM 0.5 MG/ALBUTEROL SULFATE 2.5 MG AMPUL.NEB 3 ML INHALATION ×6 (03:40→23:10)
[2023-04-21 05:11] LABS: Alanine Aminotransferase 31 U/L (6-50); Albumin Level 3.7 g/dL (3.5-5.1); Alkaline Phosphatase 109 U/L (38-126); Anion Gap 3 mmol/L (8-16); Aspartate Amino Transferase 26 U/L (17-59); Bilirubin,Total 0.5 mg/dL (0.2-1.3); Blood Urea Nitrogen 21 mg/dL (9-20); Calcium 8.9 mg/dL (8.4-10.2); Carbon Dioxide 32 mmol/L (22-30); Chloride 99 mmol/L (98-107); Estimated CRCL calculation 104 ml/min; Estimated Glomerular Filt Rate > 60; Glucose 286 mg/dL (65-110); Potassium 4.5 mmol/L (3.4-5.0); Sodium 134 mmol/L (137-145)
[2023-04-21 05:12] LABS: INR 0.9; Prothrombin Time 12.9 Seconds (11.1-14.7)
[2023-04-21 08:23] LABS: Glucose Point of Care 279 mg/dl (65-105)
[2023-04-21] MEDS: PREGABALIN (*CRX) 50 MG CAPSULE 200 MG PO ×2 (08:54→22:09)
[2023-04-21] MEDS: DULoxetine HCL 60 MG CAPSULE.DR PO (08:54)
[2023-04-21] MEDS: dilTIAZem HCL CD 240 MG CAP.24HR PO (08:54)
[2023-04-21] MEDS: NICOTINE (*PBKC) 21 MG PATCH 1 PATCH TRANSDERM (08:54)
[2023-04-21] MEDS: guaiFENesin 12 HR 600 MG TABCR PO (08:54)
[2023-04-21] MEDS: ASPIRIN 81 MG ENTERIC TABLET PO (08:54)
[2023-04-21] MEDS: ENOXAPARIN 40 MG/0.4 ML SYRINGE SUB-Q (08:54)
[2023-04-21] MEDS: INSULIN ASPART (*BKC) 100 UNITS/ML SUB-Q ×4 (08:55→22:14)
[2023-04-21] MEDS: INSULIN GLARGINE (*BKC) 100 UNITS/ML 14 UNITS SUB-Q (08:55)
[2023-04-21] MEDS: BACLOFEN 10 MG TABLET 20 MG PO ×3 (08:57→23:55)
[2023-04-21] MEDS: HYDROcodone/acetaminophen (*CRX) 10-325 MG TABLET 1 TAB PO ×2 (08:58→17:19)
--- NOTE | 2023-04-21 09:06 | PM.PNPUL ---
Progress Note: A&P Assessment and Plan (1) COVID-19: Code(s): U07.1 - COVID-19 Status: Acute Assessment and Plan: Patient tested positive for COVID-19 on 04/18/23 and started on remdesivir, dexamethasone on 04/19/2023. procalcitonin 0.1 and not started on antibiotics. 04/20/23: Plan: - Remdesivir for 10 days Unless he should recover and tolerate room air with rest, ambulation and while sleeping. - Dexamethasone 6 mg IV for 10 days - Continuous pulse oximetry - Avoid any fluid overload. - Albuterol and ipratropium nebulizers Q 4 for now, no wheezes. -influenza and RSV swab negative - Keep saturations are 90-94% and currently on 4 L nasal cannula For worsening hypoxemia treat with nasal cannula up to 15 L, if fails then Airvo high flow nasal cannula. If fails Airvo then noninvasive ventilation. D-dimer is negative. I will order a CT scan of the chest without contrast to assess his infiltrates. CT of the chest without contrast shows severe apical predominant panlobular emphysema, mild atelectasis at the bases, some mucus in the right lower lobe bronchi, no focal infiltrates, no focal or diffuse ground-glass infiltrates. 04/21/23: Patient states he feels a little bit better than yesterday. He slept poorly as he could not get comfortable. His shortness of breath remains unchanged and he short of breath at rest and if he talks extensively. He is afebrile. He wore the hospital noninvasive ventilator briefly during the day yesterday and overnight with 36% FiO2 and currently is on 4 L nasal cannula saturations 96%. I decreased him to 3 L nasal cannula saturations were 94%. His creatinine is 0.7. Weight is 99.8 and he is net-2.2 L since admission. He is having difficulty expectorating his phlegm. Plan: Continue remdesivir and dexamethasone, day 3. Oxygenation is close to his baseline and therefore have not started baricitinib. CT scan with no focal ground-glass infiltrates or consolidations. Will follow with you. (2) Acute on chronic respiratory failure with hypoxia and hypercapnia: Code(s): J96.21 - Acute and chronic respiratory failure with hypoxia; J96.22 - Acute and chronic respiratory failure with hypercapnia Status: Acute Assessment and Plan: Etiology of hypoxic respiratory failure is likely COVID pneumonia. Patient does have baseline hypercarbic and hypoxemic respiratory failure on 3 L at rest, 4 L act with activity and 4 L bleed in on his noninvasive ventilator at night 04/18/23 21:00, nasal cannula 6 L saturation 93% 04/19/23 04:55 hospital noninvasive ventilator with the AVAPS mode rate of 14, tidal volume 500, EPAP 5, 40% 04/19/23 20:30 4 L nasal cannula white eating, saturations 96% 04/19/23 22:45 hospital noninvasive ventilator with the AVAPS mode rate of 14, tidal volume 500, EPAP 5, 36%, sats 97% 04/20/23 04:15 hospital noninvasive ventilator with the AVAPS mode rate of 14, tidal volume 500, EPAP 5, 36% 04/20/23 08:00 4 L nasal cannula, sats 96% 04/20/23 20:00 4 L nasal cannula, saturations 99%, wore hospital noninvasive ventilator with 36% FiO2 overnight 04/21/23 08:00 4 L NC, sats 96, turned to 3 L and sats 94 04/20/23: Plan: Patient with minimal increased oxygen requirements during the day currently and he tolerated 36% FiO2 last night on the hospital noninvasive ventilator and he is on 4 L bleed in at night. He does not have greatly increased oxygen demands at this time, therefore I do not recommend adding baricitinib at this time. 04/22: Plan: Goal saturation 90-94%. Wean as tolerated. Hospital noninvasive ventilator p.r.n. during the day and every night with 36% FiO2. I will check an ABG tomorrow morning prior to removal of the hospital noninvasive ventilator with the AVAPS mode. Patient is attempting to bring in his home noninvasive ventilator. We are attempting to obtain a download from his [facility] (3) Asthma-COPD overlap syndrome: Code(s): J44.89 - Other specified chr
[2023-04-21 11:56] LABS: Glucose Point of Care 206 mg/dl (65-105)
--- NOTE | 2023-04-21 14:09 | PM.IMPN ---
Progress Note: A&P Assessment and Plan (1) Acute on chronic respiratory failure with hypoxia and hypercapnia: Code(s): J96.21 - Acute and chronic respiratory failure with hypoxia; J96.22 - Acute and chronic respiratory failure with hypercapnia Status: Acute Assessment and Plan: Patient presents with SOB and found to have acute respiratory failure due to COVID. CXR showing mild pulmonary edema but this could be evidence of early COVID pneumonia. AB.34/54/77 on 6.5L Patient was started on remdesivir. He received Solu-Medrol in route to the hospital and then changed to Decadron. Condition worsened so BiPAP started with benefit. Admitted to IMU. Continue AVAPS. Deputy Prosecuting Attorney was made aware Pulm consult and appreciate their input DDimer negative. Chest CT without contrast showing severe emphysema but no evidence of COVID PNA. Off AVAPS today and weaned to his home O2 of 4 L. Continue Dexamethasone and Remdesivir. Continue Mucinex and nasal saline Continue Duonebs (2) COVID-19: Code(s): U07.1 - COVID-19 Status: Acute Assessment and Plan: As above. Patient is not vaccinated. CRP 1.8 and 0.7 on repeat. Mild hemoptysis noted and probably related to COPD and COVID (or false since has cranberry juice at bedside). Continue Remdesivir and Dexamethasone Continue supportive care. Hold off on adding baricitinib since CRP normal and CT clear (3) Elevated troponin: Code(s): R79.89 - Other specified abnormal findings of blood chemistry Status: Acute Assessment and Plan: Patient with elevated troponin to 0.037 Not felt to be clinically significant and likely secondary to demand ischemia. Patient does have CAD but is not having active chest pain. Resumed patient's home atorvastatin, aspirin, Imdur. Renal function normal and BP satisfactory so will resume diuretics (4) COPD (chronic obstructive pulmonary disease): Qualifiers: COPD type: unspecified COPD Qualified Code(s): J44.9 - Chronic obstructive pulmonary disease, unspecified Code(s): J44.9 - Chronic obstructive pulmonary disease, unspecified Status: Acute Assessment and Plan: He has chronic obstructive sleep apnea and is on trilogy at home. He is moderately compliant with treatment. Continue AVAPS (5) Type 2 diabetes mellitus with hyperglycemia, without long-term current use of insulin: Code(s): E11.65 - Type 2 diabetes mellitus with hyperglycemia Status: Acute Assessment and Plan: A1c 6.3%. The patient's blood glucose was reviewed on 04/21 Glucose remains poorly controlled related to steroids. Continue AccuCheks covering with sliding scale. Hypoglycemia protocol available as needed. Advance lantus again Plan Chronic back pain - increase activity by being out of bed, although patient states he has not been active for a long time due to his severe COPD. Continue [place] prn. Flexeril and baclofen prn. PT/OT DVT Prophylaxis - Lovenox Code status - full Subjective Date/time seen: 04/21/23 14:09 Interval history: 62yo male with chronic resp failure on 4L and Trelegy, COPD, HTN, DM and dCHF here for increasing shortness of breath. No issues overnight. Wore the bipap. Has chest pain with coughing. Cough productive of yellow-brown sputum occasionally blood tinged. Exam Narrative: AF 97.1 159/91 102 22 92% 4L Gen - NARD Chest - distant breath sounds without wheezing CV - RRR S1/S2. tele showing no significant dysrhythmias Abd - Soft, protuberant, +BS Ext - No pedal edema Psych - Nml mood and affect Skin - Warm and dry Objective Data Vital Signs Vital Signs: Vital Signs - 24 hr 04/20/23 16:00 04/20/23 16:30 04/20/23 16:00 Temperature 97.1 F L Pulse Rate 81 76 76 Respiratory Rate 20 16 Blood Pressure 126/65 Pulse Oximetry 97 Oxygen Delivery Oxygen Flow Rate Fraction of Inspired Oxygen
[2023-04-21] MEDS: polyethylene glycoL 3350 17 GM POWD.PACK PO (15:53)
[2023-04-21] MEDS: OXYMETAZOLINE HCL 0.05% NAS 15 ML BTL (*BKC) 2 SPRAY NASAL (15:54)
[2023-04-21 16:02] LABS: Glucose Point of Care 277 mg/dl (65-105)
[2023-04-21] MEDS: ACETAMINOPHEN 325 MG TABLET 650 MG PO ×2 (17:54→22:08)
[2023-04-21 20:17] LABS: Glucose Point of Care 284 mg/dl (65-105)
[2023-04-21] MEDS: REMDESIVIR 100 MG/NS 250 ML 100 MG/250 ML BAG 250 MG IVPB (21:54)
[2023-04-21] MEDS: ATORVASTATIN 40 MG TABLET 80 MG PO (22:07)
[2023-04-21] MEDS: MELATONIN 3 MG TABLET PO (22:07)
[2023-04-21] MEDS: guaiFENesin 12 HR 600 MG TABCR 1200 MG PO (22:07)
[2023-04-21] MEDS: MONTELUKAST SODIUM 10 MG TABLET PO (22:08)
[2023-04-21 22:22] LABS: Glucose Point of Care 276 mg/dl (65-105)
[2023-04-22] VITALS (25 sets, daily range): BP systolic 117–144; BP diastolic 57–79; PULSE 61–93; RESP 16–24; TEMP 36.1–36.6; O2SAT 94–99
[2023-04-22] MEDS: IPRATROPIUM 0.5 MG/ALBUTEROL SULFATE 2.5 MG AMPUL.NEB 3 ML INHALATION ×5 (03:16→20:30)
[2023-04-22 05:12] LABS: Hematocrit 41.6 % (42.0-52.0); Hemoglobin 14.4 g/dL (14.0-18.0); Mean Corpuscular HGB Conc 34.6 g/dl (32-36); Mean Corpuscular Hemoglobin 29.9 pg (26-34); Mean Corpuscular Volume 86.5 fl (80-100); Mean Platelet Volume 10.2 fl (7.4-10.4); Platelet Count Result 263 k/mm3 (150-375); Red Blood Count 4.81 M/mm3 (4.6-6.20); Red Cell Distribution Width 12.7 % (11.5-14.5); White Blood Count 11.5 K/mm3 (4.5-10.0)
[2023-04-22 05:21] LABS: Anion Gap 5 mmol/L (8-16); Blood Urea Nitrogen 20 mg/dL (9-20); Calcium 8.9 mg/dL (8.4-10.2); Carbon Dioxide 30 mmol/L (22-30); Chloride 100 mmol/L (98-107); Estimated CRCL calculation 104 ml/min; Estimated Glomerular Filt Rate > 60; Glucose 283 mg/dL (65-110); Potassium 4.6 mmol/L (3.4-5.0); Sodium 135 mmol/L (137-145)
[2023-04-22] MEDS: ACETAMINOPHEN 325 MG TABLET 650 MG PO ×3 (05:36→23:29)
[2023-04-22] MEDS: CYCLOBENZAPRINE HCL 5 MG TABLET PO ×3 (05:36→23:29)
[2023-04-22 05:40] LABS: Alveolar/Arterial O2 Gradient 112.8 mmHg; Base Excess ABG 1.5 mEq/l (+/-2.0); Fractional Inspired Oxygen 36 %; HCO3 ABG 26.4 mEq/l (22.0-26.0); Oxygen Content ABG 20.4 %vol (16.0-22.0); Oxygen Saturation ABG 97.3 % (95.0-100.0); PCO2 ABG 42.4 mmHg (35.0-45.0); PO2 ABG 94.7 mmHg (80.0-100.0); PO2 FiO2 Ratio Arterial Blood 2.63 %; Total Hemoglobin 15.1 g/dL (12.0-18.0); pH ABG 7.412 (7.350-7.450)
[2023-04-22 05:41] LABS: Device NON-INVASIVE VENT; Modified Allen's Test Pass; Site Drawn LEFT RADIAL
[2023-04-22 05:42] LABS: Non-Invasive Expiratory Pressure 5 CMH2O; Non-Invasive Inspiratory Pressure 6 CMH2O; Non-Invasive Vent Rate 14 /MIN
[2023-04-22] MEDS: HYDROcodone/acetaminophen (*CRX) 10-325 MG TABLET 1 TAB PO ×3 (05:55→21:09)
[2023-04-22 08:28] LABS: Glucose Point of Care 325 mg/dl (65-105)
[2023-04-22] MEDS: NICOTINE (*PBKC) 21 MG PATCH 1 PATCH TRANSDERM (08:31)
[2023-04-22] MEDS: FUROSEMIDE 40 MG TABLET PO (08:31)
[2023-04-22] MEDS: PREGABALIN (*CRX) 50 MG CAPSULE 200 MG PO ×2 (08:31→21:08)
[2023-04-22] MEDS: ASPIRIN 81 MG ENTERIC TABLET PO (08:31)
[2023-04-22] MEDS: ENOXAPARIN 40 MG/0.4 ML SYRINGE SUB-Q (08:31)
[2023-04-22] MEDS: DULoxetine HCL 60 MG CAPSULE.DR PO (08:31)
[2023-04-22] MEDS: polyethylene glycoL 3350 17 GM POWD.PACK PO (08:31)
[2023-04-22] MEDS: OXYMETAZOLINE HCL 0.05% NAS 15 ML BTL (*BKC) 2 SPRAY NASAL (08:32)
[2023-04-22] MEDS: BACLOFEN 10 MG TABLET 20 MG PO ×3 (08:32→21:08)
[2023-04-22] MEDS: ISOSORBIDE MONONITRATE 60 MG TAB.ER.24H PO (08:32)
[2023-04-22] MEDS: dilTIAZem HCL CD 240 MG CAP.24HR PO (08:32)
[2023-04-22] MEDS: INSULIN GLARGINE (*BKC) 100 UNITS/ML 14 UNITS SUB-Q (08:32)
[2023-04-22] MEDS: INSULIN ASPART (*BKC) 100 UNITS/ML SUB-Q ×3 (08:33→21:10)
[2023-04-22] MEDS: guaiFENesin 12 HR 600 MG TABCR 1200 MG PO ×2 (08:34→21:09)
--- NOTE | 2023-04-22 08:38 | PM.PNPUL ---
Progress Note: A&P Assessment and Plan (1) COVID-19: Code(s): U07.1 - COVID-19 Status: Acute Assessment and Plan: Patient tested positive for COVID-19 on 04/18/23 and started on remdesivir, dexamethasone on 04/19/2023. procalcitonin 0.1 and not started on antibiotics. 04/20/23: Plan: - Remdesivir for 10 days Unless he should recover and tolerate room air with rest, ambulation and while sleeping. - Dexamethasone 6 mg IV for 10 days - Continuous pulse oximetry - Avoid any fluid overload. - Albuterol and ipratropium nebulizers Q 4 for now, no wheezes. -influenza and RSV swab negative - Keep saturations are 90-94% and currently on 4 L nasal cannula For worsening hypoxemia treat with nasal cannula up to 15 L, if fails then Airvo high flow nasal cannula. If fails Airvo then noninvasive ventilation. D-dimer is negative. I will order a CT scan of the chest without contrast to assess his infiltrates. CT of the chest without contrast shows severe apical predominant panlobular emphysema, mild atelectasis at the bases, some mucus in the right lower lobe bronchi, no focal infiltrates, no focal or diffuse ground-glass infiltrates. 04/21/23: Patient states he feels a little bit better than yesterday. He slept poorly as he could not get comfortable. His shortness of breath remains unchanged and he short of breath at rest and if he talks extensively. He is afebrile. He wore the hospital noninvasive ventilator briefly during the day yesterday and overnight with 36% FiO2 and currently is on 4 L nasal cannula saturations 96%. I decreased him to 3 L nasal cannula saturations were 94%. His creatinine is 0.7. Weight is 99.8 and he is net-2.2 L since admission. He is having difficulty expectorating his phlegm. Plan: Continue remdesivir and dexamethasone, day 3. Oxygenation is close to his baseline and therefore have not started baricitinib. CT scan with no focal ground-glass infiltrates or consolidations. 04/22/23: The patient tells me he feels a little bit better today. He was able to sleep last night with the hospital noninvasive ventilator. He was off of the noninvasive ventilator all day yesterday and sat in the chair for 2-1/2 hours. When I entered the room he was on 4 L with saturations 96%. I decreased him to 3 L and his saturations were 94%. Plan: Continue remdesivir dexamethasone, day 4. Oxygenation as baseline. Will follow with you. (2) Acute on chronic respiratory failure with hypoxia and hypercapnia: Code(s): J96.21 - Acute and chronic respiratory failure with hypoxia; J96.22 - Acute and chronic respiratory failure with hypercapnia Status: Acute Assessment and Plan: Etiology of hypoxic respiratory failure is likely COVID pneumonia. Patient does have baseline hypercarbic and hypoxemic respiratory failure on 3 L at rest, 4 L act with activity and 4 L bleed in on his noninvasive ventilator at night 04/18/23 21:00, nasal cannula 6 L saturation 93% 04/19/23 04:55 hospital noninvasive ventilator with the AVAPS mode rate of 14, tidal volume 500, EPAP 5, 40% 04/19/23 20:30 4 L nasal cannula white eating, saturations 96% 04/19/23 22:45 hospital noninvasive ventilator with the AVAPS mode rate of 14, tidal volume 500, EPAP 5, 36%, sats 97% 04/20/23 04:15 hospital noninvasive ventilator with the AVAPS mode rate of 14, tidal volume 500, EPAP 5, 36% 04/20/23 08:00 4 L nasal cannula, sats 96% 04/20/23 20:00 4 L nasal cannula, saturations 99%, wore hospital noninvasive ventilator with 36% FiO2 overnight 04/21/23 08:00 4 L NC, sats 96, turned to 3 L and sats 94 04/20/23: Plan: Patient with minimal increased oxygen requirements during the day currently and he tolerated 36% FiO2 last night on the hospital noninvasive ventilator and he is on 4 L bleed in at night. He does not have greatly increased oxygen demands at this time, therefore I do not recommend adding baricitinib at this time. 04/21: Plan: Goal saturation 90-94%. We
--- NOTE | 2023-04-22 08:41 | PM.IMPN ---
Progress Note: A&P Assessment and Plan (1) Acute on chronic respiratory failure with hypoxia and hypercapnia: Code(s): J96.21 - Acute and chronic respiratory failure with hypoxia; J96.22 - Acute and chronic respiratory failure with hypercapnia Status: Acute Assessment and Plan: Patient presents with SOB and found to have acute respiratory failure due to COVID. CXR showing mild pulmonary edema but this could be evidence of early COVID pneumonia. AB.34/54/77 on 6.5L Patient was started on remdesivir. He received Solu-Medrol in route to the hospital and then changed to Decadron. Condition worsened so BiPAP started with benefit. Admitted to IMU. Continue AVAPS. Line Service Supervisor was made aware Pulm consult and appreciate their input DDimer negative. Chest CT without contrast showing severe emphysema but no evidence of COVID PNA. Off AVAPS today and weaned to his home O2 of 4 L. Continue Dexamethasone and Remdesivir for total of 10 days, unless he is completely recovered and on room air only sooner, end date 04/28 Continue Mucinex and nasal saline Continue Duonebs (2) COVID-19: Code(s): U07.1 - COVID-19 Status: Acute Assessment and Plan: As above. Patient is not vaccinated. CRP 1.8 and 0.7 on repeat. Mild hemoptysis noted and probably related to COPD and COVID (or false since has cranberry juice at bedside). Continue Remdesivir and Dexamethasone Continue supportive care. Hold off on adding baricitinib since CRP normal and CT clear (3) Elevated troponin: Code(s): R79.89 - Other specified abnormal findings of blood chemistry Status: Acute Assessment and Plan: Patient with elevated troponin to 0.037 Not felt to be clinically significant and likely secondary to demand ischemia. Patient does have CAD but is not having active chest pain. Resumed patient's home atorvastatin, aspirin, Imdur. Renal function normal and BP satisfactory so will resume diuretics (4) COPD (chronic obstructive pulmonary disease): Qualifiers: COPD type: unspecified COPD Qualified Code(s): J44.9 - Chronic obstructive pulmonary disease, unspecified Code(s): J44.9 - Chronic obstructive pulmonary disease, unspecified Status: Acute Assessment and Plan: He has chronic obstructive sleep apnea and is on trilogy at home. He is moderately compliant with treatment. Continue AVAPS (5) Type 2 diabetes mellitus with hyperglycemia, without long-term current use of insulin: Code(s): E11.65 - Type 2 diabetes mellitus with hyperglycemia Status: Acute Assessment and Plan: A1c 6.3%. The patient's blood glucose was reviewed on 04/22 Glucose remains poorly controlled related to steroids. Continue AccuCheks covering with sliding scale. Hypoglycemia protocol available as needed. Advance lantus again Plan Chronic back pain - increase activity by being out of bed, although patient states he has not been active for a long time due to his severe COPD. Continue [place] prn. Flexeril and baclofen prn. PT/OT DVT Prophylaxis - Lovenox Code status - full Subjective Date/time seen: 04/22/23 08:41 Interval history: 62yo male with chronic resp failure on 4L and Trelegy, COPD, HTN, DM and dCHF here for increasing shortness of breath. 04/21: No issues overnight. Wore the bipap. Has chest pain with coughing. Cough productive of yellow-brown sputum occasionally blood tinged. 04/22: No overnight events noted. No chest pain. No nausea, vomiting or diarrhea. No fevers or chills. Patient does feel SOB and feels like he is wheezing. He is requesting nebs more often. Review of Systems Review of Systems: 12 point review of systems was assessed and was negative except as noted in the HPI Exam Narrative: General: No acute distress, alert and oriented per baseline HEENT: Atraumatic, normocephalic, mucous membranes moist CV: Regular
[2023-04-22] MEDS: SALINE 0.65% NAS SOLN 44 ML BTL 1 SPRAY NASAL (08:46)
[2023-04-22 11:50] LABS: Glucose Point of Care 256 mg/dl (65-105)
[2023-04-22 15:39] LABS: Glucose Point of Care 426 mg/dl (65-105)
[2023-04-22] MEDS: INSULIN ASPART (*BKC) 100 UNITS/ML 8 UNITS SUB-Q (18:32)
[2023-04-22 20:35] LABS: Hemoglobin A1C 9.1 % (<5.7)
[2023-04-22] MEDS: MELATONIN 3 MG TABLET PO (21:08)
[2023-04-22] MEDS: ATORVASTATIN 40 MG TABLET 80 MG PO (21:08)
[2023-04-22] MEDS: MONTELUKAST SODIUM 10 MG TABLET PO (21:11)
[2023-04-22 21:18] LABS: Glucose Point of Care 323 mg/dl (65-105)
[2023-04-22] MEDS: REMDESIVIR 100 MG/NS 250 ML 100 MG/250 ML BAG 250 MG IVPB (22:18)
[2023-04-23] VITALS (22 sets, daily range): BP systolic 118–129; BP diastolic 53–67; PULSE 61–112; RESP 16–24; TEMP 36.3–36.8; O2SAT 93–99
[2023-04-23] MEDS: IPRATROPIUM 0.5 MG/ALBUTEROL SULFATE 2.5 MG AMPUL.NEB 3 ML INHALATION ×3 (00:02→07:40)
[2023-04-23 05:58] LABS: Basophils Absolute Auto 0.1 K/mm3 (0.0-0.1); Basophils Percent Auto 0.4 % (0.2-1.2); Hematocrit 41.6 % (42.0-52.0); Hemoglobin 14.3 g/dL (14.0-18.0); Immature Granulocyte Absolute 0.27 K/mm3 (0.00-0.031); Mean Corpuscular HGB Conc 34.4 g/dl (32-36); Mean Corpuscular Hemoglobin 30.1 pg (26-34); Mean Corpuscular Volume 87.6 fl (80-100); Mean Platelet Volume 10.2 fl (7.4-10.4); Monocytes Absolute Auto 0.4 K/mm3 (0.1-0.6); Monocytes Percent Auto 2.7 % (2.6-8.5); Neutrophils Percent Auto 86.9 % (45.5-73.1); Platelet Count Result 289 k/mm3 (150-375); Red Blood Count 4.75 M/mm3 (4.6-6.20); White Blood Count 13.8 K/mm3 (4.5-10.0)
[2023-04-23] MEDS: HYDROcodone/acetaminophen (*CRX) 10-325 MG TABLET 1 TAB PO ×3 (06:02→22:53)
[2023-04-23] MEDS: BACLOFEN 10 MG TABLET 20 MG PO (06:02)
[2023-04-23 06:09] LABS: Alanine Aminotransferase 28 U/L (6-50); Albumin Level 3.5 g/dL (3.5-5.1); Alkaline Phosphatase 109 U/L (38-126); Anion Gap 5 mmol/L (8-16); Aspartate Amino Transferase 20 U/L (17-59); Bilirubin Indirect 0.1 mg/dL (0-1.1); Bilirubin,Total 0.5 mg/dL (0.2-1.3); Blood Urea Nitrogen 19 mg/dL (9-20); Calcium 8.6 mg/dL (8.4-10.2); Carbon Dioxide 29 mmol/L (22-30); Chloride 100 mmol/L (98-107); Estimated CRCL calculation 120 ml/min; Estimated Glomerular Filt Rate > 60; Glucose 308 mg/dL (65-110); Potassium 4.6 mmol/L (3.4-5.0); Sodium 134 mmol/L (137-145)
[2023-04-23 06:13] LABS: Prothrombin Time 13.2 Seconds (11.1-14.7)
[2023-04-23 08:43] LABS: Glucose Point of Care 288 mg/dl (65-105)
[2023-04-23] MEDS: INSULIN ASPART (*BKC) 100 UNITS/ML SUB-Q ×3 (09:02→21:01)
[2023-04-23] MEDS: guaiFENesin 12 HR 600 MG TABCR 1200 MG PO ×2 (09:03→21:06)
[2023-04-23] MEDS: PREGABALIN (*CRX) 50 MG CAPSULE 200 MG PO ×2 (09:04→21:06)
[2023-04-23] MEDS: DULoxetine HCL 60 MG CAPSULE.DR PO (09:04)
[2023-04-23] MEDS: ENOXAPARIN 40 MG/0.4 ML SYRINGE SUB-Q (09:04)
[2023-04-23] MEDS: FUROSEMIDE 40 MG TABLET PO (09:04)
[2023-04-23] MEDS: ISOSORBIDE MONONITRATE 60 MG TAB.ER.24H PO (09:04)
[2023-04-23] MEDS: dilTIAZem HCL CD 240 MG CAP.24HR PO (09:07)
[2023-04-23] MEDS: INSULIN GLARGINE (*BKC) 100 UNITS/ML 14 UNITS SUB-Q (09:07)
[2023-04-23] MEDS: ASPIRIN 81 MG ENTERIC TABLET PO (09:09)
--- NOTE | 2023-04-23 09:12 | PM.PNPUL ---
Progress Note: A&P Assessment and Plan (1) COVID-19: Code(s): U07.1 - COVID-19 Status: Acute Assessment and Plan: Patient tested positive for COVID-19 on 04/18/23 and started on remdesivir, dexamethasone on 04/19/2023. procalcitonin 0.1 and not started on antibiotics. 04/20/23: Plan: - Remdesivir for 10 days Unless he should recover and tolerate room air with rest, ambulation and while sleeping. - Dexamethasone 6 mg IV for 10 days - Continuous pulse oximetry - Avoid any fluid overload. - Albuterol and ipratropium nebulizers Q 4 for now, no wheezes. -influenza and RSV swab negative - Keep saturations are 90-94% and currently on 4 L nasal cannula For worsening hypoxemia treat with nasal cannula up to 15 L, if fails then Airvo high flow nasal cannula. If fails Airvo then noninvasive ventilation. D-dimer is negative. I will order a CT scan of the chest without contrast to assess his infiltrates. CT of the chest without contrast shows severe apical predominant panlobular emphysema, mild atelectasis at the bases, some mucus in the right lower lobe bronchi, no focal infiltrates, no focal or diffuse ground-glass infiltrates. 04/21/23: Patient states he feels a little bit better than yesterday. He slept poorly as he could not get comfortable. His shortness of breath remains unchanged and he short of breath at rest and if he talks extensively. He is afebrile. He wore the hospital noninvasive ventilator briefly during the day yesterday and overnight with 36% FiO2 and currently is on 4 L nasal cannula saturations 96%. I decreased him to 3 L nasal cannula saturations were 94%. His creatinine is 0.7. Weight is 99.8 and he is net-2.2 L since admission. He is having difficulty expectorating his phlegm. Plan: Continue remdesivir and dexamethasone, day 3. Oxygenation is close to his baseline and therefore have not started baricitinib. CT scan with no focal ground-glass infiltrates or consolidations. 04/22/23: The patient tells me he feels a little bit better today. He was able to sleep last night with the hospital noninvasive ventilator. He was off of the noninvasive ventilator all day yesterday and sat in the chair for 2-1/2 hours. When I entered the room he was on 4 L with saturations 96%. I decreased him to 3 L and his saturations were 94%. Plan: Continue remdesivir dexamethasone, day 4. Oxygenation as baseline. 04/23/23: Patient had issues un restful night because of back pain. Overall patient is improving and states he is 60% back to his prehospitalization baseline. He did do some walking yesterday with physical therapy. He is afebrile. White blood cell count 13.8, creatinine 0.6, is on 3 L nasal cannula saturation 95%. Plan: Continue remdesivir and dexamethasone, day 5. Will plan on 10 days of remdesivir. Will follow with you. (2) Acute on chronic respiratory failure with hypoxia and hypercapnia: Code(s): J96.21 - Acute and chronic respiratory failure with hypoxia; J96.22 - Acute and chronic respiratory failure with hypercapnia Status: Acute Assessment and Plan: Etiology of hypoxic respiratory failure is likely COVID pneumonia. Patient does have baseline hypercarbic and hypoxemic respiratory failure on 3 L at rest, 4 L act with activity and 4 L bleed in on his noninvasive ventilator at night 04/18/23 21:00, nasal cannula 6 L saturation 93% 04/19/23 04:55 hospital noninvasive ventilator with the AVAPS mode rate of 14, tidal volume 500, EPAP 5, 40% 04/19/23 20:30 4 L nasal cannula white eating, saturations 96% 04/19/23 22:45 hospital noninvasive ventilator with the AVAPS mode rate of 14, tidal volume 500, EPAP 5, 36%, sats 97% 04/20/23 04:15 hospital noninvasive ventilator with the AVAPS mode rate of 14, tidal volume 500, EPAP 5, 36% 04/20/23 08:00 4 L nasal cannula, sats 96% 04/20/23 20:00 4 L nasal cannula, saturations 99%, wore hospital noninvasive ventilator with 36% FiO2 overnight 04/21/23 08:00 4 L
[2023-04-23] MEDS: NICOTINE (*PBKC) 21 MG PATCH 1 PATCH TRANSDERM (09:13)
[2023-04-23] MEDS: FLUTICASONE/SALMETEROL 230-21 MCG INHALER 1 PUFF INHALATION ×2 (11:25→20:23)
[2023-04-23] MEDS: CYCLOBENZAPRINE HCL 5 MG TABLET PO ×2 (11:25→21:19)
[2023-04-23] MEDS: ACETAMINOPHEN 325 MG TABLET 650 MG PO ×2 (11:28→21:19)
[2023-04-23] MEDS: IPRATROPIUM BR 0.02% INH SOLN 0.5 MG/2.5 ML VIAL INHALATION ×3 (11:29→20:23)
[2023-04-23 12:22] LABS: Glucose Point of Care 318 mg/dl (65-105)
--- NOTE | 2023-04-23 13:40 | PM.IMPN ---
Progress Note: A&P Assessment and Plan (1) Acute on chronic respiratory failure with hypoxia and hypercapnia: Code(s): J96.21 - Acute and chronic respiratory failure with hypoxia; J96.22 - Acute and chronic respiratory failure with hypercapnia Status: Acute Assessment and Plan: COVID positive. Appreciate pulmonology documentation and recs. Continue Decadron and remdesivir for now. He is currently back to his home dose O2 via nasal cannula at 3 L. would be prudent to continue 1 or 2 of this COVID medications for a few more days since he is high risk and chronically ill. Continue AVAPS at night. Follow CRP. Trend procalcitonin if needed. Continue Mucinex. Was increased yesterday and patient wants a given more time to work. (2) Asthma-COPD overlap syndrome: Code(s): J44.89 - Other specified chronic obstructive pulmonary disease Status: Acute Assessment and Plan: On 04/23 since he is not wheezing pulmonology has switched him from DuoNebs to Advair [id number] at 1 puff b.i.d. with ipratropium home nebulizer q.4 hours while awake. Continue dexamethasone guaifenesin (3) Type 2 diabetes mellitus with hyperglycemia, without long-term current use of insulin: Code(s): E11.65 - Type 2 diabetes mellitus with hyperglycemia Status: Acute Assessment and Plan: Somewhat uncontrolled probably due to steroids. Continue sliding scale Lantus and Accu-Cheks. (4) COVID-19: Code(s): U07.1 - COVID-19 Status: Acute Assessment and Plan: As above. (5) Elevated troponin: Code(s): R79.89 - Other specified abnormal findings of blood chemistry Status: Acute Assessment and Plan: Has since down trended. Patient denies chest pain. Plan 62-year-old male with history of COPD asthma overlap on chronic 3-4 L nasal cannula at home, noninvasive ventilator at night, [id number] diabetes mellitus, CAD status post stent, grade 1 diastolic dysfunction anxiety and depression, GERD, hypertension, insomnia presented with shortness of breath. Found to be positive with COVID. FEN: Saline lock IV GI prophylaxis: Not indicated DVT prophylaxis: Lovenox daily Lines: Peripheral IV Code Status: Full code Dispo: Last admission the patient had social issues at home and wanted to take care of his cvptal-yr-dol. She has since passed. The patient is amenable to SNF for therapy this time. PT OT on consult Subjective Date/time seen: 04/23/23 13:40 Interval history: No acute overnight events. Patient reports good BM in last 12 hours. Denies shortness of breath when resting. Review of Systems Review of Systems: All systems reviewed & are unremarkable except as noted in HPI and below (Subjective) Exam Const: General: comfortable and no acute distress Other: A&O x3 Eyes: Pupils: Equal, round and reactive pupils present Resp: Effort & Inspection: normal respiratory effort Auscultation: no crackles, no wheezes and diminished lung sounds Cardio: Rate: regular rate Rhythm: regular rhythm Heart sounds: no gallops, no murmurs and no rubs GI: Inspection: distended GI Palp: No Tenderness to palpation present (GI) Auscultation: normal bowel sounds Extrem: General: no edema Objective Data Vital Signs Vital Signs: Vital Signs - 24 hr 04/22/23 15:56 04/22/23 16:56 04/22/23 17:10 Temperature 97.2 F L Pulse Rate 75 89 92 Respiratory Rate 20 20 20 Blood Pressure 133/60 Pulse Oximetry 95 Oxygen Delivery Oxygen Flow Rate 04/22/23 20:26 04/22/23 20:32 04/22/23 20:33 Temperature 97.8 F Pulse Rate 77 76 Respiratory Rate 20 20 Blood Pressure 138/72 Pulse Oximetry 95 95 Oxygen Delivery Nasal Cannula Oxygen Flow Rate 2 04/22/23 20:39 04/22/23 20:00 04/22/23 22:50 Temperature 97.6 F Pulse Rate 75 83 93 Respiratory Rate 20 16 Blood Pressure 117/60 Pulse Oximetry 97 Oxygen Delivery Oxygen Flow Rate
[2023-04-23 17:06] LABS: Glucose Point of Care 200 mg/dl (65-105)
[2023-04-23 20:28] LABS: Glucose Point of Care 381 mg/dl (65-105)
[2023-04-23] MEDS: ATORVASTATIN 40 MG TABLET 80 MG PO (21:00)
[2023-04-23] MEDS: MELATONIN 3 MG TABLET PO (21:06)
[2023-04-23] MEDS: MONTELUKAST SODIUM 10 MG TABLET PO (21:06)
[2023-04-23] MEDS: REMDESIVIR 100 MG/NS 250 ML 100 MG/250 ML BAG 250 MG IVPB (21:10)
[2023-04-24] VITALS (18 sets, daily range): BP systolic 110–130; BP diastolic 51–65; PULSE 61–88; RESP 18–20; TEMP 36–36.6; O2SAT 93–98
[2023-04-24 04:54] LABS: Alveolar/Arterial O2 Gradient 131.2 mmHg; Base Excess ABG 3.7 mEq/l (+/-2.0); Fractional Inspired Oxygen 36 %; Oxygen Content ABG 19.6 %vol (16.0-22.0); Oxyhemoglobin 94.6 % THb (90.0-100.0); PCO2 ABG 41.2 mmHg (35.0-45.0); PO2 ABG 77.7 mmHg (80.0-100.0); PO2 FiO2 Ratio Arterial Blood 2.16 %; Total Hemoglobin 14.7 g/dL (12.0-18.0)
[2023-04-24 05:03] LABS: Device OTHER DEVICE; Modified Allen's Test Pass; Site Drawn RIGHT RADIAL
[2023-04-24] MEDS: ACETAMINOPHEN 325 MG TABLET 650 MG PO ×2 (05:44→20:59)
[2023-04-24] MEDS: CYCLOBENZAPRINE HCL 5 MG TABLET PO ×3 (05:44→23:13)
[2023-04-24] MEDS: IPRATROPIUM BR 0.02% INH SOLN 0.5 MG/2.5 ML VIAL INHALATION ×4 (05:56→21:47)
[2023-04-24] MEDS: HYDROcodone/acetaminophen (*CRX) 10-325 MG TABLET 1 TAB PO ×3 (06:57→23:13)
[2023-04-24 07:36] LABS: Basophils Percent Auto 0.3 % (0.2-1.2); Eosinophils Percent Auto 0.1 % (0-4.4); Hematocrit 40.6 % (42.0-52.0); Hemoglobin 14.1 g/dL (14.0-18.0); Immature Granulocyte Absolute 0.26 K/mm3 (0.00-0.031); Immature Granulocyte Percent A 2.1 % (0-0.5); Lymphocytes Absolute Auto 1.17 K/mm3 (0.9-3.2); Lymphocytes Percent Auto 9.4 % (18.3-44.2); Mean Corpuscular HGB Conc 34.7 g/dl (32-36); Mean Corpuscular Volume 86.4 fl (80-100); Mean Platelet Volume 10.1 fl (7.4-10.4); Monocytes Absolute Auto 0.3 K/mm3 (0.1-0.6); Monocytes Percent Auto 2.7 % (2.6-8.5); Neutrophils Absolute Auto 10.6 K/mm3 (1.3-6.7); Neutrophils Percent Auto 85.4 % (45.5-73.1); Platelet Count Result 283 k/mm3 (150-375); Red Cell Distribution Width 13.1 % (11.5-14.5); White Blood Count 12.4 K/mm3 (4.5-10.0)
[2023-04-24 07:50] LABS: Alanine Aminotransferase 28 U/L (6-50); Albumin Level 3.5 g/dL (3.5-5.1); Alkaline Phosphatase 100 U/L (38-126); Anion Gap 4 mmol/L (8-16); Aspartate Amino Transferase 21 U/L (17-59); Bilirubin,Total 0.5 mg/dL (0.2-1.3); Blood Urea Nitrogen 21 mg/dL (9-20); CRP < 0.5 mg/dL (<1.0); Calcium 8.6 mg/dL (8.4-10.2); Carbon Dioxide 31 mmol/L (22-30); Chloride 98 mmol/L (98-107); Estimated CRCL calculation 117 ml/min; Estimated Glomerular Filt Rate > 60; Glucose 273 mg/dL (65-110); Magnesium 2.2 mg/dL (1.6-2.3); Potassium 4.3 mmol/L (3.4-5.0); Sodium 133 mmol/L (137-145)
[2023-04-24] MEDS: FLUTICASONE/SALMETEROL 230-21 MCG INHALER 1 PUFF INHALATION ×2 (08:05→21:46)
[2023-04-24 08:50] LABS: Glucose Point of Care 295 mg/dl (65-105)
[2023-04-24] MEDS: ISOSORBIDE MONONITRATE 60 MG TAB.ER.24H PO (09:04)
[2023-04-24] MEDS: PREGABALIN (*CRX) 50 MG CAPSULE 200 MG PO ×2 (09:04→20:59)
[2023-04-24] MEDS: FUROSEMIDE 40 MG TABLET PO (09:04)
[2023-04-24] MEDS: dilTIAZem HCL CD 240 MG CAP.24HR PO (09:04)
[2023-04-24] MEDS: DULoxetine HCL 60 MG CAPSULE.DR PO (09:05)
[2023-04-24] MEDS: INSULIN GLARGINE (*BKC) 100 UNITS/ML 14 UNITS SUB-Q (09:05)
[2023-04-24] MEDS: ASPIRIN 81 MG ENTERIC TABLET PO (09:05)
[2023-04-24] MEDS: guaiFENesin 12 HR 600 MG TABCR 1200 MG PO ×2 (09:05→20:59)
[2023-04-24] MEDS: INSULIN ASPART (*BKC) 100 UNITS/ML SUB-Q ×4 (09:08→21:00)
[2023-04-24] MEDS: NICOTINE (*PBKC) 21 MG PATCH 1 PATCH TRANSDERM (09:09)
[2023-04-24] MEDS: ENOXAPARIN 40 MG/0.4 ML SYRINGE SUB-Q (09:09)
--- NOTE | 2023-04-24 10:07 | PM.PNPUL ---
Progress Note: A&P Assessment and Plan (1) COVID-19: Code(s): U07.1 - COVID-19 Status: Acute Assessment and Plan: Patient tested positive for COVID-19 on 04/18/23 and started on remdesivir, dexamethasone on 04/19/2023. procalcitonin 0.1 and not started on antibiotics. 04/20/23: Plan: - Remdesivir for 10 days Unless he should recover and tolerate room air with rest, ambulation and while sleeping. - Dexamethasone 6 mg IV for 10 days - Continuous pulse oximetry - Avoid any fluid overload. - Albuterol and ipratropium nebulizers Q 4 for now, no wheezes. -influenza and RSV swab negative - Keep saturations are 90-94% and currently on 4 L nasal cannula For worsening hypoxemia treat with nasal cannula up to 15 L, if fails then Airvo high flow nasal cannula. If fails Airvo then noninvasive ventilation. D-dimer is negative. I will order a CT scan of the chest without contrast to assess his infiltrates. CT of the chest without contrast shows severe apical predominant panlobular emphysema, mild atelectasis at the bases, some mucus in the right lower lobe bronchi, no focal infiltrates, no focal or diffuse ground-glass infiltrates. 04/21/23: Patient states he feels a little bit better than yesterday. He slept poorly as he could not get comfortable. His shortness of breath remains unchanged and he short of breath at rest and if he talks extensively. He is afebrile. He wore the hospital noninvasive ventilator briefly during the day yesterday and overnight with 36% FiO2 and currently is on 4 L nasal cannula saturations 96%. I decreased him to 3 L nasal cannula saturations were 94%. His creatinine is 0.7. Weight is 99.8 and he is net-2.2 L since admission. He is having difficulty expectorating his phlegm. Plan: Continue remdesivir and dexamethasone, day 3. Oxygenation is close to his baseline and therefore have not started baricitinib. CT scan with no focal ground-glass infiltrates or consolidations. 04/22/23: The patient tells me he feels a little bit better today. He was able to sleep last night with the hospital noninvasive ventilator. He was off of the noninvasive ventilator all day yesterday and sat in the chair for 2-1/2 hours. When I entered the room he was on 4 L with saturations 96%. I decreased him to 3 L and his saturations were 94%. Plan: Continue remdesivir dexamethasone, day 4. Oxygenation as baseline. 04/23/23: Patient had issues un restful night because of back pain. Overall patient is improving and states he is 60% back to his prehospitalization baseline. He did do some walking yesterday with physical therapy. He is afebrile. White blood cell count 13.8, creatinine 0.6, is on 3 L nasal cannula saturation 95%. Plan: Continue remdesivir and dexamethasone, day 5. Will plan on 10 days of remdesivir. 04/24/23: Patient wore his home noninvasive ventilator with his over the mouth under the nose face mask and 4 L bleed in and said that he did okay with the machine. He was able to get intermittent sleep. Currently states he is slowly improving and states he is 65% back to his normal. Currently is on 3 L nasal cannula saturations 93%. White blood cell count 12.4, creatinine 0.6. Plan: Continue remdesivir and dexamethasone, day 6 of 10. Oxygenation is back to his baseline. Discussed with Dr. Bonilla. Pulmonary inpatient consultative services will resume on 04/27/2023. Call with questions (2) Acute on chronic respiratory failure with hypoxia and hypercapnia: Code(s): J96.21 - Acute and chronic respiratory failure with hypoxia; J96.22 - Acute and chronic respiratory failure with hypercapnia Status: Acute Assessment and Plan: Etiology of hypoxic respiratory failure is likely COVID pneumonia. Patient does have baseline hypercarbic and hypoxemic respiratory failure on 3 L at rest, 4 L act with activity and 4 L bleed in on his noninvasive ventilator at night 04/18/23 21:00, nasal cannul
--- NOTE | 2023-04-24 11:08 | PM.IMPN ---
Progress Note: A&P Assessment and Plan (1) Acute on chronic respiratory failure with hypoxia and hypercapnia: Code(s): J96.21 - Acute and chronic respiratory failure with hypoxia; J96.22 - Acute and chronic respiratory failure with hypercapnia Status: Acute Assessment and Plan: COVID positive. Appreciate pulmonology documentation and recs. Continue Decadron and remdesivir for now. He is currently back to his home dose O2 via nasal cannula at 3 L. would be prudent to continue 1 or 2 of this COVID medications for a few more days since he is high risk and chronically ill. Continue AVAPS at night. Follow CRP and procalcitonin if needed. Continue Mucinex. On 04/24 he is feeling better and amenable to stay over the weekend and be discharged on Thursday to rehab. Feels his chest congestion is resolved. (2) Asthma-COPD overlap syndrome: Code(s): J44.89 - Other specified chronic obstructive pulmonary disease Status: Acute Assessment and Plan: On 04/23 since he is not wheezing pulmonology has switched him from DuoNebs to Advair 230-21 at 1 puff b.i.d. with ipratropium home nebulizer q.4 hours while awake. Continue dexamethasone guaifenesin (3) Type 2 diabetes mellitus with hyperglycemia, without long-term current use of insulin: Code(s): E11.65 - Type 2 diabetes mellitus with hyperglycemia Status: Acute Assessment and Plan: Somewhat uncontrolled probably due to steroids. Continue sliding scale Lantus and Accu-Cheks. (4) COVID-19: Code(s): U07.1 - COVID-19 Status: Acute Assessment and Plan: As above. (5) Elevated troponin: Code(s): R79.89 - Other specified abnormal findings of blood chemistry Status: Acute Assessment and Plan: Has since down trended. Patient denies chest pain. Plan 62-year-old male with history of COPD asthma overlap on chronic 3-4 L nasal cannula at home, noninvasive ventilator at night, toa-sedwfdd-laufuaxyz diabetes mellitus, CAD status post stent, grade 1 diastolic dysfunction anxiety and depression, GERD, hypertension, insomnia presented with shortness of breath. Found to be positive with COVID. FEN: Saline lock IV GI prophylaxis: Not indicated DVT prophylaxis: Lovenox daily Lines: Peripheral IV Code Status: Full code Dispo: Last admission the patient had social issues at home and wanted to take care of his jbrtfx-zs-rtb. She has since passed. The patient is amenable to SNF for therapy this time. PT OT on consult. 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 Will need a facility that can manage noninvasive ventilator. Subjective Date/time seen: 04/24/23 11:08 Interval history: No acute overnight events. Patient was able to wear noninvasive ventilator and tolerate it. He denies any shortness of breath. He feels that his chest congestion has cleared up. Review of Systems Review of Systems: All systems reviewed & are unremarkable except as noted in HPI and below (Subjective) Exam Const: General: comfortable and no acute distress Other: A and O x3 Resp: Effort & Inspection: normal respiratory effort Auscultation: clear to auscultation bilaterally and diminished lung sounds Cardio: Rate: regular rate Rhythm: regular rhythm Heart sounds: no gallops, no murmurs and no rubs GI: Inspection: distended GI Palp: Yes Soft to palpation and No Tenderness to palpation present (GI) Extrem: General: no edema Objective Data Vital Signs Vital Signs: Vital Signs - 24 hr 04/23/23 11:30 04/23/23 11:43 04/23/23 12:01 Temperature Pulse Rate 112 H 98 87 Respiratory Rate 24 H 24 H Blood Pressure Pulse Oximetry Oxygen Delivery Oxygen Flow Rate Fraction of Inspired Oxygen 04/23/23 16:12 04/23/23 16:23 04/23/23 16:23 Temperature Pulse Rate 84 82 Respiratory Rate 20 Blood Pressure Pulse Oximetry 93 Oxygen Delivery Nasal Cannula Oxygen Flow Rate 4
[2023-04-24 12:06] LABS: Glucose Point of Care 268 mg/dl (65-105)
[2023-04-24 17:09] LABS: Glucose Point of Care 264 mg/dl (65-105)
[2023-04-24 20:56] LABS: Glucose Point of Care 326 mg/dl (65-105)
[2023-04-24] MEDS: ATORVASTATIN 40 MG TABLET 80 MG PO (20:59)
[2023-04-24] MEDS: MONTELUKAST SODIUM 10 MG TABLET PO (20:59)
[2023-04-24] MEDS: MELATONIN 3 MG TABLET PO (20:59)
[2023-04-24] MEDS: REMDESIVIR 100 MG/NS 250 ML 100 MG/250 ML BAG 250 MG IVPB (21:05)
[2023-04-24] MEDS: CALCIUM CARBONATE (TUMS) 500 MG (200 MG ELEMENTAL) PO (22:22)
[2023-04-25] VITALS (22 sets, daily range): BP systolic 117–127; BP diastolic 52–63; PULSE 67–89; RESP 12–18; TEMP 36.5–36.9; O2SAT 91–97
[2023-04-25] MEDS: ACETAMINOPHEN 325 MG TABLET 650 MG PO ×2 (03:07→10:06)
[2023-04-25] MEDS: BACLOFEN 10 MG TABLET 20 MG PO (03:07)
[2023-04-25 05:11] LABS: Basophils Absolute Auto 0.1 K/mm3 (0.0-0.1); Basophils Percent Auto 0.4 % (0.2-1.2); Eosinophils Percent Auto 0.1 % (0-4.4); Hematocrit 39.2 % (42.0-52.0); Hemoglobin 13.7 g/dL (14.0-18.0); Immature Granulocyte Absolute 0.32 K/mm3 (0.00-0.031); Immature Granulocyte Percent A 2.7 % (0-0.5); Lymphocytes Absolute Auto 1.11 K/mm3 (0.9-3.2); Lymphocytes Percent Auto 9.5 % (18.3-44.2); Mean Corpuscular HGB Conc 34.9 g/dl (32-36); Mean Corpuscular Hemoglobin 30.2 pg (26-34); Mean Corpuscular Volume 86.5 fl (80-100); Mean Platelet Volume 10.3 fl (7.4-10.4); Monocytes Absolute Auto 0.3 K/mm3 (0.1-0.6); Monocytes Percent Auto 2.6 % (2.6-8.5); Neutrophils Absolute Auto 9.9 K/mm3 (1.3-6.7); Neutrophils Percent Auto 84.7 % (45.5-73.1); Platelet Count Result 267 k/mm3 (150-375); Red Blood Count 4.53 M/mm3 (4.6-6.20); Red Cell Distribution Width 12.9 % (11.5-14.5); White Blood Count 11.7 K/mm3 (4.5-10.0)
[2023-04-25 05:22] LABS: Alanine Aminotransferase 25 U/L (6-50); Albumin Level 3.4 g/dL (3.5-5.1); Alkaline Phosphatase 122 U/L (38-126); Anion Gap 5 mmol/L (8-16); Aspartate Amino Transferase 19 U/L (17-59); Bilirubin,Total 0.5 mg/dL (0.2-1.3); Blood Urea Nitrogen 22 mg/dL (9-20); Calcium 8.4 mg/dL (8.4-10.2); Carbon Dioxide 30 mmol/L (22-30); Chloride 97 mmol/L (98-107); Estimated CRCL calculation 102 ml/min; Estimated Glomerular Filt Rate > 60; Glucose 473 mg/dL (65-110); Potassium 4.2 mmol/L (3.4-5.0); Sodium 132 mmol/L (137-145)
[2023-04-25 05:39] LABS: Prothrombin Time 13.3 Seconds (11.1-14.7)
[2023-04-25 05:47] LABS: Glucose Point of Care 452 mg/dl (65-105)
[2023-04-25] MEDS: INSULIN ASPART (*BKC) 100 UNITS/ML SUB-Q ×5 (05:58→21:48)
[2023-04-25] MEDS: HYDROcodone/acetaminophen (*CRX) 10-325 MG TABLET 1 TAB PO ×3 (07:01→23:17)
[2023-04-25] MEDS: IPRATROPIUM BR 0.02% INH SOLN 0.5 MG/2.5 ML VIAL INHALATION ×4 (07:40→20:11)
[2023-04-25] MEDS: FLUTICASONE/SALMETEROL 230-21 MCG INHALER 1 PUFF INHALATION ×2 (07:41→20:11)
[2023-04-25 09:41] LABS: Glucose Point of Care 330 mg/dl (65-105)
[2023-04-25] MEDS: INSULIN GLARGINE (*BKC) 100 UNITS/ML 14 UNITS SUB-Q (09:48)
[2023-04-25] MEDS: PREGABALIN (*CRX) 50 MG CAPSULE 200 MG PO ×2 (09:51→21:48)
[2023-04-25] MEDS: guaiFENesin 12 HR 600 MG TABCR 1200 MG PO ×2 (09:51→21:47)
[2023-04-25] MEDS: ASPIRIN 81 MG ENTERIC TABLET PO (09:51)
[2023-04-25] MEDS: ENOXAPARIN 40 MG/0.4 ML SYRINGE SUB-Q (09:51)
[2023-04-25] MEDS: DULoxetine HCL 60 MG CAPSULE.DR PO (09:52)
[2023-04-25] MEDS: NICOTINE (*PBKC) 21 MG PATCH 1 PATCH TRANSDERM (09:52)
[2023-04-25] MEDS: dilTIAZem HCL CD 240 MG CAP.24HR PO (09:52)
[2023-04-25] MEDS: ISOSORBIDE MONONITRATE 60 MG TAB.ER.24H PO (09:52)
[2023-04-25] MEDS: FUROSEMIDE 40 MG TABLET PO (09:52)
[2023-04-25 12:21] LABS: Glucose Point of Care 371 mg/dl (65-105)
[2023-04-25 13:20] LABS: Glucose Point of Care 397 mg/dl (65-105)
[2023-04-25] MEDS: CYCLOBENZAPRINE HCL 5 MG TABLET PO ×2 (15:27→23:18)
--- NOTE | 2023-04-25 17:08 | PM.IMPN ---
Progress Note: A&P Assessment and Plan (1) Acute on chronic respiratory failure with hypoxia and hypercapnia: Code(s): J96.21 - Acute and chronic respiratory failure with hypoxia; J96.22 - Acute and chronic respiratory failure with hypercapnia Status: Acute Assessment and Plan: COVID positive. Appreciate pulmonology documentation and recs. Continue Decadron and remdesivir for now. He is currently back to his home dose O2 via nasal cannula at 3 L. would be prudent to continue 1 or 2 of this COVID medications for a few more days since he is high risk and chronically ill. Continue AVAPS at night. Follow CRP and procalcitonin if needed. Continue Mucinex. On 04/24 he is feeling better and amenable to stay over the weekend and be discharged on Thursday to rehab. Feels his chest congestion is resolved. On 04/25 no change in his symptomatology. Continue present management (2) Asthma-COPD overlap syndrome: Code(s): J44.89 - Other specified chronic obstructive pulmonary disease Status: Acute Assessment and Plan: On 04/23 since he is not wheezing pulmonology has switched him from DuoNebs to Advair 230-21 at 1 puff b.i.d. with ipratropium home nebulizer q.4 hours while awake. Continue dexamethasone guaifenesin (3) Type 2 diabetes mellitus with hyperglycemia, without long-term current use of insulin: Code(s): E11.65 - Type 2 diabetes mellitus with hyperglycemia Status: Acute Assessment and Plan: Somewhat uncontrolled probably due to steroids. Continue sliding scale Lantus and Accu-Cheks. On 04/25 if sugars are more uncontrolled. Scheduling aspart 7 units t.i.d. with meals. (4) COVID-19: Code(s): U07.1 - COVID-19 Status: Acute Assessment and Plan: As above. (5) Elevated troponin: Code(s): R79.89 - Other specified abnormal findings of blood chemistry Status: Acute Assessment and Plan: Has since down trended. Patient denies chest pain. Plan 62-year-old male with history of COPD asthma overlap on chronic 3-4 L nasal cannula at home, noninvasive ventilator at night, ozs-pufoiov-vdarfjbpi diabetes mellitus, CAD status post stent, grade 1 diastolic dysfunction anxiety and depression, GERD, hypertension, insomnia presented with shortness of breath. Found to be positive with COVID. FEN: Saline lock IV GI prophylaxis: Not indicated DVT prophylaxis: Lovenox daily Lines: Peripheral IV Code Status: Full code Dispo: Last admission the patient had social issues at home and wanted to take care of his ykureq-xo-bfw. She has since passed. The patient is amenable to SNF for therapy this time. PT OT on consult. 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 Will need a facility that can manage noninvasive ventilator. Subjective Date/time seen: 04/25/23 17:08 Interval history: No acute overnight events. The patient denies any new complaints. Review of Systems Review of Systems: All systems reviewed & are unremarkable except as noted in HPI and below (Subjective) Exam Const: General: comfortable and no acute distress Other: A and O x3 Eyes: Pupils: Equal, round and reactive pupils present Resp: Effort & Inspection: normal respiratory effort Auscultation: clear to auscultation bilaterally and diminished lung sounds Cardio: Rate: regular rate Rhythm: regular rhythm Heart sounds: no gallops, no murmurs and no rubs GI: Inspection: distended GI Palp: Yes Soft to palpation and No Tenderness to palpation present (GI) Extrem: General: no edema Objective Data Vital Signs Vital Signs: Vital Signs - 24 hr 04/24/23 20:43 04/24/23 20:00 04/24/23 21:48 Temperature 97.9 F Pulse Rate 66 70 Respiratory Rate 18 20 Blood Pressure 130/65 Pulse Oximetry 97 97 Oxygen Delivery Nasal Cannula Oxygen Flow Rate 3 04/24/23 21:58 04/24/23 20:00 04/25/23 00:00 Temperature Pulse Rate 71 64 67 Respiratory Rate 1
[2023-04-25] MEDS: INSULIN ASPART (*BKC) 100 UNITS/ML 7 UNITS SUB-Q (18:16)
[2023-04-25] MEDS: polyethylene glycoL 3350 17 GM POWD.PACK PO (18:17)
[2023-04-25 18:37] LABS: Glucose Point of Care 341 mg/dl (65-105)
[2023-04-25] MEDS: MELATONIN 3 MG TABLET PO (21:47)
[2023-04-25] MEDS: ATORVASTATIN 40 MG TABLET 80 MG PO (21:47)
[2023-04-25] MEDS: MONTELUKAST SODIUM 10 MG TABLET PO (21:48)
[2023-04-25] MEDS: REMDESIVIR 100 MG/NS 250 ML 100 MG/250 ML BAG 250 MG IVPB (21:58)
[2023-04-25 23:32] LABS: Glucose Point of Care 274 mg/dl (65-105)
[2023-04-25] MEDS: SALINE 0.65% NAS SOLN 44 ML BTL 1 SPRAY NASAL (23:53)
[2023-04-25] MEDS: OXYMETAZOLINE HCL 0.05% NAS 15 ML BTL (*BKC) 2 SPRAY NASAL (23:53)
[2023-04-26] VITALS (18 sets, daily range): BP systolic 107–125; BP diastolic 48–59; PULSE 56–87; RESP 16–18; TEMP 35.7–36.9; O2SAT 93–98
[2023-04-26 05:48] LABS: Basophils Percent Auto 0.2 % (0.2-1.2); Eosinophils Percent Auto 0.2 % (0-4.4); Hemoglobin 13.8 g/dL (14.0-18.0); Immature Granulocyte Absolute 0.32 K/mm3 (0.00-0.031); Immature Granulocyte Percent A 2.4 % (0-0.5); Lymphocytes Absolute Auto 1.19 K/mm3 (0.9-3.2); Mean Corpuscular HGB Conc 33.7 g/dl (32-36); Mean Corpuscular Hemoglobin 29.7 pg (26-34); Mean Corpuscular Volume 88.2 fl (80-100); Mean Platelet Volume 10.6 fl (7.4-10.4); Monocytes Absolute Auto 0.4 K/mm3 (0.1-0.6); Monocytes Percent Auto 2.8 % (2.6-8.5); Neutrophils Absolute Auto 11.2 K/mm3 (1.3-6.7); Neutrophils Percent Auto 85.4 % (45.5-73.1); Platelet Count Result 267 k/mm3 (150-375); Red Blood Count 4.65 M/mm3 (4.6-6.20); Red Cell Distribution Width 13.2 % (11.5-14.5); White Blood Count 13.2 K/mm3 (4.5-10.0)
[2023-04-26 06:05] LABS: Alanine Aminotransferase 27 U/L (6-50); Albumin Level 3.6 g/dL (3.5-5.1); Alkaline Phosphatase 116 U/L (38-126); Anion Gap 3 mmol/L (8-16); Aspartate Amino Transferase 21 U/L (17-59); Bilirubin,Total 0.5 mg/dL (0.2-1.3); Blood Urea Nitrogen 20 mg/dL (9-20); Calcium 8.8 mg/dL (8.4-10.2); Carbon Dioxide 32 mmol/L (22-30); Chloride 99 mmol/L (98-107); Estimated CRCL calculation 102 ml/min; Estimated Glomerular Filt Rate > 60; Glucose 296 mg/dL (65-110); Magnesium 2.3 mg/dL (1.6-2.3); Potassium 4.4 mmol/L (3.4-5.0); Sodium 134 mmol/L (137-145)
[2023-04-26] MEDS: CYCLOBENZAPRINE HCL 5 MG TABLET PO ×2 (06:58→18:16)
[2023-04-26] MEDS: HYDROcodone/acetaminophen (*CRX) 10-325 MG TABLET 1 TAB PO ×2 (06:58→18:16)
[2023-04-26 08:27] LABS: Glucose Point of Care 278 mg/dl (65-105)
--- NOTE | 2023-04-26 09:33 | PM.IMPN ---
Progress Note: A&P Assessment and Plan (1) Acute on chronic respiratory failure with hypoxia and hypercapnia: Code(s): J96.21 - Acute and chronic respiratory failure with hypoxia; J96.22 - Acute and chronic respiratory failure with hypercapnia Status: Acute Assessment and Plan: COVID positive. Appreciate pulmonology documentation and recs. Continue Decadron and remdesivir for 10 day course and 5 day course respectively He is currently back to his home dose O2 via nasal cannula at 3 L. Continue AVAPS at night. Follow CRP and procalcitonin if needed. Continue Mucinex. On 04/24 he is feeling better and amenable to stay over the weekend and be discharged on Thursday to rehab. Feels his chest congestion is resolved. On 04/25 no change in his symptomatology. Continue present management On 04/26 no change in symptomatology. Continue present management (2) Asthma-COPD overlap syndrome: Code(s): J44.89 - Other specified chronic obstructive pulmonary disease Status: Acute Assessment and Plan: On 04/23 since he is not wheezing pulmonology has switched him from DuoNebs to Advair 230-21 at 1 puff b.i.d. with ipratropium home nebulizer q.4 hours while awake. Continue dexamethasone guaifenesin (3) Type 2 diabetes mellitus with hyperglycemia, without long-term current use of insulin: Code(s): E11.65 - Type 2 diabetes mellitus with hyperglycemia Status: Acute Assessment and Plan: On 04/25 if sugars are more uncontrolled. Scheduling aspart 7 units t.i.d. with meals. On 04/25 sugar still ranging in high 200s. Increase aspart from 7-10 units t.i.d. with meals Continue Accu-Cheks and sliding scale. Continue glargine 14 units q.a.m. (4) COVID-19: Code(s): U07.1 - COVID-19 Status: Acute Assessment and Plan: As above. (5) Elevated troponin: Code(s): R79.89 - Other specified abnormal findings of blood chemistry Status: Acute Assessment and Plan: Has since down trended. Patient denies chest pain. Plan 62-year-old male with history of COPD asthma overlap on chronic 3-4 L nasal cannula at home, noninvasive ventilator at night, bdy-ijtybcc-qwjabxdea diabetes mellitus, CAD status post stent, grade 1 diastolic dysfunction anxiety and depression, GERD, hypertension, insomnia presented with shortness of breath. Found to be positive with COVID. FEN: Saline lock IV GI prophylaxis: Not indicated DVT prophylaxis: Lovenox daily Lines: Peripheral IV Code Status: Full code Dispo: Last admission the patient had social issues at home and wanted to take care of his hywmbb-uj-sqo. She has since passed. The patient is amenable to SNF for therapy this time. PT OT on consult. Plan to discharge on Thursday. Care coordination consulted. Will need a facility that can manage noninvasive ventilator. Subjective Date/time seen: 04/26/23 09:33 Interval history: No acute overnight events. Upon entering room patient is not wearing nasal cannula. He reports that fell off. Denies SOB Review of Systems Review of Systems: All systems reviewed & are unremarkable except as noted in HPI and below Exam Const: General: comfortable and no acute distress Eyes: Pupils: Equal, round and reactive pupils present Neck: Neck: supple Resp: Effort & Inspection: normal respiratory effort Auscultation: diminished lung sounds Cardio: Rate: regular rate Rhythm: regular rhythm GI: Inspection: distended GI Palp: No Tenderness to palpation present (GI) Extrem: General: edema Objective Data Vital Signs Vital Signs: Vital Signs - 24 hr 04/25/23 11:44 04/25/23 11:51 04/25/23 16:09 Temperature Pulse Rate 67 72 78 Respiratory Rate 16 16 16 Blood Pressure Pulse Oximetry Oxygen Delivery Oxygen Flow Rate 04/25/23 16:27 04/25/23 17:13 04/25/23 20:11 Temperature 97.7 F Pulse Rate 76 70 74 Respiratory Rate 16 12 16 Blood Pressure 117/63 Pu
[2023-04-26] MEDS: INSULIN ASPART (*BKC) 100 UNITS/ML 7 UNITS SUB-Q (10:00)
[2023-04-26] MEDS: INSULIN ASPART (*BKC) 100 UNITS/ML SUB-Q ×3 (10:00→21:15)
[2023-04-26] MEDS: ENOXAPARIN 40 MG/0.4 ML SYRINGE SUB-Q (10:01)
[2023-04-26] MEDS: INSULIN GLARGINE (*BKC) 100 UNITS/ML 14 UNITS SUB-Q (10:01)
[2023-04-26] MEDS: polyethylene glycoL 3350 17 GM POWD.PACK PO (10:01)
[2023-04-26] MEDS: DULoxetine HCL 60 MG CAPSULE.DR PO (10:02)
[2023-04-26] MEDS: ASPIRIN 81 MG ENTERIC TABLET PO (10:02)
[2023-04-26] MEDS: dilTIAZem HCL CD 240 MG CAP.24HR PO (10:02)
[2023-04-26] MEDS: FUROSEMIDE 40 MG TABLET PO (10:02)
[2023-04-26] MEDS: PREGABALIN (*CRX) 50 MG CAPSULE 200 MG PO ×2 (10:02→21:14)
[2023-04-26] MEDS: guaiFENesin 12 HR 600 MG TABCR 1200 MG PO ×2 (10:02→21:14)
[2023-04-26] MEDS: ISOSORBIDE MONONITRATE 60 MG TAB.ER.24H PO (10:02)
[2023-04-26] MEDS: NICOTINE (*PBKC) 21 MG PATCH 1 PATCH TRANSDERM (10:02)
[2023-04-26] MEDS: FLUTICASONE/SALMETEROL 230-21 MCG INHALER 1 PUFF INHALATION ×2 (10:23→22:06)
[2023-04-26 11:55] LABS: Glucose Point of Care 406 mg/dl (65-105)
[2023-04-26] MEDS: IPRATROPIUM BR 0.02% INH SOLN 0.5 MG/2.5 ML VIAL INHALATION ×2 (12:39→22:05)
--- NOTE | 2023-04-26 12:41 | PCRCNOTE ---
Window of time for administration has passed. See next scheduled administration.
[2023-04-26] MEDS: INSULIN ASPART (*BKC) 100 UNITS/ML 10 UNITS SUB-Q ×3 (12:46→18:14)
[2023-04-26 13:56] LABS: Glucose Point of Care 359 mg/dl (65-105)
[2023-04-26 15:16] LABS: Glucose Point of Care 299 mg/dl (65-105)
[2023-04-26 17:23] LABS: Glucose Point of Care 222 mg/dl (65-105)
--- NOTE | 2023-04-26 18:36 | PCRCNOTE ---
Window of time for administration has passed. See next scheduled administration.
[2023-04-26] MEDS: MELATONIN 3 MG TABLET PO (21:14)
[2023-04-26] MEDS: MONTELUKAST SODIUM 10 MG TABLET PO (21:14)
[2023-04-26] MEDS: ATORVASTATIN 40 MG TABLET 80 MG PO (21:14)
[2023-04-26] MEDS: REMDESIVIR 100 MG/NS 250 ML 100 MG/250 ML BAG 250 MG IVPB (21:17)
[2023-04-26] MEDS: ACETAMINOPHEN 325 MG TABLET 650 MG PO (21:18)
[2023-04-26 21:34] LABS: Glucose Point of Care 307 mg/dl (65-105)
[2023-04-27] VITALS (16 sets, daily range): BP systolic 100–136; BP diastolic 47–64; PULSE 58–98; RESP 18–20; TEMP 36.3–36.9; O2SAT 92–97
[2023-04-27] MEDS: CYCLOBENZAPRINE HCL 5 MG TABLET PO ×3 (04:11→20:41)
[2023-04-27] MEDS: HYDROcodone/acetaminophen (*CRX) 10-325 MG TABLET 1 TAB PO ×3 (04:11→20:40)
[2023-04-27 06:09] LABS: Basophils Percent Auto 0.3 % (0.2-1.2); Eosinophils Percent Auto 0.2 % (0-4.4); Hematocrit 42.2 % (42.0-52.0); Hemoglobin 14.2 g/dL (14.0-18.0); Immature Granulocyte Absolute 0.33 K/mm3 (0.00-0.031); Immature Granulocyte Percent A 2.7 % (0-0.5); Lymphocytes Absolute Auto 1.09 K/mm3 (0.9-3.2); Lymphocytes Percent Auto 8.9 % (18.3-44.2); Mean Corpuscular HGB Conc 33.6 g/dl (32-36); Mean Corpuscular Hemoglobin 30.1 pg (26-34); Mean Corpuscular Volume 89.4 fl (80-100); Mean Platelet Volume 10.6 fl (7.4-10.4); Monocytes Absolute Auto 0.3 K/mm3 (0.1-0.6); Monocytes Percent Auto 2.6 % (2.6-8.5); Neutrophils Absolute Auto 10.5 K/mm3 (1.3-6.7); Neutrophils Percent Auto 85.3 % (45.5-73.1); Platelet Count Result 270 k/mm3 (150-375); Red Blood Count 4.72 M/mm3 (4.6-6.20); Red Cell Distribution Width 13.1 % (11.5-14.5); White Blood Count 12.3 K/mm3 (4.5-10.0)
[2023-04-27 06:25] LABS: Prothrombin Time 13.3 Seconds (11.1-14.7)
[2023-04-27 06:29] LABS: Alanine Aminotransferase 29 U/L (6-50); Albumin Level 3.7 g/dL (3.5-5.1); Alkaline Phosphatase 124 U/L (38-126); Anion Gap 4 mmol/L (8-16); Aspartate Amino Transferase 20 U/L (17-59); Bilirubin Indirect 0.3 mg/dL (0-1.1); Bilirubin,Total 0.5 mg/dL (0.2-1.3); Blood Urea Nitrogen 21 mg/dL (9-20); Calcium 8.8 mg/dL (8.4-10.2); Carbon Dioxide 30 mmol/L (22-30); Chloride 97 mmol/L (98-107); Estimated CRCL calculation 102 ml/min; Estimated Glomerular Filt Rate > 60; Glucose 330 mg/dL (65-110); Potassium 4.6 mmol/L (3.4-5.0); Sodium 131 mmol/L (137-145)
[2023-04-27 08:05] LABS: Glucose Point of Care 317 mg/dl (65-105)
[2023-04-27] MEDS: IPRATROPIUM BR 0.02% INH SOLN 0.5 MG/2.5 ML VIAL INHALATION ×2 (08:41→12:58)
[2023-04-27] MEDS: FLUTICASONE/SALMETEROL 230-21 MCG INHALER 1 PUFF INHALATION ×3 (08:41→21:00)
[2023-04-27] MEDS: INSULIN ASPART (*BKC) 100 UNITS/ML SUB-Q ×4 (09:33→20:48)
[2023-04-27] MEDS: INSULIN GLARGINE (*BKC) 100 UNITS/ML 14 UNITS SUB-Q (09:33)
[2023-04-27] MEDS: INSULIN ASPART (*BKC) 100 UNITS/ML 10 UNITS SUB-Q ×3 (09:34→17:25)
[2023-04-27] MEDS: NICOTINE (*PBKC) 21 MG PATCH 1 PATCH TRANSDERM (09:38)
[2023-04-27] MEDS: FUROSEMIDE 40 MG TABLET PO (09:38)
[2023-04-27] MEDS: PREGABALIN (*CRX) 50 MG CAPSULE 200 MG PO ×2 (09:38→20:40)
[2023-04-27] MEDS: ISOSORBIDE MONONITRATE 60 MG TAB.ER.24H PO (09:38)
[2023-04-27] MEDS: polyethylene glycoL 3350 17 GM POWD.PACK PO (09:38)
[2023-04-27] MEDS: ENOXAPARIN 40 MG/0.4 ML SYRINGE SUB-Q (09:38)
[2023-04-27] MEDS: ASPIRIN 81 MG ENTERIC TABLET PO (09:38)
[2023-04-27] MEDS: DULoxetine HCL 60 MG CAPSULE.DR PO (09:38)
[2023-04-27] MEDS: dilTIAZem HCL CD 240 MG CAP.24HR PO (09:39)
[2023-04-27] MEDS: guaiFENesin 12 HR 600 MG TABCR 1200 MG PO ×2 (09:39→20:41)
--- NOTE | 2023-04-27 11:24 | PCNWS ---
Weekly nutritional screen. Patient is tolerating current diet with adequate intake. No weight loss reported. No nutritional needs at this time.
--- NOTE | 2023-04-27 12:03 | PM.IMPN ---
Progress Note: A&P Assessment and Plan (1) Acute on chronic respiratory failure with hypoxia and hypercapnia: Code(s): J96.21 - Acute and chronic respiratory failure with hypoxia; J96.22 - Acute and chronic respiratory failure with hypercapnia Status: Acute Assessment and Plan: COVID positive. Appreciate pulmonology documentation and recs. Continue Decadron and remdesivir for 10 day course and 5 day course respectively He is currently back to his home dose O2 via nasal cannula at 3 L. Continue AVAPS at night. Follow CRP and procalcitonin if needed. Continue Mucinex. On 04/24 he is feeling better and amenable to stay over the weekend and be discharged on Thursday to rehab. Feels his chest congestion is resolved. On 04/25 no change in his symptomatology. Continue present management On 04/26 no change in symptomatology. Continue present management On 04/27 his symptomatology is flat. Appreciate pulmonology recommendations, we have mostly optimize his respiratory status. He does complain of some chest congestion so will start chest physiotherapy. Continue guaifenesin (2) Asthma-COPD overlap syndrome: Code(s): J44.89 - Other specified chronic obstructive pulmonary disease Status: Acute Assessment and Plan: On 04/23 since he is not wheezing pulmonology has switched him from DuoNebs to Advair 230-21 at 1 puff b.i.d. with ipratropium home nebulizer q.4 hours while awake. Continue guaifenesin (3) Type 2 diabetes mellitus with hyperglycemia, without long-term current use of insulin: Code(s): E11.65 - Type 2 diabetes mellitus with hyperglycemia Status: Acute Assessment and Plan: On 04/25 if sugars are more uncontrolled. Scheduling aspart 7 units t.i.d. with meals. On 04/25 sugar still ranging in high 200s. Increase aspart from 7-10 units t.i.d. with meals On 04/27 discontinue Decadron. Continue insulin scheduled and decrease when his sugars are more controlled Continue Accu-Cheks and sliding scale. Continue glargine 14 units q.a.m. (4) COVID-19: Code(s): U07.1 - COVID-19 Status: Acute Assessment and Plan: As above. (5) Elevated troponin: Code(s): R79.89 - Other specified abnormal findings of blood chemistry Status: Acute Assessment and Plan: Has since down trended. Patient denies chest pain. Plan 62-year-old male with history of COPD asthma overlap on chronic 3-4 L nasal cannula at home, noninvasive ventilator at night, tad-srjqjwq-vuuwevdjx diabetes mellitus, CAD status post stent, grade 1 diastolic dysfunction anxiety and depression, GERD, hypertension, insomnia presented with shortness of breath. Found to be positive with COVID. FEN: Saline lock IV GI prophylaxis: Not indicated DVT prophylaxis: Lovenox daily Lines: Peripheral IV Code Status: Full code Dispo: Last admission the patient had social issues at home and wanted to take care of his [id number]-vm-lxp. She has since passed. The patient is amenable to SNF for therapy this time. PT OT on consult. Plan to discharge on Thursday. Care coordination consulted. Will need a facility that can manage noninvasive ventilator. Subjective Date/time seen: 04/27/23 12:03 Interval history: No acute overnight events. Complains of some persistent chest congestion. He is quite worried about his sugars. He says his is not sick and cannot fill out papers for the rehab Review of Systems Review of Systems: All systems reviewed & are unremarkable except as noted in HPI and below (Subjective) Exam Const: General: comfortable and no acute distress Eyes: Pupils: Equal, round and reactive pupils present Neck: Neck: supple Resp: Effort & Inspection: normal respiratory effort Auscultation: diminished lung sounds Cardio: Rate: regular rate Rhythm: regular rhythm GI: Inspection: distended GI Palp: No Tenderness to palpation present (GI) Extrem: General: edema Objective Sohan
[2023-04-27 12:07] LABS: Glucose Point of Care 388 mg/dl (65-105)
--- NOTE | 2023-04-27 12:09 | PM.PNPUL ---
Progress Note: A&P Assessment and Plan (1) COVID-19: Code(s): U07.1 - COVID-19 Status: Acute Assessment and Plan: Patient tested positive for COVID-19 on 04/18/23 and started on remdesivir, dexamethasone on 04/19/2023. procalcitonin 0.1 and not started on antibiotics. 04/20/23: Plan: - Remdesivir for 10 days Unless he should recover and tolerate room air with rest, ambulation and while sleeping. - Dexamethasone 6 mg IV for 10 days - Continuous pulse oximetry - Avoid any fluid overload. - Albuterol and ipratropium nebulizers Q 4 for now, no wheezes. -influenza and RSV swab negative - Keep saturations are 90-94% and currently on 4 L nasal cannula For worsening hypoxemia treat with nasal cannula up to 15 L, if fails then Airvo high flow nasal cannula. If fails Airvo then noninvasive ventilation. D-dimer is negative. I will order a CT scan of the chest without contrast to assess his infiltrates. CT of the chest without contrast shows severe apical predominant panlobular emphysema, mild atelectasis at the bases, some mucus in the right lower lobe bronchi, no focal infiltrates, no focal or diffuse ground-glass infiltrates. 04/21/23: Patient states he feels a little bit better than yesterday. He slept poorly as he could not get comfortable. His shortness of breath remains unchanged and he short of breath at rest and if he talks extensively. He is afebrile. He wore the hospital noninvasive ventilator briefly during the day yesterday and overnight with 36% FiO2 and currently is on 4 L nasal cannula saturations 96%. I decreased him to 3 L nasal cannula saturations were 94%. His creatinine is 0.7. Weight is 99.8 and he is net-2.2 L since admission. He is having difficulty expectorating his phlegm. Plan: Continue remdesivir and dexamethasone, day 3. Oxygenation is close to his baseline and therefore have not started baricitinib. CT scan with no focal ground-glass infiltrates or consolidations. 04/22/23: The patient tells me he feels a little bit better today. He was able to sleep last night with the hospital noninvasive ventilator. He was off of the noninvasive ventilator all day yesterday and sat in the chair for 2-1/2 hours. When I entered the room he was on 4 L with saturations 96%. I decreased him to 3 L and his saturations were 94%. Plan: Continue remdesivir dexamethasone, day 4. Oxygenation as baseline. 04/23/23: Patient had issues un restful night because of back pain. Overall patient is improving and states he is 60% back to his prehospitalization baseline. He did do some walking yesterday with physical therapy. He is afebrile. White blood cell count 13.8, creatinine 0.6, is on 3 L nasal cannula saturation 95%. Plan: Continue remdesivir and dexamethasone, day 5. Will plan on 10 days of remdesivir. 04/24/23: Patient wore his home noninvasive ventilator with his over the mouth under the nose face mask and 4 L bleed in and said that he did okay with the machine. He was able to get intermittent sleep. Currently states he is slowly improving and states he is 65% back to his normal. Currently is on 3 L nasal cannula saturations 93%. White blood cell count 12.4, creatinine 0.6. Plan: Continue remdesivir and dexamethasone, day 6 of 10. Oxygenation is back to his baseline. Discussed with Dr. Bonilla. Pulmonary inpatient consultative services will resume on 04/27/2023. Call with questions 04/27/23: Patient is wearing his non and invasive ventilator at night with 4 L bleed in. At times he has difficulty synchronizing with the machine. Currently he is on 3 L nasal cannula saturations 95%. Plan: Today is day 9 of 10 remdesivir and dexamethasone. Continue this for 1 more day if he remains in the hospital. (2) Acute on chronic respiratory failure with hypoxia and hypercapnia: Code(s): J96.21 - Acute and chronic respiratory failure with hypoxia; J96.22 - Acute and chronic respiratory failure with hypercap
[2023-04-27] MEDS: IPRATROPIUM 0.5 MG/ALBUTEROL SULFATE 2.5 MG AMPUL.NEB 3 ML INHALATION ×2 (16:48→20:40)
[2023-04-27 17:11] LABS: Glucose Point of Care 255 mg/dl (65-105)
[2023-04-27] MEDS: MELATONIN 3 MG TABLET PO (20:40)
[2023-04-27] MEDS: ATORVASTATIN 40 MG TABLET 80 MG PO (20:40)
[2023-04-27] MEDS: MONTELUKAST SODIUM 10 MG TABLET PO (20:41)
[2023-04-27] MEDS: REMDESIVIR 100 MG/NS 250 ML 100 MG/250 ML BAG 250 MG IVPB (20:52)
[2023-04-27 20:58] LABS: Glucose Point of Care 313 mg/dl (65-105)
[2023-04-28] VITALS (14 sets, daily range): BP systolic 115–118; BP diastolic 52–67; PULSE 63–83; RESP 17–22; TEMP 36.2–37.2; O2SAT 95–100
[2023-04-28] MEDS: CYCLOBENZAPRINE HCL 5 MG TABLET PO ×3 (04:54→22:17)
[2023-04-28] MEDS: HYDROcodone/acetaminophen (*CRX) 10-325 MG TABLET 1 TAB PO ×3 (04:54→22:17)
[2023-04-28 05:51] LABS: Basophils Absolute Auto 0.1 K/mm3 (0.0-0.1); Basophils Percent Auto 0.4 % (0.2-1.2); Eosinophils Percent Auto 0.3 % (0-4.4); Hematocrit 39.1 % (42.0-52.0); Hemoglobin 13.6 g/dL (14.0-18.0); Immature Granulocyte Absolute 0.31 K/mm3 (0.00-0.031); Immature Granulocyte Percent A 2.1 % (0-0.5); Lymphocytes Percent Auto 15.4 % (18.3-44.2); Mean Corpuscular HGB Conc 34.8 g/dl (32-36); Mean Corpuscular Hemoglobin 30.6 pg (26-34); Mean Corpuscular Volume 88.1 fl (80-100); Mean Platelet Volume 10.3 fl (7.4-10.4); Monocytes Absolute Auto 0.9 K/mm3 (0.1-0.6); Neutrophils Absolute Auto 11.3 K/mm3 (1.3-6.7); Neutrophils Percent Auto 75.8 % (45.5-73.1); Nucleated Red Blood Cells Perc 0.1 % (0.0-0.2); Platelet Count Result 247 k/mm3 (150-375); Red Blood Count 4.44 M/mm3 (4.6-6.20); Red Cell Distribution Width 13.2 % (11.5-14.5); White Blood Count 14.9 K/mm3 (4.5-10.0)
[2023-04-28 06:03] LABS: Alanine Aminotransferase 30 U/L (6-50); Albumin Level 3.5 g/dL (3.5-5.1); Alkaline Phosphatase 118 U/L (38-126); Anion Gap 5 mmol/L (8-16); Aspartate Amino Transferase 24 U/L (17-59); Bilirubin,Total 0.6 mg/dL (0.2-1.3); Blood Urea Nitrogen 22 mg/dL (9-20); Calcium 8.5 mg/dL (8.4-10.2); Carbon Dioxide 30 mmol/L (22-30); Chloride 96 mmol/L (98-107); Estimated CRCL calculation 118 ml/min; Estimated Glomerular Filt Rate > 60; Glucose 279 mg/dL (65-110); Magnesium 2.3 mg/dL (1.6-2.3); Potassium 4.2 mmol/L (3.4-5.0); Sodium 131 mmol/L (137-145)
[2023-04-28] MEDS: IPRATROPIUM 0.5 MG/ALBUTEROL SULFATE 2.5 MG AMPUL.NEB 3 ML INHALATION ×4 (08:11→20:22)
[2023-04-28 08:25] LABS: Glucose Point of Care 303 mg/dl (65-105)
[2023-04-28] MEDS: INSULIN ASPART (*BKC) 100 UNITS/ML 10 UNITS SUB-Q ×3 (08:54→17:25)
[2023-04-28] MEDS: INSULIN GLARGINE (*BKC) 100 UNITS/ML 14 UNITS SUB-Q (08:54)
[2023-04-28] MEDS: ENOXAPARIN 40 MG/0.4 ML SYRINGE SUB-Q (08:55)
[2023-04-28] MEDS: INSULIN ASPART (*BKC) 100 UNITS/ML SUB-Q ×4 (08:55→20:57)
[2023-04-28] MEDS: PREGABALIN (*CRX) 50 MG CAPSULE 200 MG PO ×2 (08:55→20:51)
[2023-04-28] MEDS: NICOTINE (*PBKC) 21 MG PATCH 1 PATCH TRANSDERM (08:58)
[2023-04-28] MEDS: DULoxetine HCL 60 MG CAPSULE.DR PO (08:58)
[2023-04-28] MEDS: dilTIAZem HCL CD 240 MG CAP.24HR PO (08:58)
[2023-04-28] MEDS: ISOSORBIDE MONONITRATE 60 MG TAB.ER.24H PO (08:58)
[2023-04-28] MEDS: guaiFENesin 12 HR 600 MG TABCR 1200 MG PO ×2 (08:58→20:52)
[2023-04-28] MEDS: ASPIRIN 81 MG ENTERIC TABLET PO (08:58)
[2023-04-28] MEDS: FUROSEMIDE 40 MG TABLET PO (08:58)
[2023-04-28] MEDS: polyethylene glycoL 3350 17 GM POWD.PACK PO (08:58)
--- NOTE | 2023-04-28 11:40 | PCOTNOTE ---
Attempted occupational therapy treatment, patient refuses treatment at this time.
[2023-04-28 11:49] LABS: Glucose Point of Care 397 mg/dl (65-105)
[2023-04-28 16:52] LABS: Glucose Point of Care 283 mg/dl (65-105)
--- NOTE | 2023-04-28 17:54 | PM.IMPN ---
Progress Note: A&P Assessment and Plan (1) Acute on chronic respiratory failure with hypoxia and hypercapnia: Code(s): J96.21 - Acute and chronic respiratory failure with hypoxia; J96.22 - Acute and chronic respiratory failure with hypercapnia Status: Acute Assessment and Plan: COVID positive. Appreciate pulmonology documentation and recs. Continue Decadron and remdesivir for 10 day course and 5 day course respectively He is currently back to his home dose O2 via nasal cannula at 3 L. Continue AVAPS at night. Follow CRP and procalcitonin if needed. Continue Mucinex. On 04/24 he is feeling better and amenable to stay over the weekend and be discharged on Thursday to rehab. Feels his chest congestion is resolved. On 04/25 no change in his symptomatology. Continue present management On 04/26 no change in symptomatology. Continue present management On 04/27 his symptomatology is flat. Appreciate pulmonology recommendations, we have mostly optimize his respiratory status. He does complain of some chest congestion so will start chest physiotherapy. Continue guaifenesin On 04/28 the patient was supposedly ready for discharge to rehab however he complains of cough wheezing shortness of breath and yellow sputum production mixed with some blood. Repeat chest x-ray, sputum culture, DuoNeb schedule, restart Solu-Medrol, restart azithromycin. Recheck procalcitonin in the morning. If there is evidence of a superimposed pneumonia consider escalating antibiotics. (2) Asthma-COPD overlap syndrome: Code(s): J44.89 - Other specified chronic obstructive pulmonary disease Status: Acute Assessment and Plan: On 04/23 since he is not wheezing pulmonology has switched him from DuoNebs to Advair 230-21 at 1 puff b.i.d. with ipratropium home nebulizer q.4 hours while awake. Continue guaifenesin (3) Type 2 diabetes mellitus with hyperglycemia, without long-term current use of insulin: Code(s): E11.65 - Type 2 diabetes mellitus with hyperglycemia Status: Acute Assessment and Plan: On 04/25 if sugars are more uncontrolled. Scheduling aspart 7 units t.i.d. with meals. On 04/25 sugar still ranging in high 200s. Increase aspart from 7-10 units t.i.d. with meals On 04/27 discontinue Decadron. Continue insulin scheduled and decrease when his sugars are more controlled Continue Accu-Cheks and sliding scale. Continue glargine 14 units q.a.m. (4) COVID-19: Code(s): U07.1 - COVID-19 Status: Acute Assessment and Plan: As above. (5) Elevated troponin: Code(s): R79.89 - Other specified abnormal findings of blood chemistry Status: Acute Assessment and Plan: Has since down trended. Patient denies chest pain. Plan 62-year-old male with history of COPD asthma overlap on chronic 3-4 L nasal cannula at home, noninvasive ventilator at night, arn-rpwmcph-wkfvrrjwc diabetes mellitus, CAD status post stent, grade 1 diastolic dysfunction anxiety and depression, GERD, hypertension, insomnia presented with shortness of breath. Found to be positive with COVID. FEN: Saline lock IV GI prophylaxis: Not indicated DVT prophylaxis: Lovenox daily Lines: Peripheral IV Code Status: Full code Dispo: Last admission the patient had social issues at home and wanted to take care of his [id number]-rt-dan. She has since passed. The patient is amenable to SNF for therapy this time. PT OT on consult. Subjective Date/time seen: 04/28/23 17:54 Interval history: Patient reports bloody and yellow sputum production. He reports wheezing and shortness of breath Review of Systems Review of Systems: All systems reviewed & are unremarkable except as noted in HPI and below (Subjective) Exam Const: General: comfortable and no acute distress Eyes: Pupils: Equal, round and reactive pupils present Neck: Neck: supple Resp: Auscultation: no wheezes and diminished lung sounds Other: Respirat
[2023-04-28] MEDS: AZITHROMYCIN 500 MG/NS 250 ML 500 MG/250 ML BAG IVPB (18:45)
[2023-04-28] MEDS: BACLOFEN 10 MG TABLET 20 MG PO (20:51)
[2023-04-28] MEDS: MELATONIN 3 MG TABLET PO (20:52)
[2023-04-28] MEDS: MONTELUKAST SODIUM 10 MG TABLET PO (20:52)
[2023-04-28] MEDS: ATORVASTATIN 40 MG TABLET 80 MG PO (20:52)
[2023-04-28] MEDS: methylPREDNISolone SOD SUCC 125 MG VIAL 60 MG IV PUSH (21:01)
[2023-04-28 21:11] LABS: Glucose Point of Care 267 mg/dl (65-105)
[2023-04-29] VITALS (13 sets, daily range): BP systolic 119–129; BP diastolic 48–55; PULSE 63–99; RESP 16–18; TEMP 36.7–36.8; O2SAT 93–96
[2023-04-29] MEDS: IPRATROPIUM 0.5 MG/ALBUTEROL SULFATE 2.5 MG AMPUL.NEB 3 ML INHALATION ×4 (03:14→19:58)
[2023-04-29] MEDS: ACETAMINOPHEN 325 MG TABLET 650 MG PO (03:48)
[2023-04-29] MEDS: BACLOFEN 10 MG TABLET 20 MG PO ×2 (03:49→20:21)
[2023-04-29] MEDS: CYCLOBENZAPRINE HCL 5 MG TABLET PO ×2 (05:59→14:49)
[2023-04-29] MEDS: HYDROcodone/acetaminophen (*CRX) 10-325 MG TABLET 1 TAB PO ×2 (06:00→14:48)
[2023-04-29] MEDS: methylPREDNISolone SOD SUCC 125 MG VIAL 60 MG IV PUSH ×2 (06:01→14:49)
[2023-04-29 06:23] LABS: Basophils Percent Auto 0.2 % (0.2-1.2); Eosinophils Percent Auto 0.1 % (0-4.4); Hematocrit 41.8 % (42.0-52.0); Hemoglobin 14.2 g/dL (14.0-18.0); Immature Granulocyte Absolute 0.33 K/mm3 (0.00-0.031); Immature Granulocyte Percent A 2.5 % (0-0.5); Lymphocytes Absolute Auto 0.93 K/mm3 (0.9-3.2); Mean Corpuscular Hemoglobin 30.5 pg (26-34); Mean Corpuscular Volume 89.7 fl (80-100); Mean Platelet Volume 10.7 fl (7.4-10.4); Monocytes Absolute Auto 0.2 K/mm3 (0.1-0.6); Monocytes Percent Auto 1.2 % (2.6-8.5); Neutrophils Absolute Auto 11.8 K/mm3 (1.3-6.7); Platelet Count Result 277 k/mm3 (150-375); Red Blood Count 4.66 M/mm3 (4.6-6.20); Red Cell Distribution Width 13.4 % (11.5-14.5); White Blood Count 13.2 K/mm3 (4.5-10.0)
[2023-04-29 06:24] LABS: Alanine Aminotransferase 39 U/L (6-50); Albumin Level 3.7 g/dL (3.5-5.1); Alkaline Phosphatase 136 U/L (38-126); Anion Gap 9 mmol/L (8-16); Aspartate Amino Transferase 28 U/L (17-59); Bilirubin,Total 0.5 mg/dL (0.2-1.3); Blood Urea Nitrogen 20 mg/dL (9-20); Calcium 8.8 mg/dL (8.4-10.2); Carbon Dioxide 29 mmol/L (22-30); Chloride 96 mmol/L (98-107); Estimated CRCL calculation 118 ml/min; Estimated Glomerular Filt Rate > 60; Glucose 435 mg/dL (65-110); Magnesium 2.5 mg/dL (1.6-2.3); Potassium 4.7 mmol/L (3.4-5.0); Sodium 134 mmol/L (137-145)
[2023-04-29 07:06] LABS: Procalcitonin 0.1 ng/mL
[2023-04-29 08:35] LABS: Glucose Point of Care 355 mg/dl (65-105)
[2023-04-29] MEDS: ASPIRIN 81 MG ENTERIC TABLET PO (08:47)
[2023-04-29] MEDS: PREGABALIN (*CRX) 50 MG CAPSULE 200 MG PO ×2 (08:47→20:17)
[2023-04-29] MEDS: FUROSEMIDE 40 MG TABLET PO (08:47)
[2023-04-29] MEDS: DULoxetine HCL 60 MG CAPSULE.DR PO (08:47)
[2023-04-29] MEDS: dilTIAZem HCL CD 240 MG CAP.24HR PO (08:47)
[2023-04-29] MEDS: ISOSORBIDE MONONITRATE 60 MG TAB.ER.24H PO (08:47)
[2023-04-29] MEDS: guaiFENesin 12 HR 600 MG TABCR 1200 MG PO ×2 (08:47→20:17)
[2023-04-29] MEDS: AZITHROMYCIN 500 MG/NS 250 ML 500 MG/250 ML BAG 250 MG IVPB (08:48)
[2023-04-29] MEDS: ENOXAPARIN 40 MG/0.4 ML SYRINGE SUB-Q (08:48)
[2023-04-29] MEDS: polyethylene glycoL 3350 17 GM POWD.PACK PO (08:49)
[2023-04-29] MEDS: NICOTINE (*PBKC) 21 MG PATCH 1 PATCH TRANSDERM (08:50)
[2023-04-29] MEDS: INSULIN ASPART (*BKC) 100 UNITS/ML 10 UNITS SUB-Q (08:58)
[2023-04-29] MEDS: INSULIN ASPART (*BKC) 100 UNITS/ML SUB-Q ×2 (08:58→17:29)
[2023-04-29] MEDS: INSULIN GLARGINE (*BKC) 100 UNITS/ML 14 UNITS SUB-Q (08:59)
[2023-04-29 12:20] LABS: Glucose Point of Care 424 mg/dl (65-105)
[2023-04-29] MEDS: INSULIN ASPART (*BKC) 100 UNITS/ML 15 UNITS SUB-Q ×2 (12:54→17:29)
[2023-04-29 16:54] LABS: Glucose Point of Care 386 mg/dl (65-105)
--- NOTE | 2023-04-29 17:46 | PM.IMPN ---
Progress Note: A&P Assessment and Plan (1) Acute on chronic respiratory failure with hypoxia and hypercapnia: Code(s): J96.21 - Acute and chronic respiratory failure with hypoxia; J96.22 - Acute and chronic respiratory failure with hypercapnia Status: Acute Assessment and Plan: COVID positive. Appreciate pulmonology documentation and recs. Continue Decadron and remdesivir for 10 day course and 5 day course respectively He is currently back to his home dose O2 via nasal cannula at 3 L. Continue AVAPS at night. Follow CRP and procalcitonin if needed. Continue Mucinex. On 04/24 he is feeling better and amenable to stay over the weekend and be discharged on Thursday to rehab. Feels his chest congestion is resolved. On 04/25 no change in his symptomatology. Continue present management On 04/26 no change in symptomatology. Continue present management On 04/27 his symptomatology is flat. Appreciate pulmonology recommendations, we have mostly optimize his respiratory status. He does complain of some chest congestion so will start chest physiotherapy. Continue guaifenesin On 04/28 the patient was supposedly ready for discharge to rehab however he complains of cough wheezing shortness of breath and yellow sputum production mixed with some blood. Repeat chest x-ray, sputum culture, DuoNeb schedule, restart Solu-Medrol, restart azithromycin. Recheck procalcitonin in the morning. If there is evidence of a superimposed pneumonia consider escalating antibiotics. On 04/29 the patient is greatly improved again. Yesterday's episode was likely just due to his severe COPD. Decrease Solu-Medrol to prednisone and discontinue that as soon as possible. Continue nebs scheduled. (2) Asthma-COPD overlap syndrome: Code(s): J44.89 - Other specified chronic obstructive pulmonary disease Status: Acute Assessment and Plan: On 04/23 since he is not wheezing pulmonology has switched him from DuoNebs to Advair 230-21 at 1 puff b.i.d. with ipratropium home nebulizer q.4 hours while awake. Continue guaifenesin 04/29 as above (3) Type 2 diabetes mellitus with hyperglycemia, without long-term current use of insulin: Code(s): E11.65 - Type 2 diabetes mellitus with hyperglycemia Status: Acute Assessment and Plan: On 04/25 if sugars are more uncontrolled. Scheduling aspart 7 units t.i.d. with meals. On 04/25 sugar still ranging in high 200s. Increase aspart from 7-10 units t.i.d. with meals On 04/27 discontinue Decadron. Continue insulin scheduled and decrease when his sugars are more controlled On 04/29 he again has uncontrolled hyperglycemia. Add 15 units Lantus q.h.s.. Solu-Medrol has been changed to prednisone. Hopefully as we take the prednisone off his sugars will come down however he may need to go home with a new insulin prescription. (4) COVID-19: Code(s): U07.1 - COVID-19 Status: Acute Assessment and Plan: As above. (5) Elevated troponin: Code(s): R79.89 - Other specified abnormal findings of blood chemistry Status: Acute Assessment and Plan: Has since down trended. Patient denies chest pain. Plan 62-year-old male with history of COPD asthma overlap on chronic 3-4 L nasal cannula at home, noninvasive ventilator at night, [id number] diabetes mellitus, CAD status post stent, grade 1 diastolic dysfunction anxiety and depression, GERD, hypertension, insomnia presented with shortness of breath. Found to be positive with COVID. FEN: Saline lock IV GI prophylaxis: Not indicated DVT prophylaxis: Lovenox daily Lines: Peripheral IV Code Status: Full code Dispo: Last admission the patient had social issues at home and wanted to take care of his [id number]. She has since passed. The patient is amenable to SNF for therapy this time. He is ready for SNF and has been authorized however the only issue at hand now is getting his sugars under control. It is
[2023-04-29] MEDS: ATORVASTATIN 40 MG TABLET 80 MG PO (20:17)
[2023-04-29] MEDS: MONTELUKAST SODIUM 10 MG TABLET PO (20:18)
[2023-04-29] MEDS: MELATONIN 3 MG TABLET PO (20:18)
[2023-04-29] MEDS: INSULIN GLARGINE (*BKC) 100 UNITS/ML 15 UNITS SUB-Q (20:22)
[2023-04-29 20:23] LABS: Glucose Point of Care > 500 mg/dl (65-105)
[2023-04-29] MEDS: INSULIN ASPART (*BKC) 100 UNITS/ML 12 UNITS SUB-Q (20:42)
[2023-04-30] VITALS (14 sets, daily range): BP systolic 114–138; BP diastolic 46–72; PULSE 59–87; RESP 16–20; TEMP 36.6–36.9; O2SAT 92–98
[2023-04-30 00:01] LABS: Glucose Point of Care 420 mg/dl (65-105)
[2023-04-30] MEDS: INSULIN ASPART (*BKC) 100 UNITS/ML 12 UNITS SUB-Q ×2 (00:29→21:37)
[2023-04-30] MEDS: HYDROcodone/acetaminophen (*CRX) 10-325 MG TABLET 1 TAB PO ×3 (00:33→18:05)
[2023-04-30] MEDS: CYCLOBENZAPRINE HCL 5 MG TABLET PO ×2 (00:34→18:06)
[2023-04-30] MEDS: IPRATROPIUM 0.5 MG/ALBUTEROL SULFATE 2.5 MG AMPUL.NEB 3 ML INHALATION ×4 (03:03→21:00)
[2023-04-30] MEDS: BACLOFEN 10 MG TABLET 20 MG PO ×2 (03:36→21:31)
[2023-04-30] MEDS: ACETAMINOPHEN 325 MG TABLET 650 MG PO (03:36)
[2023-04-30 03:57] LABS: Glucose Point of Care 325 mg/dl (65-105)
[2023-04-30 06:26] LABS: Basophils Percent Auto 0.2 % (0.2-1.2); Eosinophils Percent Auto 0.1 % (0-4.4); Hematocrit 37.4 % (42.0-52.0); Hemoglobin 12.9 g/dL (14.0-18.0); Immature Granulocyte Absolute 0.39 K/mm3 (0.00-0.031); Immature Granulocyte Percent A 2.1 % (0-0.5); Lymphocytes Absolute Auto 1.55 K/mm3 (0.9-3.2); Lymphocytes Percent Auto 8.1 % (18.3-44.2); Mean Corpuscular HGB Conc 34.5 g/dl (32-36); Mean Corpuscular Hemoglobin 30.3 pg (26-34); Mean Corpuscular Volume 87.8 fl (80-100); Mean Platelet Volume 10.6 fl (7.4-10.4); Monocytes Percent Auto 5.4 % (2.6-8.5); Neutrophils Percent Auto 84.1 % (45.5-73.1); Platelet Count Result 262 k/mm3 (150-375); Red Blood Count 4.26 M/mm3 (4.6-6.20); Red Cell Distribution Width 13.3 % (11.5-14.5)
[2023-04-30 06:34] LABS: Alanine Aminotransferase 33 U/L (6-50); Albumin Level 3.2 g/dL (3.5-5.1); Alkaline Phosphatase 147 U/L (38-126); Anion Gap 5 mmol/L (8-16); Aspartate Amino Transferase 19 U/L (17-59); Bilirubin,Total 0.3 mg/dL (0.2-1.3); Blood Urea Nitrogen 22 mg/dL (9-20); Calcium 8.6 mg/dL (8.4-10.2); Carbon Dioxide 31 mmol/L (22-30); Chloride 97 mmol/L (98-107); Estimated CRCL calculation 120 ml/min; Estimated Glomerular Filt Rate > 60; Glucose 320 mg/dL (65-110); Potassium 4.2 mmol/L (3.4-5.0); Sodium 133 mmol/L (137-145)
--- NOTE | 2023-04-30 07:48 | PM.IMPN ---
Progress Note: A&P Assessment and Plan (1) Acute on chronic respiratory failure with hypoxia and hypercapnia: Code(s): J96.21 - Acute and chronic respiratory failure with hypoxia; J96.22 - Acute and chronic respiratory failure with hypercapnia Status: Acute Assessment and Plan: COVID positive. Appreciate pulmonology documentation and recs. Continue Decadron and remdesivir for 10 day course and 5 day course respectively He is currently back to his home dose O2 via nasal cannula at 3 L. Continue AVAPS at night. Follow CRP and procalcitonin if needed. Continue Mucinex. On 04/24 he is feeling better and amenable to stay over the weekend and be discharged on Thursday to rehab. Feels his chest congestion is resolved. On 04/25 no change in his symptomatology. Continue present management On 04/26 no change in symptomatology. Continue present management On 04/27 his symptomatology is flat. Appreciate pulmonology recommendations, we have mostly optimize his respiratory status. He does complain of some chest congestion so will start chest physiotherapy. Continue guaifenesin On 04/28 the patient was supposedly ready for discharge to rehab however he complains of cough wheezing shortness of breath and yellow sputum production mixed with some blood. Repeat chest x-ray, sputum culture, DuoNeb schedule, restart Solu-Medrol, restart azithromycin. Recheck procalcitonin in the morning. If there is evidence of a superimposed pneumonia consider escalating antibiotics. On 04/29 the patient is greatly improved again. Yesterday's episode was likely just due to his severe COPD. Decrease Solu-Medrol to prednisone and discontinue that as soon as possible. Continue nebs scheduled. 04/30 pulse ox 98 on 3 L oxygen via nasal cannular (2) Asthma-COPD overlap syndrome: Code(s): J44.89 - Other specified chronic obstructive pulmonary disease Status: Acute Assessment and Plan: On 04/23 since he is not wheezing pulmonology has switched him from DuoNebs to Advair 230-21 at 1 puff b.i.d. with ipratropium home nebulizer q.4 hours while awake. Continue guaifenesin 04/29 as above (3) Type 2 diabetes mellitus with hyperglycemia, without long-term current use of insulin: Code(s): E11.65 - Type 2 diabetes mellitus with hyperglycemia Status: Acute Assessment and Plan: On 04/25 if sugars are more uncontrolled. Scheduling aspart 7 units t.i.d. with meals. On 04/25 sugar still ranging in high 200s. Increase aspart from 7-10 units t.i.d. with meals On 04/27 discontinue Decadron. Continue insulin scheduled and decrease when his sugars are more controlled On 04/29 he again has uncontrolled hyperglycemia. Add 15 units Lantus q.h.s.. Solu-Medrol has been changed to prednisone. Hopefully as we take the prednisone off his sugars will come down however he may need to go home with a new insulin prescription. 04/30: Blood glucose is not well controlled, will start Lantus 15 units b.i.d. continue rest management (4) COVID-19: Code(s): U07.1 - COVID-19 Status: Acute Assessment and Plan: As above. (5) Elevated troponin: Code(s): R79.89 - Other specified abnormal findings of blood chemistry Status: Acute Assessment and Plan: Has since down trended. Patient denies chest pain. Plan 62-year-old male with history of COPD asthma overlap on chronic 3-4 L nasal cannula at home, noninvasive ventilator at night, [id number]-mnhwgntta diabetes mellitus, CAD status post stent, grade 1 diastolic dysfunction anxiety and depression, GERD, hypertension, insomnia presented with shortness of breath. Found to be positive with COVID. FEN: Saline lock IV GI prophylaxis: Not indicated DVT prophylaxis: Lovenox daily Lines: Peripheral IV Code Status: Full code Dispo: Last admission the patient had social issues at home and wanted to take care of his [id number]-[id number]. She has since passed. The patient is amenable
[2023-04-30 07:49] LABS: Glucose Point of Care 323 mg/dl (65-105)
[2023-04-30] MEDS: INSULIN GLARGINE (*BKC) 100 UNITS/ML 14 UNITS SUB-Q (08:30)
[2023-04-30] MEDS: INSULIN ASPART (*BKC) 100 UNITS/ML SUB-Q ×3 (08:31→18:02)
[2023-04-30] MEDS: INSULIN ASPART (*BKC) 100 UNITS/ML 15 UNITS SUB-Q ×3 (08:31→18:02)
[2023-04-30] MEDS: DULoxetine HCL 60 MG CAPSULE.DR PO (08:39)
[2023-04-30] MEDS: PREGABALIN (*CRX) 50 MG CAPSULE 200 MG PO ×2 (08:39→21:30)
[2023-04-30] MEDS: dilTIAZem HCL CD 240 MG CAP.24HR PO (08:40)
[2023-04-30] MEDS: guaiFENesin 12 HR 600 MG TABCR 1200 MG PO ×2 (08:40→21:31)
[2023-04-30] MEDS: FUROSEMIDE 40 MG TABLET PO (08:40)
[2023-04-30] MEDS: ISOSORBIDE MONONITRATE 60 MG TAB.ER.24H PO (08:40)
[2023-04-30] MEDS: ASPIRIN 81 MG ENTERIC TABLET PO (08:40)
[2023-04-30] MEDS: predniSONE 20 MG TABLET 40 MG PO (08:40)
[2023-04-30] MEDS: polyethylene glycoL 3350 17 GM POWD.PACK PO (08:41)
[2023-04-30] MEDS: AZITHROMYCIN 500 MG/NS 250 ML 500 MG/250 ML BAG 250 MG IVPB (08:42)
[2023-04-30] MEDS: NICOTINE (*PBKC) 21 MG PATCH 1 PATCH TRANSDERM (08:42)
[2023-04-30] MEDS: ENOXAPARIN 40 MG/0.4 ML SYRINGE SUB-Q (08:42)
[2023-04-30 08:44] LABS: Glucose Point of Care 287 mg/dl (65-105)
[2023-04-30 11:35] LABS: Procalcitonin 0.1 ng/mL
[2023-04-30 12:13] LABS: Glucose Point of Care 398 mg/dl (65-105)
--- NOTE | 2023-04-30 15:05 | PCOTNOTE ---
The patient treatment was not able to be completed. Patient reports he does not feel well at all and that the Doctor stated for him to stay in bed and rest. Patient does not have a bedrest order in at this time. Will plan to continue treatment per plan of care.
--- NOTE | 2023-04-30 15:55 | PC.NURSE ---
On 04/30/23, the student, [Jackie Choudhary], provided care and completed [facility] documentation on this patient. I have reviewed the student's documentation and agree with the findings.
[2023-04-30 17:13] LABS: Glucose Point of Care 299 mg/dl (65-105)
[2023-04-30 21:20] LABS: Glucose Point of Care 407 mg/dl (65-105)
[2023-04-30] MEDS: INSULIN GLARGINE (*BKC) 100 UNITS/ML 15 UNITS SUB-Q (21:30)
[2023-04-30] MEDS: ATORVASTATIN 40 MG TABLET 80 MG PO (21:30)
[2023-04-30] MEDS: MELATONIN 3 MG TABLET PO (21:31)
[2023-04-30] MEDS: MONTELUKAST SODIUM 10 MG TABLET PO (21:31)
[2023-05-01] VITALS (15 sets, daily range): BP systolic 112–125; BP diastolic 50–74; PULSE 69–84; RESP 18; TEMP 36.3–36.6; O2SAT 93–98
[2023-05-01 00:16] LABS: Glucose Point of Care 318 mg/dl (65-105)
[2023-05-01] MEDS: INSULIN ASPART (*BKC) 100 UNITS/ML SUB-Q ×5 (00:35→21:38)
[2023-05-01] MEDS: IPRATROPIUM 0.5 MG/ALBUTEROL SULFATE 2.5 MG AMPUL.NEB 3 ML INHALATION ×4 (02:59→20:45)
[2023-05-01] MEDS: HYDROcodone/acetaminophen (*CRX) 10-325 MG TABLET 1 TAB PO ×2 (03:06→16:45)
[2023-05-01] MEDS: CYCLOBENZAPRINE HCL 5 MG TABLET PO ×2 (03:06→16:45)
[2023-05-01 05:26] LABS: Basophils Percent Auto 0.1 % (0.2-1.2); Eosinophils Absolute Auto 0.1 K/mm3 (0-0.3); Eosinophils Percent Auto 0.7 % (0-4.4); Hematocrit 38.5 % (42.0-52.0); Immature Granulocyte Absolute 0.23 K/mm3 (0.00-0.031); Immature Granulocyte Percent A 1.5 % (0-0.5); Lymphocytes Absolute Auto 3.12 K/mm3 (0.9-3.2); Mean Corpuscular HGB Conc 33.8 g/dl (32-36); Mean Corpuscular Volume 88.9 fl (80-100); Mean Platelet Volume 10.3 fl (7.4-10.4); Monocytes Absolute Auto 0.8 K/mm3 (0.1-0.6); Monocytes Percent Auto 5.3 % (2.6-8.5); Neutrophils Absolute Auto 11.3 K/mm3 (1.3-6.7); Neutrophils Percent Auto 72.4 % (45.5-73.1); Nucleated Red Blood Cells Perc 0.1 % (0.0-0.2); Platelet Count Result 252 k/mm3 (150-375); Red Blood Count 4.33 M/mm3 (4.6-6.20); Red Cell Distribution Width 13.6 % (11.5-14.5); White Blood Count 15.6 K/mm3 (4.5-10.0)
[2023-05-01 05:41] LABS: Alanine Aminotransferase 36 U/L (6-50); Albumin Level 3.3 g/dL (3.5-5.1); Alkaline Phosphatase 128 U/L (38-126); Anion Gap 4 mmol/L (8-16); Aspartate Amino Transferase 26 U/L (17-59); Bilirubin,Total 0.4 mg/dL (0.2-1.3); Blood Urea Nitrogen 16 mg/dL (9-20); Calcium 8.6 mg/dL (8.4-10.2); Carbon Dioxide 32 mmol/L (22-30); Chloride 99 mmol/L (98-107); Estimated CRCL calculation 120 ml/min; Estimated Glomerular Filt Rate > 60; Glucose 206 mg/dL (65-110); Potassium 3.9 mmol/L (3.4-5.0); Sodium 135 mmol/L (137-145)
[2023-05-01 06:10] LABS: Procalcitonin 0.1 ng/mL
--- NOTE | 2023-05-01 07:53 | PM.IMPN ---
Progress Note: A&P Assessment and Plan (1) Acute on chronic respiratory failure with hypoxia and hypercapnia: Code(s): J96.21 - Acute and chronic respiratory failure with hypoxia; J96.22 - Acute and chronic respiratory failure with hypercapnia Status: Acute Assessment and Plan: COVID positive. Appreciate pulmonology documentation and recs. Continue Decadron and remdesivir for 10 day course and 5 day course respectively He is currently back to his home dose O2 via nasal cannula at 3 L. Continue AVAPS at night. Follow CRP and procalcitonin if needed. Continue Mucinex. On 04/24 he is feeling better and amenable to stay over the weekend and be discharged on Thursday to rehab. Feels his chest congestion is resolved. On 04/25 no change in his symptomatology. Continue present management On 04/26 no change in symptomatology. Continue present management On 04/27 his symptomatology is flat. Appreciate pulmonology recommendations, we have mostly optimize his respiratory status. He does complain of some chest congestion so will start chest physiotherapy. Continue guaifenesin On 04/28 the patient was supposedly ready for discharge to rehab however he complains of cough wheezing shortness of breath and yellow sputum production mixed with some blood. Repeat chest x-ray, sputum culture, DuoNeb schedule, restart Solu-Medrol, restart azithromycin. Recheck procalcitonin in the morning. If there is evidence of a superimposed pneumonia consider escalating antibiotics. On 04/29 the patient is greatly improved again. Yesterday's episode was likely just due to his severe COPD. Decrease Solu-Medrol to prednisone and discontinue that as soon as possible. Continue nebs scheduled. 2/2 pulse ox 98 on 3 L oxygen via nasal cannular, procalcitonin 0.1, leukocytosis likely secondary to steroid, repeated chest x-ray shows emphysema, mild atelectasis (2) Asthma-COPD overlap syndrome: Code(s): J44.89 - Other specified chronic obstructive pulmonary disease Status: Acute Assessment and Plan: On 04/23 since he is not wheezing pulmonology has switched him from DuoNebs to Advair 230-21 at 1 puff b.i.d. with ipratropium home nebulizer q.4 hours while awake. Continue guaifenesin 04/29 as above 2/2 decrease prednisone to 20 mg daily p.o., continue rest of management (3) Type 2 diabetes mellitus with hyperglycemia, without long-term current use of insulin: Code(s): E11.65 - Type 2 diabetes mellitus with hyperglycemia Status: Acute Assessment and Plan: On 04/25 if sugars are more uncontrolled. Scheduling aspart 7 units t.i.d. with meals. On 04/25 sugar still ranging in high 200s. Increase aspart from 7-10 units t.i.d. with meals On 04/27 discontinue Decadron. Continue insulin scheduled and decrease when his sugars are more controlled On 04/29 he again has uncontrolled hyperglycemia. Add 15 units Lantus q.h.s.. Solu-Medrol has been changed to prednisone. Hopefully as we take the prednisone off his sugars will come down however he may need to go home with a new insulin prescription. 2/: Blood glucose is not well controlled, will start Lantus 15 units b.i.d. continue rest management 2/2: better controlled, increase Lantus to 20 units b.i.d. continue aspart 15 units t.i.d. and sliding scale (4) COVID-19: Code(s): U07.1 - COVID-19 Status: Acute Assessment and Plan: As above. (5) Elevated troponin: Code(s): R79.89 - Other specified abnormal findings of blood chemistry Status: Acute Assessment and Plan: Has since down trended. Patient denies chest pain. Plan 62-year-old male with history of COPD asthma overlap on chronic 3-4 L nasal cannula at home, noninvasive ventilator at night, [id number] diabetes mellitus, CAD status post stent, grade 1 diastolic dysfunction anxiety and depression, GERD, hypertension, insomnia presented with shortness of breath. Found to be positive wi
[2023-05-01 08:13] LABS: Glucose Point of Care 257 mg/dl (65-105)
[2023-05-01] MEDS: INSULIN ASPART (*BKC) 100 UNITS/ML 15 UNITS SUB-Q ×3 (08:39→18:26)
[2023-05-01] MEDS: INSULIN GLARGINE (*BKC) 100 UNITS/ML 20 UNITS SUB-Q ×2 (08:41→21:38)
[2023-05-01] MEDS: ENOXAPARIN 40 MG/0.4 ML SYRINGE SUB-Q (08:44)
[2023-05-01] MEDS: ASPIRIN 81 MG ENTERIC TABLET PO (08:45)
[2023-05-01] MEDS: FUROSEMIDE 40 MG TABLET PO (08:45)
[2023-05-01] MEDS: DULoxetine HCL 60 MG CAPSULE.DR PO (08:45)
[2023-05-01] MEDS: predniSONE 20 MG TABLET PO (08:45)
[2023-05-01] MEDS: dilTIAZem HCL CD 240 MG CAP.24HR PO (08:45)
[2023-05-01] MEDS: ISOSORBIDE MONONITRATE 60 MG TAB.ER.24H PO (08:45)
[2023-05-01] MEDS: guaiFENesin 12 HR 600 MG TABCR 1200 MG PO ×2 (08:45→21:36)
[2023-05-01] MEDS: AZITHROMYCIN 500 MG/NS 250 ML 500 MG/250 ML BAG 250 MG IVPB (08:46)
[2023-05-01] MEDS: polyethylene glycoL 3350 17 GM POWD.PACK PO (08:46)
[2023-05-01] MEDS: NICOTINE (*PBKC) 21 MG PATCH 1 PATCH TRANSDERM (08:46)
[2023-05-01] MEDS: BACLOFEN 10 MG TABLET 20 MG PO ×2 (09:07→18:59)
--- NOTE | 2023-05-01 10:50 | PCOTNOTE ---
Addendum entered by SANJANA Ledesma 05/01/23 10:59: RN and forms analysis manager notified. Original Note: The patient treatment was not able to be completed. Patient was upset and not appropriate at this moment for therapy. Will attempt for therapy at a later time. RN notified. Will plan to continue treatment per plan of care.
--- NOTE | 2023-05-01 11:47 | PCPTNOTE ---
Attempted to see patient for PT, however patient declined. Patient not feeling well this date.
[2023-05-01 12:05] LABS: Glucose Point of Care 302 mg/dl (65-105)
[2023-05-01] MEDS: PREGABALIN (*CRX) 50 MG CAPSULE 200 MG PO ×2 (12:17→21:39)
--- NOTE | 2023-05-01 14:28 | PCPTNOTE ---
Attempted to see patient for PT at this time, however patient was working with OT.
[2023-05-01 17:19] LABS: Glucose Point of Care 346 mg/dl (65-105)
[2023-05-01 21:01] LABS: Glucose Point of Care 294 mg/dl (65-105)
[2023-05-01] MEDS: ATORVASTATIN 40 MG TABLET 80 MG PO (21:36)
[2023-05-01] MEDS: MELATONIN 3 MG TABLET PO (21:39)
[2023-05-01] MEDS: MONTELUKAST SODIUM 10 MG TABLET PO (21:39)
[2023-05-02] VITALS (8 sets, daily range): BP systolic 106–117; BP diastolic 54–69; PULSE 64–101; RESP 12–20; TEMP 36.4–37.3; O2SAT 95–98
[2023-05-02 06:08] LABS: Basophils Absolute Auto 0.1 K/mm3 (0.0-0.1); Basophils Percent Auto 0.4 % (0.2-1.2); Eosinophils Absolute Auto 0.2 K/mm3 (0-0.3); Eosinophils Percent Auto 1.1 % (0-4.4); Hematocrit 41.7 % (42.0-52.0); Hemoglobin 14.1 g/dL (14.0-18.0); Immature Granulocyte Absolute 0.22 K/mm3 (0.00-0.031); Immature Granulocyte Percent A 1.6 % (0-0.5); Lymphocytes Absolute Auto 3.54 K/mm3 (0.9-3.2); Lymphocytes Percent Auto 25.2 % (18.3-44.2); Mean Corpuscular HGB Conc 33.8 g/dl (32-36); Mean Corpuscular Hemoglobin 30.5 pg (26-34); Mean Corpuscular Volume 90.1 fl (80-100); Mean Platelet Volume 10.2 fl (7.4-10.4); Monocytes Absolute Auto 0.7 K/mm3 (0.1-0.6); Monocytes Percent Auto 4.8 % (2.6-8.5); Neutrophils Absolute Auto 9.4 K/mm3 (1.3-6.7); Neutrophils Percent Auto 66.9 % (45.5-73.1); Platelet Count Result 265 k/mm3 (150-375); Red Blood Count 4.63 M/mm3 (4.6-6.20); Red Cell Distribution Width 13.7 % (11.5-14.5)
[2023-05-02] MEDS: HYDROcodone/acetaminophen (*CRX) 10-325 MG TABLET 1 TAB PO ×2 (06:17→17:30)
[2023-05-02 06:21] LABS: Alanine Aminotransferase 40 U/L (6-50); Albumin Level 3.3 g/dL (3.5-5.1); Alkaline Phosphatase 137 U/L (38-126); Anion Gap 2 mmol/L (8-16); Aspartate Amino Transferase 21 U/L (17-59); Bilirubin,Total 0.5 mg/dL (0.2-1.3); Blood Urea Nitrogen 17 mg/dL (9-20); Calcium 8.8 mg/dL (8.4-10.2); Carbon Dioxide 36 mmol/L (22-30); Chloride 98 mmol/L (98-107); Estimated CRCL calculation 103 ml/min; Estimated Glomerular Filt Rate > 60; Glucose 230 mg/dL (65-110); Potassium 3.9 mmol/L (3.4-5.0); Sodium 136 mmol/L (137-145)
[2023-05-02 07:14] LABS: Procalcitonin 0.1 ng/mL
[2023-05-02] MEDS: IPRATROPIUM 0.5 MG/ALBUTEROL SULFATE 2.5 MG AMPUL.NEB 3 ML INHALATION ×2 (07:45→13:51)
[2023-05-02 07:47] LABS: Glucose Point of Care 222 mg/dl (65-105)
[2023-05-02] MEDS: DULoxetine HCL 60 MG CAPSULE.DR PO (08:17)
[2023-05-02] MEDS: predniSONE 20 MG TABLET PO (08:17)
[2023-05-02] MEDS: PREGABALIN (*CRX) 50 MG CAPSULE 200 MG PO (08:17)
[2023-05-02] MEDS: FUROSEMIDE 40 MG TABLET PO (08:17)
[2023-05-02] MEDS: ASPIRIN 81 MG ENTERIC TABLET PO (08:18)
[2023-05-02] MEDS: ENOXAPARIN 40 MG/0.4 ML SYRINGE SUB-Q (08:18)
[2023-05-02] MEDS: NICOTINE (*PBKC) 21 MG PATCH 1 PATCH TRANSDERM (08:18)
[2023-05-02] MEDS: ISOSORBIDE MONONITRATE 60 MG TAB.ER.24H PO (08:18)
[2023-05-02] MEDS: polyethylene glycoL 3350 17 GM POWD.PACK PO (08:18)
[2023-05-02] MEDS: dilTIAZem HCL CD 240 MG CAP.24HR PO (08:18)
[2023-05-02] MEDS: guaiFENesin 12 HR 600 MG TABCR 1200 MG PO (08:18)
[2023-05-02] MEDS: INSULIN GLARGINE (*BKC) 100 UNITS/ML 20 UNITS SUB-Q (08:19)
[2023-05-02] MEDS: INSULIN ASPART (*BKC) 100 UNITS/ML 15 UNITS SUB-Q ×3 (08:19→17:27)
[2023-05-02] MEDS: INSULIN ASPART (*BKC) 100 UNITS/ML SUB-Q ×3 (08:19→17:27)
[2023-05-02] MEDS: AZITHROMYCIN 250 MG TABLET 500 MG PO (08:23)
[2023-05-02] MEDS: CYCLOBENZAPRINE HCL 5 MG TABLET PO (08:23)
--- NOTE | 2023-05-02 08:28 | PM.IMPN ---
Progress Note: A&P Assessment and Plan (1) Acute on chronic respiratory failure with hypoxia and hypercapnia: Code(s): J96.21 - Acute and chronic respiratory failure with hypoxia; J96.22 - Acute and chronic respiratory failure with hypercapnia Status: Acute Assessment and Plan: COVID positive. Appreciate pulmonology documentation and recs. Continue Decadron and remdesivir for 10 day course and 5 day course respectively He is currently back to his home dose O2 via nasal cannula at 3 L. Continue AVAPS at night. Follow CRP and procalcitonin if needed. Continue Mucinex. On 04/24 he is feeling better and amenable to stay over the weekend and be discharged on Thursday to rehab. Feels his chest congestion is resolved. On 04/25 no change in his symptomatology. Continue present management On 04/26 no change in symptomatology. Continue present management On 04/27 his symptomatology is flat. Appreciate pulmonology recommendations, we have mostly optimize his respiratory status. He does complain of some chest congestion so will start chest physiotherapy. Continue guaifenesin On 04/28 the patient was supposedly ready for discharge to rehab however he complains of cough wheezing shortness of breath and yellow sputum production mixed with some blood. Repeat chest x-ray, sputum culture, DuoNeb schedule, restart Solu-Medrol, restart azithromycin. Recheck procalcitonin in the morning. If there is evidence of a superimposed pneumonia consider escalating antibiotics. On 04/29 the patient is greatly improved again. Yesterday's episode was likely just due to his severe COPD. Decrease Solu-Medrol to prednisone and discontinue that as soon as possible. Continue nebs scheduled. 2/2 pulse ox 98 on 3 L oxygen via nasal cannular, procalcitonin 0.1, leukocytosis likely secondary to steroid, repeated chest x-ray shows emphysema, mild atelectasis 2/3 pulse ox 95-98 on nasal cannula 2 L (2) Asthma-COPD overlap syndrome: Code(s): J44.89 - Other specified chronic obstructive pulmonary disease Status: Acute Assessment and Plan: On 04/23 since he is not wheezing pulmonology has switched him from DuoNebs to Advair 230-21 at 1 puff b.i.d. with ipratropium home nebulizer q.4 hours while awake. Continue guaifenesin 04/29 as above 2/2 decrease prednisone to 20 mg daily p.o., continue rest of management 2/3 lungs clear, continue prednisone 10 mg daily the home dose. Continue home medications at discharge (3) Type 2 diabetes mellitus with hyperglycemia, without long-term current use of insulin: Code(s): E11.65 - Type 2 diabetes mellitus with hyperglycemia Status: Acute Assessment and Plan: On 04/25 if sugars are more uncontrolled. Scheduling aspart 7 units t.i.d. with meals. On 04/25 sugar still ranging in high 200s. Increase aspart from 7-10 units t.i.d. with meals On 04/27 discontinue Decadron. Continue insulin scheduled and decrease when his sugars are more controlled On 04/29 he again has uncontrolled hyperglycemia. Add 15 units Lantus q.h.s.. Solu-Medrol has been changed to prednisone. Hopefully as we take the prednisone off his sugars will come down however he may need to go home with a new insulin prescription. 2/1: Blood glucose is not well controlled, will start Lantus 15 units b.i.d. continue rest management 2/2: better controlled, increase Lantus to 20 units b.i.d. continue aspart 15 units t.i.d. and sliding scale 2/3: Glucose is better controlled, continue current treatment (4) COVID-19: Code(s): U07.1 - COVID-19 Status: Acute Assessment and Plan: As above. (5) Elevated troponin: Code(s): R79.89 - Other specified abnormal findings of blood chemistry Status: Acute Assessment and Plan: Has since down trended. Patient denies chest pain. Plan 62-year-old male with history of COPD asthma overlap on chronic 3-4 L nasal cannula at home, noninvasive ventilator at [facility]
[2023-05-02 12:32] LABS: Glucose Point of Care 322 mg/dl (65-105)
[2023-05-02 17:18] LABS: Glucose Point of Care 254 mg/dl (65-105)
--- NOTE | 2023-05-02 18:04 | PM.DS ---
DS: Admitting Diagnosis Discharge Date 05/02/23 Admitting Diagnosis Acute on chronic respiratory failure with hypoxia and hypercapnia: Asthma-COPD overlap syndrome: DS: Discharge Diagnosis Discharge Diagnosis (1) Acute on chronic respiratory failure with hypoxia and hypercapnia: Code(s): J96.21 - Acute and chronic respiratory failure with hypoxia; J96.22 - Acute and chronic respiratory failure with hypercapnia Status: Acute (2) Asthma-COPD overlap syndrome: Code(s): J44.89 - Other specified chronic obstructive pulmonary disease Status: Acute (3) Type 2 diabetes mellitus with hyperglycemia, without long-term current use of insulin: Code(s): E11.65 - Type 2 diabetes mellitus with hyperglycemia Status: Acute (4) COVID-19: Code(s): U07.1 - COVID-19 Status: Acute Assessment and Plan: As above. (5) Elevated troponin: Code(s): R79.89 - Other specified abnormal findings of blood chemistry Status: Acute Assessment and Plan: Has since down trended. Patient denies chest pain. DS: Summary Hospital Course Hospital Course: 62-year-old male with history of COPD asthma overlap on chronic 3-4 L nasal cannula at home, noninvasive ventilator at night, bkg-wzlcmtu-xprpyleqk diabetes mellitus, CAD status post stent, grade 1 diastolic dysfunction anxiety and depression, GERD, hypertension, insomnia presented with shortness of breath. Found to be positive with COVID. The following med issues have been addressed during hospitalization (1) Acute on chronic respiratory failure with hypoxia and hypercapnia: ?Code(s): J96.21 - Acute and chronic respiratory failure with hypoxia; J96.22 - Acute and chronic respiratory failure with hypercapnia ?Status:?Acute ?Assessment and Plan: COVID positive.? Appreciate pulmonology documentation and recs.? Continue Decadron and remdesivir for 10 day course and 5 day course respectively He is currently back to his home dose O2 via nasal cannula at 3 L. Continue AVAPS at night.? Follow CRP and procalcitonin if needed.? Continue Mucinex. On 04/24 he is feeling better and amenable to stay over the weekend and be discharged on Thursday to rehab.? Feels his chest congestion is resolved. On 04/25 no change in his symptomatology.? Continue present management On 04/26 no change in symptomatology.? Continue present management On 04/27 his symptomatology is flat.? Appreciate pulmonology recommendations, we have mostly optimize his respiratory status.? He does complain of some chest congestion so will start chest physiotherapy.? Continue guaifenesin On 04/28 the patient was supposedly ready for discharge to rehab however he complains of cough wheezing shortness of breath and yellow sputum production mixed with some blood.? Repeat chest x-ray, sputum culture, DuoNeb schedule, restart Solu-Medrol, restart azithromycin.? Recheck procalcitonin in the morning.? If there is evidence of a superimposed pneumonia consider escalating antibiotics. On 04/29 the patient is greatly improved again.? Yesterday's episode was likely just due to his severe COPD.? Decrease Solu-Medrol to prednisone and discontinue that as soon as possible.? Continue nebs scheduled. 2/2 pulse ox 98 on 3 L oxygen via nasal cannular, procalcitonin 0.1, leukocytosis likely secondary to steroid, repeated chest x-ray shows emphysema, mild atelectasis 2/3 pulse ox 95-98 on nasal cannula 2 L (2) Asthma-COPD overlap syndrome: ?Code(s): J44.89 - Other specified chronic obstructive pulmonary disease ?Status:?Acute ?Assessment and Plan: On 04/23 since he is not wheezing pulmonology has switched him from DuoNebs to Advair 230-21 at 1 puff b.i.d. with ipratropium home nebulizer q.4 hours while awake.? Continue guaifenesin 04/29 as above 2/2 decrease prednisone to 20 mg daily p.o., continue rest of management 2/3 lungs clear, continue prednisone 10 mg daily the home dose.? Continue ho
== END 2023-05-02 19:10 | DRG 137 ==
LOC: ANHED 23:20 → ANH3MEDSUR 04-19 01:41 → ANHIMU 04-19 17:31 → ANH2MED 04-22 22:11
PROVIDERS: General Practice; Internal Medicine; Internal Medicine Pulmonary Disease; Physician Assistant; Student in an Organized Health Care Education/Training Program; Admitting Provider Internal Medicine; Emergency Provider Emergency Medicine; Visit Provider Hospitalist
DX: U07.1 COVID-19 (principal); J96.21 Acute and chronic respiratory failure with hypoxia; J96.22 Acute and chronic respiratory failure with hypercapnia; I24.89 Other forms of acute ischemic heart disease; I50.32 Chronic diastolic (congestive) heart failure; I11.0 Hypertensive heart disease with heart failure; I25.10 Atherosclerotic heart disease of native coronary artery without angina pectoris; J43.1 Panlobular emphysema; J44.9 Chronic obstructive pulmonary disease, unspecified; E11.65 Type 2 diabetes mellitus with hyperglycemia; G47.33 Obstructive sleep apnea (adult) (pediatric); G89.29 Other chronic pain; F41.9 Anxiety disorder, unspecified; F32.A Depression, unspecified; F17.210 Nicotine dependence, cigarettes, uncomplicated; Z99.81 Dependence on supplemental oxygen; Z95.5 Presence of coronary angioplasty implant and graft; Z79.82 Long term (current) use of aspirin; Z79.51 Long term (current) use of inhaled steroids; Z79.52 Long term (current) use of systemic steroids; Z28.310 Unvaccinated for COVID-19; Z28.9 Immunization not carried out for unspecified reason
CPT/HCPCS: 36415; 36600; 71045; 71250; 80048; 80053; 80076; 81003; 82248; 82728; 82805; 82948; 83036; 83605; 83735; 83880; 84145; 84484; 85025; 85027; 85380; 85610; 85730; 86140; 87040; 87070; 87186; 87205; 87637; 93005; 94002; 94003; 94640; 94667; 96365; 97110; 97116; 97161; 97165; 97530; 97535; 99285; A9270; G0378; G0379; J0171; J0248; J0456; J1100; J1650; J1815; J2930; J7512

== ENCOUNTER 2023-06-03 03:13 | Inpatient (IN) | payer OTHER, SELFPAY ==
[2023-06-03] VITALS (44 sets, daily range): BP systolic 107–196; BP diastolic 59–102; PULSE 84–126; RESP 15–26; TEMP 36.8–37.5; O2SAT 88–100
--- NOTE | ~2023-06-03 | XR_ITS ---
Portable chest x-ray Comparison: 06/10/2023 Clinical History: Respiratory failure Findings: Endotracheal tube and NG tube are in satisfactory positions. Probable COPD. No acute pulmo nary abnormality evident. Cardiomediastinal silhouette is stable. Bones and soft tissues are unremar kable. Impression: Probable COPD. Support tubes, as above. Reviewed, dictated and finalized at location . Impression: Probable COPD. Support tubes, as above.
--- NOTE | ~2023-06-03 | XR_ITS ---
EXAMINATION: XR chest PICC line DATE: 06/11/2023 12:34 INDICATION: Central line placement. TECHNIQUE: A single frontal view of the chest was obtained on 2 radiographs. COMPARISON: Chest one view 06/11/2023, chest CT 06/03/2023 FINDINGS: The lower chest is excluded. There are lucencies in the lungs, consistent with emphysema. T here is no visualized pneumonia, pleural effusion, or pneumothorax. A right upper extremity periphera lly inserted central venous catheter (PICC) is seen with tip in the superior vena cava. The endotrach eal tube tip is 6.6 cm above the vanesa. The nasogastric tube tip is beyond the inferior margin of th e radiograph, but at least to the distal esophagus. IMPRESSION: 1. PICC tip in the superior vena cava. 2. Emphysema. Reviewed, dictated and finalized at location A.
--- NOTE | ~2023-06-03 | XR_ITS ---
EXAMINATION: XR chest 1V portable DATE: 06/14/2023 05:28 INDICATION: Respiratory failure TECHNIQUE: COMPARISON: Chest radiograph dated FINDINGS: Endotracheal tube tip 6.7 cm above the vanesa. Nasogastric tube extends below the left hemidiaphragm with distal tip collimated off the study. Right upper extremity peripherally inserted central venous catheter (PICC) tip at the mid superior vena cava. Again seen is asymmetric increased lucency throughout the left lung relative to the right which has b een present since 07/13/2022 and is likely related to severe emphysema better appreciated on CT. Mild bibasilar atelectasis. No pleural effusion or pneumothorax. Mild elevation the left hemidiaphragm. Ca rdiomediastinal silhouette is normal. IMPRESSION: 1. Unchanged emphysema with mild bibasilar atelectasis. 2. Endotracheal tube tip 6.7 cm above the vanesa. Consider advancement by 4 cm. Reviewed, dictated and finalized at location A.
--- NOTE | ~2023-06-03 | CT_ITS ---
Clinical Indication: Respiratory failure, organ donation CT Scan of the Chest, Abdomen, and Pelvis with Contrast: Technique: Contiguous sections were acquired throughout the chest, abdomen, and pelvis after intraven ous administration of 100 cc of Omnipaque 350. Dose reduction technique was used on this scan by uti lizing automated exposure control and iterative reconstruction technique. The dose-length product (DL P) was 1756.28 mGy-cm. COMPARISON: 06/03/2023 Findings: There is a 2.1 cm enlarged left hilar lymph node (axial image 59). There is wall thickening about the vanesa and proximal right mainstem bronchus, with marked narrowing of the proximal right mainstem br onchus, and to a lesser extent, the left mainstem bronchus/vanesa (axial images 52-61). There is no evidence of pleural or pericardial effusion. There is severe emphysema. There is right basilar consolidation, some areas of patchiness/nodularity. Minimal left basilar atelectasis noted. The liver, spleen, pancreas, gallbladder, adrenals and kidneys are within normal limits. There are at herosclerotic calcifications of the aorta. No lymphadenopathy. No bowel obstruction or bowel wall thickening. There is no evidence to suggest acute appendicitis. Urinary bladder is collapsed around a Schmitt catheter. No pelvic mass evident. No ascites. Impression: Wall thickening at the vanesa and proximal right mainstem bronchus, with marked narrowing of the prox imal right mainstem bronchus, and to a lesser extent the left mainstem bronchus/vanesa. Please see de tails above. Neoplastic disease is not excluded. 2.1 cm enlarged left hilar lymph node. This could reflect metastatic lymph node versus inflammatory l ymph nodes. Severe emphysema. Bibasilar patchy consolidation which could reflect atelectasis and/or pneumonia. Given above findings , underlying neoplastic disease is not completely excluded, though felt to be less likely given the o verall CT appearance. No significant abnormality seen in the abdomen or pelvis. Reviewed, dictated and finalized at location . Impression: Wall thickening at the vanesa and proximal right mainstem bronchus, with marked narrowing of the proximal right mainstem bronchus, and to a lesser extent the left mainstem bronchus/vanesa. Please see details above. Neoplastic disease is not excluded. 2.1 cm enlarged left hilar lymph node. This could reflect metastatic lymph node versus inflammatory lymph nodes. Severe emphysema. Bibasilar patchy consolidation which could reflect atelectasis and/or pneumonia . Given above findings, underlying neoplastic disease is not completely exclude d, though felt to be less likely given the overall CT appearance. No significant abnormality seen in the abdomen or pelvis.
--- NOTE | ~2023-06-03 | XR_ITS ---
EXAMINATION: XR chest 1V portable DATE: 06/13/2023 05:37 INDICATION: Respiratory failure TECHNIQUE: frontal view of the chest was obtained. COMPARISON: Multiple chest radiographs and CT studies dated between 06/12/2023 and 07/13/2022 FINDINGS: Endotracheal tube tip 5.5 cm above the vanesa. Nasogastric tube extends below the left hemidiaphragm with distal tip collimated off the study. Right upper extremity peripherally inserted central venous catheter (PICC) tip at the mid superior vena cava. Again seen is asymmetric increased lucency throughout the left lung relative to the right which has b een present since 07/13/2022 and is likely related to severe emphysema better appreciated on CT. Mild bibasilar atelectasis. No pleural effusion or pneumothorax. Mild elevation the left hemidiaphragm. Ca rdiomediastinal silhouette is normal. IMPRESSION: 1. Unchanged emphysema with mild bibasilar atelectasis. Reviewed, dictated and finalized at location A.
--- NOTE | ~2023-06-03 | XR_ITS ---
Portable chest x-ray Comparison: 06/08/2023 Clinical History: Tube placement Findings: Endotracheal tube and NG tube are in satisfactory positions. There is probable retrocardia c atelectasis or scarring. Right lung clear. Cardiomediastinal silhouette is stable. Bones and soft tissues are unremarkable. Impression: Probable left lower lobe atelectasis or scarring. Support tubes, as above. Reviewed, dictated and finalized at location . Impression: Probable left lower lobe atelectasis or scarring. Support tubes, as above.
--- NOTE | ~2023-06-03 | XR_ITS ---
Portable chest x-ray Comparison: 06/03/2023 Clinical History: Shortness of breath Findings: Stable asymmetric lucency of the left upper lobe. No acute pulmonary abnormality evident. Cardiomediastinal silhouette is stable. Bones and soft tissues are unremarkable. Impression: No acute abnormality. Stable asymmetric lucency left upper lobe, presumably due to emphysema based on prior CT scan. Reviewed, dictated and finalized at location . Impression: No acute abnormality. Stable asymmetric lucency left upper lobe, presumably due to emphysema based on prior CT scan.
--- NOTE | ~2023-06-03 | XR_ITS ---
Portable chest x-ray Comparison: 06/03/2023 Clinical History: Shortness of breath Findings: There is prominent asymmetric lucency extensively overlying the left upper lobe region. Po ssible minimal pleural effusions. Cardiomediastinal silhouette is stable. Bones and soft tissues are unremarkable. Impression: Prominent asymmetric lucency overlying the left upper lobe region, there are apparent preserved centr al pulmonary markings. Given the degree of patient uprightness versus supineness, a layering pneumoth orax would be a potential consideration. Alternately, this could be technical/projectional nature rel ated to patient positioning and rotation. Consider crosstable lateral view to assess for pneumothorax , if this is of clinical concern. Reviewed, dictated and finalized at location M. [employer] Impression: Prominent asymmetric lucency overlying the left upper lobe region, there are ap parent preserved central pulmonary markings. Given the degree of patient uprigh tness versus supineness, a layering pneumothorax would be a potential considera tion. Alternately, this could be technical/projectional nature related to patie nt positioning and rotation. Consider crosstable lateral view to assess for pne umothorax, if this is of clinical concern.
--- NOTE | ~2023-06-03 | CT_ITS ---
Non-contrast Head CT History: Pupils Technique: Axial non-contrast imaging of the brain was performed. Dose reduction technique was used on this scan by utilizing automated exposure control and iterative reconstruction technique. The dose -length product (DLP) was 681.00 mGy-cm. Findings: There is no evidence of intracranial hemorrhage, mass lesion, or acute infarct. Focal hypo density noted in the superior right frontal lobe in the subcortical region, likely chronic change or chronic infarct. The ventricles and subarachnoid spaces are normal in size. The calvarium appears n ormal. The visualized paranasal sinuses and mastoid air cells are clear. Impression: No acute abnormality. Probable chronic microvascular ischemic change or focal chronic infarct in the subcortical white matthew er in the superior right frontal lobe. Reviewed, dictated and finalized at location . Impression: No acute abnormality. Probable chronic microvascular ischemic change or focal chronic infarct in the subcortical white matter in the superior right frontal lobe.
--- NOTE | ~2023-06-03 | XR_ITS ---
Portable upright view of the abdomen Clinical history: NG tube placement Findings: NG tube in satisfactory position. Bowel gas pattern is nonspecific. No evidence for obstruc tion or free air. No abnormal mass lesion or calcification is seen. Osseous structures are intact. Impression: NG tube in satisfactory position. Reviewed, dictated and finalized at location . Impression: NG tube in satisfactory position.
--- NOTE | ~2023-06-03 | XR_ITS ---
EXAMINATION: XR chest 1V portable DATE: 06/12/2023 05:38 INDICATION: Respiratory failure. TECHNIQUE: A single frontal view of the chest was obtained. COMPARISON: Chest single view 06/11/2023, chest CT 06/03/2023 FINDINGS: There are lucencies in the lungs, consistent with emphysema. There is mild atelectasis in t he lower lung zones. No pleural effusion or pneumothorax. The heart size is normal. A right upper ext remity peripherally inserted central venous catheter (PICC) is seen with tip in the superior vena cav a. IMPRESSION: 1. Mild atelectasis in the lower lung zones. 2. Emphysema. Reviewed, dictated and finalized at location A.
--- NOTE | ~2023-06-03 | XR_ITS ---
Portable chest x-ray Comparison: 06/14/2023 Clinical History: Respiratory failure Findings: Endotracheal tube, NG tube and right-sided PICC line are in place. Stable asymmetric lucen cy left lung, probably indicative of COPD. Questionable mild superimposed right lung asymmetric pulmo nary edema or interstitial disease. Cardiomediastinal silhouette is stable. Bones and soft tissues a re unremarkable. Impression: Probable asymmetric COPD affecting the left lung resulting in asymmetric lucency. Questionable mild right asymmetric pulmonary edema or interstitial disease. Support tubes, as above. Reviewed, dictated and finalized at location . Impression: Probable asymmetric COPD affecting the left lung resulting in asymmetric lucenc y. Questionable mild right asymmetric pulmonary edema or interstitial disease. Support tubes, as above.
--- NOTE | ~2023-06-03 | XR_ITS ---
EXAMINATION: XR chest 1V portable DATE: 06/10/2023 08:37 INDICATION: Respiratory failure TECHNIQUE: frontal view of the chest was obtained. COMPARISON: Chest radiograph dated 06/09/[address] dated 06/03/2023 FINDINGS: Endotracheal tube tip 5.6 cm above the vanesa. Nasogastric tube extends below the left hemidiaphragm with distal tip collimated off the study. There is asymmetric increased lucency throughout the left hemithorax relative to the right which coul d be due to emphysema which appears to most severely affect the left upper lung on the prior CT. Ther e does however appear to be an asymmetric pulmonary vascular congestion with increased interstitial p attern throughout the right lung relative to the left lung even in the lower lungs where the degree o f emphysema appears comparable on CT. No pleural effusion or pneumothorax. The cardiomediastinal silh ouette is normal. IMPRESSION: 1. Asymmetric pulmonary vascular congestion and increased interstitial pattern in the right lung rela tive to the left which could be due to asymmetric pulmonary edema, although deviated to the left lung is suspicious in the setting of pulmonary embolism, pneumonia or artifact of asymmetric left-sided p redominant emphysema. Reviewed, dictated and finalized at location B. IMPRESSION: 1. Asymmetric pulmonary vascular congestion and increased interstitial pattern in the right lung relative to the left which could be due to asymmetric pulmona ry edema, although deviated to the left lung is suspicious in the setting of pu lmonary embolism, pneumonia or artifact of asymmetric left-sided predominant em physema.
--- NOTE | ~2023-06-03 | XR_ITS ---
Clinical Indication: Shortness of breath PA and lateral views of the chest: Comparison: 04/30/2023 Findings: Probable mild bibasilar atelectasis. No pleural effusion or pneumothorax. Cardiomediastina l silhouette is within normal limits. Bones and soft tissues are unremarkable. Impression: Possible COPD with mild bibasilar atelectatic change. Reviewed, dictated and finalized at location . ESSIONAL NURSE Impression: Possible COPD with mild bibasilar atelectatic change.
--- NOTE | ~2023-06-03 | CT_ITS ---
EXAMINATION: CT diagnostic chest wo con DATE: 06/03/2023 14:16 INDICATION: COPD TECHNIQUE: Computed tomography (CT) of the chest was performed without intravenous contrast. The dose -length product (DLP) was 379.33 mGy-cm. Automated exposure control and iterative reconstruction tech [employer] were employed. COMPARISON: 04/20/2023 FINDINGS: There is severe emphysema. There are few new scattered nodules in the left lung, the larges t of which measures 5 mm in the left upper lobe on image 32. There is mild atelectasis in the lower l obes. No pleural effusion or pneumothorax. No pathologically enlarged thoracic lymph nodes are identi fied. The heart size is normal. There is calcified coronary artery atherosclerosis. There is mild tho racic spondylosis. There is enlargement of the main and central pulmonary arteries, consistent with p ulmonary hypertension. IMPRESSION: 1. Severe emphysema. 2. Multiple new small nodules of the left lung measuring up to 5 mm which are most consistent with in fection/inflammation given the short interval between examinations. Reviewed, dictated and finalized at location B. E INSPECTOR IMPRESSION: 1. Severe emphysema. 2. Multiple new small nodules of the left lung measuring up to 5 mm which are m ost consistent with infection/inflammation given the short interval between exa minations.
--- NOTE | 2023-06-03 03:28 | ECG_ITS ---
Measurements Intervals [place] Rate: 113 P: 57 AL: 136 QRS: 60 QRSD: 89 T: 82 QT: 319 QTc: 439 Interpretive Statements SINUS TACHYCARDIA DELAYED PRECORDIAL R/S TRANSITION BORDERLINE ST-T WAVE ABNORMALITY- INF/HIGH LAT LEADS BASELINE ARTIFACT- I, II, III, AVL ABNORMAL ECG COMPARED TO ECG 04/19/2023 01:28:16 SINUS TACHYCARDIA NOW PRESENT Electronically Signed On 06-03-2023 6:36:06 RECREATION MANAGER by Suhas Horn D.O.
[2023-06-03 03:37] LABS: Basophils Absolute Auto 0.1 K/mm3 (0.0-0.1); Basophils Percent Auto 0.4 % (0.2-1.2); Eosinophils Percent Auto 0.1 % (0-4.4); Hematocrit 39.3 % (42.0-52.0); Hemoglobin 13.2 g/dL (14.0-18.0); Immature Granulocyte Absolute 0.38 K/mm3 (0.00-0.031); Immature Granulocyte Percent A 2.1 % (0-0.5); Lymphocytes Percent Auto 12.7 % (18.3-44.2); Mean Corpuscular HGB Conc 33.6 g/dl (32-36); Mean Corpuscular Hemoglobin 30.6 pg (26-34); Mean Platelet Volume 9.8 fl (7.4-10.4); Monocytes Absolute Auto 1.2 K/mm3 (0.1-0.6); Monocytes Percent Auto 6.8 % (2.6-8.5); Neutrophils Absolute Auto 14.1 K/mm3 (1.3-6.7); Neutrophils Percent Auto 77.9 % (45.5-73.1); Nucleated Red Blood Cells Perc 0.2 % (0.0-0.2); Platelet Count Result 354 k/mm3 (150-375); Red Blood Count 4.32 M/mm3 (4.6-6.20); Red Cell Distribution Width 14.4 % (11.5-14.5); White Blood Count 18.1 K/mm3 (4.5-10.0)
[2023-06-03 03:46] LABS: Alanine Aminotransferase 34 U/L (6-50); Albumin Level 4.4 g/dL (3.5-5.1); Alkaline Phosphatase 108 U/L (38-126); Anion Gap 10 mmol/L (8-16); Aspartate Amino Transferase 28 U/L (17-59); Bilirubin,Total 0.4 mg/dL (0.2-1.3); Blood Urea Nitrogen 14 mg/dL (9-20); Carbon Dioxide 32 mmol/L (22-30); Chloride 99 mmol/L (98-107); Estimated CRCL calculation 91 ml/min; Estimated Glomerular Filt Rate > 60; Glucose 212 mg/dL (65-110); Potassium 4.1 mmol/L (3.4-5.0); Sodium 141 mmol/L (137-145)
--- NOTE | 2023-06-03 04:55 | ED.GENADULT ---
HPI - General Adult General Chief complaint: Shortness of Breath/Dyspnea Stated complaint: sob Time Seen by Provider: 06/03/23 03:19 History of Present Illness HPI narrative: Patient is a 62-year-old male who presents to the emergency department this morning from his extended care facility due to concern for shortness of breath. Patient has a history of COPD and does wear home oxygen 4 L. [facility] facility was concerned that patient was satting 85% on his 4 L nasal cannula. Patient admits that he has been having some shortness of breath within the past few days. EMS states that on route to the emergency department, patient's oxygenation did improve with good waveform and he was satting 98% on his 4 L. Patient is currently denying any chest pain, any nausea, vomiting, abdominal pain. He denies any headaches, fevers or chills at home. There are no other modifying, alleviating, or precipitating factors at this time. Related Data Home Medications Medication Instructions Recorded Confirmed albuterol sulfate 90 mcg/actuation 90 mcg inhalation Q4H PRN 10/31/19 04/19/23 aerosol inhaler Shortness Of Breath baclofen 20 mg tablet 20 mg PO TID PRN Muscle Spasm 10/31/19 04/19/23 budesonide-formoterol HFA 160 2 puff inhalation BID 10/31/19 04/19/23 mcg-4.5 mcg/actuation aerosol inhaler (Symbicort) montelukast 10 mg tablet 10 mg PO HS 10/31/19 04/19/23 oxymetazoline 0.05 % nasal spray 2 spray intranasal Q12H PRN 10/31/19 04/19/23 (Afrin Sinus (oxymetazoline)) Allergy Symptoms pregabalin 200 mg capsule (Lyrica) 200 mg PO Q12H 10/31/19 04/19/23 tiotropium bromide 2.5 2 puff inhalation BID 07/11/22 04/19/23 mcg/actuation mist for inhalation (Spiriva Respimat) atorvastatin 80 mg tablet 80 mg PO DAILY 03/12/23 04/19/23 diltiazem HCl 360 mg 240 mg PO DAILY 03/12/23 04/19/23 capsule,extended release 24 hr duloxetine 60 mg capsule,delayed 60 mg PO DAILY 03/12/23 04/19/23 release furosemide 40 mg tablet 40 mg PO DAILY 03/12/23 04/19/23 hydrocodone 10 mg-acetaminophen 1 tablet PO Q8H PRN Pain (Scale 03/12/23 04/19/23 325 mg tablet Score 7-10) isosorbide mononitrate 60 mg 60 mg PO DAILY 03/12/23 04/20/23 tablet,extended release 24 hr potassium chloride 20 mEq 20 meq PO DAILY 03/12/23 04/19/23 tablet,extended release dulaglutide 0.75 mg/0.5 mL See Rx Instructions .Route .COMPLEX 03/16/23 04/20/23 subcutaneous pen injector (Trulicity) dupilumab 300 mg/2 mL subcutaneous 300 mg subcut [id number] 03/20/23 04/19/23 pen injector (Dupixent) Allergies Allergy/AdvReac Type Severity Reaction Status Date / Time bacitracin Allergy Unknown Unknown Verified 07/17/22 13:14 neomycin Allergy Unknown Unknown Verified 07/17/22 13:14 Penicillins Allergy Unknown Rash Verified 07/17/22 13:14 polymyxin B Allergy Unknown Unknown Verified 07/17/22 13:14 Review of Systems Review of Systems: All systems are reviewed and are negative unless stated otherwise in the HPI. [facility] Past Medical History Medical History Anxiety and depression CAD (coronary artery disease) Chronic pain Chronic respiratory failure with hypoxia and hypercapnia COPD (chronic obstructive pulmonary disease) Diastolic heart failure Echocardiogram 2022 EF 65-70, mildly increased left ventricular wall thickness, grade 1 diastolic dysfunction, mild mitral and tricuspid regurgitation, normal pulmonary pressure GERD (gastroesophageal reflux disease) Hypertension Insomnia Tobacco abuse Type 2 diabetes mellitus Surgical History Surgical History History of cardiac catheterization History of heart artery stent History of orthopedic surgery Left biceps repair Family History Family History Other Unknown family medical history Social History Social History (Reviewed 06/03/23 @ 04:59 by Lina Mooney
[2023-06-03 05:04] LABS: Influenza A QL RT-PCR Negative (Negative); Influenza B QL RT-PCR Negative (Negative); RSV RNA, RT-PCR Negative (Negative); SARS-CoV-2 RNA PCR Negative (Negative)
[2023-06-03] MEDS: IPRATROPIUM 0.5 MG/ALBUTEROL SULFATE 2.5 MG AMPUL.NEB 3 ML INHALATION ×6 (05:10→23:45)
[2023-06-03 05:25] LABS: Lactic Acid Reflex 4.3 mmol/L (0.7-2.0)
[2023-06-03] MEDS: SODIUM CHLORIDE 0.9% IV 1,000 ML 500 ML IV CONT (05:33)
[2023-06-03] MEDS: AZITHROMYCIN 500 MG/NS 250 ML 500 MG/250 ML BAG 250 MG IVPB (06:57)
--- NOTE | 2023-06-03 07:15 | PC.NURSE ---
Assumed care. Pt in tripod position on stretcher in resp distress. NRB mask on at 15 l with 02 sats slowly climbing up from 80%. Pt pale and diaphoretic. ERP aware.
--- NOTE | 2023-06-03 07:17 | PC.NURSE ---
@[id number] this RN went to pt room to give medications. pt had new c/o discomfort related to his position, at this time pts o2 sats were still in the upper 90s. Pt then began getting anxious and attempting to change positions, at this time pts work of breathing greatly increased and pts 02 sat dropped to lower 70s. Pt placed on 15L nonrebreather and sats went back to 100%. EDP Dr. Farooq made aware, respiratory called to bedside by this RN. at this time pts work of breathing is still greatly increased. provider is aware.
[2023-06-03] MEDS: LORazepam INJ (*CRX) 2 MG/ML VIAL 0.5 MG IV PUSH (07:21)
--- NOTE | 2023-06-03 07:35 | PC.NURSE ---
Bipap applied by resp therapist. Resp less labored with bipap in place.
[2023-06-03 08:04] LABS: Reflex Lactic Acid Yes or No Add Lactic
--- NOTE | 2023-06-03 08:16 | PC.NURSE ---
Pt agitated and sob again. Pt removed bipap mask. Mask reapplied. 02 increased to 50% due to 02 sat 89% on the 30%.
[2023-06-03 08:19] LABS: Device NON-INVASIVE VENT; Fractional Inspired Oxygen 50 %; HCO3 VBG 25.4 mEq/l (24.0-30.0); PCO2 VBG 42.9 mmHg (42.0-48.0); pH VBG 7.391 (7.300-7.400)
[2023-06-03 08:20] LABS: Non-Invasive Expiratory Pressure 8 CMH2O; Non-Invasive Inspiratory Pressure 16 CMH2O; Non-Invasive Vent Rate 18 /MIN
[2023-06-03] MEDS: FUROSEMIDE INJ 40 MG/4 ML VIAL IV PUSH (08:24)
[2023-06-03] MEDS: methylPREDNISolone SOD SUCC 40 MG VIAL IV PUSH ×2 (08:24→20:28)
--- NOTE | 2023-06-03 08:28 | PC.NURSE ---
Resting more comfortably on cart. Skin w/d and pink. SPO2 100%.
[2023-06-03 08:31] LABS: Lactic Acid 2.3 mmol/L (0.7-2.0)
[2023-06-03 08:40] LABS: NT Pro B Type Natriuretic Pept 145 pg/mL (19.9-100)
--- NOTE | 2023-06-03 08:46 | PC.NURSE ---
Hospitalist to ed to see pt.
--- NOTE | 2023-06-03 10:43 | PM.CNPUL ---
Assessment and Plan Assessment and plan (1) Asthma-COPD overlap syndrome: Code(s): J44.89 - Other specified chronic obstructive pulmonary disease Status: Acute Assessment and Plan: 62-year-old with a history of asthma since childhood, COPD on home trilogy and 4 L nasal cannula 24-[address] Beebe, [facility] pulmonary.? I have no PFTs. CT angiogram with no PE, severe apical predominant panlobular emphysema.? Discharged Recently from [facility] on 05/02/2023 status post COVID treated with remdesivir and dexamethasone requiring noninvasive ventilation. He was discharged on 3 L nasal cannula during the day and [facility] L [facility]. He was to continue his home noninvasive ventilator with the settings of AVAPS AE rate of 14, tidal volume 500, minimum EPAP 5, maximum EPAP 15, minimum pressure support 6, maximum pressure support 25, inspiratory time 1.2 and 4 L bleed in. These settings On his home machine in the hospital on 04/24/2023 resulted adequate ventilation and oxygenation with an ABG at the end of the night of 7.45/41/78 and an overnight oximetry with adequate oxygenation. Patient has been clinically stable until 3 days ago when developed worsening shortness of breath and 1 day of worsening hypoxemia. I will treat him for an asthma COPD exacerbation. Plan: I will send a D-dimer. If this is positive will do a CT angiogram of the chest. If it is negative will do a CT scan of the chest looking for focal infiltrates or post COVID interstitial lung disease-organizing pneumonia. I will place the patient on prednisone 40 mg p.o. q.day starting tomorrow. I will place the patient on DuoNebs q.4 hours. The patient has some change in his sputum color and will place him on Levaquin 750 mg IV q.day For tracheobronchitis. If he has pneumonia on his CT scan will need to give him broad-spectrum antibiotics as he has recently been hospitalized. Will follow with you. (2) Acute on chronic respiratory failure with hypoxia and hypercapnia: Code(s): J96.21 - Acute and chronic respiratory failure with hypoxia; J96.22 - Acute and chronic respiratory failure with hypercapnia Status: Acute Assessment and Plan: He was to continue his home noninvasive ventilator with the settings of AVAPS AE rate of 14, tidal volume 500, minimum EPAP 5, maximum EPAP 15, minimum pressure support 6, maximum pressure support 25, inspiratory time 1.2 and 4 L bleed in. These settings On his home machine in the hospital on 04/24/2023 resulted adequate ventilation and oxygenation with an ABG at the end of the night of 7.45/41/78 and an overnight oximetry with adequate oxygenation. Plan: I will continue noninvasive ventilation during the day p.r.n. and at night with the above settings. I will check a blood gas in the morning. History of Present Illness History of Present Illness Consult date: 06/03/23 Chief complaint: sepsis,pneumonia Narrative: 06/03/2023: This is a new pulmonary consult for acute on chronic hypoxemic and hypercarbic respiratory failure from Asthma COPD overlap syndrome. 62-year-old with a history of asthma since childhood, COPD on home trilogy and 4 L nasal cannula 24-[address] Beebe, [facility] pulmonary.? I have no PFTs. CT angiogram with no PE, severe apical predominant panlobular emphysema.? Discharged Recently from [facility] on 05/02/2023 status post COVID treated with remdesivir and dexamethasone requiring Noninvasive ventilation. He was discharged on 3 L nasal cannula during the day and 4 L at night to [facility]. He was to continue his home noninvasive ventilator with the settings of AVAPS AE rate of 14, tidal volume 500, minimum EPAP 5, maximum EPAP 15, minimum pressure support 6, maximum pressure support 25, inspiratory time 1.2 and 4 L bleed in. These settings On his home machine in the hospital on 04/24/2023 resulted ad
[2023-06-03 11:19] LABS: D Dimer 0.33 ug/mL (<0.48)
[2023-06-03] MEDS: levoFLOXacin 750 MG/D5W 150 ML 750 MG/150 ML BAG 100 MG IVPB (11:28)
--- NOTE | 2023-06-03 13:10 | PM.IMHP ---
H&P: HPI History of Present Illness Date/Time: 06/03/23 13:10 Chief Complaint: Shortness of breath, 10 day duration Narrative: Jeremiah Claire is a 62 yo M with a mHx significant for obesity, COPD/Asthma, chronic pain, depression, dyslipidemia. He developed worsening shortness of breath; aggravated by exertion, alleviated by rest and oxygen; severe enough to impair sleep; associated with malaise, cough, poor sleep. No chest pain, fevers,chills, nausea or vomiting. Quit smoking recently; no alcohol intake or recreational drug use. CT chest: 1. Severe emphysema. 2. Multiple new small nodules of the left lung measuring up to 5 mm which are most consistent with infection/inflammation given the short interval between examinations. VB.39; PCO2 42; Po2 114 He will be admitted, evaluated and managed for acute on chronic hypoxia and hypercarbia. Review of Systems Constitutional: Constitutional: Reports difficulty sleeping, Reports fatigue and Reports night sweats Eyes: Eyes: Denies blurry vision and Denies photophobia ENT: Reports Normal hearing present, Denies dysphagia and Denies epistaxis Cardiovascular: Cardiovascular: Denies pedal edema, Denies leg edema and Denies lightheadedness Respiratory: Respiratory: Reports cough, Denies hemoptysis, Reports dyspnea, Reports dyspnea on exertion and Reports wheezing Gastrointestinal: Gastrointestinal: Denies abdominal pain, Denies hematochezia, Denies constipation, Denies heartburn, Denies diarrhea and Denies nausea Genitourinary: Genitourinary: Denies flank pain, Denies urinary frequency and Denies urinary hesitancy Musculoskeletal: Musculoskeletal: Denies arthralgias and Denies joint swelling Integumentary/Breasts: Skin/Breast: Reports dry skin Neurologic: Reports abnormal gait Psychiatric: Psychiatric: Reports anxiety, Denies behavioral changes, Denies confusion and Reports depression PMFSH Past Medical History Medical History Anxiety and depression CAD (coronary artery disease) Chronic pain Chronic respiratory failure with hypoxia and hypercapnia COPD (chronic obstructive pulmonary disease) Diastolic heart failure Echocardiogram 2022 EF 65-70, mildly increased left ventricular wall thickness, grade 1 diastolic dysfunction, mild mitral and tricuspid regurgitation, normal pulmonary pressure GERD (gastroesophageal reflux disease) Hypertension Insomnia Tobacco abuse Type 2 diabetes mellitus Surgical History Surgical History History of cardiac catheterization History of heart artery stent History of orthopedic surgery Left biceps repair Family History Family History Other Unknown family medical history Social History Social History Social History: He lives with his Virginie and does not have any biological children. He does have some step kids. He has 2 cats. He wishes that his Virginie be his surrogate. He states that he would like to be intubated in the case of respiratory failure. He states he would like his family to have the opportunity to come cm. He is cognizant that his chances of coming off the ventilator are slim. He states he only reason that he wants to her have cardiac resuscitation is so that he may donate his organs if given the chance. Smoking packs per day: 0.5 Smoking cigarettes per day: 10.0 Years smoked: 49 Smoking pack-years: 24.50 Smoking status: Former smoker Tobacco type: cigarettes Second hand tobacco smoke exposure: Yes Alcohol intake: never Substance use: former Substance use type: does not use Do You Feel Safe in your Home?: Yes Lack of Transportation: No Lack of Food: Never True Current Housing: I Have Housing Concerned About Future Housing: No Difficulty Paying Gas/Electric Bi
[2023-06-03] MEDS: BACLOFEN 10 MG TABLET 20 MG PO (17:58)
[2023-06-03] MEDS: HYDROcodone/acetaminophen (*CRX) 10-325 MG TABLET 1 TAB PO (17:59)
[2023-06-03] MEDS: dilTIAZem HCL CD 240 MG CAP.24HR PO (18:29)
[2023-06-03] MEDS: ATORVASTATIN 40 MG TABLET 80 MG PO (20:27)
[2023-06-03] MEDS: PREGABALIN (*CRX) 50 MG CAPSULE 200 MG PO (20:28)
[2023-06-03] MEDS: MONTELUKAST SODIUM 10 MG TABLET PO (20:28)
[2023-06-03] MEDS: INSULIN GLARGINE (*BKC) 100 UNITS/ML 20 UNITS SUB-Q (20:32)
[2023-06-03 20:39] LABS: Glucose Point of Care 191 mg/dl (65-105)
[2023-06-03] MEDS: FLUTICASONE/SALMETEROL 115-21 MCG INHALER 1 PUFF 2 PUFF INHALATION (20:49)
[2023-06-03] MEDS: IBUPROFEN 400 MG TABLET PO (22:58)
[2023-06-03] MEDS: ALPRAZolam (*CRX) 0.25 MG TABLET PO (22:59)
[2023-06-04] VITALS (25 sets, daily range): BP systolic 109–142; BP diastolic 56–77; PULSE 74–87; RESP 14–25; TEMP 36.1–37.1; O2SAT 96–99; BMI 33.2
[2023-06-04] MEDS: IPRATROPIUM 0.5 MG/ALBUTEROL SULFATE 2.5 MG AMPUL.NEB 3 ML INHALATION ×5 (02:48→23:50)
[2023-06-04] MEDS: HYDROcodone/acetaminophen (*CRX) 10-325 MG TABLET 1 TAB PO ×3 (03:04→17:21)
[2023-06-04 04:20] LABS: Basophils Percent Auto 0.3 % (0.2-1.2); Hematocrit 37.1 % (42.0-52.0); Hemoglobin 12.4 g/dL (14.0-18.0); Immature Granulocyte Absolute 0.14 K/mm3 (0.00-0.031); Immature Granulocyte Percent A 1.2 % (0-0.5); Lymphocytes Absolute Auto 1.46 K/mm3 (0.9-3.2); Lymphocytes Percent Auto 12.3 % (18.3-44.2); Mean Corpuscular HGB Conc 33.4 g/dl (32-36); Mean Corpuscular Hemoglobin 30.3 pg (26-34); Mean Corpuscular Volume 90.7 fl (80-100); Mean Platelet Volume 9.9 fl (7.4-10.4); Monocytes Absolute Auto 0.4 K/mm3 (0.1-0.6); Monocytes Percent Auto 3.1 % (2.6-8.5); Neutrophils Absolute Auto 9.9 K/mm3 (1.3-6.7); Neutrophils Percent Auto 83.1 % (45.5-73.1); Nucleated Red Blood Cells Perc 0.2 % (0.0-0.2); Platelet Count Result 265 k/mm3 (150-375); Red Blood Count 4.09 M/mm3 (4.6-6.20); Red Cell Distribution Width 13.9 % (11.5-14.5); White Blood Count 11.9 K/mm3 (4.5-10.0)
[2023-06-04 04:31] LABS: Alanine Aminotransferase 31 U/L (6-50); Albumin Level 3.9 g/dL (3.5-5.1); Alkaline Phosphatase 87 U/L (38-126); Anion Gap 7 mmol/L (8-16); Aspartate Amino Transferase 29 U/L (17-59); Bilirubin,Total 0.5 mg/dL (0.2-1.3); Blood Urea Nitrogen 13 mg/dL (9-20); Calcium 9.5 mg/dL (8.4-10.2); Carbon Dioxide 31 mmol/L (22-30); Chloride 100 mmol/L (98-107); Estimated CRCL calculation 103 ml/min; Estimated Glomerular Filt Rate > 60; Glucose 219 mg/dL (65-110); Sodium 138 mmol/L (137-145)
[2023-06-04 05:56] LABS: Alveolar/Arterial O2 Gradient 74.4 mmHg; Base Excess ABG 5.3 mEq/l (+/-2.0); Fractional Inspired Oxygen 36 %; Oxygen Content ABG 17.2 %vol (16.0-22.0); Oxygen Saturation ABG 98.9 % (95.0-100.0); Oxyhemoglobin 97.3 % THb (90.0-100.0); PCO2 ABG 39.3 mmHg (35.0-45.0); PO2 ABG 136.7 mmHg (80.0-100.0); Site Drawn LEFT RADIAL; Total Hemoglobin 12.4 g/dL (12.0-18.0); pH ABG 7.486 (7.350-7.450)
[2023-06-04 05:57] LABS: Device OTHER DEVICE; Modified Allen's Test Pass
[2023-06-04 08:11] LABS: Glucose Point of Care 231 mg/dl (65-105)
[2023-06-04] MEDS: PREGABALIN (*CRX) 50 MG CAPSULE 200 MG PO ×2 (08:17→21:22)
[2023-06-04] MEDS: ASPIRIN 81 MG ENTERIC TABLET PO (08:18)
[2023-06-04] MEDS: dilTIAZem HCL CD 240 MG CAP.24HR PO (08:18)
[2023-06-04] MEDS: DULoxetine HCL 60 MG CAPSULE.DR PO (08:18)
[2023-06-04] MEDS: predniSONE 20 MG TABLET 40 MG PO (08:18)
[2023-06-04] MEDS: ISOSORBIDE MONONITRATE 60 MG TAB.ER.24H PO (08:18)
[2023-06-04] MEDS: INSULIN ASPART (*BKC) 100 UNITS/ML SUB-Q ×2 (08:19→17:02)
[2023-06-04] MEDS: INSULIN ASPART (*BKC) 100 UNITS/ML 15 UNITS SUB-Q ×2 (08:19→17:02)
[2023-06-04] MEDS: INSULIN GLARGINE (*BKC) 100 UNITS/ML 20 UNITS SUB-Q ×2 (08:20→21:22)
[2023-06-04] MEDS: ENOXAPARIN 40 MG/0.4 ML SYRINGE SUB-Q (08:20)
[2023-06-04] MEDS: levoFLOXacin 750 MG TABLET PO (10:00)
[2023-06-04 11:37] LABS: Glucose Point of Care 138 mg/dl (65-105)
--- NOTE | 2023-06-04 12:11 | PM.PNPUL ---
Progress Note: A&P Assessment and Plan (1) Asthma-COPD overlap syndrome: Code(s): J44.89 - Other specified chronic obstructive pulmonary disease Status: Acute Assessment and Plan: 62-year-old with a history of asthma since childhood, COPD on home trilogy and 4 L nasal cannula 24-[address] Beebe, [facility] pulmonary.? I have no PFTs. CT angiogram with no PE, severe apical predominant panlobular emphysema.? Discharged Recently from [facility] on 05/02/2023 status post COVID treated with remdesivir and dexamethasone requiring noninvasive ventilation. He was [facility] during [facility] day [facility] He was to continue his home noninvasive ventilator with the settings of AVAPS AE rate of 14, tidal volume 500, minimum EPAP 5, maximum EPAP 15, minimum pressure support 6, maximum pressure support 25, inspiratory time 1.2 and 4 L bleed in. These settings On his home machine in the hospital on 04/24/2023 resulted adequate ventilation and oxygenation with an ABG at the end of the night of 7.45/41/78 and an overnight oximetry with adequate oxygenation. Patient has been clinically stable until 3 days ago when developed worsening shortness of breath and 1 day of worsening hypoxemia. I will treat him for an asthma COPD exacerbation. Plan: I will send a D-dimer. If this is positive will do a CT angiogram of the chest. If it is negative will do a CT scan of the chest looking for focal infiltrates or post COVID interstitial lung disease-organizing pneumonia. I will place the patient on prednisone 40 mg p.o. q.day starting tomorrow. I will place the patient on DuoNebs q.4 hours. The patient has some change in his sputum color and will place him on Levaquin 750 mg IV q.day For tracheobronchitis. If he has pneumonia on his CT scan will need to give him broad-spectrum antibiotics as he has recently been hospitalized. later in the day D-dimer was negative. CT scan of the chest showed severe panlobular emphysema all lung nelson with an apical predominance, no evidence of post COVID interstitial lung disease or organizing pneumonia, no evidence of focal consolidations. New 5 mm nodules left lung compared to 04/20/2023 consistent with inflammatory or infection process. 06/03/23: Patient wore the hospital noninvasive ventilation with the AVAPS mode last night. Blood gas obtained prior to removal was 7.49/39/137 on 36% FiO2. His white blood cell count is 11.9, his creatinine is 0.7. When I entered the room the patient had been on 4 L nasal cannula for about 2 hours. At the end of our talking he was very short of breath in this wore him out any requested to be put back on the hospital noninvasive ventilator. He had no wheezing on exam. Plan: Patient remains with severe shortness of breath after 2 hours off the noninvasive ventilator and was put back on the noninvasive ventilator. His ABG on the current settings provide adequate ventilation. There is no evidence of focal pneumonia on his CT scan and I will continue levofloxacin for tracheobronchitis. Continue DuoNebs q.4 hours. I have told the patient he has been receiving maximal therapy for his COPD. he has never recovered from his COVID infection on 04/18/2023. There is no evidence of post COVID scarring or interstitial lung disease and I suspect this is a new baseline for the patient after his previous COVID ext foot infection Discussed with Dr. Draper, Will follow with you. (2) Acute on chronic respiratory failure with hypoxia and hypercapnia: Code(s): J96.21 - Acute and chronic respiratory failure with hypoxia; J96.22 - Acute and chronic respiratory failure with hypercapnia Status: Acute Assessment and Plan: He was to continue his home noninvasive ventilator with the settings of AVAPS AE rate of 14, tidal volume 500, minimum EPAP 5, maximum EPAP 15, minimum pressure support 6, maximu
[2023-06-04] MEDS: methylPREDNISolone SOD SUCC 125 MG VIAL 40 MG IV PUSH ×2 (12:27→17:03)
[2023-06-04] MEDS: BACLOFEN 10 MG TABLET 20 MG PO ×2 (12:31→17:13)
--- NOTE | 2023-06-04 13:24 | PM.IMPN ---
Progress Note: A&P Assessment and Plan (1) Asthma-COPD overlap syndrome: Code(s): J44.89 - Other specified chronic obstructive pulmonary disease Status: Acute Assessment and Plan: With exacerbation steroids, oxygen, pulmonology consulted (2) Acute on chronic respiratory failure with hypoxia and hypercapnia: Code(s): J96.21 - Acute and chronic respiratory failure with hypoxia; J96.22 - Acute and chronic respiratory failure with hypercapnia Status: Acute Assessment and Plan: s/p AVAP, oxygen Pulm is on board (3) Chronic pain: Qualifiers: Chronic pain type: other chronic pain Qualified Code(s): G89.29 - Other chronic pain Code(s): G89.29 - Other chronic pain Status: Chronic (4) Type 2 diabetes mellitus with hyperglycemia, without long-term current use of insulin: Code(s): E11.65 - Type 2 diabetes mellitus with hyperglycemia Status: Acute Assessment and Plan: Insulin, basal and correctional (5) Lactic acidemia: Code(s): E87.20 - Acidosis, unspecified Status: Acute Time Spent With Patient Time with patient: 25 - 35 minutes Subjective Date/time seen: 06/04/23 13:24 Interval history: 06/03/2023:? Being managed for acute on chronic hypoxemic and hypercarbic respiratory failure from ? Asthma COPD overlap syndrome. 06/04/23: Improved but requires more steroids; Seen and examined; quite anxious and not eager to be discharged back to his prior [place] Review of Systems Constitutional: Constitutional: Reports difficulty sleeping, Reports fatigue and Reports night sweats Eyes: Eyes: Denies blurry vision and Denies photophobia ENT: Reports Normal hearing present, Denies dysphagia and Denies epistaxis Cardiovascular: Cardiovascular: Denies pedal edema, Denies leg edema, Denies lightheadedness, Reports dyspnea and Reports dyspnea on exertion Respiratory: Respiratory: Reports cough, Denies hemoptysis, Reports dyspnea, Reports dyspnea on exertion and Reports wheezing Gastrointestinal: Gastrointestinal: Denies abdominal pain, Denies hematochezia, Denies constipation, Denies dysphagia, Denies heartburn, Denies diarrhea and Denies nausea Genitourinary: Genitourinary: Denies flank pain, Denies urinary frequency and Denies urinary hesitancy Musculoskeletal: Musculoskeletal: Reports abnormal gait, Denies arthralgias and Denies joint swelling Integumentary/Breasts: Skin/Breast: Reports dry skin Neurologic: Reports Normal hearing present, Reports abnormal gait, Denies behavioral changes and Denies confusion Psychiatric: Psychiatric: Reports anxiety, Denies behavioral changes, Denies confusion and Reports depression Endocrine: Endocrine: Reports fatigue Allergic/Immunologic: Allergic/Immunologic: Reports wheezing Exam Const: General: in distress and uncomfortable; No confusion Orientation/consciousness: No confusion HENMT: Ears: TM's normal bilaterally Mouth: Yes moist mucous membranes and Yes dry mucous membranes Eyes: Sclera: sclerae normal and normal sclerae Direct Ophthalmoscopy: No photophobia Neck: Neck: supple Carotids: no bruits Resp: Effort & Inspection: normal respiratory effort Auscultation: not clear to auscultation bilaterally, wheezes and diminished lung sounds Cardio: Rate: tachycardic Rhythm: regular rhythm Skin: General skin exam: normal color Neuro: General: gait normal and No confusion Cranial nerves: Yes Normal hearing present Extrem: General: normal to inspection Psych: Mental Status: mental status grossly normal Objective Data Vital Signs Vital Signs: Vital Signs - 24 hr 06/03/23 14:32 06/03/23 14:00 06/03/23 16:00 Temperature 98.7 F Pulse Rate 109 H 90 97 Respiratory Rate 21 H 15 Blood Pressure 113/72 Pulse Oximetry 99 98 Oxygen Delivery Oxygen Flow Rate Fraction of Inspired Oxygen 06/03/23 16:00 06/03/23 16:27 06/03/23 16:29 Temperature Pulse Rate 93
[2023-06-04 15:43] LABS: Glucose Point of Care 259 mg/dl (65-105)
[2023-06-04] MEDS: guaiFENesin/DEXTROMETHORPHAN 10 ML UDC PO (21:22)
[2023-06-04] MEDS: ATORVASTATIN 40 MG TABLET 80 MG PO (21:23)
[2023-06-04] MEDS: MONTELUKAST SODIUM 10 MG TABLET PO (21:23)
[2023-06-04 21:31] LABS: Glucose Point of Care 241 mg/dl (65-105)
--- NOTE | 2023-06-04 23:09 | PC.NURSE ---
This patient, Jeremiah Claire, was transferred to [Med-surg room 326 ] on 06/04/23 at 2310. Personal belongings sent with patient. Report given to [DANIEL Oliveira ]. Appropriate documentation sent with patient. Pt states he will call family to notify them of transfer.
--- NOTE | 2023-06-04 23:20 | PC.NURSE ---
Pt arrived to unit via bed from ICU. Pt oriented to unit and educated on safety.
[2023-06-05] VITALS (16 sets, daily range): BP systolic 113–139; BP diastolic 51–68; PULSE 67–94; RESP 17–27; TEMP 36.4–36.8; O2SAT 94–99
[2023-06-05] MEDS: methylPREDNISolone SOD SUCC 125 MG VIAL 40 MG IV PUSH ×2 (00:24→05:50)
[2023-06-05] MEDS: HYDROcodone/acetaminophen (*CRX) 10-325 MG TABLET 1 TAB PO ×3 (03:36→20:58)
[2023-06-05] MEDS: guaiFENesin/DEXTROMETHORPHAN 10 ML UDC PO ×3 (03:37→15:57)
[2023-06-05] MEDS: BACLOFEN 10 MG TABLET 20 MG PO ×4 (03:37→20:57)
[2023-06-05] MEDS: IPRATROPIUM 0.5 MG/ALBUTEROL SULFATE 2.5 MG AMPUL.NEB 3 ML INHALATION ×5 (04:20→20:02)
[2023-06-05 06:13] LABS: Basophils Percent Auto 0.2 % (0.2-1.2); Hematocrit 37.7 % (42.0-52.0); Hemoglobin 12.5 g/dL (14.0-18.0); Immature Granulocyte Absolute 0.19 K/mm3 (0.00-0.031); Immature Granulocyte Percent A 1.5 % (0-0.5); Lymphocytes Absolute Auto 1.22 K/mm3 (0.9-3.2); Lymphocytes Percent Auto 9.3 % (18.3-44.2); Mean Corpuscular HGB Conc 33.2 g/dl (32-36); Mean Corpuscular Volume 90.6 fl (80-100); Mean Platelet Volume 10.1 fl (7.4-10.4); Monocytes Absolute Auto 0.4 K/mm3 (0.1-0.6); Monocytes Percent Auto 2.9 % (2.6-8.5); Neutrophils Absolute Auto 11.3 K/mm3 (1.3-6.7); Neutrophils Percent Auto 86.1 % (45.5-73.1); Platelet Count Result 269 k/mm3 (150-375); Red Blood Count 4.16 M/mm3 (4.6-6.20); Red Cell Distribution Width 13.7 % (11.5-14.5); White Blood Count 13.1 K/mm3 (4.5-10.0)
[2023-06-05 06:38] LABS: Alanine Aminotransferase 29 U/L (6-50); Albumin Level 3.8 g/dL (3.5-5.1); Alkaline Phosphatase 83 U/L (38-126); Anion Gap 8 mmol/L (8-16); Aspartate Amino Transferase 26 U/L (17-59); Bilirubin,Total 0.4 mg/dL (0.2-1.3); Blood Urea Nitrogen 17 mg/dL (9-20); Calcium 9.2 mg/dL (8.4-10.2); Carbon Dioxide 31 mmol/L (22-30); Chloride 99 mmol/L (98-107); Estimated CRCL calculation 100 ml/min; Estimated Glomerular Filt Rate > 60; Glucose 253 mg/dL (65-110); Potassium 4.1 mmol/L (3.4-5.0); Sodium 138 mmol/L (137-145)
[2023-06-05 08:15] LABS: Glucose Point of Care 216 mg/dl (65-105)
[2023-06-05] MEDS: INSULIN ASPART (*BKC) 100 UNITS/ML SUB-Q ×2 (09:04→11:47)
[2023-06-05] MEDS: INSULIN ASPART (*BKC) 100 UNITS/ML 15 UNITS SUB-Q ×3 (09:04→17:48)
[2023-06-05] MEDS: levoFLOXacin 750 MG TABLET PO (09:05)
[2023-06-05] MEDS: PREGABALIN (*CRX) 50 MG CAPSULE 200 MG PO ×2 (09:05→20:54)
[2023-06-05] MEDS: dilTIAZem HCL CD 240 MG CAP.24HR PO (09:05)
[2023-06-05] MEDS: ENOXAPARIN 40 MG/0.4 ML SYRINGE SUB-Q (09:05)
[2023-06-05] MEDS: ISOSORBIDE MONONITRATE 60 MG TAB.ER.24H PO (09:05)
[2023-06-05] MEDS: DULoxetine HCL 60 MG CAPSULE.DR PO (09:05)
[2023-06-05] MEDS: INSULIN GLARGINE (*BKC) 100 UNITS/ML 20 UNITS SUB-Q ×2 (09:05→21:01)
[2023-06-05] MEDS: ASPIRIN 81 MG ENTERIC TABLET PO (09:06)
--- NOTE | 2023-06-05 09:47 | PM.PNPUL ---
Progress Note: A&P Assessment and Plan (1) Asthma-COPD overlap syndrome: Code(s): J44.89 - Other specified chronic obstructive pulmonary disease Status: Acute Assessment and Plan: 62-year-old with a history of asthma since childhood, COPD on home trilogy and 4 L nasal cannula 24-[address] Beebe, [facility] pulmonary.? I have no PFTs. CT angiogram with no PE, severe apical predominant panlobular emphysema.? Discharged Recently from [facility] on 05/02/2023 status post COVID treated with remdesivir and dexamethasone requiring noninvasive ventilation. He was [facility] L [facility] during the day [facility] He was to continue his home noninvasive ventilator with the settings of AVAPS AE rate of 14, tidal volume 500, minimum EPAP 5, maximum EPAP 15, minimum pressure support 6, maximum pressure support 25, inspiratory time 1.2 and 4 L bleed in. These settings On his home machine in the hospital on 04/24/2023 resulted adequate ventilation and oxygenation with an ABG at the end of the night of 7.45/41/78 and an overnight oximetry with adequate oxygenation. Patient has been clinically stable until 3 days ago when developed worsening shortness of breath and 1 day of worsening hypoxemia. I will treat him for an asthma COPD exacerbation. Plan: I will send a D-dimer. If this is positive will do a CT angiogram of the chest. If it is negative will do a CT scan of the chest looking for focal infiltrates or post COVID interstitial lung disease-organizing pneumonia. I will place the patient on prednisone 40 mg p.o. q.day starting tomorrow. I will place the patient on DuoNebs q.4 hours. The patient has some change in his sputum color and will place him on Levaquin 750 mg IV q.day For tracheobronchitis. If he has pneumonia on his CT scan will need to give him broad-spectrum antibiotics as he has recently been hospitalized. later in the day D-dimer was negative. CT scan of the chest showed severe panlobular emphysema all lung nelson with an apical predominance, no evidence of post COVID interstitial lung disease or organizing pneumonia, no evidence of focal consolidations. New 5 mm nodules left lung compared to 04/20/2023 consistent with inflammatory or infection process. 06/03/23: Patient wore the hospital noninvasive ventilation with the AVAPS mode last night. Blood gas obtained prior to removal was 7.49/39/137 on 36% FiO2. His white blood cell count is 11.9, his creatinine is 0.7. When I entered the room the patient had been on 4 L nasal cannula for about 2 hours. At the end of our talking he was very short of breath in this wore him out any requested to be put back on the hospital noninvasive ventilator. He had no wheezing on exam. Plan: Patient remains with severe shortness of breath after 2 hours off the noninvasive ventilator and was put back on the noninvasive ventilator. His ABG on the current settings provide adequate ventilation. There is no evidence of focal pneumonia on his CT scan and I will continue levofloxacin for tracheobronchitis. Continue DuoNebs q.4 hours. I have told the patient he has been receiving maximal therapy for his COPD. he has never recovered from his COVID infection on 04/18/2023. There is no evidence of post COVID scarring or interstitial lung disease and I suspect this is a new baseline for the patient after his previous COVID ext foot infection. 06/04/23: Noninvasive ventilator all day yesterday and overnight. Said he slept well on the hospital noninvasive ventilator with 4 L bleed in. He states he is breathing somewhat better today. He still has shortness of breath at rest and dyspnea when he moves in the bed. When I enter the room he was on 9 L with saturations 99% although the regulator was broken. I decreased him to 5 L and his saturations remained 98% I decreased him to 3 L and his saturations were 94%. His white blood c
[2023-06-05 11:38] LABS: Glucose Point of Care 317 mg/dl (65-105)
[2023-06-05] MEDS: methylPREDNISolone SOD SUCC 40 MG VIAL 20 MG IV PUSH ×2 (11:48→17:49)
[2023-06-05] MEDS: ROFLUMILAST 500 MCG TABLET PO (11:48)
--- NOTE | 2023-06-05 16:27 | PM.IMPN ---
Progress Note: A&P Assessment and Plan (1) Asthma-COPD overlap syndrome: Code(s): J44.89 - Other specified chronic obstructive pulmonary disease Status: Acute Assessment and Plan: With exacerbation steroids, oxygen, pulmonology consulted 06/05/23: Will continue care through the weekend; Will manage on Levofloxacin, Solumedrol, Mucinex, Daliresp, Montelukast (2) Acute on chronic respiratory failure with hypoxia and hypercapnia: Code(s): J96.21 - Acute and chronic respiratory failure with hypoxia; J96.22 - Acute and chronic respiratory failure with hypercapnia Status: Acute Assessment and Plan: s/p AVAP, oxygen Pulm is on board 06/05/23: Will continue care through the weekend; Will manage on Levofloxacin, Solumedrol, Mucinex, Daliresp, Montelukast (3) Chronic pain: Qualifiers: Chronic pain type: other chronic pain Qualified Code(s): G89.29 - Other chronic pain Code(s): G89.29 - Other chronic pain Status: Chronic (4) Type 2 diabetes mellitus with hyperglycemia, without long-term current use of insulin: Code(s): E11.65 - Type 2 diabetes mellitus with hyperglycemia Status: Acute Assessment and Plan: Insulin, basal and correctional (5) Lactic acidemia: Code(s): E87.20 - Acidosis, unspecified Status: Acute Assessment and Plan: Improving Plan 06/05/23: Will continue care through the weekend; Will manage on Levofloxacin, Solumedrol, Mucinex, Daliresp, Montelukast Time Spent With Patient Time with patient: 25 - 35 minutes Subjective Date/time seen: 06/05/23 16:27 Interval history: 06/03/2023:? Being managed for acute on chronic hypoxemic and hypercarbic respiratory failure from ? Asthma COPD overlap syndrome. 06/04/23: Improved but requires more steroids; Seen and examined; quite anxious and not eager to be discharged back to his prior [facility] 06/05/23: Seen and examined; feels better. Will continue care through the weekend; Will manage on Levofloxacin, Solumedrol, Mucinex, Daliresp, Montelukast Pulmonology: Noninvasive ventilation through the day p.r.n. and at night.? He is improved today and I will decrease his Solu-Medrol from 40 Q 6 to 20 q.6.? I will continue his DuoNebs q.4 hours, continue montelukast 10 and continue levofloxacin, day 3 of 5 total for tracheobronchitis. ? He says the p.r.n. Mucinex has helped him and I will place him on standing Mucinex 1200 mg p.o. b.i.d and DC the prn.? The patient has had multiple exacerbations recently and I will initiate Daliresp 500 mg p.o. q.day.? I will perform an overnight oximetry on the hospital noninvasive ventilator with 4 L bleed in tonight. ? Over the next 2 days if the patient continues to improve would consider changing to prednisone 40 mg a day. Review of Systems Constitutional: Constitutional: Reports difficulty sleeping, Reports fatigue and Reports night sweats Eyes: Eyes: Denies blurry vision and Denies photophobia ENT: Reports Normal hearing present, Denies dysphagia and Denies epistaxis Cardiovascular: Cardiovascular: Denies pedal edema, Denies leg edema, Denies lightheadedness, Reports dyspnea and Reports dyspnea on exertion Respiratory: Respiratory: Reports cough, Denies hemoptysis, Reports dyspnea, Reports dyspnea on exertion and Reports wheezing Gastrointestinal: Gastrointestinal: Denies abdominal pain, Denies hematochezia, Denies constipation, Denies dysphagia, Denies heartburn, Denies diarrhea and Denies nausea Genitourinary: Genitourinary: Denies flank pain, Denies urinary frequency and Denies urinary hesitancy Musculoskeletal: Musculoskeletal: Reports abnormal gait, Denies arthralgias and Denies joint swelling Integumentary/Breasts: Skin/Breast: Reports dry skin Neurologic: Reports Normal hearing present, Reports abnormal gait, Denies behavioral changes and Denies confusion Psychiatric: Psychiatric: Reports anxiety, Denies behavioral changes, Denies confusion and R
[2023-06-05 16:31] LABS: Glucose Point of Care 185 mg/dl (65-105)
[2023-06-05 20:50] LABS: Glucose Point of Care 199 mg/dl (65-105)
[2023-06-05] MEDS: ATORVASTATIN 40 MG TABLET 80 MG PO (20:53)
[2023-06-05] MEDS: MONTELUKAST SODIUM 10 MG TABLET PO (20:54)
[2023-06-05] MEDS: guaiFENesin 12 HR 600 MG TABCR 1200 MG PO (20:54)
[2023-06-05] MEDS: MELATONIN 5 MG TABLET PO (22:47)
[2023-06-06] VITALS (21 sets, daily range): BP systolic 126–158; BP diastolic 62–70; PULSE 68–103; RESP 14–26; TEMP 36.1–36.6; O2SAT 93–100
[2023-06-06] MEDS: methylPREDNISolone SOD SUCC 40 MG VIAL 20 MG IV PUSH ×4 (00:38→17:31)
[2023-06-06] MEDS: IPRATROPIUM 0.5 MG/ALBUTEROL SULFATE 2.5 MG AMPUL.NEB 3 ML INHALATION ×7 (00:46→23:33)
[2023-06-06] MEDS: HYDROcodone/acetaminophen (*CRX) 10-325 MG TABLET 1 TAB PO ×3 (05:16→21:33)
[2023-06-06 06:14] LABS: Basophils Percent Auto 0.3 % (0.2-1.2); Hematocrit 39.8 % (42.0-52.0); Hemoglobin 13.3 g/dL (14.0-18.0); Immature Granulocyte Absolute 0.23 K/mm3 (0.00-0.031); Immature Granulocyte Percent A 1.5 % (0-0.5); Lymphocytes Absolute Auto 1.36 K/mm3 (0.9-3.2); Lymphocytes Percent Auto 8.7 % (18.3-44.2); Mean Corpuscular HGB Conc 33.4 g/dl (32-36); Mean Corpuscular Hemoglobin 29.8 pg (26-34); Mean Corpuscular Volume 89.2 fl (80-100); Mean Platelet Volume 9.8 fl (7.4-10.4); Monocytes Absolute Auto 0.7 K/mm3 (0.1-0.6); Monocytes Percent Auto 4.3 % (2.6-8.5); Neutrophils Absolute Auto 13.3 K/mm3 (1.3-6.7); Neutrophils Percent Auto 85.2 % (45.5-73.1); Nucleated Red Blood Cells Perc 0.2 % (0.0-0.2); Platelet Count Result 242 k/mm3 (150-375); Red Blood Count 4.46 M/mm3 (4.6-6.20); Red Cell Distribution Width 13.3 % (11.5-14.5); White Blood Count 15.6 K/mm3 (4.5-10.0)
[2023-06-06 06:31] LABS: Alanine Aminotransferase 34 U/L (6-50); Albumin Level 3.9 g/dL (3.5-5.1); Alkaline Phosphatase 82 U/L (38-126); Anion Gap 2 mmol/L (8-16); Aspartate Amino Transferase 29 U/L (17-59); Bilirubin,Total 0.4 mg/dL (0.2-1.3); Blood Urea Nitrogen 17 mg/dL (9-20); Calcium 9.1 mg/dL (8.4-10.2); Carbon Dioxide 36 mmol/L (22-30); Chloride 100 mmol/L (98-107); Estimated CRCL calculation 102 ml/min; Estimated Glomerular Filt Rate > 60; Glucose 208 mg/dL (65-110); Potassium 4.1 mmol/L (3.4-5.0); Sodium 138 mmol/L (137-145)
[2023-06-06 07:25] LABS: Glucose Point of Care 219 mg/dl (65-105)
[2023-06-06] MEDS: INSULIN ASPART (*BKC) 100 UNITS/ML SUB-Q (07:58)
[2023-06-06] MEDS: INSULIN GLARGINE (*BKC) 100 UNITS/ML 20 UNITS SUB-Q ×2 (07:58→22:38)
[2023-06-06] MEDS: INSULIN ASPART (*BKC) 100 UNITS/ML 15 UNITS SUB-Q ×3 (07:58→17:27)
[2023-06-06] MEDS: ASPIRIN 81 MG ENTERIC TABLET PO (07:59)
[2023-06-06] MEDS: levoFLOXacin 750 MG TABLET PO (07:59)
[2023-06-06] MEDS: BACLOFEN 10 MG TABLET 20 MG PO ×2 (07:59→17:30)
[2023-06-06] MEDS: ROFLUMILAST 500 MCG TABLET PO (07:59)
[2023-06-06] MEDS: dilTIAZem HCL CD 240 MG CAP.24HR PO (07:59)
[2023-06-06] MEDS: DULoxetine HCL 60 MG CAPSULE.DR PO (07:59)
[2023-06-06] MEDS: PREGABALIN (*CRX) 50 MG CAPSULE 200 MG PO ×2 (07:59→21:35)
[2023-06-06] MEDS: guaiFENesin 12 HR 600 MG TABCR 1200 MG PO (07:59)
[2023-06-06] MEDS: ISOSORBIDE MONONITRATE 60 MG TAB.ER.24H PO (07:59)
[2023-06-06] MEDS: ENOXAPARIN 40 MG/0.4 ML SYRINGE SUB-Q (08:07)
[2023-06-06 11:28] LABS: Glucose Point of Care 186 mg/dl (65-105)
--- NOTE | 2023-06-06 11:42 | PCPTNOTE ---
Patient refused treatment this session due to his breathing. He stated Yesterday it took me 4 hours to recover my breathing. I'm just not feeling up to it today. Maybe later after a breathing treatment. Will continue per POC.
[2023-06-06] MEDS: guaiFENesin/DEXTROMETHORPHAN 10 ML UDC PO ×3 (11:53→22:45)
--- NOTE | 2023-06-06 14:36 | PM.IMPN ---
Progress Note: A&P Assessment and Plan (1) Asthma-COPD overlap syndrome: Code(s): J44.89 - Other specified chronic obstructive pulmonary disease Status: Acute (2) Acute on chronic respiratory failure with hypoxia and hypercapnia: Code(s): J96.21 - Acute and chronic respiratory failure with hypoxia; J96.22 - Acute and chronic respiratory failure with hypercapnia Status: Acute (3) Type 2 diabetes mellitus with hyperglycemia, without long-term current use of insulin: Code(s): E11.65 - Type 2 diabetes mellitus with hyperglycemia Status: Acute Plan # COPD exacerbation, asthma COPD overlap syndrome # acute on chronic hypoxic and hypercarbic respiratory failure # acute tracheobronchitis -patient has significant work of breathing, COPD exacerbation, recent COVID-19 did April 2023 -appreciate pulmonology consultation: Overnight pulse ox for bleed in O2 on his AVAPS -CT scan shows severe emphysema -continue noninvasive ventilation nightly and with naps -steroids: Solu-Medrol IV 20mg q6hr, if improvement tomorrow then will consider transition to PO prednisone -antibiotics: Levaquin d4/5 -patient having better control with Mucinex DM -on Daliresp and singular -leukocytosis may be from steroids -patient at home Q 2 weekly is on Dupixent, will defer to pulmonology if we should resume while inpatient # lung nodules -on recent imaging patient has numerous lung nodules 5 mm in size consistent with infection or inflammation -patient should have surveillance imaging outpatient # chronic conditions -hyperlipidemia: Aspirin, Lipitor, Imdur -muscle spasms: Baclofen p.r.n. -peripheral neuropathy: Lyrica -insulin-dependent type 2 diabetes: Glargine 20 units b.i.d., aspart 15 units t.i.d. a.c., sliding scale insulin, Accu-Cheks a.c. HS, hypoglycemia protocol, A1c 9.1 on Mar 2023. At home on Trulicity weekly -anxiety/depression: Cymbalta -diastolic heart failure: Grade 1 diastolic dysfunction, normal EF in 2022 Diet: Heart healthy diet DVT prophylaxis: SCDs, Lovenox Code status: Full code Disposition: Likely back to group home in >2 days Time Spent With Patient Time: 35 minutes Subjective Date/time seen: 06/06/23 14:36 Interval history: Patient seen and examined. Patient appears to be having difficulty breathing with any activity. Pulmonology to follow up on Thursday. He is going to have his friend bring his home medication for his COPD that he has been missing. His recent CT scan shows severe emphysema. Patient likely need pulmonary rehab. We did overnight pulse ox and he will need 4 L oxygen bleeding into his AVAPS. Patient appears to have worsening of his chronic lung disease after COVID 19 last month. He denies fever, chills, nausea vomiting, diarrhea. He endorses dyspnea. Review of Systems Review of Systems: 10 point ROS complete, negative other than what is specified in HPI. Exam Narrative: - GENERAL: Pleasant male in respiratory distress - EYES: EOMI. Anicteric. - HENT: Moist mucous membranes. - LUNGS: Using accessory muscles, in mild respiratory distress, coarse lung sounds throughout, conversational dyspnea - CARDIOVASCULAR: Regular rate and rhythm. No murmur. No JVD. - ABDOMEN: Soft, non-tender and non-distended. No palpable masses. - EXTREMITIES: No edema. Peripheral pulses 2+. Non-tender. - NEUROLOGIC: No focal neurological deficits. CN II-XII grossly intact. - PSYCHIATRIC: Awake, Alert and oriented x 3. Appropriate mood and affect. - SKIN: No rashes or lesions. Warm. - LYMPH: No cervical lymphadenopathy. Objective Data Vital Signs Vital Signs: Vital Signs - 24 hr 06/05/23 15:36 06/05/23 15:36 06/05/23 15:45 Temperature Pulse Rate 83 83 83 Respiratory Rate 27 H 27 H 19 Blood Pressure Pulse Oximetry 97 Oxygen Delivery Oxygen Flow Rate Fraction of Inspired Oxygen 06/05/23 20:02 06/05/23 20:10 06/05/23 20:02 Temperature Pulse Rate 9
[2023-06-06 16:40] LABS: Glucose Point of Care 196 mg/dl (65-105)
[2023-06-06] MEDS: hydrOXYzine HCL 25 MG TABLET PO ×2 (17:27→22:46)
--- NOTE | 2023-06-06 18:23 | PHAR ---
PT'S HOME MED DUPIXENT 300 MG/2 ML INJ VERIFIED BY PHARMACY
[2023-06-06 19:57] LABS: Glucose Point of Care 236 mg/dl (65-105)
[2023-06-06] MEDS: ATORVASTATIN 40 MG TABLET 80 MG PO (21:34)
[2023-06-06] MEDS: MONTELUKAST SODIUM 10 MG TABLET PO (21:34)
[2023-06-07] VITALS (15 sets, daily range): BP systolic 125–176; BP diastolic 55–63; PULSE 68–107; RESP 16–24; TEMP 36.1–36.4; O2SAT 91–100
[2023-06-07] MEDS: methylPREDNISolone SOD SUCC 40 MG VIAL 20 MG IV PUSH ×4 (00:52→23:35)
--- NOTE | 2023-06-07 01:55 | PC.NURSE ---
Daylight Savings Time For Daylight Savings Time Ending in the Fall - Clocks are moved back. For Daylight Savings Time Beginning in the Spring - Clocks are moved ahead. For [facility], the time of change occurs at 0200 hrs. Time is taken from the beverage server. This entry on the patient's chart recognizes the change in time reflected during documentation. Example: 2 entries for vital signs may be charted for 0200 hrs.
[2023-06-07] MEDS: IPRATROPIUM 0.5 MG/ALBUTEROL SULFATE 2.5 MG AMPUL.NEB 3 ML INHALATION ×6 (04:54→23:57)
[2023-06-07] MEDS: HYDROcodone/acetaminophen (*CRX) 10-325 MG TABLET 1 TAB PO ×3 (05:04→20:49)
[2023-06-07] MEDS: guaiFENesin/DEXTROMETHORPHAN 10 ML UDC PO ×3 (05:05→20:50)
[2023-06-07] MEDS: BACLOFEN 10 MG TABLET 20 MG PO ×3 (05:12→20:54)
[2023-06-07 06:30] LABS: Basophils Percent Auto 0.3 % (0.2-1.2); Hemoglobin 13.4 g/dL (14.0-18.0); Immature Granulocyte Absolute 0.33 K/mm3 (0.00-0.031); Immature Granulocyte Percent A 2.3 % (0-0.5); Lymphocytes Absolute Auto 1.18 K/mm3 (0.9-3.2); Lymphocytes Percent Auto 8.1 % (18.3-44.2); Mean Corpuscular HGB Conc 33.5 g/dl (32-36); Mean Corpuscular Hemoglobin 30.1 pg (26-34); Mean Corpuscular Volume 89.9 fl (80-100); Monocytes Absolute Auto 0.6 K/mm3 (0.1-0.6); Monocytes Percent Auto 4.1 % (2.6-8.5); Neutrophils Absolute Auto 12.4 K/mm3 (1.3-6.7); Neutrophils Percent Auto 85.2 % (45.5-73.1); Nucleated Red Blood Cells Perc 0.2 % (0.0-0.2); Platelet Count Result 255 k/mm3 (150-375); Red Blood Count 4.45 M/mm3 (4.6-6.20); Red Cell Distribution Width 13.2 % (11.5-14.5); White Blood Count 14.6 K/mm3 (4.5-10.0)
[2023-06-07 06:43] LABS: Alanine Aminotransferase 39 U/L (6-50); Albumin Level 3.8 g/dL (3.5-5.1); Alkaline Phosphatase 82 U/L (38-126); Anion Gap 0 mmol/L (8-16); Aspartate Amino Transferase 34 U/L (17-59); Bilirubin,Total 0.5 mg/dL (0.2-1.3); Blood Urea Nitrogen 17 mg/dL (9-20); Carbon Dioxide 37 mmol/L (22-30); Chloride 98 mmol/L (98-107); Estimated CRCL calculation 101 ml/min; Estimated Glomerular Filt Rate > 60; Glucose 244 mg/dL (65-110); Potassium 4.1 mmol/L (3.4-5.0); Sodium 135 mmol/L (137-145)
[2023-06-07 08:14] LABS: Glucose Point of Care 247 mg/dl (65-105)
[2023-06-07] MEDS: INSULIN GLARGINE (*BKC) 100 UNITS/ML 20 UNITS SUB-Q ×2 (08:22→20:55)
[2023-06-07] MEDS: INSULIN ASPART (*BKC) 100 UNITS/ML SUB-Q ×2 (08:23→12:00)
[2023-06-07] MEDS: INSULIN ASPART (*BKC) 100 UNITS/ML 15 UNITS SUB-Q ×2 (08:23→12:00)
[2023-06-07] MEDS: PREGABALIN (*CRX) 50 MG CAPSULE 200 MG PO ×2 (08:23→20:47)
[2023-06-07] MEDS: dilTIAZem HCL CD 240 MG CAP.24HR PO (08:24)
[2023-06-07] MEDS: ASPIRIN 81 MG ENTERIC TABLET PO (08:24)
[2023-06-07] MEDS: levoFLOXacin 750 MG TABLET PO (08:24)
[2023-06-07] MEDS: ROFLUMILAST 500 MCG TABLET PO (08:24)
[2023-06-07] MEDS: ISOSORBIDE MONONITRATE 60 MG TAB.ER.24H PO (08:24)
[2023-06-07] MEDS: hydrOXYzine HCL 25 MG TABLET PO ×2 (08:25→20:49)
[2023-06-07] MEDS: ENOXAPARIN 40 MG/0.4 ML SYRINGE SUB-Q (08:25)
[2023-06-07] MEDS: DULoxetine HCL 60 MG CAPSULE.DR PO (08:25)
[2023-06-07 12:12] LABS: Glucose Point of Care 256 mg/dl (65-105)
--- NOTE | 2023-06-07 14:28 | PM.IMPN ---
Progress Note: A&P Assessment and Plan (1) Asthma-COPD overlap syndrome: Code(s): J44.89 - Other specified chronic obstructive pulmonary disease Status: Acute (2) Type 2 diabetes mellitus with hyperglycemia, without long-term current use of insulin: Code(s): E11.65 - Type 2 diabetes mellitus with hyperglycemia Status: Acute (3) Elevated troponin: Code(s): R79.89 - Other specified abnormal findings of blood chemistry Status: Acute (4) Acute on chronic respiratory failure with hypoxia and hypercapnia: Code(s): J96.21 - Acute and chronic respiratory failure with hypoxia; J96.22 - Acute and chronic respiratory failure with hypercapnia Status: Acute (5) Acute hypoxic respiratory failure: Code(s): J96.01 - Acute respiratory failure with hypoxia Status: Acute (6) Bronchitis: Code(s): J40 - Bronchitis, not specified as acute or chronic Status: Acute Plan # COPD exacerbation, asthma COPD overlap syndrome # acute on chronic hypoxic and hypercarbic respiratory failure # acute tracheobronchitis -patient has significant work of breathing, COPD exacerbation, recent COVID-19 did April 2023 -appreciate pulmonology consultation:? Overnight pulse ox for bleed in O2 on his AVAPS -CT scan shows severe emphysema -continue noninvasive ventilation nightly and with naps -steroids: Solu-Medrol IV 20mg q6hr, no improvement, will keep at current dose -antibiotics: Levaquin d5/5, completing day 5 ABx -patient having better control with Mucinex DM -on Daliresp and singular -leukocytosis may be from steroids -patient at home Q 2 weekly is on Dupixent, patient received his home dose # lung nodules -on recent imaging patient has numerous lung nodules 5 mm in size consistent with infection or inflammation -patient should have surveillance imaging outpatient # chronic conditions -hyperlipidemia: Aspirin, Lipitor, Imdur -muscle spasms: Baclofen p.r.n. -peripheral neuropathy:? Lyrica -insulin-dependent type 2 diabetes:? Glargine 20 units b.i.d., aspart 15 units t.i.d. a.c., sliding scale insulin, Accu-Cheks a.c. HS, hypoglycemia protocol, A1c 9.1 on Mar 2023.? At home on Trulicity weekly -anxiety/depression:? Cymbalta -diastolic heart failure: Grade 1 diastolic dysfunction, normal EF in 2022 Diet:??Heart healthy diet DVT prophylaxis:??SCDs, Lovenox Code status:?Full code Disposition:? Likely back to correction in >2 days Time Spent With Patient Time: 40 minutes Subjective Date/time seen: 06/07/23 14:28 Interval history: Patient seen examined. He still has exertional dyspnea. It appears he is not much improvement. Will continue steroids as is. Pulmonology to follow tomorrow. He endorses chest discomfort, dyspnea. He denies fever, chills, nausea, vomiting, diarrhea. Review of Systems Review of Systems: 10 point ROS complete, negative other than what is specified in HPI. Exam Narrative: - GENERAL:? Pleasant male in mild respiratory distress - EYES: EOMI. - HENT: Moist mucous membranes. - LUNGS:? Using accessory muscles, in mild respiratory distress similar to yesterday, coarse lung sounds throughout with expiratory wheezing, conversational dyspnea - CARDIOVASCULAR: Regular rate and rhythm. No murmur. No JVD. - ABDOMEN: Soft, non-tender and non-distended. - EXTREMITIES: No edema. Peripheral pulses 2+. Non-tender. - NEUROLOGIC: No focal neurological deficits. CN II-XII grossly intact. - PSYCHIATRIC: Awake, Alert and oriented x 3. Appropriate mood and affect. - SKIN: No rashes or lesions. Warm. - LYMPH: No cervical lymphadenopathy. Objective Data Vital Signs Vital Signs: Vital Signs - 24 hr 06/06/23 13:30 06/06/23 13:31 06/06/23 14:00 Temperature 36.4 C L Pulse Rate 102 H 102 H 103 H Respiratory Rate 26 H 14 22 H Blood Pressure 158/70 H Pulse Oximetry 93 97 Oxygen Delivery Fraction of Inspired Oxygen 06/06/23 16:26 06/06/23 16:2
[2023-06-07] MEDS: methylPREDNISolone SOD SUCC 125 MG VIAL IV PUSH (15:25)
[2023-06-07] MEDS: LORazepam INJ (*CRX) 2 MG/ML VIAL 1 MG IV PUSH (15:25)
--- NOTE | 2023-06-07 15:57 | PCPTNOTE ---
Patient declined PT stating I attempted to move around earlier today and struggled to breath. I know I need to try but I just can't breath when I move. PT will continue to follow per plan of care.
[2023-06-07 16:32] LABS: Glucose Point of Care 177 mg/dl (65-105)
[2023-06-07] MEDS: MONTELUKAST SODIUM 10 MG TABLET PO (20:47)
[2023-06-07] MEDS: ATORVASTATIN 40 MG TABLET 80 MG PO (20:47)
[2023-06-07] MEDS: ALPRAZolam (*CRX) 0.25 MG TABLET PO (23:34)
[2023-06-08] VITALS (32 sets, daily range): BP systolic 118–157; BP diastolic 63–91; PULSE 60–115; RESP 20–29; TEMP 36.4–37.4; O2SAT 90–100
[2023-06-08 00:50] LABS: Alveolar/Arterial O2 Gradient 110.2 mmHg; Base Excess ABG 3.7 mEq/l (+/-2.0); Fractional Inspired Oxygen 50 %; HCO3 ABG 35.3 mEq/l (22.0-26.0); Oxygen Content ABG 20.7 %vol (16.0-22.0); Oxygen Saturation ABG 98.1 % (95.0-100.0); Oxyhemoglobin 97.1 % THb (90.0-100.0); PO2 ABG 142.2 mmHg (80.0-100.0); PO2 FiO2 Ratio Arterial Blood 2.84 %
[2023-06-08 00:51] LABS: Device NON-INVASIVE VENT; Modified Allen's Test Pass; PCO2 ABG 92.5 mmHg (35.0-45.0); Site Drawn RIGHT RADIAL
[2023-06-08 00:52] LABS: Non-Invasive Vent Rate 14 /MIN
[2023-06-08 00:53] LABS: Non-Invasive Expiratory Pressure 5 CMH2O
--- NOTE | 2023-06-08 02:08 | PC.NURSE ---
This patient, Jeremiah Claire, was received from [ [phone]] on 06/08/23 at 0209. Patient/family oriented to unit policies and routines
[2023-06-08] MEDS: MORPHINE SULFATE (*CRX) 4 MG/ML INJ IV PUSH ×2 (02:41→21:08)
[2023-06-08] MEDS: LORazepam INJ (*CRX) 2 MG/ML VIAL 1 MG IV PUSH ×3 (02:51→21:08)
--- NOTE | 2023-06-08 03:07 | PM.IMHP ---
H&P: HPI History of Present Illness Date/Time: 06/08/23 03:07 [facility] Past Medical History Medical History Anxiety and depression CAD (coronary artery disease) Chronic pain Chronic respiratory failure with hypoxia and hypercapnia COPD (chronic obstructive pulmonary disease) Diastolic heart failure Echocardiogram 2022 EF 65-70, mildly increased left ventricular wall thickness, grade 1 diastolic dysfunction, mild mitral and tricuspid regurgitation, normal pulmonary pressure GERD (gastroesophageal reflux disease) Hypertension Insomnia Tobacco abuse Type 2 diabetes mellitus Surgical History Surgical History History of cardiac catheterization History of heart artery stent History of orthopedic surgery Left biceps repair Family History Family History Other Unknown family medical history Social History Social History Social History: He lives with his Virginie and does not have any biological children. He does have some step kids. He has 2 cats. He wishes that his Virginie be his surrogate. He states that he would like to be intubated in the case of respiratory failure. He states he would like his family to have the opportunity to come cm. He is cognizant that his chances of coming off the ventilator are slim. He states he only reason that he wants to her have cardiac resuscitation is so that he may donate his organs if given the chance. Smoking packs per day: 0.5 Smoking cigarettes per day: 10.0 Years smoked: 49 Smoking pack-years: 24.50 Smoking status: Former smoker Tobacco type: cigarettes Second hand tobacco smoke exposure: Yes Alcohol intake: never Substance use: former Substance use type: does not use Do You Feel Safe in your Home?: Yes Lack of Transportation: No Lack of Food: Never True Current Housing: I Have Housing Concerned About Future Housing: No Difficulty Paying Gas/Electric Bills: No Difficulty Paying for Meds: No Currently Unemployed: No Education: High School Diploma/GED Difficulty w/ Childcare or Family Care: No Living arrangements: with family Additional living arrangements comments: lives with Occupation/Education: other Gender identity (if verbalized by the patient): Male Sexual Orientation (if Verbalized by the Patient): Straight or Heterosexual Spiritual care concerns: No Agree to blood products: Yes Meds Home Medications and Allergies Home Medications Medication Instructions Recorded Confirmed Type albuterol sulfate 90 mcg/actuation 90 mcg inhalation Q4H PRN 10/31/19 06/03/23 History aerosol inhaler Shortness Of Breath baclofen 20 mg tablet 20 mg PO TID PRN Muscle Spasm 10/31/19 06/03/23 History budesonide-formoterol HFA 160 2 puff inhalation BID 10/31/19 06/03/23 History mcg-4.5 mcg/actuation aerosol inhaler (Symbicort) montelukast 10 mg tablet 10 mg PO HS 10/31/19 06/03/23 History oxymetazoline 0.05 % nasal spray 2 spray intranasal Q12H PRN 10/31/19 06/03/23 History (Afrin Sinus (oxymetazoline)) Allergy Symptoms pregabalin 200 mg capsule (Lyrica) 200 mg PO Q12H 10/31/19 06/03/23 History aspirin 81 mg tablet,delayed 81 mg PO QAM #30 tabs 11/03/19 06/03/23 Rx release tiotropium bromide 2.5 2 puff inhalation BID 07/11/22 06/03/23 History mcg/actuation mist for inhalation (Spiriva Respimat) atorvastatin 80 mg tablet 80 mg PO DAILY 03/12/23 06/03/23 History diltiazem HCl 360 mg 240 mg PO DAILY 03/12/23 06/03/23 History capsule,extended release 24 hr duloxetine 60 mg capsule,delayed 60 mg PO DAILY 03/12/23 06/03/23 History release furosemide 40 mg tablet 40 mg PO DAILY 03/12/23 06/03/23 History hydrocodone 10 mg-acetaminophen 1 tablet PO Q8H PRN Pain (Scale 03/12/23 06/03/23
--- NOTE | 2023-06-08 03:08 | P.PNCROSS_ITS ---
Event Note Event Note Event Note: I got called to patient's room due to altered mental status abnormal ABG patie nt requiring increasing amount of oxygen. Patient transferred to IMU initially on AVAPS now on BiPAP. Objective: Patient is in bed on BiPAP ill-appearing, tachypneic, awake and alert, restless holding on to mask. subjective: I feel hot general: Patient is awake alert acutely ill looking tachypneic on BiPAP, restless patient has removed all his garments. HEENT: Atraumatic normocephalic PERRLA EOM intact supple no JVD respiratory: Diminished throughout cardiovascular: S1-S2 heard abdomen: Protuberant, soft nontender, no hepatosplenomegaly. extremities: Normal to inspection, no clubbing no cyanosis no edema skin: Intact central nervous system: Awake alert no focal sensorimotor deficit cranial nerves 2-12 grossly intact assessment and plan: 1. Acute hypercarbic respiratory failure: currently on BiPAP, ABG reviewed. Will obtain chest x-ray, repeat ABG, try and keep oxygen saturation in between 92-94% 2. COPD/emphysema: Will start systemic steroids, breathing treatments q.4 hours 3. Type diabetes mellitus: Continue insulin
[2023-06-08] MEDS: IPRATROPIUM 0.5 MG/ALBUTEROL SULFATE 2.5 MG AMPUL.NEB 3 ML INHALATION ×6 (04:10→23:15)
[2023-06-08 04:48] LABS: Basophils Absolute Auto 0.1 K/mm3 (0.0-0.1); Basophils Percent Auto 0.4 % (0.2-1.2); Hematocrit 41.4 % (42.0-52.0); Hemoglobin 13.8 g/dL (14.0-18.0); Immature Granulocyte Absolute 1.15 K/mm3 (0.00-0.031); Immature Granulocyte Percent A 3.6 % (0-0.5); Lymphocytes Absolute Auto 1.53 K/mm3 (0.9-3.2); Lymphocytes Percent Auto 4.8 % (18.3-44.2); Mean Corpuscular HGB Conc 33.3 g/dl (32-36); Mean Corpuscular Hemoglobin 30.7 pg (26-34); Monocytes Percent Auto 9.3 % (2.6-8.5); Neutrophils Absolute Auto 25.9 K/mm3 (1.3-6.7); Neutrophils Percent Auto 81.9 % (45.5-73.1); Nucleated Red Blood Cells Absolute Auto 0.1 K/mm3 (0.0-0.012); Nucleated Red Blood Cells Perc 0.4 % (0.0-0.2); Platelet Count Result 374 k/mm3 (150-375); Red Cell Distribution Width 13.7 % (11.5-14.5); White Blood Count 31.7 K/mm3 (4.5-10.0)
[2023-06-08 05:03] LABS: Alanine Aminotransferase 45 U/L (6-50); Alkaline Phosphatase 87 U/L (38-126); Anion Gap 6 mmol/L (8-16); Aspartate Amino Transferase 41 U/L (17-59); Bilirubin,Total 0.6 mg/dL (0.2-1.3); Blood Urea Nitrogen 24 mg/dL (9-20); Carbon Dioxide 33 mmol/L (22-30); Chloride 98 mmol/L (98-107); Estimated CRCL calculation 101 ml/min; Estimated Glomerular Filt Rate > 60; Glucose 255 mg/dL (65-110); Potassium 4.6 mmol/L (3.4-5.0); Sodium 137 mmol/L (137-145)
[2023-06-08] MEDS: methylPREDNISolone SOD SUCC 125 MG VIAL IV PUSH (05:07)
[2023-06-08 05:14] LABS: Alveolar/Arterial O2 Gradient 81.9 mmHg; Base Excess ABG 5.2 mEq/l (+/-2.0); Carboxyhemoglobin 0.3 % THb (0-2.0); Fractional Inspired Oxygen 36 %; HCO3 ABG 35.7 mEq/l (22.0-26.0); Methemoglobin ABG 0.5 %THb (0-1.5); Oxygen Content ABG 19.4 %vol (16.0-22.0); Oxyhemoglobin 93.3 % THb (90.0-100.0); PO2 ABG 78.7 mmHg (80.0-100.0); PO2 FiO2 Ratio Arterial Blood 2.19 %; Reduced Hemoglobin 5.9 %THb (0-5.0); Total Hemoglobin 14.8 g/dL (12.0-18.0); pH ABG 7.252 (7.350-7.450)
[2023-06-08 05:15] LABS: PCO2 ABG 82.8 mmHg (35.0-45.0)
[2023-06-08 05:16] LABS: Device NON-INVASIVE VENT; Modified Allen's Test Pass; Site Drawn RIGHT RADIAL
[2023-06-08 05:21] LABS: Non-Invasive Vent Rate 14 /MIN
[2023-06-08 05:22] LABS: Non-Invasive Expiratory Pressure 5 CMH2O
--- NOTE | 2023-06-08 05:31 | PC.NURSE ---
Spoke with Dr Mcgill per RT concerns for bipap settings. Received orders to change patient from AVAPS setting to 18/8 with a rate of 20 and FIO2 of 50% due to CO2 retention.
[2023-06-08 08:12] LABS: Glucose Point of Care 256 mg/dl (65-105)
[2023-06-08 08:15] LABS: Alveolar/Arterial O2 Gradient 118.6 mmHg; Base Excess ABG 5.7 mEq/l (+/-2.0); Fractional Inspired Oxygen 36 %; HCO3 ABG 32.1 mEq/l (22.0-26.0); Oxygen Content ABG 18.9 %vol (16.0-22.0); Oxygen Saturation ABG 94.9 % (95.0-100.0); Oxyhemoglobin 94.7 % THb (90.0-100.0); PCO2 ABG 53.6 mmHg (35.0-45.0); PO2 ABG 75.9 mmHg (80.0-100.0); PO2 FiO2 Ratio Arterial Blood 2.11 %; Total Hemoglobin 14.2 g/dL (12.0-18.0); pH ABG 7.395 (7.350-7.450)
[2023-06-08 08:16] LABS: Site Drawn RIGHT RADIAL
[2023-06-08 08:17] LABS: Device BIPAP; Expiratory Pressure 8 cmH2O; Inspiratory Pressure 18 cmH2O; Modified Allen's Test Pass
[2023-06-08] MEDS: INSULIN GLARGINE (*BKC) 100 UNITS/ML 10 UNITS SUB-Q (09:17)
[2023-06-08] MEDS: ROFLUMILAST 500 MCG TABLET PO (11:24)
[2023-06-08] MEDS: PREGABALIN (*CRX) 50 MG CAPSULE 200 MG PO (11:24)
[2023-06-08] MEDS: dilTIAZem HCL CD 240 MG CAP.24HR PO (11:24)
[2023-06-08] MEDS: ENOXAPARIN 40 MG/0.4 ML SYRINGE SUB-Q (11:25)
[2023-06-08] MEDS: HYDROcodone/acetaminophen (*CRX) 10-325 MG TABLET 1 TAB PO (11:35)
[2023-06-08] MEDS: methylPREDNISolone SOD SUCC 40 MG VIAL 20 MG IV PUSH ×3 (11:36→23:45)
[2023-06-08 11:45] LABS: Glucose Point of Care 254 mg/dl (65-105)
[2023-06-08 12:14] LABS: Influenza A QL RT-PCR Negative (Negative); Influenza B QL RT-PCR Negative (Negative); RSV RNA, RT-PCR Negative (Negative); SARS-CoV-2 RNA PCR Negative (Negative)
[2023-06-08] MEDS: MICONAZOLE NITRATE 2% CREAM 30 GM TUBE 1 APPLIC TOPICAL ×2 (12:26→21:10)
[2023-06-08] MEDS: INSULIN ASPART (*BKC) 100 UNITS/ML 15 UNITS SUB-Q (12:26)
--- NOTE | 2023-06-08 12:32 | P.PNPL_ITS ---
Progress Note: A&P Assessment and Plan (1) Asthma-COPD overlap syndrome: Code(s): J44.89 - Other specified chronic obstructive pulmonary disease Status: Acute Assessment and Plan: 62-year-old with a history of asthma since childhood, COPD on home trilogy and 4 L nasal cannula 24-[address] Beebe, [facility] pulmonary.? I have no PFTs. CT angiogram with no PE, severe apical predominant panlobular emphysema.? Discharged Recently from [facility] on 05/02/2023 status post COVID treated with remdesivir and dexamethasone requiring noninvasive ventilation. He was discharged on 3 L [facility] cannula during the day and [facility] He was to continue his home noninvasive ventilator with the settings of AVAPS AE rate of 14, tidal volume 500, minimum EPAP 5, maximum EPAP 15, minimum pressure support 6, maximum pressure support 25, inspiratory time 1.2 and 4 L bleed in. These settings On his home machine in the hospital on 04/24/2023 resulted adequate ventilation and oxygenation with an ABG at the end of the night of 7.45/41/78 and an overnight oximetry with adequate oxygenation. Patient has been clinically stable until 3 days ago when developed worsening shortness of breath and 1 day of worsening hypoxemia. I will treat him for an asthma COPD exacerbation. Plan: I will send a D-dimer. If this is positive will do a CT angiogram of the chest. If it is negative will do a CT scan of the chest looking for focal infiltrates or post COVID interstitial lung disease-organizing pneumonia. I will place the patient on prednisone 40 mg p.o. q.day starting tomorrow. I will place the patient on DuoNebs q.4 hours. The patient has some change in his sputum color and will place him on Levaquin 750 mg IV q.day For tracheobronchitis. If he has pneumonia on his CT scan will need to give him broad-spectrum antibiotics as he has recently been hospitalized. later in the day D-dimer was negative. CT scan of the chest showed severe pa nlobular emphysema all lung nelson with an apical predominance, no evidence of post COVID interstitial lung disease or organizing pneumonia, no evidence of focal consolidations. New 5 mm nodules left lung compared to 04/20/2023 consistent with inflammatory or infection process. 06/03/23: Patient wore the hospital noninvasive ventilation with the AVAPS mode last night. Blood gas obtained prior to removal was 7.49/39/137 on 36% FiO2. His white blood cell count is 11.9, his creatinine is 0.7. When I entered the room the patient had been on 4 L nasal cannula for about 2 hours. At the end of our talking he was very short of breath in this wore him out any requested to be put back on the hospital noninvasive ventilator. He had no wheezing on exam. Plan: Patient remains with severe shortness of breath after 2 hours off the noninvasive ventilator and was put back on the noninvasive ventilator. His ABG on the current settings provide adequate ventilation. There is no evidence of focal pneumonia on his CT scan and I will continue levofloxacin for tracheobronchitis. Continue DuoNebs q.4 hours. I have told the patient he has been receiving maximal therapy for his COPD. he has never recovered from his COVID infection on 04/18/2023. There is no evidence of post COVID scarring or interstitial lung disease and I suspect this is a new baseline for the patient after his previous COVID ext foot infection. 06/04/23: Noninvasive ventilator all day yesterday and overnight. Said he slept well on the hospital noninvasive ventilator with 4 L bleed in. He states he is breathing somewhat better today. He still has shortness of breath at rest and dyspnea when he moves in the bed. When I enter
--- NOTE | 2023-06-08 16:00 | PCPTNOTE ---
Attempted PT re-evaluation, pt on continuous BiPAP at this time per RN. Will follow.
[2023-06-08] MEDS: hydrOXYzine HCL 25 MG TABLET PO (17:03)
[2023-06-08 17:11] LABS: Glucose Point of Care 177 mg/dl (65-105)
--- NOTE | 2023-06-08 17:33 | PM.IMPN ---
Progress Note: A&P Assessment and Plan (1) Asthma-COPD overlap syndrome: Code(s): J44.89 - Other specified chronic obstructive pulmonary disease Status: Acute (2) Type 2 diabetes mellitus with hyperglycemia, without long-term current use of insulin: Code(s): E11.65 - Type 2 diabetes mellitus with hyperglycemia Status: Acute (3) Elevated troponin: Code(s): R79.89 - Other specified abnormal findings of blood chemistry Status: Acute (4) Acute on chronic respiratory failure with hypoxia and hypercapnia: Code(s): J96.21 - Acute and chronic respiratory failure with hypoxia; J96.22 - Acute and chronic respiratory failure with hypercapnia Status: Acute (5) Acute hypoxic respiratory failure: Code(s): J96.01 - Acute respiratory failure with hypoxia Status: Acute (6) Bronchitis: Code(s): J40 - Bronchitis, not specified as acute or chronic Status: Acute Plan # COPD exacerbation, asthma COPD overlap syndrome # acute on chronic hypoxic and hypercarbic respiratory failure # acute tracheobronchitis -patient has significant work of breathing, COPD exacerbation, recent COVID-19 did April 2023 -appreciate pulmonology consultation:? Adjusting between AVAPS and BiPAP -CT scan shows severe emphysema -continue noninvasive ventilation nightly and with naps -steroids: Solu-Medrol IV 20mg q6hr, no improvement, will keep at current dose, received 125 mg dose on 06/06 with no improvement -antibiotics: Completed a course of Levaquin -patient having better control with Mucinex DM -on Daliresp and singular -patient at home Q 2 weekly is on Dupixent # lung nodules -on recent imaging patient has numerous lung nodules 5 mm in size consistent with infection or inflammation -patient should have surveillance imaging outpatient # end of life care -patient appears to have end-stage COPD and not improving. His symptoms have only worsened since he got COVID in March 2023 -despite steroids, DuoNebs, levaquin, singulair, roflumilast, dupixent he continues to have worsening respiratory status. His COVID, RSV, flu test have been negative -we have been giving p.r.n. doses of Ativan to help calm him down. He may need to transition to comfort care measures if he further deteriorates # chronic conditions -hyperlipidemia: Aspirin, Lipitor, Imdur -muscle spasms: Baclofen p.r.n. -peripheral neuropathy:? Lyrica -insulin-dependent type 2 diabetes:? Glargine 20 units b.i.d., with NPO holding off on aspart., sliding scale insulin, Accu-Cheks a.c. HS, hypoglycemia protocol, A1c 9.1 on Mar 2023.? At home on Trulicity weekly -anxiety/depression:? Cymbalta -diastolic heart failure: Grade 1 diastolic dysfunction, normal EF in 2022 Diet:??Heart healthy diet, NPO while on BiPAP continuously DVT prophylaxis:??SCDs, Lovenox Code status:?Full code Disposition:? Patient considering hospice, discussing with Social: Virginie updated Time Spent With Patient Time: 40 minutes Subjective Date/time seen: 06/08/23 17:33 Interval history: Patient seen examined. Overnight he had complained more dyspnea and was transferred to IMU for closer monitoring. He has been receiving doses of Ativan to help calm him down. He is getting volumes on the BiPAP however still complaining of dyspnea. At this point he appears to be BiPAP dependent. I discussed case with Dr. Lewis who has not much more to offer from a pulmonary standpoint. Today we had tried adjusting the BiPAP to AVAPS with no improvement. It appears that we are getting to end-stage COPD with not much else to offer. Discussed with patient and his about the poor prognosis and that we need to consider hospice. Patient's is having a hard time as her mother has 3 months ago. Patient endorses dyspnea, anxiety. He denies fever, chills, nausea, vomiting. Review of Systems Review of Systems: 10 point ROS complete, negative other than what is speci
[2023-06-08 20:20] LABS: Glucose Point of Care 217 mg/dl (65-105)
[2023-06-08 20:51] LABS: Alveolar/Arterial O2 Gradient 121.5 mmHg; Base Excess ABG 9.6 mEq/l (+/-2.0); Fractional Inspired Oxygen 36 %; HCO3 ABG 36.1 mEq/l (22.0-26.0); Oxygen Content ABG 18.8 %vol (16.0-22.0); Oxygen Saturation ABG 94.1 % (95.0-100.0); Oxyhemoglobin 93.3 % THb (90.0-100.0); PCO2 ABG 56.3 mmHg (35.0-45.0); PO2 ABG 69.9 mmHg (80.0-100.0); PO2 FiO2 Ratio Arterial Blood 1.94 %; Total Hemoglobin 14.3 g/dL (12.0-18.0); pH ABG 7.425 (7.350-7.450)
[2023-06-08 20:52] LABS: Device NON-INVASIVE VENT; Modified Allen's Test Pass; Site Drawn RIGHT RADIAL
[2023-06-08 20:53] LABS: Non-Invasive Expiratory Pressure 8 CMH2O; Non-Invasive Inspiratory Pressure 18 CMH2O; Non-Invasive Vent Rate 20 /MIN
[2023-06-08] MEDS: INSULIN GLARGINE (*BKC) 100 UNITS/ML 20 UNITS SUB-Q (21:10)
--- NOTE | 2023-06-08 21:30 | PC.NURSE ---
Patient showing signs of increased respiratory distress at shift change. Breathing labored with accessory muscle use and patient confused and moaning out. Dr. Mcgill called at [phone] and ROSALIND Walters, called at [phone]; unable to reach either at that time. Hospitalist office ext. [phone] called at [phone] with no answer. Hospitalist office called at ext. [phone] at [phone] Mcgill called at [address] Mcgill called back to IMU at 2024 and situation of deterioration in patient status explained with note of elevated WBC count, confusion, incontinence and maceration to groin, and increased anxiety associated with difficulty breathing and overall increased work of breathing. Received orders for: 1 mg IVP Ativan once and 4 mg IVP Morphine once, Crowell catheter to be placed for I&O accuracy and to prevent further maceration and skin breakdown, and ABG to be repeated. 16 Fr temp probe crowell catheter placed in anticipation of further deterioration and possible ICU transfer. Dr. Mcgill to review chart and this RN awaiting any further orders. Will continue to monitor.
[2023-06-09] VITALS (44 sets, daily range): BP systolic 110–147; BP diastolic 65–72; PULSE 63–124; RESP 16–32; TEMP 36.4–37.4; O2SAT 85–100; BMI 32.7
[2023-06-09] MEDS: IPRATROPIUM 0.5 MG/ALBUTEROL SULFATE 2.5 MG AMPUL.NEB 3 ML INHALATION (03:28)
[2023-06-09] MEDS: LORazepam INJ (*CRX) 2 MG/ML VIAL 1 MG IV PUSH (03:34)
--- NOTE | 2023-06-09 04:23 | PC.NURSE ---
, Virginie Claire, notified of patient change in condition, move to ICU 3, and plan to intubation. voiced understanding and agrees with plan to intubate.
[2023-06-09] MEDS: ETOMIDATE 20 MG/10 ML AMPUL 30 MG IV PUSH (04:33)
[2023-06-09] MEDS: ROCURONIUM BROMIDE 50 MG/5 ML VIAL 30 MG IV PUSH (04:35)
[2023-06-09 04:36] LABS: Lactic Acid Reflex 2.1 mmol/L (0.7-2.0)
[2023-06-09 04:37] LABS: Alanine Aminotransferase 47 U/L (6-50); Albumin Level 4.1 g/dL (3.5-5.1); Alkaline Phosphatase 72 U/L (38-126); Anion Gap 2 mmol/L (8-16); Aspartate Amino Transferase 45 U/L (17-59); Bilirubin,Total 0.7 mg/dL (0.2-1.3); Blood Urea Nitrogen 28 mg/dL (9-20); Calcium 9.3 mg/dL (8.4-10.2); Carbon Dioxide 38 mmol/L (22-30); Chloride 100 mmol/L (98-107); Estimated CRCL calculation 138 ml/min; Estimated Glomerular Filt Rate > 60; Glucose 210 mg/dL (65-110); Potassium 4.1 mmol/L (3.4-5.0); Sodium 140 mmol/L (137-145)
[2023-06-09 04:39] LABS: Basophils Absolute Auto 0.1 K/mm3 (0.0-0.1); Basophils Percent Auto 0.2 % (0.2-1.2); Hematocrit 43.1 % (42.0-52.0); Hemoglobin 14.3 g/dL (14.0-18.0); Immature Granulocyte Percent A 2.5 % (0-0.5); Lymphocytes Absolute Auto 1.81 K/mm3 (0.9-3.2); Lymphocytes Percent Auto 7.6 % (18.3-44.2); Mean Corpuscular HGB Conc 33.2 g/dl (32-36); Mean Corpuscular Hemoglobin 30.5 pg (26-34); Mean Corpuscular Volume 91.9 fl (80-100); Mean Platelet Volume 10.1 fl (7.4-10.4); Monocytes Absolute Auto 1.6 K/mm3 (0.1-0.6); Monocytes Percent Auto 6.8 % (2.6-8.5); Neutrophils Absolute Auto 19.7 K/mm3 (1.3-6.7); Neutrophils Percent Auto 82.9 % (45.5-73.1); Nucleated Red Blood Cells Absolute Auto 0.1 K/mm3 (0.0-0.012); Nucleated Red Blood Cells Perc 0.3 % (0.0-0.2); Platelet Count Result 286 k/mm3 (150-375); Red Blood Count 4.69 M/mm3 (4.6-6.20); Red Cell Distribution Width 13.6 % (11.5-14.5); White Blood Count 23.8 K/mm3 (4.5-10.0)
[2023-06-09] MEDS: FENTANYL 2,500MCG/NS250ML(*CRX 2,500 MCG/250 ML BAG IV CONT (04:45)
[2023-06-09] MEDS: MIDAZOLAM 100MG/NS 100ML(*CRX) 100 MG/100 ML BAG IV CONT (04:45)
--- NOTE | 2023-06-09 04:57 | PC.NURSE ---
This patient, Jeremiah Claire, was transferred to [ICU 3] on 06/09/23 at 0420. Personal belongings sent with patient. Report given to [DANIEL Rodrigues] Appropriate documentation sent with patient.
--- NOTE | 2023-06-09 04:58 | PC.NURSE ---
Patient continuing to decompensate with increased agitation and anxiety. Patient pulling off leads and BiPap around 0320. Dr. Mcgill notified and orders received for a one time dose of 1 mg Ativan IVP. Around 0400, patient requesting to come off of BiPap for a break and continue to pull off mask. Patient placed on 6 L high flow yet respiratory status continued to decline. Patient with audible wheezing and coarse crackles. Patient showing signs of impending doom and placed back on BiPap. installer metal flooring Brandy at bedside and MAIL PROCESSING EQUIP[employer] MECH[employer]IC called at [phone]. Dr. Mcgill at bedside and Yesenia, KAUSHAL. Labs obtained and patient transferred to ICU 3 for intubation. Report given to DANIEL Rodrigues, and all belongings sent with patient.
--- NOTE | 2023-06-09 05:00 | PM.EVENT ---
Event Note Event Note Event Note: Rapid response called to patient's room after agitation pulling BiPAP of altered mentation rapidly desating. Objective: Patient is on BiPAP ill appearing minimally responsive Subjective: Minimally responsive General: Patient laying in bed ill-appearing on BiPAP minimally responsive. HEENT: Atraumatic normocephalic PERRLA EOM intact no JVD supple no lymphadenopathies Respiratory: Diminished throughout Cardiovascular: Tachycardic Abdomen: Protuberant, soft, no hepatosplenomegaly. Extremities: Trace pedal ankle edema skin: Maceration in buttock area Central nervous system: Stuporous Assessment and plan: 1. Acute on chronic hypoxic respiratory failure: Patient placed on ventilator support patient unable to keep airway visibly fatigued, ABGs, chemistry panel, CBC, chest x-ray. Vent management as per offshore wind turbine technician 2. COPD/emphysema: Severe, on systemic steroids. Pulmonology on consult. 3. Lung infiltrates: Likely ARDS. Will start broad-spectrum antibiotics. Cultures in progress 4. Type 2 diabetes mellitus: Continue insulin as needed, currently NPO. NG in place.
--- NOTE | 2023-06-09 05:08 | WPDPROCEDUR ---
Procedures Intubation Intubation Date: 06/09/23 Intubation Time: 03:45 Sedative: etomidate Mg given: 30 Paralytic: rocuronium Mg given: 80 Laryngoscope: fiber optic video scope Assist device used: fiber optic device ET tube size: 8 Tube secured depth (cm): 24 Tube secured location: lips Tube placement confirmation: visualized tube passing through cords, equal breath sounds bilaterally, no breath sounds over epigastrium and confirmation by capnometry Patient tolerated procedure: no complications Intubation complications: none
[2023-06-09] MEDS: fentaNYL CITRATE INJ (*CRX) 100 MCG/2 ML VIAL 150 MCG IV PUSH (05:20)
[2023-06-09] MEDS: MIDAZOLAM HCL (*CRX) 2 MG/2 ML VIAL 4 MG IV PUSH (05:25)
[2023-06-09] MEDS: methylPREDNISolone SOD SUCC 40 MG VIAL IV PUSH (05:47)
[2023-06-09 06:10] LABS: Alveolar/Arterial O2 Gradient 248.6 mmHg; Base Excess ABG 6.2 mEq/l (+/-2.0); Fractional Inspired Oxygen 90 %; HCO3 ABG 30.2 mEq/l (22.0-26.0); Modified Allen's Test Pass; Oxygen Content ABG 20.2 %vol (16.0-22.0); Oxygen Saturation ABG 99.8 % (95.0-100.0); Oxyhemoglobin 97.9 % THb (90.0-100.0); PCO2 ABG 41.4 mmHg (35.0-45.0); PO2 ABG 350.7 mmHg (80.0-100.0); Site Drawn RIGHT RADIAL; pH ABG 7.481 (7.350-7.450)
[2023-06-09 06:11] LABS: Arterial Blood Gas PEEP 5 cmH2O; Arterial Blood Gas Tidal Volume 500 ml; Arterial Blood Gas Vent Mode CMV; Arterial Blood Gas Ventilator rate 18 /MIN; Device VENTILATOR
[2023-06-09 07:01] LABS: Phosphorus 4.1 mg/dL (2.5-4.5)
[2023-06-09 07:24] LABS: Reflex Lactic Acid Yes or No Add Lactic
[2023-06-09] MEDS: VANCOMYCIN 1,250 MG/NS 250 ML 1,250 MG/250 ML BAG 166.67 MG IVPB (07:26)
[2023-06-09] MEDS: CEFEPIME 2 GM/NS 50 ML 2 GM/50 ML BAG IVPB ×3 (07:27→20:46)
[2023-06-09] MEDS: VANCOMYCIN 1,000 MG/NS 250 ML 1,000 MG/250 ML BAG 250 MG IVPB (07:31)
[2023-06-09] MEDS: IPRATROPIUM BR 0.02% INH SOLN 0.5 MG/2.5 ML VIAL INHALATION ×3 (07:56→20:30)
[2023-06-09] MEDS: LEVALBUTEROL NEB 1.25 MG/3 ML INHALATION ×3 (07:56→20:30)
[2023-06-09 07:59] LABS: Lactic Acid 2.2 mmol/L (0.7-2.0)
[2023-06-09] MEDS: INSULIN ASPART (*BKC) 100 UNITS/ML SUB-Q ×3 (08:07→16:27)
[2023-06-09] MEDS: INSULIN GLARGINE (*BKC) 100 UNITS/ML 20 UNITS SUB-Q ×2 (08:08→20:03)
[2023-06-09] MEDS: ENOXAPARIN 40 MG/0.4 ML SYRINGE SUB-Q (08:09)
[2023-06-09] MEDS: MICONAZOLE NITRATE 2% CREAM 30 GM TUBE 1 APPLIC TOPICAL ×2 (08:09→20:02)
[2023-06-09] MEDS: dilTIAZem HCL CD 240 MG CAP.24HR PO (08:09)
[2023-06-09] MEDS: MINERAL OIL/WHITE PETROLATUM OINTMENT 1 APPLIC EACH EYE ×2 (08:09→20:02)
[2023-06-09 08:24] LABS: MRSA (PCR) NOT DETECTED (NOT DETECTE)
[2023-06-09 08:28] LABS: Glucose Point of Care 250 mg/dl (65-105)
[2023-06-09] MEDS: ASPIRIN 81 MG ENTERIC TABLET PO (09:50)
[2023-06-09] MEDS: polyethylene glycoL 3350 17 GM POWD.PACK PO (09:50)
--- NOTE | 2023-06-09 10:07 | WPDCNINT ---
Assessment and Plan Assessment and plan (1) Acute on chronic respiratory failure with hypoxia and hypercapnia: Code(s): J96.21 - Acute and chronic respiratory failure with hypoxia; J96.22 - Acute and chronic respiratory failure with hypercapnia Status: Acute Assessment and Plan: Patient appears to have severe end-stage COPD and now admitted with exacerbation PCR for COVID flu and RSV were negative Blood cultures have been negative Patient has been on BiPAP and AVAPS throughout his hospital course and eventually was intubated last night He has been on steroids for many days with not any significant improvement. He also is not wheezing. I will decrease steroids to q.day Continue bronchodilators and Dupixent ABG chest x-ray vent settings reviewed. Decrease tidal volume to 450 Discussed with warning coordination meteorologist (2) Type 2 diabetes mellitus with hyperglycemia, without long-term current use of insulin: Code(s): E11.65 - Type 2 diabetes mellitus with hyperglycemia Status: Acute Assessment and Plan: Start tube feeding Continue sliding scale Decreased steroids (3) Hypertension: Qualifiers: Hypertension type: unspecified Qualified Code(s): I10 - Essential (primary) hypertension Code(s): I10 - Essential (primary) hypertension Status: Chronic Assessment and Plan: Hold blood pressure medications since patient's blood pressure is not controlled range as he is sedated (4) Delirium: Code(s): R41.0 - Disorientation, unspecified Status: Acute Assessment and Plan: Likely secondary to benzodiazepine and steroids Head CT negative Patient now sedated intubated Plan DVT prophylaxis -Lovenox Stress ulcer prophylaxis -Pepcid Nutrition -start Tube Feeds Code Status - Full Code Discussed in detail goals of care with patient's and sister at bedside. They are considering comfort care and are also discussing making him DNR because of patient's feel the did not wanted to go on a ventilator but this happened so quickly that they did not had any time to expressed his wishes. They will discuss with other family members before making any decision today. I updated them the patient is currently on ventilator. His COPD is irreversible but exacerbation can be treated with steroids and antibiotics and he may or may not come off the ventilator in near future Total Critical Care Time - 35 minutes Due to a high probability of clinically significant, life threatening deterioration, the patient required my highest level of preparedness to intervene emergently and I personally spent this critical care time directly and personally managing the patient. This critical care time included obtaining a history; examining the patient; pulse oximetry; ordering and review of studies; arranging urgent treatment with development of a management plan; evaluation of patient's response to treatment; frequent reassessment; and discussions with other providers. It was exclusive of separately billable procedures and treating other patients and teaching time. Please see Assessment and Plan section and the rest of the note for further information on patient assessment and treatment Licensing Worker Consult Note Consult date: 06/09/23 Reason for consult: Acute respiratory failure HPI: Jeremiah Claire is a 62 year old male with a history of asthma since childhood, COPD on home trilogy and 4 L nasal cannula 24-[address] Beebe, [facility] fallen pulmonary, obesity, chronic pain, depression, dyslipidemia who presented on 06/02 with chief complaint of shortness of breath. Patient was diagnosed with COPD exacerbation and was being managed on the floor with noninvasive positive pressure ventilation, steroids. And bronchodilators. Pulmonary re was consulted. He was also on Levaquin and completed course. PCR for COVID RSV and flu were negative Despite maximum therapy patient remained dependent on n
[2023-06-09 11:08] LABS: Glucose Point of Care 218 mg/dl (65-105)
--- NOTE | 2023-06-09 12:36 | PM.EVENT ---
Event Note Event Note Event Note: I spoke to patient's and patient's 's sister at bedside earlier in the morning and then had another meeting in conference room with both along with patient's sister and presence of patient's nurse Maricel. They both told me that patient was living a relatively poor quality of life due to constant shortness of breath respiratory distress. Multiple times he mentions that he could not take it anymore did not wanted to live like this. He told his that he would rather have a heart attack than live a life of being constantly short of breath. They were entertaining hospice and comfort care before patient got intubated. Patient's believes the patient would never wanted to go on a ventilator if he a had clarity of his mind at the time of intubation. They are considering hospice and comfort care. I explained them the relative will irreversible nature of COPD damage to the lungs and the fact that patient at baseline is on oxygen and noninvasive positive pressure ventilation with persistent dyspnea and shortness of breath suggests significant symptomatic COPD. I explained them the procedure of comfort care palliative extubation and hospice. They would like patient to be made DNR at this time and wants to discuss with other family members before making any further decision on palliative extubation and comfort care. I have modified the code status as per patient's assessment of patient's wishes. Total time spent 35 minutes in advance care planning.
[2023-06-09] MEDS: ROFLUMILAST 500 MCG TABLET FEED TUBE (15:11)
[2023-06-09 16:44] LABS: Glucose Point of Care 202 mg/dl (65-105)
[2023-06-09] MEDS: FENTANYL 2,500MCG/NS250ML(*CRX 2,500 MCG/250 ML BAG 20 MCG IV CONT (16:59)
[2023-06-09] MEDS: VANCOMYCIN 1,500 MG/NS 500 ML 1,500 MG/500 ML BAG 250 MG IVPB (18:07)
[2023-06-09] MEDS: MIDAZOLAM 100MG/NS 100ML(*CRX) 100 MG/100 ML BAG 6 MG IV CONT (18:07)
[2023-06-09 19:38] LABS: MRSA (PCR) NOT DETECTED (NOT DETECTE)
[2023-06-09] MEDS: MONTELUKAST SODIUM 10 MG TABLET PO (20:02)
[2023-06-09] MEDS: ATORVASTATIN 40 MG TABLET 80 MG PO (20:02)
[2023-06-09 20:49] LABS: Glucose Point of Care 122 mg/dl (65-105)
[2023-06-09 23:58] LABS: Glucose Point of Care 121 mg/dl (65-105)
--- NOTE | 2023-06-09 23:58 | PC.NURSE ---
Wedding ring removed and placed in the safe with patient label and appropriate envelope. RN will ask day shift RN to give to tomorrow.
[2023-06-10] VITALS (37 sets, daily range): BP systolic 108–139; BP diastolic 61–72; PULSE 58–94; RESP 18–24; TEMP 36.8–37.2; O2SAT 93–99
[2023-06-10] MEDS: LEVALBUTEROL NEB 1.25 MG/3 ML INHALATION ×4 (02:12→20:30)
[2023-06-10] MEDS: IPRATROPIUM BR 0.02% INH SOLN 0.5 MG/2.5 ML VIAL INHALATION ×4 (02:12→20:30)
[2023-06-10 03:55] LABS: Basophils Percent Auto 0.2 % (0.2-1.2); Eosinophils Percent Auto 0.1 % (0-4.4); Hematocrit 38.9 % (42.0-52.0); Hemoglobin 12.3 g/dL (14.0-18.0); Immature Granulocyte Absolute 0.21 K/mm3 (0.00-0.031); Immature Granulocyte Percent A 1.1 % (0-0.5); Lymphocytes Percent Auto 8.2 % (18.3-44.2); Mean Corpuscular HGB Conc 31.6 g/dl (32-36); Mean Corpuscular Hemoglobin 30.1 pg (26-34); Mean Corpuscular Volume 95.3 fl (80-100); Monocytes Absolute Auto 1.4 K/mm3 (0.1-0.6); Monocytes Percent Auto 7.3 % (2.6-8.5); Neutrophils Absolute Auto 16.3 K/mm3 (1.3-6.7); Neutrophils Percent Auto 83.1 % (45.5-73.1); Nucleated Red Blood Cells Perc 0.1 % (0.0-0.2); Platelet Count Result 193 k/mm3 (150-375); Red Blood Count 4.08 M/mm3 (4.6-6.20); Red Cell Distribution Width 13.9 % (11.5-14.5); White Blood Count 19.6 K/mm3 (4.5-10.0)
[2023-06-10 04:17] LABS: Alanine Aminotransferase 33 U/L (6-50); Albumin Level 3.4 g/dL (3.5-5.1); Alkaline Phosphatase 65 U/L (38-126); Anion Gap 3 mmol/L (8-16); Aspartate Amino Transferase 28 U/L (17-59); Bilirubin,Total 0.7 mg/dL (0.2-1.3); Blood Urea Nitrogen 37 mg/dL (9-20); Calcium 8.8 mg/dL (8.4-10.2); Carbon Dioxide 37 mmol/L (22-30); Chloride 104 mmol/L (98-107); Estimated CRCL calculation 79 ml/min; Estimated Glomerular Filt Rate > 60; Glucose 182 mg/dL (65-110); Potassium 4.1 mmol/L (3.4-5.0); Sodium 144 mmol/L (137-145)
[2023-06-10] MEDS: FENTANYL 2,500MCG/NS250ML(*CRX 2,500 MCG/250 ML BAG 20 MCG IV CONT ×2 (05:14→19:31)
[2023-06-10] MEDS: MIDAZOLAM 100MG/NS 100ML(*CRX) 100 MG/100 ML BAG 9 MG IV CONT (05:18)
[2023-06-10] MEDS: CEFEPIME 2 GM/NS 50 ML 2 GM/50 ML BAG IVPB ×3 (05:21→20:41)
[2023-06-10] MEDS: VANCOMYCIN 1,500 MG/NS 500 ML 1,500 MG/500 ML BAG 250 MG IVPB ×2 (07:00→18:33)
[2023-06-10 07:40] LABS: Glucose Point of Care 182 mg/dl (65-105)
[2023-06-10 08:00] LABS: Base Excess ABG 5.2 mEq/l (+/-2.0); Fractional Inspired Oxygen 40 %; HCO3 ABG 30.3 mEq/l (22.0-26.0); Oxygen Saturation ABG 96.6 % (95.0-100.0); Oxyhemoglobin 94.7 % THb (90.0-100.0); PCO2 ABG 46.7 mmHg (35.0-45.0); PO2 ABG 85.5 mmHg (80.0-100.0); PO2 FiO2 Ratio Arterial Blood 2.14 %; Total Hemoglobin 12.7 g/dL (12.0-18.0)
[2023-06-10 08:07] LABS: Arterial Blood Gas PEEP 5 cmH2O; Arterial Blood Gas Tidal Volume 450 ml; Arterial Blood Gas Vent Mode CMV; Arterial Blood Gas Ventilator rate 18 /MIN; Device VENTILATOR; Modified Allen's Test Pass; Site Drawn RIGHT RADIAL
[2023-06-10] MEDS: ROFLUMILAST 500 MCG TABLET FEED TUBE (08:22)
[2023-06-10] MEDS: ENOXAPARIN 40 MG/0.4 ML SYRINGE SUB-Q (08:22)
[2023-06-10] MEDS: ASPIRIN 81 MG CHEWABLE TABLET FEED TUBE (08:22)
[2023-06-10] MEDS: polyethylene glycoL 3350 17 GM POWD.PACK PO (08:22)
[2023-06-10] MEDS: methylPREDNISolone SOD SUCC 40 MG VIAL IV PUSH (08:23)
[2023-06-10] MEDS: MICONAZOLE NITRATE 2% CREAM 30 GM TUBE 1 APPLIC TOPICAL ×2 (08:23→19:50)
[2023-06-10] MEDS: INSULIN GLARGINE (*BKC) 100 UNITS/ML 20 UNITS SUB-Q ×2 (08:24→19:50)
--- NOTE | 2023-06-10 08:26 | WPDINTPN ---
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 He also is not wheezing. I have decreased steroids to q.day which will be continued for now Continue bronchodilators and Dupixent ABG and chest x-ray pending vent settings reviewed. 06/08 patient was started on broad-spectrum antibiotics although he is afebrile. He does has a BC elevated but that could be from steroids and is improving. Nasal MRSA screen is negative. Blood cultures have been sent and are pending. Check procalcitonin (2) Type 2 diabetes mellitus with hyperglycemia, without long-term current use of insulin: Code(s): E11.65 - Type 2 diabetes mellitus with hyperglycemia Status: Acute Assessment and Plan: Start tube feeding Continue sliding scale Decreased steroids (3) Hypertension: Qualifiers: Hypertension type: unspecified Qualified Code(s): I10 - Essential (primary) hypertension Code(s): I10 - Essential (primary) hypertension Status: Chronic Assessment and Plan: Hold blood pressure medications since patient's blood pressure is not controlled range as he is sedated (4) Delirium: Code(s): R41.0 - Disorientation, unspecified Status: Acute Assessment and Plan: Likely secondary to benzodiazepine and steroids Head CT negative Patient now sedated intubated Sedation holiday plan for today Plan DVT prophylaxis -Lovenox Stress ulcer prophylaxis -Pepcid Nutrition -continue Tube Feeds Code Status -DNR 06/08 I spoke to patient's and patient's 's sister at bedside earlier in the morning and then had another meeting in conference room with both along with patient's sister and presence of patient's nurse Maricel.? They both told me that patient was living a relatively poor quality of life due to constant shortness of breath respiratory distress.? Multiple times he mentions that he could not take it anymore did not wanted to live like this.? He told his that he would rather have a heart attack than live a life of being constantly short of breath.? They were entertaining hospice and comfort care before patient got intubated.? Patient's believes the patient would never wanted to go on a ventilator if he a had clarity of his mind at the time of intubation.? They are considering hospice and comfort care.? I explained them the relative will irreversible nature of COPD damage to the lungs and the fact that patient at baseline is on oxygen and noninvasive positive pressure ventilation with persistent dyspnea and shortness of breath suggests significant symptomatic COPD.? I explained them the procedure of comfort care palliative extubation and hospice.? They would like patient to be made DNR at this time and wants to discuss with other family members before making any further decision on palliative extubation and comfort care.? I have modified the code status as per patient's assessment of patient's wishes. Total Critical Care Time - 30 minutes Due to a high probability of clinically significant, life threatening deterioration, the patient required my highest level of preparedness to intervene emergently and I personally spent this critical care time directly and personally managing the patient. This critical care time included obtaining a history; examining the patient; pulse oximetry; ordering and review of studies; arranging urgent treatmen
[2023-06-10] MEDS: MINERAL OIL/WHITE PETROLATUM OINTMENT 1 APPLIC EACH EYE ×2 (08:35→19:51)
[2023-06-10 09:09] LABS: Procalcitonin 0.1 ng/mL
--- NOTE | 2023-06-10 11:05 | PCFNICU ---
ICU Rounding Note: Pt current nutrition is Vital HP at 60 ml/hr. Last recorded weight is 92 kg, up from 91.9 kg on admit. Bowel Motility:+BM reported 06/07, miralax started. Labs Reviewed:Glu 182,BUN 37, Alb 3.4 Meds Noted:Cefepime, Miralax, Lantus Skin:WNL Additional Notes: Patient remains on mechanical vent and tube feedings of Vital HP at 60 ml/hr. Nursing reports patient is tolerating tube feedings. Flush 30 ml q 4 hours. Patient is now a DNR. Agree with diet orders at this time. Following daily in ICU rounds. Will monitor weight, labs, skin, meds, tube feeding tolerance every Thursday and Thursday.
[2023-06-10 11:32] LABS: Glucose Point of Care 259 mg/dl (65-105)
[2023-06-10] MEDS: INSULIN ASPART (*BKC) 100 UNITS/ML SUB-Q ×2 (12:27→16:46)
--- NOTE | 2023-06-10 13:36 | PC.NURSE ---
wedding ring was returned to , Virginie.
--- NOTE | 2023-06-10 15:38 | PM.IMPN ---
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 Patient has had multiple acute COPD exacerbations within the last few months and he also had COVID in the past year. Despite maximum therapy on admission. On the night of June 07 the patient became agitated and delirious and was pulling his BiPAP off and subsequently intubated and placed on mechanical ventilation and transferred to ICU. On 06/09 the patient remains delirious in spite of sedation holidays. Petroleum Inspector Supervisor managing. Ongoing discussions with the family about comfort care/extubation. Has been made DNR in the meantime by family. Otherwise, he appears to be in severe end-stage COPD while his COVID flu RSV PCR were negative and blood cultures negative. He remains on bronchodilators, steroids, antibiotics. FEN: Tube feeding. Saline lock IV. GI prophylaxis: Pepcid DVT prophylaxis: Lovenox Lines: ETT, peripheral IV Code Status: DNR Dispo: Stable. Ongoing discussions between family about goals of care and possibility of extubation/comfort care. Subjective Date/time seen: 06/10/23 15:38 Interval history: at bedside. Patient is intubated and sedated. Review of Systems Review of Systems: All systems reviewed & are unremarkable except as noted in HPI and below (Subjective) Exam Const: General: comfortable and no acute distress Other: Sedated Neck: Neck: supple Resp: Effort & Inspection: normal respiratory effort Other: Coarse mechanical breath sounds Cardio: Rate: regular rate Rhythm: regular rhythm GI: Inspection: distended GI Palp: Yes Soft to palpation Extrem: General: no edema Objective Data Vital Signs Vital Signs: Vital Signs - 24 hr 06/09/23 16:00 06/09/23 16:00 06/09/23 16:00 Temperature 98 F Pulse Rate 88 67 Respiratory Rate 18 Blood Pressure 119/68 Pulse Oximetry 98 Oxygen Delivery Fraction of Inspired Oxygen 40 06/09/23 16:59 06/09/23 16:59 06/09/23 18:07 Temperature Pulse Rate 66 69 68 Respiratory Rate 18 18 18 Blood Pressure Pulse Oximetry Oxygen Delivery Fraction of Inspired Oxygen 06/09/23 18:07 06/09/23 16:55 06/09/23 18:00 Temperature Pulse Rate 64 66 69 Respiratory Rate 18 Blood Pressure Pulse Oximetry 98 Oxygen Delivery Mechanical Ventilation Fraction of Inspired Oxygen 40 06/09/23 18:00 06/09/23 16:00 06/09/23 16:00 Temperature 98.8 F Pulse Rate 69 67 67 Respiratory Rate 18 18 18 Blood Pressure 114/69 Pulse Oximetry 97 98 Oxygen Delivery Mechanical Ventilation Fraction of Inspired Oxygen 40 06/09/23 18:00 06/09/23 19:00 06/09/23 20:00 Temperature Pulse Rate 88 66 67 Respiratory Rate 24 H 18 18 Blood Pressure Pulse Oximetry Oxygen Delivery Fraction of Inspired Oxygen 06/09/23 19:00 06/09/23 20:00 06/09/23 20:30 Temperature Pulse Rate 66 67 66 Respiratory Rate 18 18 18 Blood Pressure Pulse Oximetry Oxygen Delivery Fraction of Inspired Oxygen 06/09/23 20:30 06/09/23 20:40 06/09/23 22:00 Temperature Pulse Rate 67 66 71 Respiratory Rate 18 18 Blood Pressure Pulse Oximetry 96 Oxygen Delivery Mechanical Ventilation Fraction of Inspired Oxygen 40 06/09/23 21:00
[2023-06-10 16:34] LABS: Glucose Point of Care 267 mg/dl (65-105)
[2023-06-10 18:13] LABS: Vancomycin Trough 10.2 ug/mL (10.0-20.0)
[2023-06-10] MEDS: MIDAZOLAM 100MG/NS 100ML(*CRX) 100 MG/100 ML BAG 10 MG IV CONT (19:39)
[2023-06-10] MEDS: MIDAZOLAM HCL (*CRX) 2 MG/2 ML VIAL 5 MG IV PUSH (19:49)
[2023-06-10] MEDS: ATORVASTATIN 40 MG TABLET 80 MG PO (19:50)
[2023-06-10] MEDS: MONTELUKAST SODIUM 10 MG TABLET PO (19:50)
[2023-06-10 20:01] LABS: Glucose Point of Care 190 mg/dl (65-105)
[2023-06-11] VITALS (39 sets, daily range): BP systolic 112–130; BP diastolic 69–92; PULSE 60–91; RESP 18–23; TEMP 36.6–37.7; O2SAT 92–100
[2023-06-11 01:01] LABS: Glucose Point of Care 182 mg/dl (65-105)
[2023-06-11] MEDS: IPRATROPIUM BR 0.02% INH SOLN 0.5 MG/2.5 ML VIAL INHALATION ×4 (02:06→19:58)
[2023-06-11] MEDS: LEVALBUTEROL NEB 1.25 MG/3 ML INHALATION ×4 (02:06→19:58)
[2023-06-11 03:48] LABS: Basophils Percent Auto 0.1 % (0.2-1.2); Eosinophils Percent Auto 0.1 % (0-4.4); Hematocrit 35.9 % (42.0-52.0); Hemoglobin 11.8 g/dL (14.0-18.0); Immature Granulocyte Absolute 0.25 K/mm3 (0.00-0.031); Immature Granulocyte Percent A 1.6 % (0-0.5); Lymphocytes Absolute Auto 1.45 K/mm3 (0.9-3.2); Lymphocytes Percent Auto 9.2 % (18.3-44.2); Mean Corpuscular HGB Conc 32.9 g/dl (32-36); Mean Corpuscular Hemoglobin 30.6 pg (26-34); Mean Corpuscular Volume 93.2 fl (80-100); Monocytes Absolute Auto 1.1 K/mm3 (0.1-0.6); Monocytes Percent Auto 6.7 % (2.6-8.5); Neutrophils Percent Auto 82.3 % (45.5-73.1); Nucleated Red Blood Cells Perc 0.1 % (0.0-0.2); Platelet Count Result 156 k/mm3 (150-375); Red Blood Count 3.85 M/mm3 (4.6-6.20); Red Cell Distribution Width 13.8 % (11.5-14.5); White Blood Count 15.8 K/mm3 (4.5-10.0)
[2023-06-11 03:58] LABS: Alanine Aminotransferase 30 U/L (6-50); Albumin Level 3.2 g/dL (3.5-5.1); Alkaline Phosphatase 66 U/L (38-126); Anion Gap 1 mmol/L (8-16); Aspartate Amino Transferase 20 U/L (17-59); Bilirubin,Total 0.6 mg/dL (0.2-1.3); Blood Urea Nitrogen 30 mg/dL (9-20); Calcium 8.9 mg/dL (8.4-10.2); Carbon Dioxide 39 mmol/L (22-30); Chloride 104 mmol/L (98-107); Estimated CRCL calculation 100 ml/min; Estimated Glomerular Filt Rate > 60; Glucose 174 mg/dL (65-110); Magnesium 2.8 mg/dL (1.6-2.3); Potassium 4.3 mmol/L (3.4-5.0); Sodium 144 mmol/L (137-145)
[2023-06-11] MEDS: VANCOMYCIN 1,500 MG/NS 500 ML 1,500 MG/500 ML BAG 250 MG IVPB (04:52)
[2023-06-11 05:06] LABS: Alveolar/Arterial O2 Gradient 111.2 mmHg; Base Excess ABG 6.2 mEq/l (+/-2.0); Carboxyhemoglobin 0.3 % THb (0-2.0); Fractional Inspired Oxygen 35 %; HCO3 ABG 32.3 mEq/l (22.0-26.0); Methemoglobin ABG 0.5 %THb (0-1.5); Oxygen Content ABG 16.5 %vol (16.0-22.0); PCO2 ABG 53.5 mmHg (35.0-45.0); PO2 ABG 76.2 mmHg (80.0-100.0); PO2 FiO2 Ratio Arterial Blood 2.18 %; Reduced Hemoglobin 6.2 %THb (0-5.0); Total Hemoglobin 12.6 g/dL (12.0-18.0); pH ABG 7.399 (7.350-7.450)
[2023-06-11 05:09] LABS: Device VENTILATOR; Modified Allen's Test Pass; Site Drawn RIGHT RADIAL
[2023-06-11 05:10] LABS: Arterial Blood Gas PEEP 5 cmH2O; Arterial Blood Gas Tidal Volume 450 ml; Arterial Blood Gas Vent Mode CMV; Arterial Blood Gas Ventilator rate 18 /MIN
[2023-06-11] MEDS: CEFEPIME 2 GM/NS 50 ML 2 GM/50 ML BAG IVPB ×3 (05:11→21:45)
[2023-06-11] MEDS: MIDAZOLAM 100MG/NS 100ML(*CRX) 100 MG/100 ML BAG 10 MG IV CONT (05:40)
[2023-06-11] MEDS: FENTANYL 2,500MCG/NS250ML(*CRX 2,500 MCG/250 ML BAG 20 MCG IV CONT ×2 (05:43→18:10)
[2023-06-11 07:28] LABS: Glucose Point of Care 184 mg/dl (65-105)
--- NOTE | 2023-06-11 08:12 | WPDINTPN ---
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 He also is not wheezing. I have decreased steroids to q.day which will be continued for now Continue bronchodilators and Dupixent ABG and chest x-ray pending vent settings reviewed. 06/08 patient was started on broad-spectrum antibiotics although he is afebrile. He does WC elevated but that could be from steroids and is improving. Nasal MRSA screen is negative. Blood cultures have been sent and are negative till now. His procalcitonin level is low. I will discontinue vancomycin at this time and DC cefepime if culture remains negative through today Sedation holiday was performed and patient gets quickly agitated and trying to pull on lines and tubes and irregular breathing on the ventilator. Patient was re sedated as he was not ready for weaning trial. I will start Precedex infusion to see if that helps with sedation holiday (2) Type 2 diabetes mellitus with hyperglycemia, without long-term current use of insulin: Code(s): E11.65 - Type 2 diabetes mellitus with hyperglycemia Status: Acute Assessment and Plan: Start tube feeding Continue sliding scale and Lantus Continue steroids through 06/11 (3) Hypertension: Qualifiers: Hypertension type: unspecified Qualified Code(s): I10 - Essential (primary) hypertension Code(s): I10 - Essential (primary) hypertension Status: Chronic Assessment and Plan: Hold blood pressure medications since patient's blood pressure is not controlled range as he is sedated (4) Delirium: Code(s): R41.0 - Disorientation, unspecified Status: Acute Assessment and Plan: Likely secondary to benzodiazepine and steroids Head CT negative Patient now sedated intubated On holding sedation patient gets agitated. Will start Precedex infusion Plan DVT prophylaxis -Lovenox Stress ulcer prophylaxis -Protonix Nutrition -continue Tube Feeds Code Status -DNR 06/08 I spoke to patient's and patient's 's sister at bedside earlier in the morning and then had another meeting in conference room with both along with patient's sister and presence of patient's nurse Maricel.? They both told me that patient was living a relatively poor quality of life due to constant shortness of breath respiratory distress.? Multiple times he mentions that he could not take it anymore did not wanted to live like this.? He told his that he would rather have a heart attack than live a life of being constantly short of breath.? They were entertaining hospice and comfort care before patient got intubated.? Patient's believes the patient would never wanted to go on a ventilator if he a had clarity of his mind at the time of intubation.? They are considering hospice and comfort care.? I explained them the relative will irreversible nature of COPD damage to the lungs and the fact that patient at baseline is on oxygen and noninvasive positive pressure ventilation with persistent dyspnea and shortness of breath suggests significant symptomatic COPD.? I explained them the procedure of comfort care palliative extubation and hospice.? They would like patient to be made DNR at this time and wants to discuss with other family members before making any further decision on palliative extubation and comfort care.? I have modified the code status as per patient's assessment of p
[2023-06-11] MEDS: ASPIRIN 81 MG CHEWABLE TABLET FEED TUBE (08:44)
[2023-06-11] MEDS: dexmedeTOMIDine 400 MCG/100 ML 400 MCG/100 ML BAG IV CONT (08:44)
[2023-06-11] MEDS: MINERAL OIL/WHITE PETROLATUM OINTMENT 1 APPLIC EACH EYE ×2 (08:45→21:22)
[2023-06-11] MEDS: methylPREDNISolone SOD SUCC 40 MG VIAL IV PUSH (08:45)
[2023-06-11] MEDS: MICONAZOLE NITRATE 2% CREAM 30 GM TUBE 1 APPLIC TOPICAL ×2 (08:45→21:22)
[2023-06-11] MEDS: ENOXAPARIN 40 MG/0.4 ML SYRINGE SUB-Q (08:45)
[2023-06-11] MEDS: PANTOPRAZOLE SODIUM IV 40 MG VIAL IV PUSH (08:46)
[2023-06-11] MEDS: polyethylene glycoL 3350 17 GM POWD.PACK PO (08:46)
[2023-06-11] MEDS: ROFLUMILAST 500 MCG TABLET FEED TUBE (08:46)
[2023-06-11] MEDS: INSULIN GLARGINE (*BKC) 100 UNITS/ML 20 UNITS SUB-Q ×2 (08:47→21:19)
--- NOTE | 2023-06-11 10:43 | PCFNICU ---
ICU Rounding Note: Pt current nutrition is Vital HP at 60 ml/hr. Last recorded weight is 94.8 kg, up from 91, 9 kg on admit. Bowel Motility: Last BM reported 06/07-miralax given. Labs Reviewed:Glu 174, BUN 30, Hct 35.9,Hgb 11.8 Meds Noted:Miralax, Lantus, Vancomycin, Fentanyl, Versed, Precedex. Skin: WNL Additional Notes: Patient remains on mechanical vent. Tube feedings of Vital HP being tolerated at 60 ml/hr. Flush 30 ml q 4 hours. Agree with diet orders. Following daily in ICU rounds. Will monitor weight, labs, skin, meds, tube feeding tolerance every Thursday and Thursday.
[2023-06-11 11:11] LABS: Glucose Point of Care 191 mg/dl (65-105)
[2023-06-11] MEDS: LIDOCAINE HCL 1% PF INJ 5 ML VIAL INFILTRATE (12:00)
[2023-06-11 13:26] LABS: Adenovirus DNA Not Detected (Not Detected); Chlamydophila pneumoniae Not Detected (Not Detected); Coronavirus 229E Not Detected (Not Detected); Coronavirus HKU1 Not Detected (Not Detected); Coronavirus NL63 Not Detected (Not Detected); Coronavirus OC43 Not Detected (Not Detected); Human Metapneumovirus Not Detected (Not Detected); Human Parainfluenza Virus 1 Not Detected (Not Detected); Human Parainfluenza Virus 2 Not Detected (Not Detected); Human Parainfluenza Virus 3 Not Detected (Not Detected); Human Parainfluenza Virus 4 Not Detected (Not Detected); Human RSV B Not Detected (Not Detected); Influenza A Not Detected (Not Detected); Influenza B Not Detected (Not Detected); Mycoplasma pneumoniae Not Detected (Not Detected); Rhinovirus/Enterovirus Not Detected (Not Detected)
[2023-06-11 15:07] LABS: Glucose Point of Care 265 mg/dl (65-105)
[2023-06-11] MEDS: dexmedeTOMIDine 400 MCG/100 ML 400 MCG/100 ML BAG 14.22 MCG IV CONT ×2 (15:43→22:24)
[2023-06-11] MEDS: CENTRAL LINE FLUSH 10 ML IV PUSH ×2 (15:46→21:46)
[2023-06-11] MEDS: MIDAZOLAM 100MG/NS 100ML(*CRX) 100 MG/100 ML BAG 8 MG IV CONT (16:44)
[2023-06-11] MEDS: INSULIN ASPART (*BKC) 100 UNITS/ML SUB-Q ×2 (17:15→21:18)
[2023-06-11 19:09] LABS: Vancomycin Trough 9.2 ug/mL (10.0-20.0)
[2023-06-11 20:20] LABS: Glucose Point of Care 233 mg/dl (65-105)
[2023-06-11] MEDS: MONTELUKAST SODIUM 10 MG TABLET PO (21:18)
[2023-06-11] MEDS: ATORVASTATIN 40 MG TABLET 80 MG PO (21:18)
[2023-06-12] VITALS (53 sets, daily range): BP systolic 106–164; BP diastolic 71–105; PULSE 64–131; RESP 12–24; TEMP 37.2–38; O2SAT 90–96
[2023-06-12 00:19] LABS: Glucose Point of Care 196 mg/dl (65-105)
[2023-06-12] MEDS: IPRATROPIUM BR 0.02% INH SOLN 0.5 MG/2.5 ML VIAL INHALATION ×4 (02:00→20:28)
[2023-06-12] MEDS: LEVALBUTEROL NEB 1.25 MG/3 ML INHALATION ×4 (02:03→20:28)
[2023-06-12] MEDS: INSULIN ASPART (*BKC) 100 UNITS/ML SUB-Q ×3 (04:23→16:08)
[2023-06-12 05:07] LABS: Alveolar/Arterial O2 Gradient 116.8 mmHg; Base Excess ABG 6.4 mEq/l (+/-2.0); Carboxyhemoglobin 0.3 % THb (0-2.0); Fractional Inspired Oxygen 35 %; HCO3 ABG 32.3 mEq/l (22.0-26.0); Methemoglobin ABG 0.4 %THb (0-1.5); Oxygen Content ABG 16.1 %vol (16.0-22.0); Oxygen Saturation ABG 94.6 % (95.0-100.0); PCO2 ABG 51.7 mmHg (35.0-45.0); PO2 ABG 72.7 mmHg (80.0-100.0); PO2 FiO2 Ratio Arterial Blood 2.08 %; Reduced Hemoglobin 6.3 %THb (0-5.0); Total Hemoglobin 12.3 g/dL (12.0-18.0); pH ABG 7.413 (7.350-7.450)
[2023-06-12 05:08] LABS: Device VENTILATOR; Modified Allen's Test Pass; Site Drawn LEFT RADIAL
[2023-06-12 05:09] LABS: Arterial Blood Gas PEEP 5 cmH2O; Arterial Blood Gas Tidal Volume 450 ml; Arterial Blood Gas Vent Mode CMV; Arterial Blood Gas Ventilator rate 18 /MIN
[2023-06-12 05:20] LABS: Basophils Percent Auto 0.2 % (0.2-1.2); Eosinophils Absolute Auto 0.1 K/mm3 (0-0.3); Eosinophils Percent Auto 0.5 % (0-4.4); Hematocrit 35.9 % (42.0-52.0); Hemoglobin 11.7 g/dL (14.0-18.0); Immature Granulocyte Absolute 0.23 K/mm3 (0.00-0.031); Immature Granulocyte Percent A 1.4 % (0-0.5); Lymphocytes Absolute Auto 2.13 K/mm3 (0.9-3.2); Lymphocytes Percent Auto 12.9 % (18.3-44.2); Mean Corpuscular HGB Conc 32.6 g/dl (32-36); Mean Corpuscular Hemoglobin 30.3 pg (26-34); Mean Platelet Volume 10.6 fl (7.4-10.4); Monocytes Absolute Auto 0.9 K/mm3 (0.1-0.6); Monocytes Percent Auto 5.6 % (2.6-8.5); Neutrophils Absolute Auto 13.1 K/mm3 (1.3-6.7); Neutrophils Percent Auto 79.4 % (45.5-73.1); Nucleated Red Blood Cells Perc 0.1 % (0.0-0.2); Platelet Count Result 160 k/mm3 (150-375); Red Blood Count 3.86 M/mm3 (4.6-6.20); Red Cell Distribution Width 13.9 % (11.5-14.5); White Blood Count 16.5 K/mm3 (4.5-10.0)
[2023-06-12 05:25] LABS: Estimated CRCL calculation 102 ml/min; Estimated Glomerular Filt Rate > 60
[2023-06-12 05:25] LABS: Glucose Point of Care 208 mg/dl (65-105)
[2023-06-12] MEDS: dexmedeTOMIDine 400 MCG/100 ML 400 MCG/100 ML BAG 14.22 MCG IV CONT (05:25)
[2023-06-12 05:27] LABS: Alanine Aminotransferase 29 U/L (6-50); Albumin Level 3.3 g/dL (3.5-5.1); Alkaline Phosphatase 66 U/L (38-126); Anion Gap -1 mmol/L (8-16); Aspartate Amino Transferase 18 U/L (17-59); Bilirubin,Total 0.6 mg/dL (0.2-1.3); Blood Urea Nitrogen 36 mg/dL (9-20); Calcium 8.9 mg/dL (8.4-10.2); Carbon Dioxide 37 mmol/L (22-30); Chloride 103 mmol/L (98-107); Estimated CRCL calculation 102 ml/min; Estimated Glomerular Filt Rate > 60; Glucose 186 mg/dL (65-110); Potassium 4.2 mmol/L (3.4-5.0); Sodium 139 mmol/L (137-145)
[2023-06-12] MEDS: CEFEPIME 2 GM/NS 50 ML 2 GM/50 ML BAG IVPB (05:27)
[2023-06-12 05:31] LABS: Magnesium 2.6 mg/dL (1.6-2.3)
[2023-06-12] MEDS: CENTRAL LINE FLUSH 10 ML IV PUSH ×3 (05:58→20:36)
[2023-06-12] MEDS: FENTANYL 2,500MCG/NS250ML(*CRX 2,500 MCG/250 ML BAG 20 MCG IV CONT ×2 (07:19→19:32)
[2023-06-12] MEDS: MIDAZOLAM 100MG/NS 100ML(*CRX) 100 MG/100 ML BAG IV CONT (07:22)
[2023-06-12 08:07] LABS: Glucose Point of Care 175 mg/dl (65-105)
[2023-06-12] MEDS: ASPIRIN 81 MG CHEWABLE TABLET FEED TUBE (08:32)
[2023-06-12] MEDS: polyethylene glycoL 3350 17 GM POWD.PACK PO (08:33)
[2023-06-12] MEDS: ROFLUMILAST 500 MCG TABLET FEED TUBE (08:33)
[2023-06-12] MEDS: methylPREDNISolone SOD SUCC 40 MG VIAL IV PUSH (08:33)
[2023-06-12] MEDS: ENOXAPARIN 40 MG/0.4 ML SYRINGE SUB-Q (08:33)
[2023-06-12] MEDS: INSULIN GLARGINE (*BKC) 100 UNITS/ML 20 UNITS SUB-Q ×2 (08:33→20:34)
[2023-06-12] MEDS: PANTOPRAZOLE SODIUM IV 40 MG VIAL IV PUSH (08:33)
[2023-06-12] MEDS: MINERAL OIL/WHITE PETROLATUM OINTMENT 1 APPLIC EACH EYE ×2 (08:54→20:34)
[2023-06-12] MEDS: MICONAZOLE NITRATE 2% CREAM 30 GM TUBE 1 APPLIC TOPICAL ×2 (08:54→20:34)
[2023-06-12] MEDS: MIDAZOLAM HCL (*CRX) 2 MG/2 ML VIAL 4 MG IV PUSH (08:56)
[2023-06-12] MEDS: INSULIN GLARGINE (*BKC) 100 UNITS/ML SUB-Q (08:56)
--- NOTE | 2023-06-12 09:35 | WPDINTPN ---
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 He also is not wheezing. I have decreased steroids to q.day which will be continued for now Continue bronchodilators and Dupixent ABG and chest x-ray reviewed vent settings reviewed. 06/08 patient was started on broad-spectrum antibiotics although he is afebrile. He does WC elevated but that could be from steroids and is improving. Nasal MRSA screen is negative. Blood cultures have been sent and are negative till now. His procalcitonin level is low. I will discontinue vancomycin at this time and DC cefepime if culture remains negative through today Sedation holiday was performed and patient gets quickly agitated and trying to pull on lines and tubes and irregular breathing on the ventilator. Patient was re sedated as he was not ready for weaning trial. I will start Precedex infusion to see if that helps with sedation holiday 06/11 on loading sedation patient became tachypneic with increased work of breathing in use of accessory muscles. He is not a candidate for weaning trial at this time. Continue treatment as above. Afebrile, decreasing WBC, normal procalcitonin, negative culture, no significant infiltrate on the chest x-ray. Will DC cefepime (2) Type 2 diabetes mellitus with hyperglycemia, without long-term current use of insulin: Code(s): E11.65 - Type 2 diabetes mellitus with hyperglycemia Status: Acute Assessment and Plan: Start tube feeding Continue sliding scale and Lantus. Increase Lantus dose Continue steroids through 06/11 (3) Hypertension: Qualifiers: Hypertension type: unspecified Qualified Code(s): I10 - Essential (primary) hypertension Code(s): I10 - Essential (primary) hypertension Status: Chronic Assessment and Plan: Hold blood pressure medications since patient's blood pressure is not controlled range as he is sedated (4) Delirium: Code(s): R41.0 - Disorientation, unspecified Status: Acute Assessment and Plan: Likely secondary to benzodiazepine and steroids Head CT negative Patient now sedated intubated On holding sedation patient gets agitated. Continue precedex infusion Plan DVT prophylaxis -Lovenox Stress ulcer prophylaxis -Protonix Nutrition -continue Tube Feeds Code Status -DNR 06/08 I spoke to patient's and patient's 's sister at bedside earlier in the morning and then had another meeting in conference room with both along with patient's sister and presence of patient's nurse Maricel.? They both told me that patient was living a relatively poor quality of life due to constant shortness of breath respiratory distress.? Multiple times he mentions that he could not take it anymore did not wanted to live like this.? He told his that he would rather have a heart attack than live a life of being constantly short of breath.? They were entertaining hospice and comfort care before patient got intubated.? Patient's believes the patient would never wanted to go on a ventilator if he a had clarity of his mind at the time of intubation.? They are considering hospice and comfort care.? I explained them the relative will irreversible nature of COPD damage to the lungs and the fact that patient at baseline is on oxygen and noninvasive positive pressure ventilation with persistent dyspnea and shortness of breath suggests signific
--- NOTE | 2023-06-12 10:37 | PCNFU ---
Nutrition Follow-Up Complete: Inadequate Energy Expenditure as related to mechanical vent as evidenced by tube feeding start. Goal: Meet estimated nutritional needs Patient is progressing towards goal. We will continue current goal. Pt current nutrition Vital HP at 60 ml/hr. Last recorded weight is 99.1 kg, up from 91.9 kg on admit. Bowel Motility: No BM reported. Labs Reviewed:BUN 36, Glu 186, Mg2.6 Meds Noted:Lantus, Miralax, Vancomycin, Precedex, Fentanyl, Versed. Skin: WNL Additional Notes: Patient remains on mechanical vent and tube feedings of Vital HP at 60 ml/hr and tolerating. Tube feedings providing 1320 kcals/84 gms protein/1104 ml water. Meeting 96% kcal needs at 15 kcal/kg and 76% protein needs at 1.2-1.4 gm/kg . Flush 30 ml q 4 hours. Sanitarian Aide has been discussing hospice with . Family to have discussions. Will continue to recommend same tube feedings and rates at this time. Will monitor in ICU rounds and reassessing weight, labs, skin, meds, tube feeding tolerance every Thursday and Thursday.
[2023-06-12] MEDS: dexmedeTOMIDine 400 MCG/100 ML 400 MCG/100 ML BAG 23.7 MCG IV CONT ×2 (10:48→23:44)
[2023-06-12 11:44] LABS: Glucose Point of Care 248 mg/dl (65-105)
[2023-06-12] MEDS: dexmedeTOMIDine 400 MCG/100 ML 400 MCG/100 ML BAG 21.33 MCG IV CONT ×2 (15:04→19:36)
--- NOTE | 2023-06-12 15:57 | PM.IMPN ---
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 He also is not wheezing. steroids reduced Continue bronchodilators and Dupixent ABG and chest x-ray reviewed vent settings reviewed. 06/08 patient was started on broad-spectrum antibiotics although he is afebrile. Intubated on 06/09/2306/11 on loading sedation patient became tachypneic with increased work of breathing in use of accessory muscles. He is not a candidate for weaning trial at this time. Continue treatment as above. Afebrile, decreasing WBC, normal procalcitonin, negative culture, no significant infiltrate on the chest x-ray. Will DC cefepime (2) Type 2 diabetes mellitus with hyperglycemia, without long-term current use of insulin: Code(s): E11.65 - Type 2 diabetes mellitus with hyperglycemia Status: Acute Assessment and Plan: Start tube feeding Continue sliding scale and Lantus. Increase Lantus dose Continue steroids through 06/11 (3) Hypertension: Qualifiers: Hypertension type: unspecified Qualified Code(s): I10 - Essential (primary) hypertension Code(s): I10 - Essential (primary) hypertension Status: Chronic Assessment and Plan: Hold blood pressure medications since patient's blood pressure is not controlled range as he is sedated (4) Delirium: Code(s): R41.0 - Disorientation, unspecified Status: Acute Assessment and Plan: Likely secondary to benzodiazepine and steroids Head CT negative Patient now sedated intubated On holding sedation patient gets agitated. Continue precedex infusion Plan DVT prophylaxis -Lovenox Stress ulcer prophylaxis -Protonix Nutrition -continue Tube Feeds Code Status -DNR DATA: 06/03/23: EXAMINATION: CT diagnostic chest wo con INDICATION: COPD COMPARISON: 04/20/2023 FINDINGS: There is severe emphysema. There are few new scattered nodules in the left lung, the largest of which measures 5 mm in the left upper lobe on image 32. There is mild atelectasis in the lower lobes. No pleural effusion or pneumothorax. No pathologically enlarged thoracic lymph nodes are identified. The heart size is normal. There is calcified coronary artery atherosclerosis. There is mild thoracic spondylosis. There is enlargement of the main and central pulmonary arteries, consistent with pulmonary hypertension. IMPRESSION: 1. Severe emphysema. 2. Multiple new small nodules of the left lung measuring up to 5 mm which are most consistent with infection/inflammation given the short interval between examinations. 04/20/23: EXAMINATION:CT diagnostic chest wo con INDICATION: COVID-19 pneumonia. COMPARISON: Chest CT 03/12/2023 FINDINGS: There is mild elevation of left hemidiaphragm. There is severe emphysema. There is mucous plugging in right lower lobe. There is mild atelectasis in the lower lobes. No pleural effusion. The heart size is normal. There are coronary artery calcifications. No pericardial effusion. There is diffuse hepatic steatosis. There is a 5.4 cm cyst of right kidney. There is mild bilateral gynecomastia. There is mild thoracic spondylosis and severe cervical spondylosis. IMPRESSION: 1. Severe emphysema. 03/12/23: Echo Summary ? 1. Complete two-dimensional, color flow and Doppler transthoracic echocardiogram is performed. ? 2. Left ventricular
[2023-06-12 16:08] LABS: Glucose Point of Care 250 mg/dl (65-105)
[2023-06-12] MEDS: MONTELUKAST SODIUM 10 MG TABLET PO (20:34)
[2023-06-12] MEDS: ATORVASTATIN 40 MG TABLET 80 MG PO (20:34)
[2023-06-12 20:54] LABS: Glucose Point of Care 191 mg/dl (65-105)
[2023-06-12] MEDS: MIDAZOLAM 100MG/NS 100ML(*CRX) 100 MG/100 ML BAG 7 MG IV CONT (23:47)
[2023-06-13] VITALS (66 sets, daily range): BP systolic 84–127; BP diastolic 56–85; PULSE 66–140; RESP 16–30; TEMP 37.2–39.3; O2SAT 93–97
[2023-06-13 00:51] LABS: Glucose Point of Care 171 mg/dl (65-105)
[2023-06-13] MEDS: LEVALBUTEROL NEB 1.25 MG/3 ML INHALATION ×4 (02:45→20:46)
[2023-06-13] MEDS: IPRATROPIUM BR 0.02% INH SOLN 0.5 MG/2.5 ML VIAL INHALATION ×4 (02:45→20:46)
[2023-06-13] MEDS: dexmedeTOMIDine 400 MCG/100 ML 400 MCG/100 ML BAG 21.33 MCG IV CONT (04:01)
[2023-06-13 04:14] LABS: Glucose Point of Care 175 mg/dl (65-105)
[2023-06-13] MEDS: CENTRAL LINE FLUSH 10 ML IV PUSH ×3 (05:08→21:44)
[2023-06-13 05:17] LABS: Basophils Percent Auto 0.1 % (0.2-1.2); Eosinophils Absolute Auto 0.2 K/mm3 (0-0.3); Eosinophils Percent Auto 0.9 % (0-4.4); Hematocrit 35.2 % (42.0-52.0); Hemoglobin 11.6 g/dL (14.0-18.0); Immature Granulocyte Absolute 0.34 K/mm3 (0.00-0.031); Immature Granulocyte Percent A 1.9 % (0-0.5); Lymphocytes Absolute Auto 2.81 K/mm3 (0.9-3.2); Lymphocytes Percent Auto 15.5 % (18.3-44.2); Mean Corpuscular Hemoglobin 30.9 pg (26-34); Mean Corpuscular Volume 93.9 fl (80-100); Mean Platelet Volume 10.7 fl (7.4-10.4); Monocytes Absolute Auto 1.1 K/mm3 (0.1-0.6); Monocytes Percent Auto 6.2 % (2.6-8.5); Neutrophils Absolute Auto 13.7 K/mm3 (1.3-6.7); Neutrophils Percent Auto 75.4 % (45.5-73.1); Nucleated Red Blood Cells Perc 0.2 % (0.0-0.2); Platelet Count Result 157 k/mm3 (150-375); Red Blood Count 3.75 M/mm3 (4.6-6.20); Red Cell Distribution Width 13.7 % (11.5-14.5); White Blood Count 18.2 K/mm3 (4.5-10.0)
[2023-06-13 05:26] LABS: Alanine Aminotransferase 29 U/L (6-50); Albumin Level 3.2 g/dL (3.5-5.1); Alkaline Phosphatase 64 U/L (38-126); Anion Gap 1 mmol/L (8-16); Aspartate Amino Transferase 23 U/L (17-59); Bilirubin,Total 0.6 mg/dL (0.2-1.3); Blood Urea Nitrogen 30 mg/dL (9-20); Calcium 8.8 mg/dL (8.4-10.2); Carbon Dioxide 38 mmol/L (22-30); Chloride 98 mmol/L (98-107); Estimated CRCL calculation 119 ml/min; Estimated Glomerular Filt Rate > 60; Glucose 183 mg/dL (65-110); Magnesium 2.3 mg/dL (1.6-2.3); Potassium 4.1 mmol/L (3.4-5.0); Sodium 137 mmol/L (137-145)
[2023-06-13 06:00] LABS: Alveolar/Arterial O2 Gradient 129.7 mmHg; Base Excess ABG 1.9 mEq/l (+/-2.0); Carboxyhemoglobin 0.1 % THb (0-2.0); Fractional Inspired Oxygen 35 %; HCO3 ABG 28.6 mEq/l (22.0-26.0); Methemoglobin ABG 0.5 %THb (0-1.5); Oxygen Saturation ABG 89.4 % (95.0-100.0); PO2 ABG 59.4 mmHg (80.0-100.0); Reduced Hemoglobin 10.4 %THb (0-5.0); pH ABG 7.358 (7.350-7.450)
[2023-06-13 06:03] LABS: Modified Allen's Test Pass; Site Drawn RIGHT RADIAL
[2023-06-13 06:04] LABS: Device VENTILATOR
[2023-06-13 06:05] LABS: Arterial Blood Gas PEEP 5 cmH2O; Arterial Blood Gas Tidal Volume 450 ml; Arterial Blood Gas Vent Mode CMV; Arterial Blood Gas Ventilator rate 18 /MIN
[2023-06-13 08:02] LABS: Glucose Point of Care 208 mg/dl (65-105)
[2023-06-13] MEDS: PANTOPRAZOLE SODIUM IV 40 MG VIAL IV PUSH (08:03)
[2023-06-13] MEDS: polyethylene glycoL 3350 17 GM POWD.PACK PO (08:03)
[2023-06-13] MEDS: ROFLUMILAST 500 MCG TABLET FEED TUBE (08:03)
[2023-06-13] MEDS: ENOXAPARIN 40 MG/0.4 ML SYRINGE SUB-Q (08:04)
[2023-06-13] MEDS: INSULIN GLARGINE (*BKC) 100 UNITS/ML 25 UNITS SUB-Q (08:04)
[2023-06-13] MEDS: INSULIN ASPART (*BKC) 100 UNITS/ML SUB-Q ×2 (08:04→16:45)
[2023-06-13] MEDS: ASPIRIN 81 MG CHEWABLE TABLET FEED TUBE (08:04)
[2023-06-13] MEDS: MICONAZOLE NITRATE 2% CREAM 30 GM TUBE 1 APPLIC TOPICAL (08:06)
[2023-06-13] MEDS: MINERAL OIL/WHITE PETROLATUM OINTMENT 1 APPLIC EACH EYE ×2 (08:06→20:11)
[2023-06-13] MEDS: FENTANYL 2,500MCG/NS250ML(*CRX 2,500 MCG/250 ML BAG 20 MCG IV CONT ×2 (08:19→20:49)
[2023-06-13] MEDS: dexmedeTOMIDine 400 MCG/100 ML 400 MCG/100 ML BAG 23.7 MCG IV CONT (08:20)
--- NOTE | 2023-06-13 09:15 | WPDINTPN ---
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 He also is not wheezing. I have decreased steroids to q.day which will be continued for now Continue bronchodilators and Dupixent ABG and chest x-ray reviewed Vent settings reviewed. 06/08 patient was started on broad-spectrum antibiotics although he is afebrile. He does WC elevated but that could be from steroids and is improving. Nasal MRSA screen is negative. Blood cultures have been sent and are negative till now. His procalcitonin level is low. I will discontinue vancomycin at this time and DC cefepime if culture remains negative through today Sedation holiday was performed and patient gets quickly agitated and trying to pull on lines and tubes and irregular breathing on the ventilator. Patient was re sedated as he was not ready for weaning trial. I will start Precedex infusion to see if that helps with sedation holiday 06/11 on loading sedation patient became tachypneic with increased work of breathing in use of accessory muscles. He is not a candidate for weaning trial at this time. Continue treatment as above. Afebrile, decreasing WBC, normal procalcitonin, negative culture, no significant infiltrate on the chest x-ray. Will DC cefepime 06/12 on loading sedation patient becomes tachypneic with increased work of breathing and use of accessory muscles with worsening of vital signs. Not a candidate for weaning trial this time. He has completed steroids and course of antibiotics and is off of both. Continue bronchodilators. He is on Precedex infusion for anxiolysis and Versed and fentanyl infusion for sedation (2) Type 2 diabetes mellitus with hyperglycemia, without long-term current use of insulin: Code(s): E11.65 - Type 2 diabetes mellitus with hyperglycemia Status: Acute Assessment and Plan: Continue tube feeding Continue sliding scale and Lantus. Off steroids now (3) Hypertension: Qualifiers: Hypertension type: unspecified Qualified Code(s): I10 - Essential (primary) hypertension Code(s): I10 - Essential (primary) hypertension Status: Chronic Assessment and Plan: Hold blood pressure medications since patient's blood pressure is not controlled range as he is sedated (4) Delirium: Code(s): R41.0 - Disorientation, unspecified Status: Acute Assessment and Plan: Likely secondary to benzodiazepine and steroids Head CT negative Patient now sedated intubated On holding sedation patient gets agitated. Continue precedex infusion Plan DVT prophylaxis -Lovenox Stress ulcer prophylaxis -Protonix Nutrition -continue Tube Feeds Code Status -DNR 06/08 I spoke to patient's and patient's 's sister at bedside earlier in the morning and then had another meeting in conference room with both along with patient's sister and presence of patient's nurse Maricel.? They both told me that patient was living a relatively poor quality of life due to constant shortness of breath respiratory distress.? Multiple times he mentions that he could not take it anymore did not wanted to live like this.? He told his that he would rather have a heart attack than live a life of being constantly short of breath.? They were entertaining hospice and comfort care before patient got intubated.? Patient's believes the patient would never wanted to go on a ventilator if he a
[2023-06-13 11:41] LABS: Glucose Point of Care 192 mg/dl (65-105)
[2023-06-13] MEDS: dexmedeTOMIDine 400 MCG/100 ML 400 MCG/100 ML BAG 28.44 MCG IV CONT ×2 (12:28→21:43)
[2023-06-13 15:28] LABS: Glucose Point of Care 222 mg/dl (65-105)
[2023-06-13] MEDS: dexmedeTOMIDine 400 MCG/100 ML 400 MCG/100 ML BAG 30.81 MCG IV CONT (15:44)
--- NOTE | 2023-06-13 15:53 | PM.IMPN ---
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 He also is not wheezing. steroids reduced Continue bronchodilators and Dupixent ABG and chest x-ray reviewed vent settings reviewed. 06/08 patient was started on broad-spectrum antibiotics although he is afebrile. Intubated on 06/09/2306/11 on loading sedation patient became tachypneic with increased work of breathing in use of accessory muscles. He is not a candidate for weaning trial at this time. Continue treatment as above. Afebrile, decreasing WBC, normal procalcitonin, negative culture, no significant infiltrate on the chest x-ray. Will DC cefepime 06/13/23: Not a candidate for weaning trial; not on Abx or Steroids (2) Type 2 diabetes mellitus with hyperglycemia, without long-term current use of insulin: Code(s): E11.65 - Type 2 diabetes mellitus with hyperglycemia Status: Acute Assessment and Plan: Start tube feeding Continue sliding scale and Lantus. Increase Lantus dose Continue steroids through 06/11 (3) Hypertension: Qualifiers: Hypertension type: unspecified Qualified Code(s): I10 - Essential (primary) hypertension Code(s): I10 - Essential (primary) hypertension Status: Chronic Assessment and Plan: Hold blood pressure medications since patient's blood pressure is not controlled range as he is sedated (4) Delirium: Code(s): R41.0 - Disorientation, unspecified Status: Acute Assessment and Plan: Likely secondary to benzodiazepine and steroids Head CT negative Patient now sedated intubated On holding sedation patient gets agitated. Continue precedex infusion Plan DVT prophylaxis -Lovenox Stress ulcer prophylaxis -Protonix Nutrition -continue Tube Feeds Code Status -DNR 06/08 I spoke to patient's and patient's 's sister at bedside earlier in the morning and then had another meeting in conference room with both along with patient's sister and presence of patient's nurse Maricel.? They both told me that patient was living a relatively poor quality of life due to constant shortness of breath respiratory distress.? Multiple times he mentions that he could not take it anymore did not wanted to live like this.? He told his that he would rather have a heart attack than live a life of being constantly short of breath.? They were entertaining hospice and comfort care before patient got intubated.? Patient's believes the patient would never wanted to go on a ventilator if he a had clarity of his mind at the time of intubation.? They are considering hospice and comfort care.? I explained them the relative will irreversible nature of COPD damage to the lungs and the fact that patient at baseline is on oxygen and noninvasive positive pressure ventilation with persistent dyspnea and shortness of breath suggests significant symptomatic COPD.? I explained them the procedure of comfort care palliative extubation and hospice.? They would like patient to be made DNR at this time and wants to discuss with other family members before making any further decision on palliative extubation and comfort care.? I have modified the code status as per patient's assessment of patient's wishes. 06/11 Probable extubation and hospice discussions underway 06/13/23: Not a candidate for extubation trial today Time Spent With Patient Time with patient: 25 - 35 minut
[2023-06-13 16:41] LABS: Glucose Point of Care 240 mg/dl (65-105)
[2023-06-13] MEDS: ACETAMINOPHEN 325 MG TABLET 650 MG PO (18:28)
[2023-06-13] MEDS: dexmedeTOMIDine 400 MCG/100 ML 400 MCG/100 ML BAG 33.18 MCG IV CONT (18:40)
[2023-06-13] MEDS: MIDAZOLAM HCL (*CRX) 2 MG/2 ML VIAL 4 MG IV PUSH (18:54)
[2023-06-13] MEDS: TOLNAFTATE 1% POWDER 45 GM BTL 1 APPLIC TOPICAL (20:10)
[2023-06-13] MEDS: ATORVASTATIN 40 MG TABLET 80 MG PO (20:10)
[2023-06-13] MEDS: MONTELUKAST SODIUM 10 MG TABLET PO (20:10)
[2023-06-13] MEDS: INSULIN GLARGINE (*BKC) 100 UNITS/ML 20 UNITS SUB-Q (20:11)
[2023-06-13 20:26] LABS: Glucose Point of Care 172 mg/dl (65-105)
[2023-06-13] MEDS: MIDAZOLAM 100MG/NS 100ML(*CRX) 100 MG/100 ML BAG IV CONT (20:27)
[2023-06-14] VITALS (54 sets, daily range): BP systolic 90–173; BP diastolic 54–103; PULSE 62–140; RESP 18–23; TEMP 37.5–38.6; O2SAT 91–99
[2023-06-14 00:52] LABS: Glucose Point of Care 225 mg/dl (65-105)
[2023-06-14] MEDS: INSULIN ASPART (*BKC) 100 UNITS/ML SUB-Q ×5 (00:53→20:22)
[2023-06-14] MEDS: dexmedeTOMIDine 400 MCG/100 ML 400 MCG/100 ML BAG 30.81 MCG IV CONT ×2 (01:15→04:23)
[2023-06-14] MEDS: LEVALBUTEROL NEB 1.25 MG/3 ML INHALATION ×4 (02:27→20:14)
[2023-06-14] MEDS: IPRATROPIUM BR 0.02% INH SOLN 0.5 MG/2.5 ML VIAL INHALATION ×4 (02:27→20:14)
[2023-06-14 04:23] LABS: Glucose Point of Care 232 mg/dl (65-105)
[2023-06-14] MEDS: ACETAMINOPHEN 325 MG TABLET 650 MG PO (04:33)
[2023-06-14 04:56] LABS: Hematocrit 32.2 % (42.0-52.0); Hemoglobin 10.8 g/dL (14.0-18.0); Mean Corpuscular HGB Conc 33.5 g/dl (32-36); Mean Corpuscular Hemoglobin 30.8 pg (26-34); Mean Corpuscular Volume 91.7 fl (80-100); Mean Platelet Volume 10.6 fl (7.4-10.4); Platelet Count Result 153 k/mm3 (150-375); Red Blood Count 3.51 M/mm3 (4.6-6.20); Red Cell Distribution Width 13.8 % (11.5-14.5); White Blood Count 19.2 K/mm3 (4.5-10.0)
[2023-06-14] MEDS: CENTRAL LINE FLUSH 10 ML IV PUSH ×3 (04:58→21:09)
[2023-06-14 05:10] LABS: Anion Gap -3 mmol/L (8-16); Blood Urea Nitrogen 24 mg/dL (9-20); Calcium 8.4 mg/dL (8.4-10.2); Carbon Dioxide 38 mmol/L (22-30); Chloride 96 mmol/L (98-107); Estimated CRCL calculation 141 ml/min; Estimated Glomerular Filt Rate > 60; Glucose 224 mg/dL (65-110); Potassium 4.1 mmol/L (3.4-5.0); Sodium 131 mmol/L (137-145)
[2023-06-14 05:20] LABS: Magnesium 2.1 mg/dL (1.6-2.3)
[2023-06-14 05:59] LABS: Alveolar/Arterial O2 Gradient 203.4 mmHg; Base Excess ABG 7.9 mEq/l (+/-2.0); Carboxyhemoglobin 1.2 % THb (0-2.0); Fractional Inspired Oxygen 50 %; HCO3 ABG 34.5 mEq/l (22.0-26.0); Methemoglobin ABG 0.4 %THb (0-1.5); Oxygen Content ABG 21.2 %vol (16.0-22.0); Oxyhemoglobin 95.3 % THb (90.0-100.0); PCO2 ABG 54.6 mmHg (35.0-45.0); PO2 ABG 91.7 mmHg (80.0-100.0); PO2 FiO2 Ratio Arterial Blood 1.83 %; Reduced Hemoglobin 3.1 %THb (0-5.0); Total Hemoglobin 15.8 g/dL (12.0-18.0); pH ABG 7.418 (7.350-7.450)
[2023-06-14 06:00] LABS: Device VENTILATOR; Modified Allen's Test Pass; Site Drawn RIGHT RADIAL
[2023-06-14 06:01] LABS: Arterial Blood Gas PEEP 5 cmH2O; Arterial Blood Gas Vent Mode CMV; Arterial Blood Gas Ventilator rate 18 /MIN
[2023-06-14 06:02] LABS: Arterial Blood Gas Tidal Volume 450 ml
[2023-06-14 07:18] LABS: Glucose Point of Care 196 mg/dl (65-105)
[2023-06-14] MEDS: MIDAZOLAM HCL (*CRX) 2 MG/2 ML VIAL IV PUSH (07:36)
[2023-06-14] MEDS: dexmedeTOMIDine 400 MCG/100 ML 400 MCG/100 ML BAG 33.18 MCG IV CONT ×6 (07:36→22:01)
--- NOTE | 2023-06-14 08:03 | WPDINTPN ---
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 He also is not wheezing. I have decreased steroids to q.day which will be continued for now Continue bronchodilators and Dupixent 06/08 patient was started on broad-spectrum antibiotics although he is afebrile. He does WC elevated but that could be from steroids and is improving. Nasal MRSA screen is negative. Blood cultures have been sent and are negative till now. His procalcitonin level is low. I will discontinue vancomycin at this time and DC cefepime if culture remains negative through today Sedation holiday was performed and patient gets quickly agitated and trying to pull on lines and tubes and irregular breathing on the ventilator. Patient was re sedated as he was not ready for weaning trial. I will start Precedex infusion to see if that helps with sedation holiday 06/11 on loading sedation patient became tachypneic with increased work of breathing in use of accessory muscles. He is not a candidate for weaning trial at this time. Continue treatment as above. Afebrile, decreasing WBC, normal procalcitonin, negative culture, no significant infiltrate on the chest x-ray. Will DC cefepime 06/12 on loading sedation patient becomes tachypneic with increased work of breathing and use of accessory muscles with worsening of vital signs. Not a candidate for weaning trial this time. He has completed steroids and course of antibiotics and is off of both. Continue bronchodilators. He is on Precedex infusion for anxiolysis and Versed and fentanyl infusion for sedation 06/13 On sedation holiday this morning patient became agitated with increased work of breathing tachypnea tachycardia and elevated blood pressure. Not a candidate for weaning trial. Chest x-ray reviewed and advance ET tube by 3 cm. ABG and ventilator settings reviewed. Of steroids. Continue bronchodilators. Antibiotics as below. Continue Precedex fentanyl and Versed (2) Type 2 diabetes mellitus with hyperglycemia, without long-term current use of insulin: Code(s): E11.65 - Type 2 diabetes mellitus with hyperglycemia Status: Acute Assessment and Plan: Continue tube feeding Continue sliding scale and Lantus. Off steroids now (3) Hypertension: Qualifiers: Hypertension type: unspecified Qualified Code(s): I10 - Essential (primary) hypertension Code(s): I10 - Essential (primary) hypertension Status: Chronic Assessment and Plan: Hold blood pressure medications since patient's blood pressure is not controlled range as he is sedated (4) Delirium: Code(s): R41.0 - Disorientation, unspecified Status: Acute Assessment and Plan: Likely secondary to benzodiazepine and steroids Head CT negative Patient now sedated intubated On holding sedation patient gets agitated. Continue precedex infusion (5) Fever: Code(s): R50.9 - Fever, unspecified Status: Acute Assessment and Plan: Patient initially completed a course of Levaquin before he was intubated. Post intubation patient was started on empiric broad-spectrum antibiotics but did not appear to have any objective signs of infections and culture were negative. Antibiotics were discontinued after 48 hours 06/13 Patient now having fevers. WBC is mildly elevated despite being off of steroids. Will send repeat blood cultures and sputum cultu
[2023-06-14] MEDS: polyethylene glycoL 3350 17 GM POWD.PACK PO (08:16)
[2023-06-14] MEDS: MINERAL OIL/WHITE PETROLATUM OINTMENT 1 APPLIC EACH EYE ×2 (08:16→20:13)
[2023-06-14] MEDS: PANTOPRAZOLE SODIUM IV 40 MG VIAL IV PUSH (08:16)
[2023-06-14] MEDS: ROFLUMILAST 500 MCG TABLET FEED TUBE (08:16)
[2023-06-14] MEDS: TOLNAFTATE 1% POWDER 45 GM BTL 1 APPLIC TOPICAL ×2 (08:16→20:13)
[2023-06-14] MEDS: ENOXAPARIN 40 MG/0.4 ML SYRINGE SUB-Q (08:16)
[2023-06-14] MEDS: ASPIRIN 81 MG CHEWABLE TABLET FEED TUBE (08:17)
[2023-06-14] MEDS: INSULIN GLARGINE (*BKC) 100 UNITS/ML 25 UNITS SUB-Q (08:19)
[2023-06-14] MEDS: CEFEPIME 1 GM/NS 50 ML 1 GM/50 ML BAG IVPB ×2 (08:19→20:13)
[2023-06-14 10:18] LABS: Procalcitonin 0.3 ng/mL
[2023-06-14] MEDS: FENTANYL 2,500MCG/NS250ML(*CRX 2,500 MCG/250 ML BAG 20 MCG IV CONT ×2 (10:28→21:08)
[2023-06-14] MEDS: VANCOMYCIN 1,250 MG/NS 250 ML 1,250 MG/250 ML BAG 166.67 MG IVPB ×2 (10:29)
[2023-06-14 11:34] LABS: Glucose Point of Care 220 mg/dl (65-105)
[2023-06-14 11:39] LABS: Appearance Urine Cloudy (Clear); Bacteria Urine None Seen /hpf; Bilirubin Urine Negative (Negative); Blood Urine 2+ (Negative); Budding Yeast Urine Present /hpf; Color Urine Yellow (Yellow); Glucose Urine UA 1+ mg/dL (Negative); Ketones Urine Negative (Negative); Leukocyte Esterase Ur 2+ LEU/UL (Negative); Need Manual Microscopic Reviewed; Nitrate Urine Negative (Negative); Protein Urine 1+ mg/dL (Negative); RBC Urine 21-50 /hpf (0-2); Squamous Epithelial Cell Urine None Seen /hpf (Few); WBC Urine >100 /hpf (0-3); pH Urine 5.5 (5.0-9.0)
[2023-06-14 11:40] LABS: Add Urine Microscopic? YES
--- NOTE | 2023-06-14 14:06 | PM.IMPN ---
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 He also is not wheezing. steroids reduced Continue bronchodilators and Dupixent ABG and chest x-ray reviewed vent settings reviewed. 06/08 patient was started on broad-spectrum antibiotics although he is afebrile. Intubated on 06/09/2306/11 on loading sedation patient became tachypneic with increased work of breathing in use of accessory muscles. He is not a candidate for weaning trial at this time. Continue treatment as above. Afebrile, decreasing WBC, normal procalcitonin, negative culture, no significant infiltrate on the chest x-ray. Will DC cefepime 06/13/23: Not a candidate for weaning trial; not on Abx or Steroids 06/14/23:Not a candidate for weaning trial; Sedated and intubated. (2) Type 2 diabetes mellitus with hyperglycemia, without long-term current use of insulin: Code(s): E11.65 - Type 2 diabetes mellitus with hyperglycemia Status: Acute Assessment and Plan: Start tube feeding Continue sliding scale and Lantus. Increase Lantus dose Continue steroids through 06/11 (3) Hypertension: Qualifiers: Hypertension type: unspecified Qualified Code(s): I10 - Essential (primary) hypertension Code(s): I10 - Essential (primary) hypertension Status: Chronic Assessment and Plan: Hold blood pressure medications since patient's blood pressure is not controlled range as he is sedated (4) Delirium: Code(s): R41.0 - Disorientation, unspecified Status: Acute Assessment and Plan: Likely secondary to benzodiazepine and steroids Head CT negative Patient now sedated intubated On holding sedation patient gets agitated. Continue precedex infusion (5) Fever: Code(s): R50.9 - Fever, unspecified Status: Acute Assessment and Plan: 06/14/23: Cefepime and Vancomycin resumed; blood cultures sent Plan DVT prophylaxis -Lovenox Stress ulcer prophylaxis -Protonix Nutrition -continue Tube Feeds Code Status -DNR 06/08 I spoke to patient's and patient's 's sister at bedside earlier in the morning and then had another meeting in conference room with both along with patient's sister and presence of patient's nurse Maricel.? They both told me that patient was living a relatively poor quality of life due to constant shortness of breath respiratory distress.? Multiple times he mentions that he could not take it anymore did not wanted to live like this.? He told his that he would rather have a heart attack than live a life of being constantly short of breath.? They were entertaining hospice and comfort care before patient got intubated.? Patient's believes the patient would never wanted to go on a ventilator if he a had clarity of his mind at the time of intubation.? They are considering hospice and comfort care.? I explained them the relative will irreversible nature of COPD damage to the lungs and the fact that patient at baseline is on oxygen and noninvasive positive pressure ventilation with persistent dyspnea and shortness of breath suggests significant symptomatic COPD.? I explained them the procedure of comfort care palliative extubation and hospice.? They would like patient to be made DNR at this time and wants to discuss with other family members before making any further decision on palliative extubation and comfort care.? I have modified the cod
[2023-06-14 15:28] LABS: Hematocrit 28.4 % (42.0-52.0); Hemoglobin 9.3 g/dL (14.0-18.0); Immature Platelet Fraction Pct 8.7 % (0.9-11.2); Mean Corpuscular HGB Conc 32.7 g/dl (32-36); Mean Corpuscular Hemoglobin 30.4 pg (26-34); Mean Corpuscular Volume 92.8 fl (80-100); Mean Platelet Volume 10.9 fl (7.4-10.4); Platelet Count Result 133 k/mm3 (150-375); Red Blood Count 3.06 M/mm3 (4.6-6.20); Red Cell Distribution Width 13.6 % (11.5-14.5); White Blood Count 16.4 K/mm3 (4.5-10.0)
[2023-06-14 15:39] LABS: Lactic Acid Reflex 0.8 mmol/L (0.7-2.0)
[2023-06-14 15:40] LABS: INR 1.1; Prothrombin Time 14.9 Seconds (11.1-14.7)
[2023-06-14 15:40] LABS: Alanine Aminotransferase 29 U/L (6-50); Albumin Level 2.4 g/dL (3.5-5.1); Alkaline Phosphatase 64 U/L (38-126); Amylase 49 U/L (30-110); Anion Gap -2 mmol/L (8-16); Aspartate Amino Transferase 20 U/L (17-59); Bilirubin,Total 0.5 mg/dL (0.2-1.3); Blood Urea Nitrogen 20 mg/dL (9-20); Calcium 7.6 mg/dL (8.4-10.2); Carbon Dioxide 35 mmol/L (22-30); Chloride 93 mmol/L (98-107); Estimated CRCL calculation 120 ml/min; Estimated Glomerular Filt Rate > 60; Glucose 351 mg/dL (65-110); Lipase 29 U/L (23-300); Phosphorus 2.8 mg/dL (2.5-4.5); Potassium 3.8 mmol/L (3.4-5.0); Sodium 126 mmol/L (137-145)
[2023-06-14 15:41] LABS: Partial Thromboplastin Time 37.1 Seconds (22.3-36.8)
[2023-06-14 16:19] LABS: Hemoglobin A1C 8.6 % (<5.7)
[2023-06-14 16:36] LABS: Glucose Point of Care 225 mg/dl (65-105)
[2023-06-14] MEDS: VANCOMYCIN 1,500 MG/NS 500 ML 1,500 MG/500 ML BAG 250 MG IVPB (16:42)
[2023-06-14] MEDS: ATORVASTATIN 40 MG TABLET 80 MG PO (20:12)
[2023-06-14] MEDS: MONTELUKAST SODIUM 10 MG TABLET PO (20:12)
[2023-06-14 20:21] LABS: Glucose Point of Care 204 mg/dl (65-105)
[2023-06-14] MEDS: INSULIN GLARGINE (*BKC) 100 UNITS/ML 20 UNITS SUB-Q (20:21)
[2023-06-14 21:07] LABS: Hematocrit 29.1 % (42.0-52.0); Hemoglobin 9.6 g/dL (14.0-18.0); Mean Corpuscular Hemoglobin 30.7 pg (26-34); Mean Platelet Volume 10.6 fl (7.4-10.4); Platelet Count Result 146 k/mm3 (150-375); Red Blood Count 3.13 M/mm3 (4.6-6.20); Red Cell Distribution Width 13.8 % (11.5-14.5); White Blood Count 17.5 K/mm3 (4.5-10.0)
[2023-06-14 21:19] LABS: INR 1.1; Prothrombin Time 14.7 Seconds (11.1-14.7)
[2023-06-14 21:20] LABS: Partial Thromboplastin Time 35.2 Seconds (22.3-36.8)
[2023-06-14 21:26] LABS: Lactic Acid Reflex 0.7 mmol/L (0.7-2.0)
[2023-06-14 21:30] LABS: Alanine Aminotransferase 30 U/L (6-50); Albumin Level 2.6 g/dL (3.5-5.1); Alkaline Phosphatase 70 U/L (38-126); Amylase 50 U/L (30-110); Anion Gap 0 mmol/L (8-16); Aspartate Amino Transferase 19 U/L (17-59); Bilirubin,Total 0.6 mg/dL (0.2-1.3); Blood Urea Nitrogen 21 mg/dL (9-20); Calcium 8.1 mg/dL (8.4-10.2); Carbon Dioxide 34 mmol/L (22-30); Chloride 97 mmol/L (98-107); Estimated CRCL calculation 120 ml/min; Estimated Glomerular Filt Rate > 60; Glucose 226 mg/dL (65-110); Lipase 34 U/L (23-300); Magnesium 2.1 mg/dL (1.6-2.3); Phosphorus 2.8 mg/dL (2.5-4.5); Potassium 4.1 mmol/L (3.4-5.0); Sodium 131 mmol/L (137-145)
[2023-06-15] VITALS (35 sets, daily range): BP systolic 95–131; BP diastolic 54–77; PULSE 59–102; RESP 16–36; TEMP 37.6–38.4; O2SAT 0–100
[2023-06-15] MEDS: MIDAZOLAM HCL (*CRX) 2 MG/2 ML VIAL IV PUSH (00:02)
[2023-06-15] MEDS: ACETAMINOPHEN 325 MG TABLET 650 MG PO (00:04)
[2023-06-15 00:21] LABS: Glucose Point of Care 155 mg/dl (65-105)
[2023-06-15] MEDS: VANCOMYCIN 1,500 MG/NS 500 ML 1,500 MG/500 ML BAG 250 MG IVPB (00:51)
[2023-06-15] MEDS: dexmedeTOMIDine 400 MCG/100 ML 400 MCG/100 ML BAG 33.18 MCG IV CONT ×5 (00:56→13:02)
[2023-06-15] MEDS: LEVALBUTEROL NEB 1.25 MG/3 ML INHALATION ×2 (01:25→08:30)
[2023-06-15] MEDS: IPRATROPIUM BR 0.02% INH SOLN 0.5 MG/2.5 ML VIAL INHALATION ×2 (01:25→08:30)
[2023-06-15 03:27] LABS: Hematocrit 27.6 % (42.0-52.0); Hemoglobin 9.1 g/dL (14.0-18.0); Mean Corpuscular Hemoglobin 30.8 pg (26-34); Mean Corpuscular Volume 93.6 fl (80-100); Mean Platelet Volume 10.7 fl (7.4-10.4); Platelet Count Result 146 k/mm3 (150-375); Red Blood Count 2.95 M/mm3 (4.6-6.20); White Blood Count 16.9 K/mm3 (4.5-10.0)
[2023-06-15 03:40] LABS: INR 1.1; Partial Thromboplastin Time 34.6 Seconds (22.3-36.8); Prothrombin Time 15.1 Seconds (11.1-14.7)
[2023-06-15 03:42] LABS: Alanine Aminotransferase 40 U/L (6-50); Albumin Level 2.6 g/dL (3.5-5.1); Alkaline Phosphatase 77 U/L (38-126); Amylase 56 U/L (30-110); Anion Gap 0 mmol/L (8-16); Aspartate Amino Transferase 25 U/L (17-59); Bilirubin,Total 0.5 mg/dL (0.2-1.3); Blood Urea Nitrogen 19 mg/dL (9-20); Calcium 8.2 mg/dL (8.4-10.2); Carbon Dioxide 34 mmol/L (22-30); Chloride 98 mmol/L (98-107); Estimated CRCL calculation 120 ml/min; Estimated Glomerular Filt Rate > 60; Glucose 172 mg/dL (65-110); Lactic Acid Reflex 0.7 mmol/L (0.7-2.0); Lipase 35 U/L (23-300); Magnesium 2.2 mg/dL (1.6-2.3); Phosphorus 2.9 mg/dL (2.5-4.5); Potassium 4.1 mmol/L (3.4-5.0); Sodium 132 mmol/L (137-145)
[2023-06-15 03:46] LABS: Vancomycin Trough 32.1 ug/mL (10.0-20.0)
[2023-06-15 03:55] LABS: Base Excess ABG 7.5 mEq/l (+/-2.0); Carboxyhemoglobin 0.2 % THb (0-2.0); Fractional Inspired Oxygen 60 %; HCO3 ABG 33.3 mEq/l (22.0-26.0); Methemoglobin ABG 0.4 %THb (0-1.5); Oxygen Content ABG 14.7 %vol (16.0-22.0); Oxygen Saturation ABG 98.2 % (95.0-100.0); Oxyhemoglobin 96.6 % THb (90.0-100.0); PCO2 ABG 53.4 mmHg (35.0-45.0); PO2 ABG 117.1 mmHg (80.0-100.0); PO2 FiO2 Ratio Arterial Blood 1.95 %; Reduced Hemoglobin 2.8 %THb (0-5.0); Total Hemoglobin 10.7 g/dL (12.0-18.0); pH ABG 7.413 (7.350-7.450)
[2023-06-15 03:56] LABS: Arterial Blood Gas PEEP 8 cmH2O; Arterial Blood Gas Vent Mode CMV; Arterial Blood Gas Ventilator rate 18 /MIN; Device VENTILATOR; Modified Allen's Test Pass; Site Drawn RIGHT RADIAL
[2023-06-15 03:57] LABS: Arterial Blood Gas Tidal Volume 450 ml
[2023-06-15] MEDS: MIDAZOLAM 100MG/NS 100ML(*CRX) 100 MG/100 ML BAG IV CONT (04:28)
[2023-06-15] MEDS: CENTRAL LINE FLUSH 10 ML IV PUSH (06:29)
[2023-06-15 09:01] LABS: Vancomycin Trough 13.8 ug/mL (10.0-20.0)
[2023-06-15] MEDS: ASPIRIN 81 MG CHEWABLE TABLET FEED TUBE (09:34)
[2023-06-15] MEDS: ROFLUMILAST 500 MCG TABLET FEED TUBE (09:34)
[2023-06-15] MEDS: TOLNAFTATE 1% POWDER 45 GM BTL 1 APPLIC TOPICAL (09:35)
[2023-06-15] MEDS: PANTOPRAZOLE SODIUM IV 40 MG VIAL IV PUSH (09:35)
[2023-06-15] MEDS: CEFEPIME 1 GM/NS 50 ML 1 GM/50 ML BAG IVPB (09:35)
[2023-06-15] MEDS: ENOXAPARIN 40 MG/0.4 ML SYRINGE SUB-Q (09:35)
[2023-06-15] MEDS: polyethylene glycoL 3350 17 GM POWD.PACK PO (09:35)
[2023-06-15] MEDS: MINERAL OIL/WHITE PETROLATUM OINTMENT 1 APPLIC EACH EYE (09:35)
[2023-06-15] MEDS: FENTANYL 2,500MCG/NS250ML(*CRX 2,500 MCG/250 ML BAG 20 MCG IV CONT (10:36)
--- NOTE | 2023-06-15 12:02 | P.PNIM_ITS ---
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 He also is not wheezing. steroids reduced Continue bronchodilators and Dupixent ABG and chest x-ray reviewed vent settings reviewed. 06/08 patient was started on broad-spectrum antibiotics although he is afebrile. Intubated on 06/09/2306/11 on loading sedation patient became tachypneic with increased work of breathing in use of accessory muscles. He is not a candidate for weaning trial at this time. Continue treatment as above. Afebrile, decreasing WBC, normal procalcitonin, negative culture, no significant infiltrate on the chest x-ray. Will DC cefepime 06/13/23: Not a candidate for weaning trial; not on Abx or Steroids 06/14/23:Not a candidate for weaning trial; Sedated and intubated. (2) Type 2 diabetes mellitus with hyperglycemia, without long-term current use of insulin: Code(s): E11.65 - Type 2 diabetes mellitus with hyperglycemia Status: Acute Assessment and Plan: Start tube feeding Continue sliding scale and Lantus. Increase Lantus dose Continue steroids through 06/11 (3) Hypertension: Qualifiers: Hypertension type: unspecified Qualified Code(s): I10 - Essential ([place]) hypertension Code(s): I10 - Essential (primary) hypertension Status: Chronic Assessment and Plan: Hold blood pressure medications since patient's blood pressure is not controlled range as he is sedated (4) Delirium: Code(s): R41.0 - Disorientation, unspecified Status: Acute Assessment and Plan: Likely secondary to benzodiazepine and steroids Head CT negative Patient now sedated intubated On holding sedation patient gets agitated. Continue precedex infusion (5) Fever: Code(s): R50.9 - Fever, unspecified Status: Acute Assessment and Plan: 06/14/23: Cefepime and Vancomycin resumed; blood cultures sent Plan DVT prophylaxis -Lovenox Stress ulcer prophylaxis -Protonix Nutrition -continue Tube Feeds Code Status -DNR 06/08 I spoke to patient's and patient's 's sister at bedside earlier in the morning and then had another meeting in conference room with both along with patient's sister and presence of patient's nurse Maricel.? They both told me that patient was living a relatively poor quality of life due to constant shortness of breath respiratory distress.? Multiple times he mentions that he could not take it anymore did not wanted to live like this.? He told his that he would rather have a heart attack than live a life of being constantly short of breath.? They were entertaining hospice and comfort care before patient got intubated.? Patient's believes the patient would never wanted to go on a ventilator if he a had clarity of his mind at the time of intubation.? They are considering hospice and comfort care.? I explained them the relative will irreversible nature of COPD damage to the lungs and the fact that patient at baseline is on oxygen and noninvasive positive pressure ventilation with persistent dyspnea and shortness of breath suggests sign
--- NOTE | 2023-06-15 12:04 | WPDINTPN ---
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 He also is not wheezing. I have decreased steroids to q.day which will be continued for now Continue bronchodilators and Dupixent 06/08 patient was started on broad-spectrum antibiotics although he is afebrile. He does WC elevated but that could be from steroids and is improving. Nasal MRSA screen is negative. Blood cultures have been sent and are negative till now. His procalcitonin level is low. I will discontinue vancomycin at this time and DC cefepime if culture remains negative through today Sedation holiday was performed and patient gets quickly agitated and trying to pull on lines and tubes and irregular breathing on the ventilator. Patient was re sedated as he was not ready for weaning trial. I will start Precedex infusion to see if that helps with sedation holiday 06/11 on loading sedation patient became tachypneic with increased work of breathing in use of accessory muscles. He is not a candidate for weaning trial at this time. Continue treatment as above. Afebrile, decreasing WBC, normal procalcitonin, negative culture, no significant infiltrate on the chest x-ray. Will DC cefepime 06/12 on loading sedation patient becomes tachypneic with increased work of breathing and use of accessory muscles with worsening of vital signs. Not a candidate for weaning trial this time. He has completed steroids and course of antibiotics and is off of both. Continue bronchodilators. He is on Precedex infusion for anxiolysis and Versed and fentanyl infusion for sedation 06/13 On sedation holiday this morning patient became agitated with increased work of breathing tachypnea tachycardia and elevated blood pressure. Not a candidate for weaning trial. Chest x-ray reviewed and advance ET tube by 3 cm. ABG and ventilator settings reviewed. Of steroids. Continue bronchodilators. Antibiotics as below. Continue Precedex fentanyl and Versed 06/13 CT chest Wall thickening at the vanesa and proximal right mainstem bronchus, with marked narrowing of the proximal right mainstem bronchus, and to a lesser extent the left mainstem bronchus/vanesa. Please see details above. Neoplastic disease is not excluded. 2.1 cm enlarged left hilar lymph node. This could reflect metastatic lymph node versus inflammatory lymph nodes. Severe emphysema. Bibasilar patchy consolidation which could reflect atelectasis and/or pneumonia. Given above findings, underlying neoplastic disease is not completely excluded, though felt to be less likely given the overall CT appearance. No significant abnormality seen in the abdomen or pelvis. Patient currently on vancomycin and cefepime Family has decided to proceed with palliative extubation and comfort care -see below (2) Type 2 diabetes mellitus with hyperglycemia, without long-term current use of insulin: Code(s): E11.65 - Type 2 diabetes mellitus with hyperglycemia Status: Acute Assessment and Plan: Continue tube feeding Continue sliding scale and Lantus. Off steroids now (3) Hypertension: Qualifiers: Hypertension type: unspecified Qualified Code(s): I10 - Essential (primary) hypertension Code(s): I10 - Essential (primary) hypertension Status: Chronic Assessment and Plan: Hold blood pressure medications since patient's blood pressure is not controlled range as he is sedated (4)
--- NOTE | 2023-06-15 12:11 | PCFNICU ---
ICU Rounding Note: Pt current nutrition is Vital HP at 60 ml/hr. Last recorded weight is 102.6 kg, up from 91.9 kg on admit. Bowel Motility: No BM reported since 06/07-Miralax is on board. Labs Reviewed: Glu 172, Cr 0.6, Na 132,Alb 2.6 Meds Noted:Miralax, Lantus, Vancomycin, Precedex, Fentanyl. Skin: WNL Additional Notes: Patient remains on mechanical vent and tube feedings of Vital HP at 60 ml/hr. Tolerating tube feedings per nursing. Family has started coming to visit patient. Plans for palliative extubation today. Agree with diet orders. Following daily in ICU rounds. Will monitor weight, labs, skin, meds, tube feeding tolerance every Thursday and Thursday. .
[2023-06-15] MEDS: LORazepam INJ (*CRX) 2 MG/ML VIAL 4 MG IV PUSH (14:11)
[2023-06-15] MEDS: MORPHINE SULFATE INJ (*CRX) 10 MG/ML AMP 5 MG IV PUSH (14:11)
[2023-06-15] MEDS: MORPHINE 50 MG/NS 100ML (*CRX) 50 MG/100 ML BAG 10 MG IV CONT (14:27)
[2023-06-15] MEDS: MORPHINE SULFATE INJ (*CRX) 10 MG/ML AMP (14:43)
[2023-06-15 15:56] LABS: Glucose Point of Care 255 mg/dl (65-105)
[2023-06-15 15:56] LABS: Glucose Point of Care 249 mg/dl (65-105)
--- NOTE | 2023-06-15 16:55 | PM.DDS ---
Discharge Summary Date and Time Date of : 06/15/23 Time of : 16:28 Provider Pronounced By: Keyla Souza RN Probable Cause of Probable Cause of : Acute on chronic respiratory failure with hypoxia and hypercapnia: Summary Hospital Course: Chief Complaint: Shortness of breath, 10 day duration Narrative: Jeremiah Claire is a 62 yo M with a mHx significant for obesity, COPD/Asthma, chronic pain, depression, dyslipidemia. Recently from [facility] on 05/02/2023 status post COVID? treated with remdesivir and dexamethasone requiring noninvasive ventilation.? He was discharged on 3 L nasal cannula during the day and 4 L at night [facility].? He was to continue his home noninvasive ventilator with the settings of AVAPS AE rate of 14, tidal volume 500, minimum EPAP 5, maximum EPAP 15, minimum pressure support 6, maximum pressure support 25, inspiratory time 1.2 and 4 L bleed in.? These settings ? On his home machine in the hospital on 04/24/2023 resulted? adequate ventilation and oxygenation with an ABG at the end of the night of 7.45/41/78 and an overnight oximetry with adequate oxygenation. ? Patient has been clinically stable until 3 days ago when developed worsening shortness of breath and 1 day of worsening hypoxemia.? I will treat him for an asthma COPD exacerbation.? He developed worsening shortness of breath; aggravated by exertion, alleviated by rest and oxygen; severe enough to impair sleep; associated with malaise, cough, poor sleep. No chest pain, fevers,chills, nausea or vomiting. Quit smoking recently; no alcohol intake or recreational drug use. CT chest:?1. Severe emphysema. 2. Multiple new small nodules of the left lung measuring up to 5 mm which are most consistent with infection/inflammation given the short interval between examinations. VB.39; PCO2 42; Po2 114 He will be admitted, evaluated and managed for acute on chronic hypoxia and hypercarbia. Assessment and Plan (1) Acute on chronic respiratory failure with hypoxia and hypercapnia: ?Code(s): J96.21 - Acute and chronic respiratory failure with hypoxia; J96.22 - Acute and chronic respiratory failure with hypercapnia ?Status:?Acute ?Assessment and Plan: Patient appears to have severe end-stage COPD and now admitted with exacerbation PCR for COVID flu and RSV were negative Blood cultures have been negative Patient has been on BiPAP and AVAPS throughout his hospital course and eventually was intubated 06/08 He has been on steroids for many days without any significant improvement.? He also is not wheezing. steroids reduced Continue bronchodilators and Dupixent ABG and chest x-ray reviewed ?vent settings reviewed. 06/08 patient was started on broad-spectrum antibiotics although he is afebrile.??Intubated?on 06/09/2306/11 on loading sedation patient became tachypneic with increased work of breathing in use of accessory muscles.? He is not a candidate for weaning trial at this time.? Continue treatment as above.? Afebrile, decreasing WBC, normal procalcitonin, negative culture, no significant infiltrate on the chest x-ray.? Will DC cefepime 06/13/23: Not a candidate for weaning trial; not on Abx or Steroids 06/14/23:Not a candidate for weaning trial; Sedated and intubated. (2) Type 2 diabetes mellitus with hyperglycemia, without long-term current use of insulin: ?Code(s): E11.65 - Type 2 diabetes mellitus with hyperglycemia ?Status:?Acute ?Assessment and Plan: Start tube feeding Continue sliding scale and Lantus.? Increase Lantus dose Continue steroids through 06/11 (3) Hypertension: ?Qualifiers: ?Hypertension type:?unspecified? Qualified Code(s):?I10 - Essential (primary) hypertension ?Code(s): I10 - Essential (primary) hypertension ?Status:?Chronic ?Assessment and Plan: Hold blood pressure medications since patient's blood pressure is not controlled range as he is sedated (4) Delirium:
[2023-06-17 14:27] LABS: GGT 42 U/L (3-70)
[2023-06-17 14:27] LABS: GGT 43 U/L (3-70)
== END 2023-06-15 16:28 | disposition expired | DRG 130 ==
LOC: ANHED 05:25 → ANH2MED 07:35 → ANHIMU 07:35 → ANHICU 08:28 → ANH3MEDSUR 06-04 23:11 → ANHIMU 06-08 02:05 → ANHICU 06-09 04:55
PROVIDERS: Internal Medicine; Internal Medicine Pulmonary Disease; Admitting Provider Internal Medicine; Emergency Provider Emergency Medicine; PCP Internal Medicine; Visit Provider Internal Medicine
DX: J96.21 Acute and chronic respiratory failure with hypoxia (principal); J43.1 Panlobular emphysema; J96.22 Acute and chronic respiratory failure with hypercapnia; E11.42 Type 2 diabetes mellitus with diabetic polyneuropathy; E11.65 Type 2 diabetes mellitus with hyperglycemia; E66.9 Obesity, unspecified; E87.20 Acidosis, unspecified; F41.9 Anxiety disorder, unspecified; F32.A Depression, unspecified; G89.29 Other chronic pain; I11.0 Hypertensive heart disease with heart failure; I25.10 Atherosclerotic heart disease of native coronary artery without angina pectoris; I50.32 Chronic diastolic (congestive) heart failure; J43.9 Emphysema, unspecified; K21.9 Gastro-esophageal reflux disease without esophagitis; R91.8 Other nonspecific abnormal finding of lung field; R41.0 Disorientation, unspecified; T38.0X5A Adverse effect of glucocorticoids and synthetic analogues, initial encounter; T42.4X5A Adverse effect of benzodiazepines, initial encounter; R50.9 Fever, unspecified; Z66 Do not resuscitate; Z99.81 Dependence on supplemental oxygen; Z87.891 Personal history of nicotine dependence; Z95.5 Presence of coronary angioplasty implant and graft; Z86.16 Personal history of COVID-19; Z88.0 Allergy status to penicillin; Z68.33 Body mass index [BMI] 33.0-33.9, adult; E78.5 Hyperlipidemia, unspecified; Z79.4 Long term (current) use of insulin; Z79.85 Long-term (current) use of injectable non-insulin antidiabetic drugs; Z79.82 Long term (current) use of aspirin; Z20.822 Contact with and (suspected) exposure to COVID-19
CPT/HCPCS: 31500; 36415; 36569; 36600; 70450; 71045; 71046; 71250; 71260; 74177; 80048; 80053; 80202; 82150; 82248; 82375; 82565; 82803; 82805; 82948; 82977; 83036; 83050; 83605; 83690; 83735; 83880; 84100; 84145; 85025; 85027; 85055; 85380; 85610; 85730; 86850; 86900; 86901; 87040; 87070; 87077; 87086; 87088; 87106; 87186; 87205; 87633; 87637; 87641; 93005; 94002; 94003; 94640; 94762; 97161; 99285; A9270; C9113; J0456; J0692; J0696; J1650; J1815; J1940; J1956; J2060; J2250; J2270; J2920; J2930; J3010; J3370; J7030; J7512; Q9967